=== PATIENT | female | born 1950 | race Caucasian/White ===

== ENCOUNTER 2016-09-18 14:08 | Inpatient (IN) | payer OTHER ==
[2016-09-18] MEDS ORDERED: ONDANSETRON 4 MG/2 ML VIAL IVPUSH ONE (18:13)
[2016-09-18] MEDS ORDERED: SODIUM CHLORIDE 0.9% 1000 ML INFUS.BAG IV ONE (18:17)
--- NOTE | 2016-09-18 18:17 | PDOC ---
History of Present Illness - History of Present Illness Initial Comments: 09/18/16 18:14 65 yo F with h/o HTN, here wtih c/o sob, nausea, . nausea started 4 days ago, sob since yesterday cough dry nonproductive. pt unable to eat due to nausea and bloating. no weight loss. has had us gb and ct in last six months, normal per pt. no f/c no chest pain. no h/o dvt or pe. no mod factors. takes exforge 340 daily for htn. <Sulma Parkinson - Last Filed: 09/18/16 18:12> <Morelia Borrego - Last Filed: 09/19/16 19:32> - General Chief Complaint: Shortness of Breath Stated Complaint: Shortness of Breath Past History - Past Medical History Anemia: No Cardiac Disorders: Yes (ATRIAL FIBRILLATION) GI Disorders: Yes (ADENOMA SIGMOID COLON) HTN: Yes Hypercholesterolemia: Yes Other medical history: ble edema - Surgical History Orthopedic Surgery: Yes (RIGHT KNEE REPLACEMENT,l;eft kneeT ROTATOR CUFF REPAIR) - Psycho/Social/Smoking Cessation Hx Anxiety: No Suicidal Ideation: No Smoking History: Never smoked Have you smoked in the past 12 months: No Information on smoking cessation initiated: No Hx Alcohol Use: No Drug/Substance Use Hx: No Substance Use Type: None Hx Substance Use Treatment: No <Sulma Parkinson - Last Filed: 09/18/16 18:12> <Morelia Borrego - Last Filed: 09/19/16 19:32> - Past Medical History Allergies/Adverse Reactions: Allergies Allergy/AdvReac Type Severity Reaction Status Date / Time pregabalin [From Lyrica] Allergy Verified 09/18/16 14:10 Home Medications: Ambulatory Orders Cyclobenzaprine HCl [Flexeril -] 10 mg PO HS PRN 12/04/15 Duloxetine HCl [Cymbalta -] 60 mg PO DAILY 12/04/15 Gabapentin 600 mg PO DAILY 12/04/15 Meclizine HCl 25 mg PO DAILY 01/22/16 Potassium Chloride 20 meq PO DAILY 01/22/16 Valsartan [Diovan] 320 mg PO DAILY 01/22/16 Amlodipine Besylate [Norvasc -] 10 mg PO DAILY #30 tablet 04/10/16 Calcium 500Mg/Vit-D 200 Units [Os-Antonio 500+D -] 1 tab PO BID #60 tab 04/10/16 Docusate Sodium [Colace -] 300 mg PO HS capsule 04/10/16 Metoprolol Tartrate [Lopressor -] 50 mg PO BID #60 tablet 04/10/16 Oxycodone HCl [Roxicodone -] 10 mg PO Q4H PRN #20 tablet MDD 60mg 04/10/16 *Physical Exam - Vital Signs Last Vital Signs Temp Pulse Resp BP Pulse Ox 97.7 F 65 18 153/88 96 09/18/16 14:10 09/18/16 14:10 09/18/16 14:10 09/18/16 14:10 09/18/16 14:10 <Sulma Parkinson - Last Filed: 09/18/16 18:12> - Vital Signs Last Vital Signs Temp Pulse Resp BP Pulse Ox 97.7 F 65 18 153/88 96 09/18/16 14:10 09/18/16 14:10 09/18/16 14:10 09/18/16 14:10 09/18/16 14:10 <Morelia Borrego - Last Filed: 09/19/16 19:32> ED Treatment Course - LABORATORY CBC & Chemistry Diagram: 09/18/16 19:05 09/19/16 16:40 - ADDITIONAL ORDERS Additional order review: 09/18/16 19:05 RBC 4.12 MCV 103.8 H MCHC 33.0 RDW 16.1 H MPV 8.4 Neutrophils % 74.3 D Lymphocytes % 16.3 D Monocytes % 8.4 Eosinophils % 0.1 D Basophils % 0.9 - Medications Given in the ED: ED Medications Discontinued Medications Generic Name Dose Route Start Last Admin Trade Name Freq PRN Reason Stop Dose Admin Ondansetron HCl 4 mg 09/18/16 18:13 09/18/16 19:17 Zofran Injection IVPUSH 09/18/16 18:14 4 mg ONCE ONE Administration Sodium Chloride 1,000 ml 09/18/16 18:17 09/18/16 19:17 Normal Saline - IV 09/18/16 18:18 1,000 ml ONCE ONE Administration <Morelia Borrego - Last Filed: 09/19/16 19:32> Medical Decision Making - Medical Decision Making 09/18/16 21:28 I received signout on a patient with SOB and multiple complaints. Imaging studies are still pending. Pt has rapid afib on EKG. 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 US not read officially, but reveals no gallstones. Pt has one positive troponin, but no CK or CKMB. I will send a second cardiac enzyme profile. Pt's CXR was not done. I will send her for that now. <Morelia Borrego - Last Filed: 09/19/16 19:32> *DC/Admit/Observation/Transfer <Sulma Parkinson - Last Filed: 09/18/16 18:12> - Discharge Dispostion Admit: Yes <Morelia Borrego - Last Filed: 09/19/16 19:32> Diagnosis at time of Disposition: Atrial fibrillation, Rapid atrial fibrillation, Dyspnea, HTN (hypertension) - Referrals
[2016-09-18] MEDS ORDERED: ONDANSETRON 4 MG/2 ML VIAL ONE (18:51)
[2016-09-18 19:16] LABS: BASOPHIL 0.9 % (0-2.0); EOSINOPHIL 0.1 % (0-4.5); MCH 34.3 pg (25.7-33.7); MEAN CELL VOLUME 103.8 fl (80-96); MEAN PLT VOLUME 8.4 fl (7.5-11.1); NEUTROPHILS 74.3 % (42.8-82.8); PLATELET COUNT 378 K/MM3 (134-434); RDW 16.1 % (11.6-15.6); WHITE BLOOD COUNT 10.9 K/mm3 (4.0-10.0)
[2016-09-18 19:53] LABS: ALBUMIN 4.1 g/dl (3.4-5.0); CALCIUM 9.5 mg/dL (8.5-10.1)
[2016-09-18] MEDS ORDERED: dilTIAZem HCL 50 MG/10 ML - 10 ML VIAL IVPUSH ONE ×2 (19:53→22:44)
[2016-09-18 19:57] LABS: BILIRUBIN,TOTAL 0.9 mg/dL (0.2-1.0); COCKROFT - GAULT 83.9715; CREATININE 1.1 mg/dL (0.55-1.02); TOT PROT 7.2 g/dl (6.4-8.2)
[2016-09-18] MEDS ORDERED: dilTIAZem HCL 125 MG/25 ML - 25 ML VIAL ONE ×5 (20:03)
[2016-09-18] MEDS ORDERED: dilTIAZem HCL 60 MG TABLET (FP) PO ONE (21:31)
[2016-09-18 22:33] LABS: TROPONIN I 0.09 ng/ml (0.00-0.05)
[2016-09-18] MEDS ORDERED: dilTIAZem HCL 50 MG/10 ML - 10 ML VIAL ONE (22:54)
[2016-09-18] MEDS ORDERED: dilTIAZem HCL 30 MG TABLET (FP) ONE (23:01)
[2016-09-19] MEDS ORDERED: DILTIAZEM INJECTION 125 MG in DEXTROSE 5%-WATER - 100 ML IVPB SCH (01:30)
[2016-09-19] MEDS ORDERED: dilTIAZem HCL 50 MG/10 ML - 10 ML VIAL ONE (01:54)
[2016-09-19] MEDS ORDERED: ONDANSETRON 4 MG/2 ML VIAL ONE (02:14)
[2016-09-19] MEDS ORDERED: ONDANSETRON 4 MG/2 ML VIAL IVPB ONE (02:15)
[2016-09-19 03:15] LABS: URINE APPEARANCE CLEAR; URINE BILIRUBIN NEGATIVE (NEGATIVE); URINE BLOOD NEGATIVE (NEGATIVE); URINE COLOR DKYELLOW; URINE GLUCOSE (UA) NEGATIVE (NEGATIVE); URINE KETONE TRACE (NEGATIVE); URINE LEUK ESTERASE NEGATIVE (NEGATIVE); URINE NITRITE NEGATIVE (NEGATIVE); URINE UROBILINOGEN NEGATIVE E.U./dl (0.2-1.0)
[2016-09-19 03:18] LABS: URINE PROTEIN 2+ (NEGATIVE)
[2016-09-19 03:19] LABS: URINE HYALINE CAST 10 /lpf; URINE MUCUS RARE; URINE RBC 1 /hpf (0-3); URINE WBC 2 /hpf (3-5)
[2016-09-19] MEDS ORDERED: APIXABAN 5 MG TABLET PO SCH (04:00)
--- NOTE | 2016-09-19 05:26 | CONSULT ---
Consult Consult Specialty:: PULM/CCM - History of Present Illness Chief Complaint: SOB History of Present Illness: 65yow with PMHx of HTN, chronic low back pain with acute onset A-fib that was reportedly corrected 01/09 by cardioversion. 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 She presented to the ED with c/o SOB. In the ED HD stable, found to be in A-fib with RVR to 130's refractory to Cardizem IV 30mg and PO 90mg. CXR clear. Abd US showed no gallbladder disease. 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 She was started on a cardiazem drip and Eliquis and transferred to ICU for management. - Past Medical History Cardio/Vascular: Yes: HTN - Past Surgical History Past Surgical History: Yes: Joint Replacement - Alcohol/Substance Use Hx Alcohol Use: No History of Substance Use: reports: None - Smoking History Smoking history: Never smoked Have you smoked in the past 12 months: No - Social History ADL: Independent History of Recent Travel: No Home Medications - Allergies Allergies/Adverse Reactions: Allergies Allergy/AdvReac Type Severity Reaction Status Date / Time pregabalin [From Lyrica] Allergy Verified 09/18/16 14:10 - Home Medications Home Medications: Ambulatory Orders Cyclobenzaprine HCl [Flexeril -] 10 mg PO HS PRN 12/04/15 Duloxetine HCl [Cymbalta -] 60 mg PO DAILY 12/04/15 Gabapentin 600 mg PO DAILY 12/04/15 Meclizine HCl 25 mg PO DAILY 01/22/16 Potassium Chloride 20 meq PO DAILY 01/22/16 Valsartan [Diovan] 320 mg PO DAILY 01/22/16 Amlodipine Besylate [Norvasc -] 10 mg PO DAILY #30 tablet 04/10/16 Calcium 500Mg/Vit-D 200 Units [Os-Antonio 500+D -] 1 tab PO BID #60 tab 04/10/16 Docusate Sodium [Colace -] 300 mg PO HS capsule 04/10/16 Metoprolol Tartrate [Lopressor -] 50 mg PO BID #60 tablet 04/10/16 Oxycodone HCl [Roxicodone -] 10 mg PO Q4H PRN #20 tablet MDD 60mg 04/10/16 Family Disease History - Family Disease History Family History: Unremarkable Review of Systems - Review of Systems Constitutional: reports: Loss of Appetite, Weakness Eyes: reports: No Symptoms HENT: reports: No Symptoms Neck: reports: No Symptoms Cardiovascular: reports: Shortness of Breath Respiratory: reports: SOB Gastrointestinal: reports: Nausea, Vomiting Neurological: reports: No Symptoms Endocrine: reports: No Symptoms Psychiatric: reports: No Symptoms Physical Exam Vital Signs: Vital Signs Temperature 97.7 F 09/18/16 14:10 Pulse Rate 134 H 09/19/16 02:00 Respiratory Rate 21 09/19/16 01:39 Blood Pressure 143/96 09/19/16 02:00 O2 Sat by Pulse Oximetry (%) 95 09/19/16 01:39 Eyes: Yes: WNL, Conjunctiva Clear HENT: Yes: WNL, Normocephalic Neck: Yes: Trachea Midline Cardiovascular: Yes: Pulse Irregular, S1, S2 Respiratory: Yes: Regular, Diminished, On Nasal O2 Gastrointestinal: Yes: Soft, Abdomen, Obese, Other (Non-tender) Edema: Yes Edema: LUE: Trace, RUE: Trace, LLE: Trace, RLE: Trace Peripheral Pulses WNL: Yes Neurological: Yes: Alert, Oriented (oriented x3) ...Motor Strength: WNL Psychiatric: Yes: Alert, Oriented Imaging - Results Chest X-ray: Report Reviewed Ultrasound: Report Reviewed (Abd US unremarkable) Problem List - Problems (1) Atrial fibrillation Code(s): I48.91 - UNSPECIFIED ATRIAL FIBRILLATION (2) HTN (hypertension) Code(s): I10 - ESSENTIAL (PRIMARY) HYPERTENSION (3) Rapid atrial fibrillation Code(s): I48.91 - UNSPECIFIED ATRIAL FIBRILLATION (4) Dehydration Code(s): E86.0 - DEHYDRATION Assessment/Plan 65yow with PMHx of HTN, chronic low back pain with acute onset A-fib that was reportedly corrected 01/09 by cardioversion now with recurrence of paroxysmal A- fib with RVR to 130's c/b pulmonary edema Pulm: Respiratory deficiency in setting of A-fib; -NCO2 for O2 sat>95% -Diuresis wiht Lasix -Aspiration precautions CV-A-fib with RVR; Hx cardioversion in 2016; currently more hypertensive -Cards consult -Tele monitoring -Cont cardizem drip -Cont Eliquis -Hold home antihypertensives for now GI: Previous N/V -Zofran prn Neuro-Chronic back pain -Cont home pain regimen
[2016-09-19] MEDS ORDERED: FUROSEMIDE 40 MG/4 ML INJECTABLE VIAL IVPB ONE (05:30)
[2016-09-19 05:43] VITALS: BMI 38.7
[2016-09-19] MEDS ORDERED: FUROSEMIDE 40 MG/4 ML INJECTABLE VIAL ONE (06:01)
[2016-09-19] MEDS ORDERED: ONDANSETRON 4 MG/2 ML VIAL IVPUSH PRN (09:40)
[2016-09-19] MEDS ORDERED: METOPROLOL SUCCINATE 50 MG TAB.SR.24H (FP) PO SCH (10:00)
[2016-09-19] MEDS: POTASSIUM CHLORIDE TABS 20 MEQ TABLET.ER (FP) PO SCH (11:20)
[2016-09-19] MEDS: APIXABAN 5 MG TABLET PO SCH ×2 (11:22→21:18)
[2016-09-19] MEDS ORDERED: FUROSEMIDE 40 MG/4 ML INJECTABLE VIAL IVPUSH ONE (11:30)
--- NOTE | 2016-09-19 11:50 | HP ---
DATE OF ADMISSION: DATE OF DICTATION: 09/19/2016 HISTORY OF PRESENT ILLNESS: She is a 65-year-old female who presented to the emergency room with atrial fibrillation. She was in her usual state of health up until a year and a half ago when patient had 1 episode of atrial fibrillation. At that time, she was admitted and started on Eliquis. Subsequently developed a lower GI bleed that required no transfusion. Patient had 2 colonoscopies and endoscopies to evaluate this GI bleed and no obvious source was found except a polyp that was removed. Patient subsequently had a cardioversion and the Eliquis was discontinued and since then she had been asymptomatic up until 3 days ago when patient started feeling weak for the last 2 days and yesterday she started experiencing shortness of breath. With these symptoms, she brought herself to the emergency room where atrial fibrillation at a rate of 140 was diagnosed and patient had been admitted to the intensive care unit. PAST MEDICAL HISTORY: Significant for hypertension, a history of 1 episode of atrial fibrillation, low back pain with spinal fracture from trauma for which she had surgery done and chronic low back pain. PRESENT MEDICATIONS: Include Dilantin 20 mg p.o. daily, potassium 20 mEq p.o. daily, Roxicodone 10 mg q.4 hours p.r.n., metoprolol 50 mg twice a day, meclizine 25 mg daily, Neurontin 600 mg daily, Cymbalta 60 mg daily, Colace 300 mg daily, Flexeril 10 mg on a p.r.n. basis twice a day, calcium with vitamin D, and Norvasc 10 mg p.o. daily. ALLERGIES: LYRICA. SOCIAL HISTORY: She is . She has 3 children. 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 She is a nonsmoker. She drinks occasionally. FAMILY HISTORY: Significant for a brother, a son had of a brain tumor. There is no family history of diabetes. Her father had coronary artery disease at the age of 52. REVIEW OF SYSTEMS: Unremarkable. Patient had generally been in good health. She denies any chronic headache, dizziness, chest pain, palpitations, abdominal pain, loss of weight, loss of appetite. PHYSICAL EXAMINATION:Vital Signs: She has a blood pressure of 150/108, pulse rate of 128, respiratory rate of 22, and temperature 98.2. General: She is not pale, not icteric. Neck: JVD is absent. Thyroid and carotids appear normal. Heart: Regular rhythm. No murmurs. Lungs: Vesicular breathing. There are a few lower lobe rales present. Abdomen: Benign. Extremities: Have bilateral trace edema. LABORATORY DATA: She has a white count of 10,900 with MCV of normal distribution of cells. The MCV is elevated at 103. Basic metabolic profile is normal. Urinalysis is normal. A chest x-ray has cardiomegaly and mild congestion. ASSESSMENT AND PLAN: 1. Atrial fibrillation. Would resume Eliquis. Discontinue her and put her on Cardizem 120 mg 3 times a day, metoprolol 50 mg twice a day. 2. Mild congestive heart failure, most likely rate associated from atrial fibrillation, intravenous Lasix, and potassium. Would continue present medications and fine tune blood pressure later. 3. Obesity. 4. Chronic lower back pain. Continue present medications. Felicitas [id number]
--- NOTE | 2016-09-19 12:11 | CON.CARD ---
Cardiology Consult (text) - Consultation Consultation Note: CC: sob 65 yo with h/o afib, HTN, HLD, venous insufficiency, obesity, chronic nausea, gastritis with gastric erosions/prior bloody stool followed by Dr. Keller, fibromyalgia, h/o vertebroplasty and epidural injections who presents with acute onset sob. acute onset of sob this morning, as well as palps and diaphoresis. No recent f/ c/s, cough, congestion. states she was changed from diltiazem to metoprolol in March. Only takes it intermittently, but this month has had more frequent sensation of rapid heart rate and has been taking metoprolol more frequently. Has been off eliquis since back injury in March. States it was because she was told to hold it after back surgery and subsequently felt she shouldn't resume it b/c of her monthly epidural injections. chronic back pain. recent increase in pain, but states well controlled. chronic nausea. Recently has had poor po intake. Minimal intake over the past 2 weeks due to abdominal bloating and poor appetite. Last week took prn lasix 40 mg for LE edema, now improved. In ER received 30 mg IV dilt, started on IVF. 90 mg PO dilt. This morning received 100 mg IV lasix total. this morning transitioned to PO meds. Received toprol xl 50 mg and diltiazem 120 mg thus far. pmhx/pshx: per hpi social hx: fam hx: father fatal [place] 52; mother AAA repair 72; ros: per hpi, no h/a, rashes, visual disturbances, bleeding or transient neurologic symptoms. Ambulatory Orders Cyclobenzaprine HCl [Flexeril -] 10 mg PO HS PRN 12/04/15 Duloxetine HCl [Cymbalta -] 60 mg PO DAILY 12/04/15 Gabapentin 600 mg PO DAILY 12/04/15 Meclizine HCl 25 mg PO DAILY 01/22/16 Potassium Chloride 20 meq PO DAILY 01/22/16 Valsartan [Diovan] 320 mg PO DAILY 01/22/16 Amlodipine Besylate [Norvasc -] 10 mg PO DAILY #30 tablet 04/10/16 Calcium 500Mg/Vit-D 200 Units [Os-Antonio 500+D -] 1 tab PO BID #60 tab 04/10/16 Docusate Sodium [Colace -] 300 mg PO HS capsule 04/10/16 Metoprolol Tartrate [Lopressor -] 50 mg PO BID #60 tablet 04/10/16 Oxycodone HCl [Roxicodone -] 10 mg PO Q4H PRN #20 tablet MDD 60mg 04/10/16 Current Medications Apixaban (Eliquis -) 5 mg PO BID [facility] Last Admin: 09/19/16 11:22 Dose: Not Given Chlorhexidine Gluconate (Hibiclens For Decolonization -) 1 applic TP HS [facility] Diltiazem HCl (Cardizem -) 120 mg PO TID [facility] Metoprolol Succinate (Toprol Xl -) 50 mg PO BID [facility] Last Admin: 09/19/16 11:20 Dose: 50 mg Mupirocin (Bactroban Ointment (For Decolonization) -) 1 applic NS BID [facility] Stop: 09/24/16 21:59 Ondansetron HCl (Zofran Injection) 4 mg IVPUSH Q4H PRN PRN Reason: NAUSEA AND/OR VOMITING Stop: 09/19/16 21:41 Last Admin: 09/19/16 11:21 Dose: 4 mg Potassium Chloride (K-Dur -) 20 meq PO DAILY [facility] Last Admin: 09/19/16 11:20 Dose: 20 meq Vital Signs - 24 hr 09/18/16 09/18/16 09/18/16 14:10 20:00 20:15 Temperature 97.7 F Pulse Rate 65 Pulse Rate [ 170 H 133 H Left Radial] Respiratory 18 Rate Blood Pressure 153/88 Blood Pressure 144/112 [Right Arm] O2 Sat by Pulse 96 100 Oximetry (%) 09/19/16 09/19/16 09/19/16 01:39 02:00 04:45 Temperature Pulse Rate 134 H 128 H Pulse Rate [ 130 H Left Radial] Respiratory 21 Rate Blood Pressure 143/96 156/102 Blood Pressure 143/96 [Right Arm] O2 Sat by Pulse 95 Oximetry (%) 09/19/16 05:18 Temperature 98.2 F Pulse Rate 128 H Pulse Rate [ Left Radial] Respiratory 22 Rate Blood Pressure 152/108 Blood Pressure [Right Arm] O2 Sat by Pulse 97 Oximetry (%) Intake & Output 09/17/16 09/18/16 09/19/16 09/20/16 07:59 07:59 07:59 07:59 Intake Total 320 Balance 320 Weight 247 lb 3.2 oz NAD, calm JVD mild elevation, neck supple bibasilar rales, exp wheeze irregular rate and rhythm nl s1, s 2 no mrg + bs soft nt nd obese ext without e/c/c + dp/pt aaox3 no jaundice, + diaphoresis CBC, BMP 09/18/16 19:05 09/18/16 19:05 Laboratory Tests 09/18/16 09/18/16 09/18/16 19:05 19:05 21:40 Magnesium Total Bilirubin 0.9 D AST 54 H D ALT 35 Alkaline Phosphatase 80 Creatine Kinase 59 Troponin I 0.09 H 0.09 H TSH 09/19/16 13:45 Magnesium 1.6 L Total Bilirubin AST ALT Alkaline Phosphatase Creatine Kinase Troponin I TSH 4.17 H D EKG: poor baseline. afib with RVR, 173 bpm. non-specific t wave ab/poor baseline. tele: rate controlled afib 100's. + pvc's, nsvt. episode of slow VT vs. aberrant conduction. CXR 09/18: left retrocardiac opacity (atelectasis vs. pna) JUST[facility] 2015: nl lv/rv no intracardiac thrombus. + PFO with L--> R shunt on bubble study. mod TR. Echo 01/08: nl LV/EF; dd1; mild JOSIE of unclear significance; nl RV; mild LAE; valves WNL; IASA (no PFO) MIBI 12/08: 4:00min; no STs; ? small anteroapical isch vs large breast shadows; nl EF; no TID 65 yo with h/o afib, HTN, HLD, venous insufficiency, obesity, chronic nausea, gastritis with gastric erosions/prior bloody stool followed by Dr. Keller, fibromyalgia, h/o vertebroplasty and epidural injections who presents with acute onset sob. sob - no clinical signs of infection other than mild elevation in WBC, cxr with possible retrocardiac infiltrate. - No obvious pulmonary edema on cxr, still with abnormal pulmonary exam after lasix x 2. - patient with h/o renal failure on just hctz as diuretic. reevaluate creatinine and volume status in am before further diuresis. - Will repeat CXR. Echo ordered. - repeat cardiac enzymes, no ischemic changes on ekg, but poor baseline. atrial fibrillation - deferred CV in past b/c of episode of GIB --> eliquis resumed, but held again in march after back surgery and subsequent frequent epidural injections. Resumed eliquis here. - s/p initial rate control with IV dilt and drip no transitioned to po - was only taking metoprolol prn at home. Resumed here. Would hold po diltiazem in case she has superimposed tachymyopathy and uptitrate metoprolol dose. - patient with ectopy and ?slow VT vs. aberrancy on tele. Repeat echo to look for underlying structural disease. abd sx's from right sided congestion?. - mg, k repletion. - pain control, mgm't of thyroid abnormalities per pmd. HTN - resume prior valsartan and amlodipine. per patient on 5 mg/ 160 mg. Con't metoprolol. - pain control. venous insufficiency - currently stable.
[2016-09-19] MEDS ORDERED: CYCLOBENZAPRINE HCL 10 MG TABLET (FP) PO PRN (13:15)
[2016-09-19] MEDS ORDERED: oxyCODONE HCL 5 MG TABLET PO PRN (13:15)
[2016-09-19] MEDS: GABAPENTIN 300 MG CAPSULE (FP) PO SCH (13:56)
[2016-09-19] MEDS: DULoxetine HCL 30 MG CAPSULE.DR (FP) PO SCH (13:58)
[2016-09-19] MEDS ORDERED: dilTIAZem HCL 60 MG TABLET (FP) PO SCH (14:00)
[2016-09-19 14:13] LABS: CALCIUM 9.2 mg/dL (8.5-10.1); MAGNESIUM 1.6 mg/dL (1.8-2.4)
[2016-09-19 14:20] LABS: THYROID STIMULATING HORMONE 4.17 uIU/ml (0.358-3.74)
--- NOTE | 2016-09-19 15:42 | EKG ---
Test Reason : Blood Pressure : / mmHG Vent. Rate : 173 BPM Atrial Rate : 197 BPM P-R Int : 000 ms QRS Dur : 074 ms QT Int : 256 ms P-R-T Axes : 000 013 146 degrees QTc Int : 434 ms POOR DATA QUALITY, INTERPRETATION MAY BE ADVERSELY AFFECTED ATRIAL FIBRILLATION WITH RAPID VENTRICULAR RESPONSE NONSPECIFIC ST AND T WAVE ABNORMALITY ABNORMAL ECG WHEN COMPARED WITH ECG OF 24-JAN-2016 12:49, ATRIAL FIBRILLATION HAS REPLACED SINUS RHYTHM VENT. RATE HAS INCREASED BY 78 BPM Confirmed by RAY ROMERO MD ([id number]) on 09/19/2016 3:41:47 PM Referred By: Confirmed By:RAY ROMERO MD
[2016-09-19] MEDS ORDERED: MAGNESIUM SULF 50% (8.12 MEQ/2 ML-1 GM VIAL) IVPB ONE (15:51)
[2016-09-19 17:29] LABS: CALCIUM 9.5 mg/dL (8.5-10.1); COCKROFT - GAULT 76.364; CREATININE 1.3 mg/dL (0.55-1.02)
[2016-09-19 17:31] LABS: TROPONIN I 0.08 ng/ml (0.00-0.05)
[2016-09-19] MEDS: CALCIUM 500MG/VIT-D 200 UNITS COMBO TABLET (FP) PO SCH (21:17)
[2016-09-19] MEDS: MUPIROCIN 2% TOPICAL OINTMENT FOR DECOLONIZATION NS SCH (21:17)
[2016-09-19] MEDS: METOPROLOL SUCCINATE 100 MG TAB.SR.24H (FP) PO SCH (21:17)
[2016-09-19] MEDS ORDERED: DOCUSATE SODIUM 100 MG CAPSULE (FP) PO SCH (22:00)
[2016-09-19] MEDS ORDERED: CHLORHEXIDINE GLUCONATE 4% CLEANSER FOR DECOLONIZATION TP SCH (22:00)
[2016-09-20 06:43] LABS: ALBUMIN 3.5 g/dl (3.4-5.0); CALCIUM 9.4 mg/dL (8.5-10.1); COCKROFT - GAULT 62.05; CREATININE 1.6 mg/dL (0.55-1.02); MAGNESIUM 2.2 mg/dL (1.8-2.4)
[2016-09-20 06:59] LABS: BILIRUBIN,TOTAL 1.1 mg/dL (0.2-1.0); TOT PROT 6.3 g/dl (6.4-8.2)
[2016-09-20] MEDS: MUPIROCIN 2% TOPICAL OINTMENT FOR DECOLONIZATION NS SCH (09:27)
[2016-09-20] MEDS: POTASSIUM CHLORIDE TABS 20 MEQ TABLET.ER (FP) PO SCH (09:28)
[2016-09-20] MEDS: DULoxetine HCL 30 MG CAPSULE.DR (FP) PO SCH (09:28)
[2016-09-20] MEDS: APIXABAN 5 MG TABLET PO SCH ×2 (09:28→21:54)
[2016-09-20] MEDS: CALCIUM 500MG/VIT-D 200 UNITS COMBO TABLET (FP) PO SCH ×2 (09:29→21:54)
[2016-09-20] MEDS: GABAPENTIN 300 MG CAPSULE (FP) PO SCH (09:29)
[2016-09-20] MEDS: METOPROLOL SUCCINATE 100 MG TAB.SR.24H (FP) PO SCH ×2 (09:29→21:54)
--- NOTE | 2016-09-20 09:42 | PN ---
Progress Note (short form) - Note Progress Note: Patient seen and examined in the ICU. Awake and alert. Currently off IV cardizem. Some dry cough. Remains afebrile. Cough is dry. CXR: Left effusion and slight fluid in the fissure on the right. Intake & Output 09/17/16 09/18/16 09/19/16 09/20/16 23:59 23:59 23:59 23:59 Intake Total 2080 300 Output Total 1000 500 Balance 1080 -200 Weight 230 lb 247 lb 3.2 oz Last Vital Signs Temp Pulse Resp BP Pulse Ox 97.9 F 87 20 155/100 93 L 09/20/16 01:00 09/20/16 05:00 09/20/16 05:00 09/20/16 05:00 09/20/16 04:00 Active Medications Amlodipine Besylate (Norvasc -) 5 mg PO DAILY [facility] Last Admin: 09/20/16 09:34 Dose: 5 mg Apixaban (Eliquis -) 5 mg PO BID [facility] Last Admin: 09/20/16 09:28 Dose: 5 mg Calcium Carbonate/Cholecalciferol (Os-Antonio 500+D -) 1 tab PO BID [facility] Last Admin: 09/20/16 09:29 Dose: 1 tab Chlorhexidine Gluconate (Hibiclens For Decolonization -) 1 applic TP HS [facility] Last Admin: 09/19/16 21:18 Dose: 1 applic Cyclobenzaprine HCl (Flexeril -) 10 mg PO HS PRN PRN Reason: MUSCLE SPASMS Docusate Sodium (Colace -) 300 mg PO HS [facility] Last Admin: 09/19/16 21:17 Dose: 300 mg Duloxetine HCl (Cymbalta -) 60 mg PO DAILY [facility] Last Admin: 09/20/16 09:28 Dose: 60 mg Gabapentin (Neurontin -) 600 mg PO DAILY [facility] Last Admin: 09/20/16 09:29 Dose: 600 mg Metoprolol Succinate (Toprol Xl -) 100 mg PO BID [facility] Last Admin: 09/20/16 09:29 Dose: 100 mg Mupirocin (Bactroban Ointment (For Decolonization) -) 1 applic NS BID [facility] Stop: 09/24/16 21:59 Last Admin: 09/20/16 09:27 Dose: 1 applic Oxycodone HCl (Roxicodone -) 10 mg PO Q4H PRN PRN Reason: PAIN Potassium Chloride (K-Dur -) 20 meq PO DAILY [facility] Last Admin: 09/20/16 09:28 Dose: 20 meq Valsartan (Diovan -) 160 mg PO DAILY [facility] Last Admin: 09/20/16 09:34 Dose: 160 mg Eyes: Yes: WNL, Conjunctiva Clear HENT: Yes: WNL, Normocephalic Neck: Yes: Trachea Midline Cardiovascular: Yes: Pulse Irregular, S1, S2 Respiratory: Yes: basilar rhonchi Left > right, Nasal O2 Gastrointestinal: Yes: Soft, Abdomen, Obese, Other (Non-tender) Edema: Yes Edema: LUE: Trace, RUE: Trace, LLE: Trace, RLE: Trace Peripheral Pulses WNL: Yes Neurological: Yes: Alert, Oriented (oriented x3) ...Motor Strength: WNL Psychiatric: Yes: Alert, Oriented Laboratory Results - last 24 hr 09/19/16 09/19/16 09/20/16 13:45 16:40 05:20 Sodium 138 140 Potassium 3.9 3.9 Chloride 96 L 95 L Carbon Dioxide 30 D 32 Anion Gap 12 13 BUN 21 H 20 H Creatinine 1.3 H 1.6 H D Creat Clearance w eGFR 32.35 Random Glucose 120 H D 92 D Calcium 9.2 9.5 9.4 Magnesium 1.6 L 2.2 D Total Bilirubin 1.1 H D AST 58 H ALT 43 D Alkaline Phosphatase 69 Creatine Kinase 69 Troponin I 0.08 H Total Protein 6.3 L Albumin 3.5 TSH 4.17 H D Problem List - Problems (1) Atrial fibrillation Code(s): I48.91 - UNSPECIFIED ATRIAL FIBRILLATION (2) HTN (hypertension) Code(s): I10 - ESSENTIAL (PRIMARY) HYPERTENSION (3) Rapid atrial fibrillation Code(s): I48.91 - UNSPECIFIED ATRIAL FIBRILLATION Assessment/Plan Left pleural effusion Chronic low back pain Possible Sleep Apnea Do not suspect PNA -> patient with likely resolving viral illness O2 as needed Lasix PO Will need formal sleep workup after discharge Rate control per Cardiology Would continue to monitor off ABX for now Eliquis Titrate BP meds Telemetry monitoring Dr Sahu critical care time spent in reviewing chart, evaluating patient and formulating plan 40 min
[2016-09-20] MEDS ORDERED: VALSARTAN 160 MG TABLET (UD) PO SCH (10:00)
[2016-09-20] MEDS ORDERED: amLODIPine BESYLATE 5 MG TABLET (FP) PO SCH (10:00)
--- NOTE | 2016-09-20 12:29 | PN ---
Progress Note (short form) - Note Progress Note: Feels a lot better No dizziness or SOB O/E Vital Signs Period Temp Pulse Resp BP Sys/Pierce Pulse Ox Last 24 Hr 97.9 F-98.4 F 85-115 20-23 124-160/85-104 93-97 Heart irregular Lungs clear Abd soft Ext no edema Current Medications Amlodipine Besylate (Norvasc -) 5 mg PO DAILY [facility] Last Admin: 09/20/16 09:34 Dose: 5 mg Apixaban (Eliquis -) 5 mg PO BID [facility] Last Admin: 09/20/16 09:28 Dose: 5 mg Calcium Carbonate/Cholecalciferol (Os-Antonio 500+D -) 1 tab PO BID [facility] Last Admin: 09/20/16 09:29 Dose: 1 tab Chlorhexidine Gluconate (Hibiclens For Decolonization -) 1 applic TP HS [facility] Last Admin: 09/19/16 21:18 Dose: 1 applic Cyclobenzaprine HCl (Flexeril -) 10 mg PO HS PRN PRN Reason: MUSCLE SPASMS Docusate Sodium (Colace -) 300 mg PO HS [facility] Last Admin: 09/19/16 21:17 Dose: 300 mg Duloxetine HCl (Cymbalta -) 60 mg PO DAILY [facility] Last Admin: 09/20/16 09:28 Dose: 60 mg Gabapentin (Neurontin -) 600 mg PO DAILY [facility] Last Admin: 09/20/16 09:29 Dose: 600 mg Metoprolol Succinate (Toprol Xl -) 100 mg PO BID [facility] Last Admin: 09/20/16 09:29 Dose: 100 mg Mupirocin (Bactroban Ointment (For Decolonization) -) 1 applic NS BID [facility] Stop: 09/24/16 21:59 Last Admin: 09/20/16 09:27 Dose: 1 applic Oxycodone HCl (Roxicodone -) 10 mg PO Q4H PRN PRN Reason: PAIN Potassium Chloride (K-Dur -) 20 meq PO DAILY [facility] Last Admin: 09/20/16 09:28 Dose: 20 meq Valsartan (Diovan -) 160 mg PO DAILY [facility] Last Admin: 09/20/16 09:34 Dose: 160 mg Laboratory Results - last 24 hr 09/19/16 09/19/16 09/20/16 13:45 16:40 05:20 Sodium 138 140 Potassium 3.9 3.9 Chloride 96 L 95 L Carbon Dioxide 30 D 32 Anion Gap 12 13 BUN 21 H 20 H Creatinine 1.3 H 1.6 H D Creat Clearance w eGFR 32.35 Random Glucose 120 H D 92 D Calcium 9.2 9.5 9.4 Magnesium 1.6 L 2.2 D Total Bilirubin 1.1 H D AST 58 H ALT 43 D Alkaline Phosphatase 69 Creatine Kinase 69 Troponin I 0.08 H Total Protein 6.3 L Albumin 3.5 TSH 4.17 H D Problems (1) Atrial fibrillation Code(s): I48.91 - UNSPECIFIED ATRIAL FIBRILLATION The rate is controlled and stable, Possible discharge tomorrow (2) HTN (hypertension) Code(s): I10 - ESSENTIAL (PRIMARY) HYPERTENSION Improved. 3.Hypomagnesemia Replace 4.Renal insuffiency f/u labs and adjut meds as needed
[2016-09-20] MEDS ORDERED: FUROSEMIDE 40 MG/4 ML INJECTABLE VIAL IVPUSH ONE (12:47)
--- NOTE | 2016-09-20 12:59 | PN ---
Progress Note (short form) - Note Progress Note: CC: sob S: sob slightly improved. no cp, palps, dizziness. Current Medications Amlodipine Besylate (Norvasc -) 5 mg PO DAILY [facility] Last Admin: 09/20/16 09:34 Dose: 5 mg Apixaban (Eliquis -) 5 mg PO BID [facility] Last Admin: 09/20/16 09:28 Dose: 5 mg Calcium Carbonate/Cholecalciferol (Os-Antonio 500+D -) 1 tab PO BID [facility] Last Admin: 09/20/16 09:29 Dose: 1 tab Chlorhexidine Gluconate (Hibiclens For Decolonization -) 1 applic TP HS [facility] Last Admin: 09/19/16 21:18 Dose: 1 applic Cyclobenzaprine HCl (Flexeril -) 10 mg PO HS PRN PRN Reason: MUSCLE SPASMS Docusate Sodium (Colace -) 300 mg PO HS [facility] Last Admin: 09/19/16 21:17 Dose: 300 mg Duloxetine HCl (Cymbalta -) 60 mg PO DAILY [facility] Last Admin: 09/20/16 09:28 Dose: 60 mg Furosemide (Lasix Injection -) 60 mg IVPUSH ONCE ONE Stop: 09/20/16 12:48 Gabapentin (Neurontin -) 600 mg PO DAILY [facility] Last Admin: 09/20/16 09:29 Dose: 600 mg Metoprolol Succinate (Toprol Xl -) 100 mg PO BID [facility] Last Admin: 09/20/16 09:29 Dose: 100 mg Mupirocin (Bactroban Ointment (For Decolonization) -) 1 applic NS BID [facility] Stop: 09/24/16 21:59 Last Admin: 09/20/16 09:27 Dose: 1 applic Oxycodone HCl (Roxicodone -) 10 mg PO Q4H PRN PRN Reason: PAIN Potassium Chloride (K-Dur -) 20 meq PO DAILY [facility] Last Admin: 09/20/16 09:28 Dose: 20 meq Valsartan (Diovan -) 160 mg PO DAILY [facility] Last Admin: 09/20/16 09:34 Dose: 160 mg Vital Signs - 24 hr 09/19/16 09/19/16 09/19/16 12:54 16:11 17:30 Temperature Pulse Rate 107 H 90 Respiratory 22 22 Rate Blood Pressure 158/95 160/97 O2 Sat by Pulse 97 Oximetry (%) 09/19/16 09/19/16 09/19/16 18:00 19:00 20:11 Temperature 98.4 F 98.4 F Pulse Rate 100 H 98 H Respiratory 22 22 Rate Blood Pressure 135/104 138/100 O2 Sat by Pulse 97 Oximetry (%) 09/19/16 09/19/16 09/19/16 20:53 21:00 23:00 Temperature Pulse Rate 115 H 95 H Respiratory 22 22 22 Rate Blood Pressure 135/96 124/93 O2 Sat by Pulse 97 Oximetry (%) 09/20/16 09/20/16 09/20/16 00:00 01:00 03:00 Temperature 97.9 F Pulse Rate 85 87 Respiratory 20 22 Rate Blood Pressure 130/90 134/94 O2 Sat by Pulse 95 Oximetry (%) 09/20/16 09/20/16 09/20/16 04:00 05:00 07:00 Temperature Pulse Rate 87 91 H Respiratory 20 21 Rate Blood Pressure 155/100 140/102 O2 Sat by Pulse 93 L Oximetry (%) 09/20/16 09:00 Temperature Pulse Rate 99 H Respiratory 23 Rate Blood Pressure 145/85 O2 Sat by Pulse 97 Oximetry (%) Intake & Output 09/18/16 09/19/16 09/20/16 09/21/16 07:59 07:59 07:59 07:59 Intake Total 320 2060 Output Total 1500 Balance 320 560 Weight 247 lb 3.2 oz NAD, calm JVD mild elevation ?improved, neck supple trace rales, exp wheeze irregular rate and rhythm nl s1, s 2 no mrg + bs soft nt nd obese ext without e/c/c + dp/pt aaox3 no jaundice, + diaphoresis CBC, BMP 09/18/16 19:05 09/20/16 05:20 Laboratory Tests 09/20/16 05:20 Magnesium 2.2 D Total Bilirubin 1.1 H D AST 58 H ALT 43 D Alkaline Phosphatase 69 Albumin 3.5 EKG: poor baseline. afib with RVR, 173 bpm. non-specific t wave ab/poor baseline. tele: rate controlled afib 90's-100's. CXR 09/18: left retrocardiac opacity (atelectasis vs. pna) CXR 09/19: progressive fluid with atelectaasis or infiltrate at left base. JUSTYN 2015: nl lv/rv no intracardiac thrombus. + PFO with L--> R shunt on bubble study. mod TR. Echo 01/08: nl LV/EF; dd1; mild JOSIE of unclear significance; nl RV; mild LAE; valves WNL; IASA (no PFO) MIBI 12/08: 4:00min; no STs; ? small anteroapical isch vs large breast shadows; nl EF; no TID 65 yo with h/o afib, HTN, HLD, venous insufficiency, obesity, chronic nausea, gastritis with gastric erosions/prior bloody stool followed by Dr. Keller, fibromyalgia, h/o vertebroplasty and epidural injections who presents with acute onset sob. sob/acute diastolic heart failure exacerbation - no clinical signs of infection other than mild elevation in WBC, cxr with possible retrocardiac infiltrate. - No obvious pulmonary edema on cxr 09/18 --> subsequently received 1L IVF, lasix 40m IV x 1 and Lasix 60 IV x 1, --> abnormal pulmonary exam 09/19, repeat cxr with congestive changes - 09/20: worsened pulmonary edema. + creatinine bump after lasix, but not clear that she was net negative. Repeat trial of lasix 60 mg IV x 1 today and reassess bmp in pm. - Echo ordered. - cardiac enzymes neg. no ischemic changes on ekg atrial fibrillation - deferred CV in past b/c of episode of GIB --> eliquis resumed, but held again in march after back surgery and subsequent frequent epidural injections. Resumed eliquis here. - s/p initial rate control with IV dilt and drip no transitioned to po - was only taking metoprolol prn at home. Resumed here. Holding po diltiazem in case she has superimposed tachymyopathy and uptitrated metoprolol dose. - patient with ectopy and episode of ?slow VT vs. aberrancy on tele early in admission. Repeat echo to look for underlying structural disease. abd sx's/ LFT elevation from right sided congestion?. - mg, k repletion. - pain control, mgm't of thyroid abnormalities per pmd. HTN - resume prior valsartan and amlodipine. per patient on 5 mg/ 160 mg. Con't metoprolol. - If creatinine continues to worsen, will hold valsartan and uptitrate norvasc. - pain control. venous insufficiency - currently stable.
[2016-09-20] MEDS ORDERED: oxyCODONE HCL 5 MG TABLET PO PRN (13:39)
[2016-09-20] MEDS ORDERED: CYCLOBENZAPRINE HCL 10 MG TABLET (FP) PO PRN (13:39)
[2016-09-20 16:17] LABS: CALCIUM 9.2 mg/dL (8.5-10.1); COCKROFT - GAULT 58.395; CREATININE 1.7 mg/dL (0.55-1.02)
[2016-09-20] MEDS: DOCUSATE SODIUM 100 MG CAPSULE (FP) PO SCH (21:54)
[2016-09-20] MEDS: CHLORHEXIDINE GLUCONATE 4% CLEANSER FOR DECOLONIZATION TP SCH (22:01)
[2016-09-21 08:42] LABS: ALBUMIN 3.7 g/dl (3.4-5.0); BILIRUBIN,TOTAL 0.9 mg/dL (0.2-1.0); CALCIUM 9.7 mg/dL (8.5-10.1); COCKROFT - GAULT 54.6125; CREATININE 1.8 mg/dL (0.55-1.02); MAGNESIUM 2.1 mg/dL (1.8-2.4)
[2016-09-21] MEDS: APIXABAN 5 MG TABLET PO SCH ×2 (09:22→22:48)
[2016-09-21] MEDS: CALCIUM 500MG/VIT-D 200 UNITS COMBO TABLET (FP) PO SCH ×2 (09:22→22:48)
[2016-09-21] MEDS: METOPROLOL SUCCINATE 100 MG TAB.SR.24H (FP) PO SCH ×2 (09:22→22:48)
[2016-09-21] MEDS: DULoxetine HCL 30 MG CAPSULE.DR (FP) PO SCH (09:23)
[2016-09-21] MEDS: GABAPENTIN 300 MG CAPSULE (FP) PO SCH (09:23)
--- NOTE | 2016-09-21 09:48 | PN ---
Progress Note, Physician History of Present Illness: pulmonary alert,oob-chair,+cough,less dyspneic - Current Medication List Current Medications: Active Medications Amlodipine Besylate (Norvasc -) 5 mg PO DAILY [facility] Last Admin: 09/21/16 09:22 Dose: 5 mg Apixaban (Eliquis -) 5 mg PO BID [facility] Last Admin: 09/21/16 09:22 Dose: 5 mg Calcium Carbonate/Cholecalciferol (Os-Antonio 500+D -) 1 tab PO BID [facility] Last Admin: 09/21/16 09:22 Dose: 1 tab Chlorhexidine Gluconate (Hibiclens For Decolonization -) 1 applic TP HS [facility] Last Admin: 09/20/16 22:01 Dose: Not Given Cyclobenzaprine HCl (Flexeril -) 10 mg PO HS PRN PRN Reason: MUSCLE SPASMS Docusate Sodium (Colace -) 300 mg PO HS [facility] Last Admin: 09/20/16 21:54 Dose: Not Given Duloxetine HCl (Cymbalta -) 60 mg PO DAILY [facility] Last Admin: 09/21/16 09:23 Dose: 60 mg Gabapentin (Neurontin -) 600 mg PO DAILY [facility] Last Admin: 09/21/16 09:23 Dose: 600 mg Metoprolol Succinate (Toprol Xl -) 100 mg PO BID [facility] Last Admin: 09/21/16 09:22 Dose: 100 mg Oxycodone HCl (Roxicodone -) 10 mg PO Q4H PRN PRN Reason: PAIN Last Admin: 09/20/16 21:58 Dose: 10 mg Potassium Chloride (K-Dur -) 20 meq PO DAILY [facility] Last Admin: 09/21/16 09:22 Dose: 20 meq Valsartan (Diovan -) 160 mg PO DAILY [facility] Last Admin: 09/21/16 09:22 Dose: 160 mg - Objective Vital Signs: Vital Signs Temperature 97.7 F 09/21/16 06:00 Pulse Rate 83 09/21/16 06:00 Respiratory Rate 20 09/21/16 06:00 Blood Pressure 126/80 09/21/16 06:00 O2 Sat by Pulse Oximetry (%) 95 09/20/16 21:00 Constitutional: Yes: Well Nourished, Calm Eyes: Yes: WNL HENT: Yes: WNL Neck: Yes: WNL Cardiovascular: Yes: Pulse Irregular, S1, S2 Respiratory: Yes: Rales (bibasilar rales) Gastrointestinal: Yes: Normal Bowel Sounds, Soft Extremities: Yes: WNL Edema: Yes Labs: CBC, BMP 09/21/16 06:55 Problem List - Problems (1) Dyspnea Code(s): R06.00 - DYSPNEA, UNSPECIFIED (2) HTN (hypertension) Code(s): I10 - ESSENTIAL (PRIMARY) HYPERTENSION (3) Pleural effusion Code(s): J90 - PLEURAL EFFUSION, NOT ELSEWHERE CLASSIFIED Assessment/Plan Problem List - Problems (1) Atrial fibrillation Code(s): I48.91 - UNSPECIFIED ATRIAL FIBRILLATION (2) HTN (hypertension) Code(s): I10 - ESSENTIAL (PRIMARY) HYPERTENSION (3) Rapid atrial fibrillation Code(s): I48.91 - UNSPECIFIED ATRIAL FIBRILLATION Assessment/Plan Left pleural effusion Chronic low back pain Possible Sleep Apnea Afib O2 as needed formal sleep workup after discharge Rate control per Cardiology Odalys f/u chest x-ray pa and lateral DR CASTAÑEDA
[2016-09-21] MEDS ORDERED: amLODIPine BESYLATE 5 MG TABLET (FP) PO SCH (10:00)
[2016-09-21] MEDS ORDERED: POTASSIUM CHLORIDE TABS 20 MEQ TABLET.ER (FP) PO SCH (10:00)
[2016-09-21] MEDS ORDERED: VALSARTAN 160 MG TABLET (UD) PO SCH (10:00)
--- NOTE | 2016-09-21 15:02 | PN ---
Progress Note (short form) - Note Progress Note: No chest pain, palpitations or SOB Feels bloated O/E Vital Signs Period Temp Pulse Resp BP Sys/Pierce Pulse Ox Last 24 Hr 97.3 F-98.2 F 82-90 20-20 111-151/70-81 95 Current Medications Amlodipine Besylate (Norvasc -) 5 mg PO DAILY [facility] Last Admin: 09/21/16 09:22 Dose: 5 mg Apixaban (Eliquis -) 5 mg PO BID [facility] Last Admin: 09/21/16 09:22 Dose: 5 mg Calcium Carbonate/Cholecalciferol (Os-Antonio 500+D -) 1 tab PO BID [facility] Last Admin: 09/21/16 09:22 Dose: 1 tab Chlorhexidine Gluconate (Hibiclens For Decolonization -) 1 applic TP HS [facility] Last Admin: 09/20/16 22:01 Dose: Not Given Cyclobenzaprine HCl (Flexeril -) 10 mg PO HS PRN PRN Reason: MUSCLE SPASMS Docusate Sodium (Colace -) 300 mg PO HS [facility] Last Admin: 09/20/16 21:54 Dose: Not Given Duloxetine HCl (Cymbalta -) 60 mg PO DAILY [facility] Last Admin: 09/21/16 09:23 Dose: 60 mg Gabapentin (Neurontin -) 600 mg PO DAILY [facility] Last Admin: 09/21/16 09:23 Dose: 600 mg Metoprolol Succinate (Toprol Xl -) 100 mg PO BID [facility] Last Admin: 09/21/16 09:22 Dose: 100 mg Oxycodone HCl (Roxicodone -) 10 mg PO Q4H PRN PRN Reason: PAIN Last Admin: 09/20/16 21:58 Dose: 10 mg Potassium Chloride (K-Dur -) 20 meq PO DAILY [facility] Last Admin: 09/21/16 09:22 Dose: 20 meq Valsartan (Diovan -) 160 mg PO DAILY [facility] Last Admin: 09/21/16 09:22 Dose: 160 mg Vital Signs Temp 97.9 F 09/21/16 14:00 Pulse 90 09/21/16 14:00 Resp 20 09/21/16 14:00 BP 151/81 09/21/16 14:00 Pulse Ox 95 09/20/16 21:00 Intake & Output 09/20/16 09/21/1609/21/17 23:59 11:59 23:59 Intake Total 460 210 Output Total 500 700 Balance -40 -490 Weight 244 lb 12.8 oz Intake: IV 10 10 RT HAND 24G 09/16/2016 10 10 Oral 450 200 Output: Urine 500 700 Void 500 700 Other: Voiding Method Toilet Toilet # Unmeasured Voids Void 1 Bowel Movement No No Weight Measurement Method Standing Scale Laboratory Last Values WBC 10.9 K/mm3 (4.0-10.0) H D 09/18/16 19:05 RBC 4.12 M/mm3 (3.60-5.2) 09/18/16 19:05 Hgb 14.1 GM/dL (10.7-15.3) 09/18/16 19:05 Hct 42.8 % (32.4-45.2) 09/18/16 19:05 MCV 103.8 fl (80-96) H 09/18/16 19:05 MCHC 33.0 g/dl (32.0-36.0) 09/18/16 19:05 RDW 16.1 % (11.6-15.6) H 09/18/16 19:05 Plt Count 378 K/MM3 (134-434) D 09/18/16 19:05 MPV 8.4 fl (7.5-11.1) 09/18/16 19:05 Neutrophils % 74.3 % (42.8-82.8) D 09/18/16 19:05 Lymphocytes % 16.3 % (8-40) D 09/18/16 19:05 Monocytes % 8.4 % (3.8-10.2) 09/18/16 19:05 Eosinophils % 0.1 % (0-4.5) D 09/18/16 19:05 Basophils % 0.9 % (0-2.0) 09/18/16 19:05 Sodium 138 mmol/L (136-145) 09/21/16 06:55 Potassium 4.9 mmol/L (3.5-5.1) D 09/21/16 06:55 Chloride 93 mmol/L (98-107) L 09/21/16 06:55 Carbon Dioxide 32 mmol/L (21-32) 09/21/16 06:55 Anion Gap 13 (8-16) 09/21/16 06:55 BUN 28 mg/dL (7-18) H 09/21/16 06:55 Creatinine 1.8 mg/dL (0.55-1.02) H 09/21/16 06:55 Creat Clearance w eGFR 28.24 (>60) 09/21/16 06:55 Random Glucose 95 mg/dL (74-106) 09/21/16 06:55 Calcium 9.7 mg/dL (8.5-10.1) 09/21/16 06:55 Magnesium 2.1 mg/dL (1.8-2.4) 09/21/16 06:55 Total Bilirubin 0.9 mg/dL (0.2-1.0) 09/21/16 06:55 AST 75 U/L (15-37) H D 09/21/16 06:55 ALT 60 U/L (12-78) D 09/21/16 06:55 Alkaline Phosphatase 78 U/L (45-117) 09/21/16 06:55 Creatine Kinase 69 IU/L (26-192) 09/19/16 16:40 Troponin I 0.08 ng/ml (0.00-0.05) H 09/19/16 16:40 Total Protein 7.0 g/dl (6.4-8.2) 09/21/16 06:55 Albumin 3.7 g/dl (3.4-5.0) 09/21/16 06:55 Lipase 133 U/L (73-393) 09/18/16 19:05 TSH 4.17 uIU/ml (0.358-3.74) H D 09/19/16 13:45 Urine Color Dkyellow 09/19/16 03:00 Urine Appearance Clear 09/19/16 03:00 Urine pH 5.0 (5.0-8.0) 09/19/16 03:00 Urine Protein 2+ (NEGATIVE) H 09/19/16 03:00 Urine Glucose (UA) Negative (NEGATIVE) 09/19/16 03:00 Urine Ketones Trace (NEGATIVE) H 09/19/16 03:00 Urine Blood Negative (NEGATIVE) 09/19/16 03:00 Urine Nitrite Negative (NEGATIVE) 09/19/16 03:00 Urine Bilirubin Negative (NEGATIVE) 09/19/16 03:00 Urine Urobilinogen Negative E.U./dl (0.2-1.0) 09/19/16 03:00 Ur Leukocyte Esterase Negative (NEGATIVE) 09/19/16 03:00 Urine RBC 1 /hpf (0-3) 09/19/16 03:00 Urine WBC 2 /hpf (3-5) 09/19/16 03:00 Ur Epithelial Cells Few /hpf (FEW) 09/19/16 03:00 Hyaline Casts 10 /lpf 09/19/16 03:00 Urine Mucus Rare 09/19/16 03:00 Problems (1) Atrial fibrillation Code(s): I48.91 - UNSPECIFIED ATRIAL FIBRILLATION The rate is controlled and stable, Possible discharge tomorrow (2) HTN (hypertension) Code(s): I10 - ESSENTIAL (PRIMARY) HYPERTENSION Improved. 3.Hypomagnesemia Replaced 4.Renal insuffiency f/u labs and adjut meds as needed 5.Abd fullness Sono normal, no ascites.
--- NOTE | 2016-09-21 15:43 | PN ---
Progress Note (short form) - Note Progress Note: CC: sob S: s/p lasix 60 mg IV x 1 yesterday. no cp, palps, dizziness. Current Medications Amlodipine Besylate (Norvasc -) 5 mg PO DAILY [facility] Last Admin: 09/21/16 09:22 Dose: 5 mg Apixaban (Eliquis -) 5 mg PO BID [facility] Last Admin: 09/21/16 09:22 Dose: 5 mg Calcium Carbonate/Cholecalciferol (Os-Antonio 500+D -) 1 tab PO BID [facility] Last Admin: 09/21/16 09:22 Dose: 1 tab Chlorhexidine Gluconate (Hibiclens For Decolonization -) 1 applic TP HS [facility] Last Admin: 09/20/16 22:01 Dose: Not Given Cyclobenzaprine HCl (Flexeril -) 10 mg PO HS PRN PRN Reason: MUSCLE SPASMS Docusate Sodium (Colace -) 300 mg PO HS [facility] Last Admin: 09/20/16 21:54 Dose: Not Given Duloxetine HCl (Cymbalta -) 60 mg PO DAILY [facility] Last Admin: 09/21/16 09:23 Dose: 60 mg Gabapentin (Neurontin -) 600 mg PO DAILY [facility] Last Admin: 09/21/16 09:23 Dose: 600 mg Metoprolol Succinate (Toprol Xl -) 100 mg PO BID [facility] Last Admin: 09/21/16 09:22 Dose: 100 mg Oxycodone HCl (Roxicodone -) 10 mg PO Q4H PRN PRN Reason: PAIN Last Admin: 09/20/16 21:58 Dose: 10 mg Potassium Chloride (K-Dur -) 20 meq PO DAILY [facility] Last Admin: 09/21/16 09:22 Dose: 20 meq Valsartan (Diovan -) 160 mg PO DAILY [facility] Last Admin: 09/21/16 09:22 Dose: 160 mg Vital Signs - 24 hr 09/20/16 09/20/16 09/20/16 17:00 21:00 22:00 Temperature 97.3 F L 97.9 F 97.9 F Pulse Rate 88 86 86 Respiratory 20 20 20 Rate Blood Pressure 114/76 125/74 125/74 O2 Sat by Pulse 95 Oximetry (%) 09/21/16 09/21/16 09/21/16 02:00 06:00 14:00 Temperature 98.2 F 97.7 F 97.9 F Pulse Rate 82 83 90 Respiratory 20 20 20 Rate Blood Pressure 111/70 126/80 151/81 O2 Sat by Pulse Oximetry (%) Intake & Output 09/19/16 09/20/16 09/21/16 09/22/16 07:59 07:59 07:59 07:59 Intake Total 320 2060 670 Output Total 1500 1200 Balance 320 560 -530 Weight 247 lb 3.2 oz 244 lb 12.8 oz NAD, calm JVD flat, improved, neck supple ctab, diminshed bs. nl effort irregular rate and rhythm nl s1, s 2 no mrg + bs soft nt nd obese ext without e/c/c + dp/pt aaox3 no jaundice, + diaphoresis CBC, BMP 09/18/16 19:05 09/21/16 06:55 EKG: poor baseline. afib with RVR, 173 bpm. non-specific t wave ab/poor baseline. tele: rate controlled afib 70's-90's CXR 09/18: left retrocardiac opacity (atelectasis vs. pna) CXR 09/19: progressive fluid with atelectaasis or infiltrate at left base. JUSTYN 2015: nl lv/rv no intracardiac thrombus. + PFO with L--> R shunt on bubble study. mod TR. Echo 01/08: nl LV/EF; dd1; mild JOSIE of unclear significance; nl RV; mild LAE; valves WNL; IASA (no PFO) MIBI 12/08: 4:00min; no STs; ? small anteroapical isch vs large breast shadows; nl EF; no TID 65 yo with h/o afib, HTN, HLD, venous insufficiency, obesity, chronic nausea, gastritis with gastric erosions/prior bloody stool followed by Dr. Keller, fibromyalgia, h/o vertebroplasty and epidural injections who presents with acute onset sob. sob/acute diastolic heart failure exacerbation - no clinical signs of infection other than mild elevation in WBC, cxr with possible retrocardiac infiltrate. - No obvious pulmonary edema on cxr 09/18 --> subsequently received 1L IVF, lasix 40m IV x 1 and Lasix 60 IV x 1, --> abnormal pulmonary exam 09/19, repeat cxr with congestive changes - 09/20: worsened pulmonary edema. + creatinine bump after lasix, but not clear that she was net negative. Repeat trial of lasix 60 mg IV x 1 today and reassess bmp in pm. - 09/21: Cr worsened, but lft's improved after lasix. exam appears improved, will hold further diuresis. Stop valsartan and kcl as mentioned below. - Echo ordered. - cardiac enzymes neg. no ischemic changes on ekg - work up for other possible etiologies of sob per pmd. atrial fibrillation - deferred CV in past b/c of episode of GIB --> eliquis resumed, but held again in march after back surgery and subsequent frequent epidural injections. Resumed eliquis here. - s/p initial rate control with IV dilt and drip no transitioned to po - was only taking metoprolol prn at home. Resumed here. Holding po diltiazem in case she has superimposed tachymyopathy and uptitrated metoprolol dose. - patient with ectopy and episode of ?slow VT vs. aberrancy on tele early in admission. Repeat echo to look for underlying structural disease. abd sx's/ LFT elevation from right sided congestion?. . - pain control, mgm't of thyroid abnormalities per pmd. HTN - resumed home valsartan and amlodipine. per patient on 5 mg/ 160 mg. Con't home metoprolol (uptitrated dose here). - Creatinine continues to worsen, will hold valsartan and uptitrate norvasc. - pain control. venous insufficiency - currently stable.
[2016-09-21] MEDS: DOCUSATE SODIUM 100 MG CAPSULE (FP) PO SCH (22:48)
[2016-09-21] MEDS: CHLORHEXIDINE GLUCONATE 4% CLEANSER FOR DECOLONIZATION TP SCH (22:52)
[2016-09-22 08:07] LABS: ALBUMIN 3.4 g/dl (3.4-5.0); BILIRUBIN,TOTAL 0.6 mg/dL (0.2-1.0); CALCIUM 9.4 mg/dL (8.5-10.1); COCKROFT - GAULT 61.4465; CREATININE 1.6 mg/dL (0.55-1.02); MAGNESIUM 2.1 mg/dL (1.8-2.4)
--- NOTE | 2016-09-22 10:26 | PN ---
Progress Note, Physician History of Present Illness: PULMONARY comfortable at rest,+ sob with exertion,_+ dry cough,-cp - Current Medication List Current Medications: Active Medications Amlodipine Besylate (Norvasc -) 10 mg PO DAILY [facility] Apixaban (Eliquis -) 5 mg PO BID [facility] Last Admin: 09/21/16 22:48 Dose: 5 mg Calcium Carbonate/Cholecalciferol (Os-Antonio 500+D -) 1 tab PO BID [facility] Last Admin: 09/21/16 22:48 Dose: 1 tab Chlorhexidine Gluconate (Hibiclens For Decolonization -) [address] applic [address] [facility] Last Admin: 09/21/16 22:52 Dose: Not Given Cyclobenzaprine HCl (Flexeril -) 10 mg PO HS PRN PRN Reason: MUSCLE SPASMS Docusate Sodium (Colace -) 300 mg PO HS [facility] Last Admin: 09/21/16 22:48 Dose: Not Given Duloxetine HCl (Cymbalta -) 60 mg PO DAILY [facility] Last Admin: 09/21/16 09:23 Dose: 60 mg Gabapentin (Neurontin -) 600 mg PO DAILY [facility] Last Admin: 09/21/16 09:23 Dose: 600 mg Metoprolol Succinate (Toprol Xl -) 100 mg PO BID [facility] Last Admin: 09/21/16 22:48 Dose: 100 mg Oxycodone HCl (Roxicodone -) 10 mg PO Q4H PRN PRN Reason: PAIN Last Admin: 09/20/16 21:58 Dose: 10 mg - Objective Vital Signs: Vital Signs Temperature 97.7 F 09/22/16 06:00 Pulse Rate 87 09/22/16 06:00 Respiratory Rate 20 09/22/16 06:00 Blood Pressure 117/70 09/22/16 06:00 O2 Sat by Pulse Oximetry (%) 96 09/21/16 21:00 Constitutional: Yes: Well Nourished, Calm Eyes: Yes: WNL HENT: Yes: WNL, Tonsillar Exudate Cardiovascular: Yes: WNL, Pulse Irregular, S1, S2 Respiratory: Yes: CTA Bilaterally Gastrointestinal: Yes: Normal Bowel Sounds, Soft Extremities: Yes: WNL Edema: No Labs: CBC, BMP 09/22/16 05:35 - ....Imaging Chest X-ray: Report Reviewed, Image Reviewed Problem List - Problems (1) Dyspnea Code(s): R06.00 - DYSPNEA, UNSPECIFIED (2) HTN (hypertension) Code(s): I10 - ESSENTIAL (PRIMARY) HYPERTENSION (3) Pleural effusion Code(s): J90 - PLEURAL EFFUSION, NOT ELSEWHERE CLASSIFIED Assessment/Plan Problem List - Problems (1) Atrial fibrillation Code(s): I48.91 - UNSPECIFIED ATRIAL FIBRILLATION (2) HTN (hypertension) Code(s): I10 - ESSENTIAL (PRIMARY) HYPERTENSION (3) Rapid atrial fibrillation Code(s): I48.91 - UNSPECIFIED ATRIAL FIBRILLATION Assessment/Plan Left pleural effusion Chronic low back pain Possible Sleep Apnea Afib O2 as needed formal sleep workup after discharge Rate control per Cardiology Eliquis chest ct no contrast to evaluate LLL process DR CASTAÑEDA
--- NOTE | 2016-09-22 10:47 | PN ---
Progress Note (short form) - Note Progress Note: CC: sob S: + sob persists. new vaginal bleeding . no cp, palps, dizziness, Current Medications Amlodipine Besylate (Norvasc -) 10 mg PO DAILY [facility] Apixaban (Eliquis -) 5 mg PO BID [facility] Last Admin: 09/21/16 22:48 Dose: 5 mg Calcium Carbonate/Cholecalciferol (Os-Antonio 500+D -) 1 tab PO BID [facility] Last Admin: 09/21/16 22:48 Dose: 1 tab Chlorhexidine Gluconate (Hibiclens For Decolonization -) 1 applic TP HS [facility] Last Admin: 09/21/16 22:52 Dose: Not Given Cyclobenzaprine HCl (Flexeril -) 10 mg PO HS PRN PRN Reason: MUSCLE SPASMS Docusate Sodium (Colace -) 300 mg PO HS [facility] Last Admin: 09/21/16 22:48 Dose: Not Given Duloxetine HCl (Cymbalta -) 60 mg PO DAILY [facility] Last Admin: 09/21/16 09:23 Dose: 60 mg Gabapentin (Neurontin -) 600 mg PO DAILY [facility] Last Admin: 09/21/16 09:23 Dose: 600 mg Metoprolol Succinate (Toprol Xl -) 100 mg PO BID [facility] Last Admin: 09/21/16 22:48 Dose: 100 mg Oxycodone HCl (Roxicodone -) 10 mg PO Q4H PRN PRN Reason: PAIN Last Admin: 09/20/16 21:58 Dose: 10 mg Vital Signs - 24 hr 09/21/16 09/21/16 09/21/16 14:00 15:57 18:00 Temperature 97.9 F 98.5 F 98.6 F Pulse Rate 90 63 88 Respiratory 20 18 19 Rate Blood Pressure 151/81 132/63 128/79 O2 Sat by Pulse 96 Oximetry (%) 09/21/16 09/21/16 09/22/16 21:00 22:00 02:00 Temperature 97.4 F L Pulse Rate 92 H 92 H Respiratory 18 20 Rate Blood Pressure 120/78 118/73 O2 Sat by Pulse 96 Oximetry (%) 09/22/16 06:00 Temperature 97.7 F Pulse Rate 87 Respiratory 20 Rate Blood Pressure 117/70 O2 Sat by Pulse Oximetry (%) Intake & Output 09/20/16 09/21/16 09/22/16 05/31/17 07:59 07:59 07:59 07:59 Intake Total 2060 670 610 Output Total 1500 1200 Balance 560 -530 610 Weight 244 lb 12.8 oz 246 lb 6.4 oz NAD, calm JVD flat, improved, neck supple ctab, diminshed bs. nl effort irregular rate and rhythm nl s1, s 2 no mrg + bs soft nt nd obese ext without e/c/c + dp/pt aaox3 no jaundice, + diaphoresis CBC, BMP 09/22/16 05:35 EKG: poor baseline. afib with RVR, 173 bpm. non-specific t wave ab/poor baseline. tele: rate controlled afib 70's-90's CXR 09/18: left retrocardiac opacity (atelectasis vs. pna) CXR 09/19: progressive fluid with atelectaasis or infiltrate at left base. JUSTYN 2015: nl lv/rv no intracardiac thrombus. + PFO with L--> R shunt on bubble study. mod TR. Echo 01/08: nl LV/EF; dd1; mild JOSIE of unclear significance; nl RV; mild LAE; valves WNL; IASA (no PFO) MIBI 12/08: 4:00min; no STs; ? small anteroapical isch vs large breast shadows; nl EF; no TID 65 yo with h/o afib, HTN, HLD, venous insufficiency, obesity, chronic nausea, gastritis with gastric erosions/prior bloody stool followed by Dr. Keller, fibromyalgia, h/o vertebroplasty and epidural injections who presents with acute onset sob. sob/acute diastolic heart failure exacerbation - no clinical signs of infection other than mild elevation in WBC, cxr with possible retrocardiac infiltrate. - No obvious pulmonary edema on cxr 09/18 --> subsequently received 1L IVF, lasix 40m IV x 1 and Lasix 60 IV x 1, --> abnormal pulmonary exam 09/19, repeat cxr with congestive changes - 09/20: worsened pulmonary edema. + creatinine bump after lasix, but not clear that she was net negative. Repeat trial of lasix 60 mg IV x 1 today and reassess bmp in pm. - 09/21: Cr worsened, but lft's improved after lasix. exam appears improved, will hold further diuresis. Stop valsartan and kcl as mentioned below. - 09/22: cr improving off lasix, but weight trending up. chest ct pending. renal u/s with dopplers to further evaluate kidneys. known history of worsening renal function with minimal diuretics. - Echo ordered. - cardiac enzymes neg. no ischemic changes on ekg - work up for other possible etiologies of sob per pmd. atrial fibrillation - deferred CV in past b/c of episode of GIB --> eliquis resumed, but held again in march after back surgery and subsequent frequent epidural injections. Resumed eliquis here. - s/p initial rate control with IV dilt and drip no transitioned to po - was only taking metoprolol prn at home. Resumed here. Holding po diltiazem in case she has superimposed tachymyopathy and uptitrated metoprolol dose to 100 bid. - patient with ectopy and episode of ?slow VT vs. aberrancy on tele early in admission. Repeat echo to look for underlying structural disease. abd sx's/ LFT elevation from right sided congestion?. . - pain control, mgm't of thyroid abnormalities per pmd. - 09/22 with vaginal bleeding (pt states has had sx's since may, improved off eliquis). Need to reconsider safety of eliquis in light of this new info. HTN - resumed home valsartan and amlodipine. per patient on 5 mg/ 160 mg. Con't home metoprolol (uptitrated dose here). - Creatinine worsened here with diuresis --> held valsartan and increased norvasc to 10 - pain control. venous insufficiency - currently stable.
[2016-09-22] MEDS: DULoxetine HCL 30 MG CAPSULE.DR (FP) PO SCH (11:45)
[2016-09-22] MEDS: APIXABAN 5 MG TABLET PO SCH ×2 (11:45→21:43)
[2016-09-22] MEDS: amLODIPine BESYLATE 10 MG TABLET (FP) PO SCH (11:46)
[2016-09-22] MEDS: METOPROLOL SUCCINATE 100 MG TAB.SR.24H (FP) PO SCH ×2 (11:46→21:43)
[2016-09-22] MEDS: CALCIUM 500MG/VIT-D 200 UNITS COMBO TABLET (FP) PO SCH ×2 (11:46→21:43)
[2016-09-22] MEDS: GABAPENTIN 300 MG CAPSULE (FP) PO SCH (11:46)
--- NOTE | 2016-09-22 12:22 | PN ---
Progress Note, Physician Chief Complaint: Ms Williamson says she is feeling bad. Having generalized aches and pain, says it does not feel muscular. No cp or sob. No nausea, but has decreased appetite and feeling bloated. - Current Medication List Current Medications: Active Medications Amlodipine Besylate (Norvasc -) 10 mg PO DAILY [facility] Last Admin: 09/22/16 11:46 Dose: 10 mg Apixaban (Eliquis -) 5 mg PO BID [facility] Last Admin: 09/22/16 11:45 Dose: 5 mg Calcium Carbonate/Cholecalciferol (Os-Antonio 500+D -) 1 tab PO BID [facility] Last Admin: 09/22/16 11:46 Dose: 1 tab Chlorhexidine Gluconate (Hibiclens For Decolonization -) 1 applic TP HS [facility] Last Admin: 09/21/16 22:52 Dose: Not Given Cyclobenzaprine HCl (Flexeril -) 10 mg PO HS PRN PRN Reason: MUSCLE SPASMS Docusate Sodium (Colace -) 300 mg PO HS [facility] Last Admin: 09/21/16 22:48 Dose: Not Given Duloxetine HCl (Cymbalta -) 60 mg PO DAILY [facility] Last Admin: 09/22/16 11:45 Dose: 60 mg Gabapentin (Neurontin -) 600 mg PO DAILY [facility] Last Admin: 09/22/16 11:46 Dose: 600 mg Metoprolol Succinate (Toprol Xl -) 100 mg PO BID [facility] Last Admin: 09/22/16 11:46 Dose: 100 mg Oxycodone HCl (Roxicodone -) 10 mg PO Q4H PRN PRN Reason: PAIN Last Admin: 09/20/16 21:58 Dose: 10 mg - Objective Vital Signs: Vital Signs Temperature 98.2 F 09/22/16 10:00 Pulse Rate 86 09/22/16 10:00 Respiratory Rate 16 09/22/16 10:00 Blood Pressure 124/60 09/22/16 10:00 O2 Sat by Pulse Oximetry (%) 96 09/21/16 21:00 Constitutional: Yes: No Distress, Calm, Obese Cardiovascular: Yes: Pulse Irregular. No: Tachycardia, Gallop, Murmur, Rub Respiratory: Yes: Regular, CTA Bilaterally, Other (decreased breath sounds in bilateral bases). No: Rales, Rhonchi, Wheezes Gastrointestinal: Yes: Normal Bowel Sounds, Soft. No: Distention, Tenderness Extremities: Yes: WNL Edema: No Labs: CBC, BMP 09/22/16 05:35 Problem List - Problems (1) CHF (congestive heart failure) Assessment/Plan: -case d/w cardiology -holding diuresis currently -monitor Code(s): I50.9 - HEART FAILURE, UNSPECIFIED Qualifiers: Congestive heart failure type: diastolic Congestive heart failure chronicity: acute on chronic Qualified Code(s): I50.33 - Acute on chronic diastolic (congestive) heart failure (2) Atrial fibrillation Assessment/Plan: -rate controlled -holding anticoagulation secondary to bleeding Code(s): I48.91 - UNSPECIFIED ATRIAL FIBRILLATION Qualifiers: Atrial fibrillation type: chronic Qualified Code(s): I48.2 - Chronic atrial fibrillation (3) HTN (hypertension) Assessment/Plan: -very well controlled -continue current management Code(s): I10 - ESSENTIAL (PRIMARY) HYPERTENSION (4) Pleural effusion Assessment/Plan: -pulmonary following -follow up CT scan Code(s): J90 - PLEURAL EFFUSION, NOT ELSEWHERE CLASSIFIED (5) Vaginal bleeding Assessment/Plan: -consult gynecology Code(s): N93.9 - ABNORMAL UTERINE AND VAGINAL BLEEDING, UNSPECIFIED
[2016-09-22] MEDS: ONDANSETRON *ODT* 4 MG TABLET SL PRN (15:34)
[2016-09-22] MEDS: CHLORHEXIDINE GLUCONATE 4% CLEANSER FOR DECOLONIZATION TP SCH (22:03)
[2016-09-22] MEDS: DOCUSATE SODIUM 100 MG CAPSULE (FP) PO SCH (22:03)
[2016-09-23 07:32] LABS: BASOPHIL 0.5 % (0-2.0); EOSINOPHIL 0.9 % (0-4.5); MCH 35.7 pg (25.7-33.7); MCHC 33.4 g/dl (32.0-36.0); MEAN CELL VOLUME 106.9 fl (80-96); MEAN PLT VOLUME 8.7 fl (7.5-11.1); NEUTROPHILS 74.7 % (42.8-82.8); PLATELET COUNT 265 K/MM3 (134-434); RDW 16.5 % (11.6-15.6); WHITE BLOOD COUNT 7.1 K/mm3 (4.0-10.0)
[2016-09-23 08:00] LABS: ALBUMIN 3.4 g/dl (3.4-5.0); CALCIUM 9.6 mg/dL (8.5-10.1); MAGNESIUM 2.1 mg/dL (1.8-2.4)
[2016-09-23 08:04] LABS: BILIRUBIN,TOTAL 0.7 mg/dL (0.2-1.0); CREATININE 1.3 mg/dL (0.55-1.02); TOT PROT 5.9 g/dl (6.4-8.2)
[2016-09-23 08:23] LABS: COCKROFT - GAULT 76.364
[2016-09-23] MEDS: DULoxetine HCL 30 MG CAPSULE.DR (FP) PO SCH (10:55)
[2016-09-23] MEDS: GABAPENTIN 300 MG CAPSULE (FP) PO SCH (10:56)
[2016-09-23] MEDS: APIXABAN 5 MG TABLET PO SCH ×2 (10:56→22:04)
[2016-09-23] MEDS: METOPROLOL SUCCINATE 100 MG TAB.SR.24H (FP) PO SCH ×2 (10:57→22:04)
[2016-09-23] MEDS: CALCIUM 500MG/VIT-D 200 UNITS COMBO TABLET (FP) PO SCH ×2 (10:57→22:04)
[2016-09-23] MEDS: amLODIPine BESYLATE 10 MG TABLET (FP) PO SCH (10:57)
--- NOTE | 2016-09-23 11:20 | PN ---
Progress Note, Physician History of Present Illness: pulmonary alert,comfortable at rest +pinto,-cp - Current Medication List Current Medications: Active Medications Amlodipine Besylate (Norvasc -) 10 mg PO DAILY [facility] Last Admin: 09/23/16 10:57 Dose: 10 mg Apixaban (Eliquis -) 5 mg PO BID [facility] Last Admin: 09/23/16 10:56 Dose: 5 mg Calcium Carbonate/Cholecalciferol (Os-Antonio 500+D -) 1 tab PO BID [facility] Last Admin: 09/23/16 10:57 Dose: 1 tab Chlorhexidine Gluconate (Hibiclens For Decolonization -) 1 applic TP HS [facility] Last Admin: 09/22/16 22:03 Dose: Not Given Cyclobenzaprine HCl (Flexeril -) 10 mg PO HS PRN PRN Reason: MUSCLE SPASMS Docusate Sodium (Colace -) 300 mg PO HS [facility] Last Admin: 09/22/16 22:03 Dose: Not Given Duloxetine HCl (Cymbalta -) 60 mg PO DAILY [facility] Last Admin: 09/23/16 10:55 Dose: 60 mg Gabapentin (Neurontin -) 600 mg PO DAILY [facility] Last Admin: 09/23/16 10:56 Dose: 600 mg Metoprolol Succinate (Toprol Xl -) 100 mg PO BID [facility] Last Admin: 09/23/16 10:57 Dose: 100 mg Ondansetron HCl (Zofran Odt -) 4 mg SL Q6H PRN PRN Reason: NAUSEA AND/OR VOMITING Last Admin: 09/22/16 15:34 Dose: 4 mg Oxycodone HCl (Roxicodone -) 10 mg PO Q4H PRN PRN Reason: PAIN Last Admin: 09/20/16 21:58 Dose: 10 mg - Objective Vital Signs: Vital Signs Temperature 97.9 F 09/23/16 08:11 Pulse Rate 90 09/23/16 08:11 Respiratory Rate 20 09/23/16 08:11 Blood Pressure 138/84 09/23/16 08:11 O2 Sat by Pulse Oximetry (%) 97 09/23/16 08:59 Constitutional: Yes: Well Nourished, Calm Eyes: Yes: WNL HENT: Yes: WNL Neck: Yes: WNL Cardiovascular: Yes: Pulse Irregular, S1, S2 Respiratory: Yes: Diminished Gastrointestinal: Yes: Normal Bowel Sounds, Soft Extremities: Yes: WNL Edema: Yes Labs: CBC, BMP 09/23/16 05:35 09/23/16 05:35 Problem List - Problems (1) Dyspnea Code(s): R06.00 - DYSPNEA, UNSPECIFIED (2) HTN (hypertension) Code(s): I10 - ESSENTIAL (PRIMARY) HYPERTENSION (3) Pleural effusion Code(s): J90 - PLEURAL EFFUSION, NOT ELSEWHERE CLASSIFIED Assessment/Plan Problem List - Problems (1) Atrial fibrillation Code(s): I48.91 - UNSPECIFIED ATRIAL FIBRILLATION (2) HTN (hypertension) Code(s): I10 - ESSENTIAL (PRIMARY) HYPERTENSION (3) Rapid atrial fibrillation Code(s): I48.91 - UNSPECIFIED ATRIAL FIBRILLATION Assessment/Plan Left pleural effusion Chronic low back pain Possible Sleep Apnea Afib O2 as needed formal sleep workup after discharge Rate control per Cardiology Eliquis consider thoracentesis DR CASTAÑEDA
--- NOTE | 2016-09-23 15:03 | PN ---
Progress Note, Physician Chief Complaint: Ms Williamson says she is short of breath on minimal exertion but not short of breath at rest. Still with general weakness as well. No cp or n/v. - Current Medication List Current Medications: Active Medications Amlodipine Besylate (Norvasc -) 10 mg PO DAILY [facility] Last Admin: 09/23/16 10:57 Dose: 10 mg Apixaban (Eliquis -) 5 mg PO BID [facility] Last Admin: 09/23/16 10:56 Dose: 5 mg Calcium Carbonate/Cholecalciferol (Os-Antonio 500+D -) 1 tab PO BID [facility] Last Admin: 09/23/16 10:57 Dose: 1 tab Chlorhexidine Gluconate (Hibiclens For Decolonization -) 1 applic TP HS [facility] Last Admin: 09/22/16 22:03 Dose: Not Given Cyclobenzaprine HCl (Flexeril -) 10 mg PO HS PRN PRN Reason: MUSCLE SPASMS Docusate Sodium (Colace -) 300 mg PO HS [facility] Last Admin: 09/22/16 22:03 Dose: Not Given Duloxetine HCl (Cymbalta -) 60 mg PO DAILY [facility] Last Admin: 09/23/16 10:55 Dose: 60 mg Gabapentin (Neurontin -) 600 mg PO DAILY [facility] Last Admin: 09/23/16 10:56 Dose: 600 mg Metoprolol Succinate (Toprol Xl -) 100 mg PO BID [facility] Last Admin: 09/23/16 10:57 Dose: 100 mg Ondansetron HCl (Zofran Odt -) 4 mg SL Q6H PRN PRN Reason: NAUSEA AND/OR VOMITING Last Admin: 09/22/16 15:34 Dose: 4 mg - Objective Vital Signs: Vital Signs Temperature 97.9 F 09/23/16 08:11 Pulse Rate 90 09/23/16 08:11 Respiratory Rate 20 09/23/16 08:11 Blood Pressure 138/84 09/23/16 08:11 O2 Sat by Pulse Oximetry (%) 97 09/23/16 08:59 Constitutional: Yes: No Distress, Calm, Obese Cardiovascular: Yes: Pulse Irregular. No: Tachycardia, Gallop, Murmur, Rub Respiratory: Yes: Regular, On Nasal O2, Other (decreased breath sound L base). No: Rales, Rhonchi, Wheezes Gastrointestinal: Yes: Normal Bowel Sounds, Soft. No: Distention, Tenderness Extremities: Yes: WNL Edema: Yes Edema: LLE: 1+, RLE: 1+ Labs: CBC, BMP 09/23/16 05:35 09/23/16 05:35 Problem List - Problems (1) CHF (congestive heart failure) Code(s): I50.9 - HEART FAILURE, UNSPECIFIED Qualifiers: Congestive heart failure type: diastolic Congestive heart failure chronicity: acute on chronic Qualified Code(s): I50.33 - Acute on chronic diastolic (congestive) heart failure (2) Atrial fibrillation Code(s): I48.91 - UNSPECIFIED ATRIAL FIBRILLATION Qualifiers: Atrial fibrillation type: chronic Qualified Code(s): I48.2 - Chronic atrial fibrillation (3) HTN (hypertension) Code(s): I10 - ESSENTIAL (PRIMARY) HYPERTENSION (4) Pleural effusion Code(s): J90 - PLEURAL EFFUSION, NOT ELSEWHERE CLASSIFIED (5) Vaginal bleeding Code(s): N93.9 - ABNORMAL UTERINE AND VAGINAL BLEEDING, UNSPECIFIED Assessment/Plan (1) CHF (congestive heart failure) Assessment/Plan: -ECHO reviewed -showing both systolic and diastolic failure -? if will benefit from further diuresis -cardiology to round and evaluate Code(s): I50.9 - HEART FAILURE, UNSPECIFIED Qualifiers: Congestive heart failure type: diastolic Congestive heart failure chronicity: acute on chronic Qualified Code(s): I50.33 - Acute on chronic diastolic (congestive) heart failure (2) Atrial fibrillation Assessment/Plan: -rate controlled -continue eliquis Code(s): I48.91 - UNSPECIFIED ATRIAL FIBRILLATION Qualifiers: Atrial fibrillation type: chronic Qualified Code(s): I48.2 - Chronic atrial fibrillation (3) HTN (hypertension) Assessment/Plan: -very well controlled -continue current management Code(s): I10 - ESSENTIAL (PRIMARY) HYPERTENSION (4) Pleural effusion Assessment/Plan: -case d/w Dr Henderson -await cardiology recommendations, may benefit from thoracentesis Code(s): J90 - PLEURAL EFFUSION, NOT ELSEWHERE CLASSIFIED (5) Vaginal bleeding Assessment/Plan: -gynecology consulted Code(s): N93.9 - ABNORMAL UTERINE AND VAGINAL BLEEDING, UNSPECIFIED
[2016-09-23] MEDS ORDERED: PT OWN MED DRAWER 7, Y5N ONE (15:13)
[2016-09-23] MEDS: ONDANSETRON *ODT* 4 MG TABLET SL PRN (15:29)
[2016-09-23] MEDS: ACETAMINOPHEN 325 MG TABLET (FP) PO PRN ×2 (15:43→22:05)
--- NOTE | 2016-09-23 18:43 | CON.OBG ---
Consult Consult Specialty:: DIRECTOR OF REHABILITATIVE SERVICES Referred by:: Wayne Cash Reason for Consultation:: Postmenopausal bleeding - History of Present Illness Chief Complaint: 65yo P3 admitted with SOB and found to have atrial fibrillation. Consultation requested due to recurrent episodes of vaginal bleeding. History of Present Illness: Pt describes vaginal bleeding episodes for 3-7 days in May, June, July, and August. She was seen in our office in June due to c/o vaginal bleeding episodes and found to have an endometrial lining 0.4cm. Since the pt was not bleeding at that time the decision was made to proceed with endometrial bx if the bleeding recurs. The patient was admitted to [facility] with afib and restarted on Eliquis. She began daily vaginal bleeding again. The pelvic US yesterday showed endometrial lining 0.6-0.7cm. The pt is now being treated for CHF with pulmonary effusion and afib. - History Source History Provided By: Patient, Medical Record Limitations to Obtaining History: No Limitations - Past Medical History MATERIALS INTERN: No: Alzheimer's, CVA, Dementia, Migraine, Multiple Sclerosis, Peripheral Neuropathy, Parkinson's, Seizure, Syncope, TIA, Vertigo, Other Cardio/Vascular: Yes: AFIB, CHF, HTN, Other Gastrointestinal: Yes: GI Bleed (in the past, polyps found) Hepatobiliary: No: Cirrhosis, Cholelithiasis, Cholecystitis, Choledocholithiasis , Hepatitis A, Hepatitis B, Hepatitis C, Other Renal/: No: Renal Failure, Renal Inusuff, BPH, Cancer, Hematuria, Hemodialysis , Neurogenic Bladder, Renal Calculi, UTI, Other ...LMP Comment: 2002 ...: No ...Para: 3 ( x 3) Heme/Onc: No: Anemia, B12 Deficiency, Bleeding Disorder, Cancer, Current Chemotherapy, Current Radiation Therapy, Hemochromatosis, Hypercoaguable State, Myeloproliferative Synd, Sickle Cell Disease, Sickle Cell Trait, Thrombocytopenia, Other Infectious Disease: No: AIDS, C-Diff, Herpes Zoster, HIV, MRSA, STD's, Tuberculosis, VREF, Other Psych: No: Addictions, Anxiety, Bipolar, Depression, Panic, Psychosis, Schizophrenia, Other Musculoskeletal: No: Bursitis, Chronic low back pain, Hemiparesis, Hemiplegia, Osteoarthritis, Paraplegia, Other Rheumatology: No: Fibromyalgia, Gout, Lupus, Rheumatoid Arthritis, Sarcoidosis, Vasculitis, Other ENT: No: Allergic Rhinitis, Sinusitis, Other Endocrine: No: Spurgeon's Disease, [place]'s Disease, Diabetes Insipidus, Diabetes Mellitus, Hyperparathyroidism, Hyperthyroidism, Hypothyroidism, Osteopenia, SIADH, Other Dermatology: No: Basal Cell, Cellulitis, Eczema, Melanoma, Psoriasis, Squamous Cell, Other - Past Surgical History Past Surgical History: Yes: Joint Replacement (left total knee replacement) Additional Surgical History: Cervical spine fusion. 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 History of Recent Travel: No Home Medications - Allergies Allergies/Adverse Reactions: Allergies Allergy/AdvReac Type Severity Reaction Status Date / Time pregabalin [From Lyrica] Allergy Verified 09/18/16 14:10 - Home Medications Home Medications: Ambulatory Orders Cyclobenzaprine HCl [Flexeril -] 10 mg PO HS PRN 12/04/15 Duloxetine HCl [Cymbalta -] 60 mg PO DAILY 12/04/15 Gabapentin 600 mg PO DAILY 12/04/15 Meclizine HCl 25 mg PO DAILY 01/22/16 Potassium Chloride 20 meq PO DAILY 01/22/16 Valsartan [Diovan] 320 mg PO DAILY 01/22/16 Amlodipine Besylate [Norvasc -] 10 mg PO DAILY #30 tablet 04/10/16 Calcium 500Mg/Vit-D 200 Units [Os-Antonio 500+D -] 1 tab PO BID #60 tab 04/10/16 Docusate Sodium [Colace -] 300 mg PO HS capsule 04/10/16 Metoprolol Tartrate [Lopressor -] 50 mg PO BID #60 tablet 04/10/16 Oxycodone HCl [Roxicodone -] 10 mg PO Q4H PRN #20 tablet MDD 60mg 04/10/16 Family Disease History - Family Disease History Family History: Denies Review of Systems Findings/Remarks: Obese, reports SOB on exertion. Speaks in full sentences. - Review of Systems Constitutional: reports: No Symptoms Eyes: reports: No Symptoms HENT: reports: No Symptoms Neck: reports: No Symptoms Cardiovascular: reports: Shortness of Breath Respiratory: reports: SOB on Exertion Gastrointestinal: reports: No Symptoms Genitourinary: reports: Vaginal Bleeding Breasts: reports: No Symptoms Reported Musculoskeletal: reports: No Symptoms Integumentary: reports: No Symptoms Neurological: reports: No Symptoms Endocrine: reports: No Symptoms Hematology/Lymphatic: reports: No Symptoms Psychiatric: reports: No Symptoms Pain Intensity: 0 Physical Exam-DIRECTOR OF REHABILITATIVE SERVICES Vital Signs: Vital Signs Temperature 98 F 09/23/16 14:20 Pulse Rate 91 H 09/23/16 14:20 Respiratory Rate 20 09/23/16 14:20 Blood Pressure 126/76 09/23/16 14:20 O2 Sat by Pulse Oximetry (%) 97 09/23/16 08:59 Constitutional: Yes: No Distress, Calm, Obese Eyes: Yes: WNL, Conjunctiva Clear HENT: Yes: WNL, Atraumatic, Normocephalic Neck: Yes: WNL, Supple Cardiovascular: Yes: Tachycardia, Pulse Irregular Respiratory: Yes: Regular, Diminished (at bases), SOB on Exertion Gastrointestinal: Yes: Normal Bowel Sounds, Soft, Abdomen, Obese Renal/: Yes: Vaginal Bleeding (trace) Pelvis: Yes: WNL, Bladder Non Palpable External Genitalia: Yes: Normal Internal Exam Deferred: No Vaginal Exam: Yes: Bleeding (scant) Cervix: Yes: Normal Uterus: Yes: Normal, Anteverted Adnexa: Not Palpable: Left, Right Musculoskeletal: Yes: WNL Extremities: Yes: WNL Edema: Yes Edema: LLE: 1+, RLE: 1+ Integumentary: Yes: WNL Neurological: Yes: WNL, Alert, Oriented Psychiatric: Yes: WNL, Alert, Oriented Labs: CBC, BMP 09/23/16 05:35 09/23/16 05:35 Assessment/Plan 65yo P3 admitted with SOB and found to have atrial fibrillation and CHF. Consultation requested due to recurrent episodes of postmenopausal bleeding. Pt is anticoagulated now with Eliquis but she had bleeding episodes prior to taking Eliquis. The vaginal bleeding is scant. She has some risks of uterine cancer that include obesity and thickened endometrial echo. The pt needs to have endometrial sampling that can either be done in the hospital by D&C (under anesthesia) during this admission, or with endometrial bx in-office after her discharge. If the patient is medically cleared for D&C, it can be done as soon as she is stable. If the pt cannot be cleared, the D&C can be delayed until such time that the pt is medically optimized. This was discussed with the pt and Dr. Stein today. Thank you for the consult. Will follow. Pt evaluation, discussions, data review, care coordination x 60min
[2016-09-23] MEDS: CHLORHEXIDINE GLUCONATE 4% CLEANSER FOR DECOLONIZATION TP SCH (22:06)
[2016-09-23] MEDS: DOCUSATE SODIUM 100 MG CAPSULE (FP) PO SCH (22:07)
[2016-09-24 08:13] LABS: BASOPHIL 0.4 % (0-2.0); EOSINOPHIL 1.2 % (0-4.5); MCH 35.4 pg (25.7-33.7); MCHC 33.1 g/dl (32.0-36.0); MEAN CELL VOLUME 106.9 fl (80-96); MEAN PLT VOLUME 8.9 fl (7.5-11.1); NEUTROPHILS 63.8 % (42.8-82.8); PLATELET COUNT 277 K/MM3 (134-434); RDW 16.1 % (11.6-15.6); WHITE BLOOD COUNT 6.3 K/mm3 (4.0-10.0)
[2016-09-24 08:52] LABS: COCKROFT - GAULT 83.334; CREATININE 1.2 mg/dL (0.55-1.02); MAGNESIUM 2.2 mg/dL (1.8-2.4); PHOSPHOROUS 4.7 mg/dL (2.5-4.9)
[2016-09-24] MEDS: CALCIUM 500MG/VIT-D 200 UNITS COMBO TABLET (FP) PO SCH ×2 (09:35→22:58)
[2016-09-24] MEDS: METOPROLOL SUCCINATE 100 MG TAB.SR.24H (FP) PO SCH ×2 (09:35→22:58)
[2016-09-24] MEDS: amLODIPine BESYLATE 10 MG TABLET (FP) PO SCH (09:35)
[2016-09-24] MEDS: APIXABAN 5 MG TABLET PO SCH ×2 (09:35→22:58)
[2016-09-24] MEDS: DULoxetine HCL 30 MG CAPSULE.DR (FP) PO SCH (09:36)
[2016-09-24] MEDS: GABAPENTIN 300 MG CAPSULE (FP) PO SCH (09:36)
[2016-09-24] MEDS: FUROSEMIDE 40 MG/4 ML INJECTABLE VIAL IVPUSH SCH (11:49)
--- NOTE | 2016-09-24 12:10 | PN ---
Progress Note (short form) - Note Progress Note: CC: sob S: + sob persists. no cp, palps, dizziness, Current Medications Generic Name Dose Route Start Last Admin Trade Name Freq PRN Reason Stop Dose Admin Acetaminophen 650 mg 09/23/16 15:36 09/23/16 22:05 Tylenol - PO 650 mg Q4H PRN Administration FEVER OR PAIN Amlodipine Besylate 10 mg 09/22/16 10:00 09/24/16 09:35 Norvasc - PO 10 mg DAILY CHUN Administration Apixaban 5 mg 09/20/16 22:00 09/24/16 09:35 Eliquis - PO 5 mg BID CHUN Administration Calcium Carbonate/Cholecalciferol 1 tab 09/20/16 22:00 09/24/16 09:35 Os-[place]io 500+D - PO 1 tab BID CHUN Administration Chlorhexidine Gluconate 1 applic 09/20/16 22:00 09/23/16 22:06 Hibiclens For Decolonization - TP Not Given HS CHUN Cyclobenzaprine HCl 10 mg 09/20/16 13:39 Flexeril - PO HS PRN MUSCLE SPASMS Docusate Sodium 300 mg 09/20/16 22:00 09/23/16 22:07 Colace - PO Not Given HS CHUN Duloxetine HCl 60 mg 09/21/16 10:00 09/24/16 09:36 Cymbalta - PO 60 mg DAILY CHUN Administration Furosemide 40 mg 09/24/16 11:45 09/24/16 11:49 Lasix Injection - IVPUSH 40 mg DAILY CHUN Administration Gabapentin 600 mg 09/21/16 10:00 09/24/16 09:36 Neurontin - PO 600 mg DAILY CHUN Administration Metoprolol Succinate 100 mg 09/20/16 22:00 09/24/16 09:35 Toprol Xl - PO 100 mg BID CHUN Administration Ondansetron HCl 4 mg 09/22/16 14:47 09/23/16 15:29 Zofran Odt - SL 4 mg Q6H PRN Administration NAUSEA AND/OR VOMITING Vital Signs Period Temp Pulse Resp BP Sys/Pierce Pulse Ox Last 24 Hr 96.4 F-98.8 F 87-97 18-20 112-126/62-76 100 NAD, calm JVD flat, improved, neck supple ctab, diminshed bs. nl effort irregular rate and rhythm nl s1, s 2 no mrg + bs soft nt nd obese trace le edema bl aaox3 no jaundice, diaphoresis CBC, BMP 09/24/16 06:00 09/24/16 06:00 EKG: poor baseline. afib with RVR, 173 bpm. non-specific t wave ab/poor baseline. tele: rate controlled afib CXR 09/18: left retrocardiac opacity (atelectasis vs. pna) CXR 09/19: progressive fluid with atelectaasis or infiltrate at left base. echo 08/2016: sev dec lvef, global hk, mild rv dil and mild dec rv fcn, sev constantin , sev tr, mod mr, mild pr, nl rvsp JUSTYN 2015: nl lv/rv no intracardiac thrombus. + PFO with L--> R shunt on bubble study. mod TR. Echo 01/08: nl LV/EF; dd1; mild JOSIE of unclear significance; nl RV; mild LAE; valves WNL; IASA (no PFO) MIBI 12/08: 4:00min; no STs; ? small anteroapical isch vs large breast shadows; nl EF; no TID a/p: 65 yo with h/o afib, HTN, HLD, venous insufficiency, obesity, chronic nausea, gastritis with gastric erosions/prior bloody stool followed by Dr. Keller, fibromyalgia, h/o vertebroplasty and epidural injections who presents with acute onset sob. sob/acute systolic heart failure exacerbation - no clinical signs of infection other than mild elevation in WBC, cxr with possible retrocardiac infiltrate. - 09/20: worsened pulmonary edema. + creatinine bump after lasix, but not clear that she was net negative. Repeat trial of lasix 60 mg IV x 1 today and reassess bmp in pm. - 09/21: Cr worsened, but lft's improved after lasix. exam appears improved, will hold further diuresis. Stop valsartan and kcl as mentioned below. - 09/22: cr improving off lasix, but weight trending up. - 09/24: echo here with newly reduced lvef, likely tachycardia induced cardiomyopathy. Will cont with rate control with toprol. Has some vol overload with le edema and bl effs on cxr/ct scan so will resume iv lasix 40 qd to start. Monitor daily wt, chemistry - cardiac enzymes neg. no ischemic changes on ekg atrial fibrillation - deferred CV in past b/c of episode of GIB --> eliquis resumed, but held again in march after back surgery and subsequent frequent epidural injections. Resumed eliquis here. - was only taking metoprolol prn at home. Resumed here as standing med and now rate controlled - echo suggestive of TIC so rate control is important here HTN - resumed home valsartan and amlodipine. per patient on 5 mg/ 160 mg. Con't home metoprolol (uptitrated dose here). - Creatinine worsened here with diuresis --> held valsartan and increased norvasc to 10 - pain control.
--- NOTE | 2016-09-24 15:06 | PN ---
Progress Note, Physician Chief Complaint: Ms Williamson still have dyspnea on exertion. Also feels bloated with significant amount of belching. No cp or n/v. - Current Medication List Current Medications: Active Medications Acetaminophen (Tylenol -) 650 mg PO Q4H PRN PRN Reason: FEVER OR PAIN Last Admin: 09/23/16 22:05 Dose: 650 mg Amlodipine Besylate (Norvasc -) 10 mg PO DAILY [facility] Last Admin: 09/24/16 09:35 Dose: 10 mg Apixaban (Eliquis -) 5 mg PO BID [facility] Last Admin: 09/24/16 09:35 Dose: 5 mg Calcium Carbonate/Cholecalciferol (Os-Antonio 500+D -) 1 tab PO BID [facility] Last Admin: 09/24/16 09:35 Dose: 1 tab Chlorhexidine Gluconate (Hibiclens For Decolonization -) 1 applic TP HS [facility] Last Admin: 09/23/16 22:06 Dose: Not Given Cyclobenzaprine HCl (Flexeril -) 10 mg PO HS PRN PRN Reason: MUSCLE SPASMS Docusate Sodium (Colace -) 300 mg PO HS [facility] Last Admin: 09/23/16 22:07 Dose: Not Given Duloxetine HCl (Cymbalta -) 60 mg PO DAILY [facility] Last Admin: 09/24/16 09:36 Dose: 60 mg Furosemide (Lasix Injection -) 40 mg IVPUSH DAILY [facility] Last Admin: 09/24/16 11:49 Dose: 40 mg Gabapentin (Neurontin -) 600 mg PO DAILY [facility] Last Admin: 09/24/16 09:36 Dose: 600 mg Metoprolol Succinate (Toprol Xl -) 100 mg PO BID [facility] Last Admin: 09/24/16 09:35 Dose: 100 mg Ondansetron HCl (Zofran Odt -) 4 mg SL Q6H PRN PRN Reason: NAUSEA AND/OR VOMITING Last Admin: 09/23/16 15:29 Dose: 4 mg Simethicone (Mylicon -) 80 mg PO Q4H PRN PRN Reason: GAS - Objective Vital Signs: Vital Signs Temperature 97.2 F L 09/24/16 09:00 Pulse Rate 87 09/24/16 09:00 Respiratory Rate 20 09/24/16 09:00 Blood Pressure 112/69 09/24/16 09:00 O2 Sat by Pulse Oximetry (%) 100 09/24/16 09:00 Constitutional: Yes: No Distress, Calm, Obese Cardiovascular: Yes: Regular Rate and Rhythm. No: Gallop, Murmur, Rub Respiratory: Yes: Regular, On Nasal O2, Rhonchi. No: Rales, Wheezes Gastrointestinal: Yes: Normal Bowel Sounds, Soft. No: Distention, Tenderness Extremities: Yes: WNL Edema: No Labs: CBC, BMP 09/24/16 06:00 09/24/16 06:00 Problem List - Problems (1) CHF (congestive heart failure) Code(s): I50.9 - HEART FAILURE, UNSPECIFIED Qualifiers: Congestive heart failure type: diastolic Congestive heart failure chronicity: acute on chronic Qualified Code(s): I50.33 - Acute on chronic diastolic (congestive) heart failure (2) Atrial fibrillation Code(s): I48.91 - UNSPECIFIED ATRIAL FIBRILLATION Qualifiers: Atrial fibrillation type: chronic Qualified Code(s): I48.2 - Chronic atrial fibrillation (3) HTN (hypertension) Code(s): I10 - ESSENTIAL (PRIMARY) HYPERTENSION (4) Pleural effusion Code(s): J90 - PLEURAL EFFUSION, NOT ELSEWHERE CLASSIFIED (5) Vaginal bleeding Code(s): N93.9 - ABNORMAL UTERINE AND VAGINAL BLEEDING, UNSPECIFIED Assessment/Plan (1) CHF (congestive heart failure) Assessment/Plan: -ECHO reviewed -cardiology says patient with tachycardic cardiomyopathy -diuresis with IV lasix -may need thoracentesis Code(s): I50.9 - HEART FAILURE, UNSPECIFIED Qualifiers: Congestive heart failure type: diastolic Congestive heart failure chronicity: acute on chronic Qualified Code(s): I50.33 - Acute on chronic diastolic (congestive) heart failure (2) Atrial fibrillation Assessment/Plan: -rate controlled -continue eliquis Code(s): I48.91 - UNSPECIFIED ATRIAL FIBRILLATION Qualifiers: Atrial fibrillation type: chronic Qualified Code(s): I48.2 - Chronic atrial fibrillation (3) HTN (hypertension) Assessment/Plan: -very well controlled -continue current management Code(s): I10 - ESSENTIAL (PRIMARY) HYPERTENSION (4) Pleural effusion Assessment/Plan: -case d/w Dr Hednerson -await cardiology recommendations, may benefit from thoracentesis Code(s): J90 - PLEURAL EFFUSION, NOT ELSEWHERE CLASSIFIED (5) Vaginal bleeding Assessment/Plan: -gynecology consulted and appreciate assistance -not medically stable for biopsy -outpatient follow up Code(s): N93.9 - ABNORMAL UTERINE AND VAGINAL BLEEDING, UNSPECIFIED (6) Dyspepsia -prn simethicone
[2016-09-24] MEDS: SIMETHICONE 80 MG TAB.CHEW (FP) PO PRN (17:19)
--- NOTE | 2016-09-24 17:31 | PN ---
Progress Note (short form) - Note Progress Note: PULMONARY LESS SOB/NO CP AFEB/AFIB 88 ANICTERIC DIMINISHED BREATH SOUNDS LEFT BASE S1S2 IRREG OBESE 2+ EDEMA ANKLES LABS/MEDS/NOTES/IMAGING REVIEWED Left pleural effusion Chronic low back pain Possible Sleep Apnea Afib O2 as needed Diuretics/rate control formal sleep workup after discharge Eliquis consider thoracentesis if no improvement with medical management Margarita LUIS MD
[2016-09-24] MEDS: ACETAMINOPHEN 325 MG TABLET (FP) PO PRN (20:14)
[2016-09-24] MEDS: CHLORHEXIDINE GLUCONATE 4% CLEANSER FOR DECOLONIZATION TP SCH (22:58)
[2016-09-24] MEDS: DOCUSATE SODIUM 100 MG CAPSULE (FP) PO SCH (22:59)
[2016-09-25 07:26] LABS: BASOPHIL 0.7 % (0-2.0); EOSINOPHIL 1.3 % (0-4.5); MCH 35.9 pg (25.7-33.7); MEAN CELL VOLUME 105.6 fl (80-96); MEAN PLT VOLUME 8.7 fl (7.5-11.1); NEUTROPHILS 60.4 % (42.8-82.8); PLATELET COUNT 272 K/MM3 (134-434); RDW 16.3 % (11.6-15.6); WHITE BLOOD COUNT 5.8 K/mm3 (4.0-10.0)
[2016-09-25 07:48] LABS: CALCIUM 9.4 mg/dL (8.5-10.1); COCKROFT - GAULT 82.5945; CREATININE 1.2 mg/dL (0.55-1.02); MAGNESIUM 1.9 mg/dL (1.8-2.4)
[2016-09-25 09:03] LABS: ANISOCYTOSIS 2+; HYPOCHROMIA 1+
[2016-09-25] MEDS: FUROSEMIDE 40 MG/4 ML INJECTABLE VIAL IVPUSH SCH (10:20)
[2016-09-25] MEDS: GABAPENTIN 300 MG CAPSULE (FP) PO SCH (10:20)
[2016-09-25] MEDS: SIMETHICONE 80 MG TAB.CHEW (FP) PO PRN (10:21)
[2016-09-25] MEDS: CALCIUM 500MG/VIT-D 200 UNITS COMBO TABLET (FP) PO SCH ×2 (10:21→22:29)
[2016-09-25] MEDS: METOPROLOL SUCCINATE 100 MG TAB.SR.24H (FP) PO SCH ×2 (10:21→22:30)
[2016-09-25] MEDS: DULoxetine HCL 30 MG CAPSULE.DR (FP) PO SCH (10:21)
[2016-09-25] MEDS: APIXABAN 5 MG TABLET PO SCH ×2 (10:21→22:29)
[2016-09-25] MEDS: amLODIPine BESYLATE 10 MG TABLET (FP) PO SCH (10:21)
[2016-09-25] MEDS: ACETAMINOPHEN 325 MG TABLET (FP) PO PRN ×2 (10:24→22:51)
[2016-09-25] MEDS ORDERED: PT OWN MED DRAWER 7, Y5N ONE (10:26)
[2016-09-25] MEDS: ONDANSETRON *ODT* 4 MG TABLET SL PRN (10:26)
--- NOTE | 2016-09-25 11:14 | PN ---
Progress Note, Physician History of Present Illness: pulmonary alert,feeling better,less dyspneic - Current Medication List Current Medications: Active Medications Acetaminophen (Tylenol -) 650 mg PO Q4H PRN PRN Reason: FEVER OR PAIN Last Admin: 09/25/16 10:24 Dose: 650 mg Amlodipine Besylate (Norvasc -) 10 mg PO DAILY [facility] Last Admin: 09/25/16 10:21 Dose: 10 mg Apixaban (Eliquis -) 5 mg PO BID [facility] Last Admin: 09/25/16 10:21 Dose: 5 mg Calcium Carbonate/Cholecalciferol (Os-[place]io 500+D -) 1 tab PO BID [facility] Last Admin: 09/25/16 10:21 Dose: 1 tab Chlorhexidine Gluconate (Hibiclens For Decolonization -) 1 applic TP HS [facility] Last Admin: 09/24/16 22:58 Dose: Not Given Cyclobenzaprine HCl (Flexeril -) 10 mg PO HS PRN PRN Reason: MUSCLE SPASMS Docusate Sodium (Colace -) 300 mg PO HS [facility] Last Admin: 09/24/16 22:59 Dose: Not Given Duloxetine HCl (Cymbalta -) 60 mg PO DAILY [facility] Last Admin: 09/25/16 10:21 Dose: 60 mg Furosemide (Lasix Injection -) 40 mg IVPUSH DAILY [facility] Last Admin: 09/25/16 10:20 Dose: 40 mg Gabapentin (Neurontin -) 600 mg PO DAILY [facility] Last Admin: 09/25/16 10:20 Dose: 600 mg Metoprolol Succinate (Toprol Xl -) 100 mg PO BID [facility] Last Admin: 09/25/16 10:21 Dose: 100 mg Ondansetron HCl (Zofran Odt -) 4 mg SL Q6H PRN PRN Reason: NAUSEA AND/OR VOMITING Last Admin: 09/25/16 10:26 Dose: 4 mg Simethicone (Mylicon -) 80 mg PO Q4H PRN PRN Reason: GAS Last Admin: 09/25/16 10:21 Dose: 80 mg - Objective Vital Signs: Vital Signs Temperature 97.6 F 09/25/16 02:00 Pulse Rate 91 H 09/25/16 06:00 Respiratory Rate 20 09/25/16 06:00 Blood Pressure 133/95 09/25/16 06:00 O2 Sat by Pulse Oximetry (%) 98 09/24/16 20:33 Constitutional: Yes: Well Nourished, Calm Eyes: Yes: WNL HENT: Yes: WNL Neck: Yes: WNL Cardiovascular: Yes: Pulse Irregular, S1, S2 Respiratory: Yes: Diminished Gastrointestinal: Yes: Normal Bowel Sounds, Soft Extremities: Yes: WNL Edema: Yes (less edema bilaterally) Labs: CBC, BMP 09/25/16 05:35 09/25/16 05:35 Problem List - Problems (1) Dyspnea Code(s): R06.00 - DYSPNEA, UNSPECIFIED (2) HTN (hypertension) Code(s): I10 - ESSENTIAL (PRIMARY) HYPERTENSION (3) Pleural effusion Code(s): J90 - PLEURAL EFFUSION, NOT ELSEWHERE CLASSIFIED Assessment/Plan Problem List - Problems (1) Atrial fibrillation Code(s): I48.91 - UNSPECIFIED ATRIAL FIBRILLATION (2) HTN (hypertension) Code(s): I10 - ESSENTIAL (PRIMARY) HYPERTENSION (3) Rapid atrial fibrillation Code(s): I48.91 - UNSPECIFIED ATRIAL FIBRILLATION Assessment/Plan Left pleural effusion Chronic low back pain Possible Sleep Apnea Afib O2 as needed formal sleep workup after discharge Rate control per Cardiology Eliquis consider thoracentesis if no improvement with diuretics DR CASTAÑEDA
--- NOTE | 2016-09-25 11:21 | PN ---
Progress Note (short form) - Note Progress Note: CC: sob S: + sob persists. no cp, palps, dizziness Current Medications Generic Name Dose Route Start Last Admin Trade Name Freq PRN Reason Stop Dose Admin Acetaminophen 650 mg 09/23/16 15:36 09/25/16 10:24 Tylenol - PO 650 mg Q4H PRN Administration FEVER OR PAIN Amlodipine Besylate 10 mg 09/22/16 10:00 09/25/16 10:21 Norvasc - PO 10 mg DAILY CHUN Administration Apixaban 5 mg 09/20/16 22:00 09/25/16 10:21 Eliquis - PO 5 mg BID CHUN Administration Calcium Carbonate/Cholecalciferol 1 tab 09/20/16 22:00 09/25/16 10:21 Os-[place] 500+D - PO 1 tab BID CHUN Administration Chlorhexidine Gluconate 1 applic 09/20/16 22:00 09/24/16 22:58 Hibiclens For Decolonization - TP Not Given HS CHUN Cyclobenzaprine HCl 10 mg 09/20/16 13:39 Flexeril - PO HS PRN MUSCLE SPASMS Docusate Sodium 300 mg 09/20/16 22:00 09/24/16 22:59 Colace - PO Not Given HS CHUN Duloxetine HCl 60 mg 09/21/16 10:00 09/25/16 10:21 Cymbalta - PO 60 mg DAILY CHUN Administration Furosemide 40 mg 09/24/16 11:45 09/25/16 10:20 Lasix Injection - IVPUSH 40 mg DAILY CHUN Administration Furosemide 40 mg 09/25/16 16:00 Lasix Injection - IVPUSH 09/25/16 16:01 ONCE ONE Gabapentin 600 mg 09/21/16 10:00 09/25/16 10:20 Neurontin - PO 600 mg DAILY CHUN Administration Metoprolol Succinate 100 mg 09/20/16 22:00 09/25/16 10:21 Toprol Xl - PO 100 mg BID CHUN Administration Ondansetron HCl 4 mg 09/22/16 14:47 09/25/16 10:26 Zofran Odt - SL 4 mg Q6H PRN Administration NAUSEA AND/OR VOMITING Simethicone 80 mg 09/24/16 14:17 09/25/16 10:21 Mylicon - PO 80 mg Q4H PRN Administration GAS Vital Signs Period Temp Pulse Resp BP Sys/Pierce Pulse Ox Last 24 Hr 97 F-97.6 F 84-105 19-20 107-133/65-95 98 NAD, calm ctab, diminshed bs. nl effort irregular rate and rhythm nl s1, s 2 no mrg + bs soft nt nd obese trace le edema bl aaox3 no jaundice, diaphoresis CBC, BMP 09/25/16 05:35 09/25/16 05:35 EKG: poor baseline. afib with RVR, 173 bpm. non-specific t wave ab/poor baseline. tele: rate controlled afib CXR 09/18: left retrocardiac opacity (atelectasis vs. pna) CXR 09/19: progressive fluid with atelectaasis or infiltrate at left base. echo 08/2016: sev dec lvef, global hk, mild rv dil and mild dec rv fcn, sev constantin , sev tr, mod mr, mild pr, nl rvsp JUSTYN 2015: nl lv/rv no intracardiac thrombus. + PFO with L--> R shunt on bubble study. mod TR. Echo 01/08: nl LV/EF; dd1; mild JOSIE of unclear significance; nl RV; mild LAE; valves WNL; IASA (no PFO) MIBI 12/08: 4:00min; no STs; ? small anteroapical isch vs large breast shadows; nl EF; no TID a/p: 65 yo with h/o afib, HTN, HLD, venous insufficiency, obesity, chronic nausea, gastritis with gastric erosions/prior bloody stool followed by Dr. Keller, fibromyalgia, h/o vertebroplasty and epidural injections who presents with acute onset sob. sob/acute systolic heart failure exacerbation - no clinical signs of infection other than mild elevation in WBC, cxr with possible retrocardiac infiltrate. - 09/20: worsened pulmonary edema. + creatinine bump after lasix, but not clear that she was net negative. Repeat trial of lasix 60 mg IV x 1 today and reassess bmp in pm. - 09/21: Cr worsened, but lft's improved after lasix. exam appears improved, will hold further diuresis. Stop valsartan and kcl as mentioned below. - 09/22: cr improving off lasix, but weight trending up. - 09/24: Echo here with newly reduced lvef, likely tachycardia induced cardiomyopathy. Will cont with rate control with toprol. Has some vol overload with le edema and bl effs on cxr/ct scan so will resume iv lasix 40 qd to start. Monitor daily wt, chemistry - 09/25: cr stable, wt down, will cont iv lasix and give extra dose of 40 iv today. Monitor daily wt, chemistry. atrial fibrillation - deferred CV in past b/c of episode of GIB --> eliquis resumed, but held again in march after back surgery and subsequent frequent epidural injections. Resumed eliquis here. - was only taking metoprolol prn at home. Resumed here as standing med and now rate controlled - echo suggestive of TIC so rate control is important. HTN - resumed home valsartan and amlodipine. per patient on 5 mg/ 160 mg. Con't home metoprolol (uptitrated dose here). - Creatinine worsened here with diuresis --> held valsartan and increased norvasc to 10 - pain control.
[2016-09-25] MEDS ORDERED: MAG HYDROX/AL HYDROX/SIMETH 30 ML UNIT-DOSE CUP PO PRN (15:13)
--- NOTE | 2016-09-25 15:15 | PN ---
Progress Note, Physician Chief Complaint: Ms Williamson says her breathing is improved today. Still complaining of gas pain. No cp or n/v. Eating without difficulty and having normal bowel movements. - Current Medication List Current Medications: Active Medications Acetaminophen (Tylenol -) 650 mg PO Q4H PRN PRN Reason: FEVER OR PAIN Last Admin: 09/25/16 10:24 Dose: 650 mg Amlodipine Besylate (Norvasc -) 10 mg PO DAILY [facility] Last Admin: 09/25/16 10:21 Dose: 10 mg Apixaban (Eliquis -) 5 mg PO BID [facility] Last Admin: 09/25/16 10:21 Dose: 5 mg Calcium Carbonate/Cholecalciferol (Os-Antonio 500+D -) 1 tab PO BID [facility] Last Admin: 09/25/16 10:21 Dose: 1 tab Chlorhexidine Gluconate (Hibiclens For Decolonization -) 1 applic TP HS [facility] Last Admin: 09/24/16 22:58 Dose: Not Given Cyclobenzaprine HCl (Flexeril -) 10 mg PO HS PRN PRN Reason: MUSCLE SPASMS Docusate Sodium (Colace -) 300 mg PO HS [facility] Last Admin: 09/24/16 22:59 Dose: Not Given Duloxetine HCl (Cymbalta -) 60 mg PO DAILY [facility] Last Admin: 09/25/16 10:21 Dose: 60 mg Furosemide (Lasix Injection -) 40 mg IVPUSH DAILY [facility] Last Admin: 09/25/16 10:20 Dose: 40 mg Furosemide (Lasix Injection -) 40 mg IVPUSH ONCE ONE Stop: 09/25/16 16:01 Gabapentin (Neurontin -) 600 mg PO DAILY [facility] Last Admin: 09/25/16 10:20 Dose: 600 mg Metoprolol Succinate (Toprol Xl -) 100 mg PO BID [facility] Last Admin: 09/25/16 10:21 Dose: 100 mg Ondansetron HCl (Zofran Odt -) 4 mg SL Q6H PRN PRN Reason: NAUSEA AND/OR VOMITING Last Admin: 09/25/16 10:26 Dose: 4 mg Simethicone (Mylicon -) 80 mg PO Q4H PRN PRN Reason: GAS Last Admin: 09/25/16 10:21 Dose: 80 mg - Objective Vital Signs: Vital Signs Temperature 98 F 09/25/16 15:08 Pulse Rate 74 09/25/16 15:08 Respiratory Rate 20 09/25/16 15:08 Blood Pressure 132/82 09/25/16 15:08 O2 Sat by Pulse Oximetry (%) 99 09/25/16 11:28 Constitutional: Yes: No Distress, Calm, Obese Cardiovascular: Yes: Pulse Irregular. No: Tachycardia, Gallop, Murmur, Rub Respiratory: Yes: Regular, Rhonchi. No: Rales, Wheezes Gastrointestinal: Yes: Soft, Hyperactive Bowel Sounds. No: Distention, Tenderness Extremities: Yes: WNL Edema: No Labs: CBC, BMP 09/25/16 05:35 09/25/16 05:35 Problem List - Problems (1) CHF (congestive heart failure) Code(s): I50.9 - HEART FAILURE, UNSPECIFIED Qualifiers: Congestive heart failure type: diastolic Congestive heart failure chronicity: acute on chronic Qualified Code(s): I50.33 - Acute on chronic diastolic (congestive) heart failure (2) Atrial fibrillation Code(s): I48.91 - UNSPECIFIED ATRIAL FIBRILLATION Qualifiers: Atrial fibrillation type: chronic Qualified Code(s): I48.2 - Chronic atrial fibrillation (3) HTN (hypertension) Code(s): I10 - ESSENTIAL (PRIMARY) HYPERTENSION (4) Pleural effusion Code(s): J90 - PLEURAL EFFUSION, NOT ELSEWHERE CLASSIFIED (5) Vaginal bleeding Code(s): N93.9 - ABNORMAL UTERINE AND VAGINAL BLEEDING, UNSPECIFIED Assessment/Plan (1) CHF (congestive heart failure) Assessment/Plan: -breathing is much improved today -continue IV lasix -cardiology note reviewed -may be able to avoid thoracentesis if improves with lasix Code(s): I50.9 - HEART FAILURE, UNSPECIFIED Qualifiers: Congestive heart failure type: diastolic Congestive heart failure chronicity: acute on chronic Qualified Code(s): I50.33 - Acute on chronic diastolic (congestive) heart failure (2) Atrial fibrillation Assessment/Plan: -rate controlled -continue eliquis Code(s): I48.91 - UNSPECIFIED ATRIAL FIBRILLATION Qualifiers: Atrial fibrillation type: chronic Qualified Code(s): I48.2 - Chronic atrial fibrillation (3) HTN (hypertension) Assessment/Plan: -very well controlled -continue current management Code(s): I10 - ESSENTIAL (PRIMARY) HYPERTENSION (4) Pleural effusion Assessment/Plan: -case d/w Dr Henderson -continue diuresis Code(s): J90 - PLEURAL EFFUSION, NOT ELSEWHERE CLASSIFIED (5) Vaginal bleeding Assessment/Plan: -gynecology consulted and appreciate assistance -not medically stable for biopsy -outpatient follow up Code(s): N93.9 - ABNORMAL UTERINE AND VAGINAL BLEEDING, UNSPECIFIED (6) Dyspepsia -change simethicone to prn maalox -add ranitidine
[2016-09-25] MEDS ORDERED: FUROSEMIDE 40 MG/4 ML INJECTABLE VIAL IVPUSH ONE (16:00)
[2016-09-25] MEDS: DOCUSATE SODIUM 100 MG CAPSULE (FP) PO SCH (22:29)
[2016-09-25] MEDS: RANITIDINE HCL 150 MG TABLET (FP) PO SCH (22:30)
[2016-09-26] MEDS: CHLORHEXIDINE GLUCONATE 4% CLEANSER FOR DECOLONIZATION TP SCH ×2 (05:38→21:11)
[2016-09-26 07:06] LABS: BASOPHIL 0.7 % (0-2.0); EOSINOPHIL 1.3 % (0-4.5); MCH 35.4 pg (25.7-33.7); MCHC 33.8 g/dl (32.0-36.0); MEAN CELL VOLUME 104.8 fl (80-96); MEAN PLT VOLUME 8.6 fl (7.5-11.1); NEUTROPHILS 53.1 % (42.8-82.8); PLATELET COUNT 267 K/MM3 (134-434); RDW 16.1 % (11.6-15.6); WHITE BLOOD COUNT 5.4 K/mm3 (4.0-10.0)
[2016-09-26 07:40] LABS: CALCIUM 9.5 mg/dL (8.5-10.1); COCKROFT - GAULT 69.4875; CREATININE 1.4 mg/dL (0.55-1.02); MAGNESIUM 1.8 mg/dL (1.8-2.4)
[2016-09-26] MEDS ORDERED: PT OWN MED DRAWER 7, Y5N ONE (09:31)
[2016-09-26] MEDS: CALCIUM 500MG/VIT-D 200 UNITS COMBO TABLET (FP) PO SCH ×2 (10:07→21:10)
[2016-09-26] MEDS: DULoxetine HCL 30 MG CAPSULE.DR (FP) PO SCH (10:07)
[2016-09-26] MEDS: RANITIDINE HCL 150 MG TABLET (FP) PO SCH ×2 (10:07→21:11)
[2016-09-26] MEDS: FUROSEMIDE 40 MG/4 ML INJECTABLE VIAL IVPUSH SCH (10:08)
[2016-09-26] MEDS: METOPROLOL SUCCINATE 100 MG TAB.SR.24H (FP) PO SCH ×2 (10:08→21:11)
[2016-09-26] MEDS: APIXABAN 5 MG TABLET PO SCH ×2 (10:08→21:10)
[2016-09-26] MEDS: GABAPENTIN 300 MG CAPSULE (FP) PO SCH (10:08)
[2016-09-26] MEDS: amLODIPine BESYLATE 10 MG TABLET (FP) PO SCH (10:08)
--- NOTE | 2016-09-26 10:57 | PN ---
Progress Note, Physician Chief Complaint: Ms Williamson says she is feeling better today, dyspepsia resolved. Still with dyspnea on exertion but notes she lost significant amount of weight. no chest pain. - Current Medication List Current Medications: Active Medications Acetaminophen (Tylenol -) 650 mg PO Q4H PRN PRN Reason: FEVER OR PAIN Last Admin: 09/25/16 22:51 Dose: 650 mg Al Hydroxide/Mg Hydroxide (Mylanta Oral Suspension -) 30 ml PO Q6H PRN PRN Reason: DYSPEPSIA Amlodipine Besylate (Norvasc -) 10 mg PO DAILY [facility] Last Admin: 09/26/16 10:08 Dose: 10 mg Apixaban (Eliquis -) 5 mg PO BID [facility] Last Admin: 09/26/16 10:08 Dose: 5 mg Calcium Carbonate/Cholecalciferol (Os-Antonio 500+D -) 1 tab PO BID [facility] Last Admin: 09/26/16 10:07 Dose: 1 tab Chlorhexidine Gluconate (Hibiclens For Decolonization -) 1 applic TP HS [facility] Last Admin: 09/26/16 05:38 Dose: Not Given Cyclobenzaprine HCl (Flexeril -) 10 mg PO HS PRN PRN Reason: MUSCLE SPASMS Docusate Sodium (Colace -) 300 mg PO HS [facility] Last Admin: 09/25/16 22:29 Dose: Not Given Duloxetine HCl (Cymbalta -) 60 mg PO DAILY [facility] Last Admin: 09/26/16 10:07 Dose: 60 mg Furosemide (Lasix Injection -) 40 mg IVPUSH DAILY [facility] Last Admin: 09/26/16 10:08 Dose: 40 mg Gabapentin (Neurontin -) 600 mg PO DAILY [facility] Last Admin: 09/26/16 10:08 Dose: 600 mg Metoprolol Succinate (Toprol Xl -) 100 mg PO BID [facility] Last Admin: 09/26/16 10:08 Dose: 100 mg Ondansetron HCl (Zofran Odt -) 4 mg SL Q6H PRN PRN Reason: NAUSEA AND/OR VOMITING Last Admin: 09/25/16 10:26 Dose: 4 mg Ranitidine HCl (Zantac -) 150 mg PO BID [facility] Last Admin: 09/26/16 10:07 Dose: 150 mg - Objective Vital Signs: Vital Signs Temperature 98.2 F 09/26/16 09:00 Pulse Rate 92 H 09/26/16 09:00 Respiratory Rate 16 09/26/16 09:00 Blood Pressure 136/68 09/26/16 09:00 O2 Sat by Pulse Oximetry (%) 99 09/25/16 21:00 Constitutional: Yes: No Distress, Calm, Obese Cardiovascular: Yes: Regular Rate and Rhythm. No: Gallop, Murmur, Rub Respiratory: Yes: Regular, On Nasal O2, Rhonchi. No: Rales, Wheezes Gastrointestinal: Yes: Normal Bowel Sounds, Soft. No: Distention, Tenderness Extremities: Yes: WNL Edema: No Labs: CBC, BMP 09/26/16 05:35 09/26/16 05:35 Problem List - Problems (1) CHF (congestive heart failure) Code(s): I50.9 - HEART FAILURE, UNSPECIFIED Qualifiers: Congestive heart failure type: diastolic Congestive heart failure chronicity: acute on chronic Qualified Code(s): I50.33 - Acute on chronic diastolic (congestive) heart failure (2) Atrial fibrillation Code(s): I48.91 - UNSPECIFIED ATRIAL FIBRILLATION Qualifiers: Atrial fibrillation type: chronic Qualified Code(s): I48.2 - Chronic atrial fibrillation (3) HTN (hypertension) Code(s): I10 - ESSENTIAL (PRIMARY) HYPERTENSION (4) Pleural effusion Code(s): J90 - PLEURAL EFFUSION, NOT ELSEWHERE CLASSIFIED (5) Vaginal bleeding Code(s): N93.9 - ABNORMAL UTERINE AND VAGINAL BLEEDING, UNSPECIFIED Assessment/Plan (1) CHF (congestive heart failure) Assessment/Plan: -breathing is much improved today -continue IV lasix -diuresing well -if still yin significant dyspnea on exertion tomorrow, will obtain chest x- ray Code(s): I50.9 - HEART FAILURE, UNSPECIFIED Qualifiers: Congestive heart failure type: diastolic Congestive heart failure chronicity: acute on chronic Qualified Code(s): I50.33 - Acute on chronic diastolic (congestive) heart failure (2) Atrial fibrillation Assessment/Plan: -rate controlled -continue eliquis Code(s): I48.91 - UNSPECIFIED ATRIAL FIBRILLATION Qualifiers: Atrial fibrillation type: chronic Qualified Code(s): I48.2 - Chronic atrial fibrillation (3) HTN (hypertension) Assessment/Plan: -very well controlled -continue current management Code(s): I10 - ESSENTIAL (PRIMARY) HYPERTENSION (4) Pleural effusion Assessment/Plan: -continue diuresis -as above, may need thoracentesis Code(s): J90 - PLEURAL EFFUSION, NOT ELSEWHERE CLASSIFIED (5) Vaginal bleeding Assessment/Plan: -gynecology consulted and appreciate assistance -not medically stable for biopsy -outpatient follow up Code(s): N93.9 - ABNORMAL UTERINE AND VAGINAL BLEEDING, UNSPECIFIED (6) Dyspepsia -much improved -continue current management
--- NOTE | 2016-09-26 11:23 | PN ---
Progress Note (short form) - Note Progress Note: PULMONARY LESS SOB/NO CP AFEB/AFIB 92 ANICTERIC DIMINISHED BREATH SOUNDS LEFT BASE S1S2 IRREG OBESE 2+ EDEMA ANKLES LABS/MEDS/NOTES/IMAGING REVIEWED Left pleural effusion Chronic low back pain Possible Sleep Apnea Afib O2 as needed Diuretics/rate control formal sleep workup after discharge Eliquis consider thoracentesis if no improvement with medical management Margarita LUIS MD
--- NOTE | 2016-09-26 11:56 | PN ---
Progress Note, Physician History of Present Illness: No CV complaints today Dyspena improving Tele: Afib 100s. Weight down 242 - Current Medication List Current Medications: Active Medications Acetaminophen (Tylenol -) 650 mg PO Q4H PRN PRN Reason: FEVER OR PAIN Last Admin: 09/25/16 22:51 Dose: 650 mg Al Hydroxide/Mg Hydroxide (Mylanta Oral Suspension -) 30 ml PO Q6H PRN PRN Reason: DYSPEPSIA Amlodipine Besylate (Norvasc -) 10 mg PO DAILY [facility] Last Admin: 09/26/16 10:08 Dose: 10 mg Apixaban (Eliquis -) 5 mg PO BID [facility] Last Admin: 09/26/16 10:08 Dose: 5 mg Calcium Carbonate/Cholecalciferol (Os-Antonio 500+D -) 1 tab PO BID [facility] Last Admin: 09/26/16 10:07 Dose: 1 tab Chlorhexidine Gluconate (Hibiclens For Decolonization -) 1 applic TP HS [facility] Last Admin: 09/26/16 05:38 Dose: Not Given Cyclobenzaprine HCl (Flexeril -) 10 mg PO HS PRN PRN Reason: MUSCLE SPASMS Docusate Sodium (Colace -) 300 mg PO HS [facility] Last Admin: 09/25/16 22:29 Dose: Not Given Duloxetine HCl (Cymbalta -) 60 mg PO DAILY [facility] Last Admin: 09/26/16 10:07 Dose: 60 mg Furosemide (Lasix Injection -) 40 mg IVPUSH DAILY [facility] Last Admin: 09/26/16 10:08 Dose: 40 mg Gabapentin (Neurontin -) 600 mg PO DAILY [facility] Last Admin: 09/26/16 10:08 Dose: 600 mg Metoprolol Succinate (Toprol Xl -) 100 mg PO BID [facility] Last Admin: 09/26/16 10:08 Dose: 100 mg Ondansetron HCl (Zofran Odt -) 4 mg SL Q6H PRN PRN Reason: NAUSEA AND/OR VOMITING Last Admin: 09/25/16 10:26 Dose: 4 mg Ranitidine HCl (Zantac -) 150 mg PO BID [facility] Last Admin: 09/26/16 10:07 Dose: 150 mg - Objective Vital Signs: Vital Signs Temperature 98.2 F 09/26/16 09:00 Pulse Rate 92 H 09/26/16 09:00 Respiratory Rate 16 09/26/16 09:00 Blood Pressure 136/68 09/26/16 09:00 O2 Sat by Pulse Oximetry (%) 99 09/25/16 21:00 Constitutional: Yes: No Distress Eyes: Yes: WNL HENT: Yes: WNL Neck: Yes: WNL Cardiovascular: Yes: Pulse Irregular Respiratory: Yes: Regular Gastrointestinal: Yes: WNL Extremities: Yes: WNL Edema: No Labs: CBC, BMP 09/26/16 05:35 09/26/16 05:35 Assessment/Plan a/p: 65 yo with h/o afib, HTN, HLD, venous insufficiency, obesity, chronic nausea, gastritis with gastric erosions/prior bloody stool followed by Dr. Keller, fibromyalgia, h/o vertebroplasty and epidural injections who presents with acute onset sob. sob/acute systolic heart failure exacerbation - no clinical signs of infection other than mild elevation in WBC, cxr with possible retrocardiac infiltrate. - 09/20: worsened pulmonary edema. + creatinine bump after lasix, but not clear that she was net negative. Repeat trial of lasix 60 mg IV x 1 today and reassess bmp in pm. - 09/21: Cr worsened, but lft's improved after lasix. exam appears improved, will hold further diuresis. Stop valsartan and kcl as mentioned below. - 09/22: cr improving off lasix, but weight trending up. - 09/24: Echo here with newly reduced lvef, likely tachycardia induced cardiomyopathy. Will cont with rate control with toprol. Has some vol overload with le edema and bl effs on cxr/ct scan so will resume iv lasix 40 qd to start. Monitor daily wt, chemistry - 09/26: cr stable, wt down 242 today, will cont iv lasix. -Monitor daily wt, chemistry. atrial fibrillation - deferred CV in past b/c of episode of GIB --> eliquis resumed, but held again in march after back surgery and subsequent frequent epidural injections. Resumed eliquis here. - was only taking metoprolol prn at home. Resumed here as standing med and now rate controlled - echo suggestive of TIC so rate control is important. HTN - resumed home valsartan and amlodipine. per patient on 5 mg/ 160 mg. Con't home metoprolol (uptitrated dose here). - Creatinine worsened here with diuresis --> held valsartan and increased norvasc to 10 - pain control.
[2016-09-26] MEDS: ACETAMINOPHEN 325 MG TABLET (FP) PO PRN (18:11)
[2016-09-26] MEDS: DOCUSATE SODIUM 100 MG CAPSULE (FP) PO SCH (21:11)
[2016-09-27 07:18] LABS: CALCIUM 9.4 mg/dL (8.5-10.1); MAGNESIUM 1.8 mg/dL (1.8-2.4)
[2016-09-27 07:21] LABS: COCKROFT - GAULT 74.698; CREATININE 1.3 mg/dL (0.55-1.02)
[2016-09-27 08:31] LABS: EOSINOPHIL 1.4 % (0-4.5); MCH 35.6 pg (25.7-33.7); MCHC 33.9 g/dl (32.0-36.0); MEAN PLT VOLUME 8.6 fl (7.5-11.1); NEUTROPHILS 50.3 % (42.8-82.8); PLATELET COUNT 256 K/MM3 (134-434)
--- NOTE | 2016-09-27 09:27 | PN ---
Progress Note, Physician History of Present Illness: No CV complaints today Breathing subjectively improving Tele AFib 80s - Current Medication List Current Medications: Active Medications Acetaminophen (Tylenol -) 650 mg PO Q4H PRN PRN Reason: FEVER OR PAIN Last Admin: 09/26/16 18:11 Dose: 650 mg Al Hydroxide/Mg Hydroxide (Mylanta Oral Suspension -) 30 ml PO Q6H PRN PRN Reason: DYSPEPSIA Amlodipine Besylate (Norvasc -) 10 mg PO DAILY [facility] Last Admin: 09/26/16 10:08 Dose: 10 mg Apixaban (Eliquis -) 5 mg PO BID [facility] Last Admin: 09/26/16 21:10 Dose: 5 mg Calcium Carbonate/Cholecalciferol (Os-Antonio 500+D -) 1 tab PO BID [facility] Last Admin: 09/26/16 21:10 Dose: 1 tab Chlorhexidine Gluconate (Hibiclens For Decolonization -) 1 applic TP HS [facility] Last Admin: 09/26/16 21:11 Dose: Not Given Cyclobenzaprine HCl (Flexeril -) 10 mg PO HS PRN PRN Reason: MUSCLE SPASMS Docusate Sodium (Colace -) 300 mg PO HS [facility] Last Admin: 09/26/16 21:11 Dose: Not Given Duloxetine HCl (Cymbalta -) 60 mg PO DAILY [facility] Last Admin: 09/26/16 10:07 Dose: 60 mg Furosemide (Lasix Injection -) 40 mg IVPUSH DAILY [facility] Last Admin: 09/26/16 10:08 Dose: 40 mg Gabapentin (Neurontin -) 600 mg PO DAILY [facility] Last Admin: 09/26/16 10:08 Dose: 600 mg Metoprolol Succinate (Toprol Xl -) 100 mg PO BID [facility] Last Admin: 09/26/16 21:11 Dose: 100 mg Ondansetron HCl (Zofran Odt -) 4 mg SL Q6H PRN PRN Reason: NAUSEA AND/OR VOMITING Last Admin: 09/25/16 10:26 Dose: 4 mg Ranitidine HCl (Zantac -) 150 mg PO BID [facility] Last Admin: 09/26/16 21:11 Dose: 150 mg - Objective Vital Signs: Vital Signs Temperature 98 F 09/27/16 05:28 Pulse Rate 90 09/27/16 05:28 Respiratory Rate 20 09/27/16 05:28 Blood Pressure 140/93 09/27/16 05:28 O2 Sat by Pulse Oximetry (%) 96 09/26/16 21:00 Constitutional: Yes: No Distress Eyes: Yes: WNL HENT: Yes: WNL Neck: Yes: WNL Cardiovascular: Yes: Pulse Irregular, Murmur Respiratory: Yes: WNL, CTA Bilaterally Extremities: Yes: WNL Edema: Yes Edema: LLE: Trace, RLE: Trace Labs: CBC, BMP 09/27/16 05:35 09/27/16 05:35 Assessment/Plan a/p: 65 yo with h/o afib, HTN, HLD, venous insufficiency, obesity, chronic nausea, gastritis with gastric erosions/prior bloody stool followed by Dr. Keller, fibromyalgia, h/o vertebroplasty and epidural injections who presents with acute onset sob. sob/acute systolic heart failure exacerbation - no clinical signs of infection other than mild elevation in WBC, cxr with possible retrocardiac infiltrate. - 09/20: worsened pulmonary edema. + creatinine bump after lasix, but not clear that she was net negative. Repeat trial of lasix 60 mg IV x 1 today and reassess bmp in pm. - 09/21: Cr worsened, but lft's improved after lasix. exam appears improved, will hold further diuresis. Stop valsartan and kcl as mentioned below. - 09/22: cr improving off lasix, but weight trending up. - 09/24: Echo here with newly reduced lvef, likely tachycardia induced cardiomyopathy. Will cont with rate control with toprol. Has some vol overload with le edema and bl effs on cxr/ct scan so will resume iv lasix 40 qd to start. Monitor daily wt, chemistry - 09/26: cr stable, wt down 242 today, will cont iv lasix. 09/27 Weight today down to 241 (242), renal function stable. Will increase Lasix to 40mg IV BID -Monitor daily wt, chemistry. atrial fibrillation - deferred CV in past b/c of episode of GIB --> eliquis resumed, but held again in march after back surgery and subsequent frequent epidural injections. Resumed eliquis here. - was only taking metoprolol prn at home. Resumed here as standing med and now rate controlled - echo suggestive of TIC so rate control is important. HTN - resumed home valsartan and amlodipine. per patient on 5 mg/ 160 mg. Con't home metoprolol (uptitrated dose here). - Creatinine worsened here with diuresis --> held valsartan and increased norvasc to 10 - pain control.
[2016-09-27] MEDS: CALCIUM 500MG/VIT-D 200 UNITS COMBO TABLET (FP) PO SCH ×2 (09:59→21:26)
[2016-09-27] MEDS: APIXABAN 5 MG TABLET PO SCH ×2 (09:59→21:26)
[2016-09-27] MEDS: GABAPENTIN 300 MG CAPSULE (FP) PO SCH (09:59)
[2016-09-27] MEDS: DULoxetine HCL 30 MG CAPSULE.DR (FP) PO SCH (09:59)
[2016-09-27] MEDS: RANITIDINE HCL 150 MG TABLET (FP) PO SCH ×2 (09:59→21:27)
[2016-09-27] MEDS: amLODIPine BESYLATE 10 MG TABLET (FP) PO SCH (10:00)
[2016-09-27] MEDS: METOPROLOL SUCCINATE 100 MG TAB.SR.24H (FP) PO SCH ×2 (10:00→21:27)
--- NOTE | 2016-09-27 12:51 | PN ---
Progress Note (short form) - Note Progress Note: PULMONARY EVERTIONAL SOB/NO CP AFEB/AFIB 92 ANICTERIC DIMINISHED BREATH SOUNDS LEFT BASE S1S2 IRREG OBESE 2+ EDEMA ANKLES LABS/MEDS/NOTES/IMAGING REVIEWED Left pleural effusion Chronic low back pain Possible Sleep Apnea Afib O2 as needed Diuretics/rate control formal sleep workup after discharge Eliquis consider thoracentesis if no improvement with medical management repeat cxr spo2 pre/post gina LUIS MD
--- NOTE | 2016-09-27 12:52 | PN ---
Progress Note, Physician Chief Complaint: Ms Williamson says she is still very short of breath on exertion. No cp or n/v. - Current Medication List Current Medications: Active Medications Acetaminophen (Tylenol -) 650 mg PO Q4H PRN PRN Reason: FEVER OR PAIN Last Admin: 09/26/16 18:11 Dose: 650 mg Al Hydroxide/Mg Hydroxide (Mylanta Oral Suspension -) 30 ml PO Q6H PRN PRN Reason: DYSPEPSIA Amlodipine Besylate (Norvasc -) 10 mg PO DAILY [facility] Last Admin: 09/27/16 10:00 Dose: Not Given Apixaban (Eliquis -) 5 mg PO BID [facility] Last Admin: 09/27/16 09:59 Dose: 5 mg Calcium Carbonate/Cholecalciferol (Os-Antonio 500+D -) 1 tab PO BID [facility] Last Admin: 09/27/16 09:59 Dose: 1 tab Chlorhexidine Gluconate (Hibiclens For Decolonization -) 1 applic TP HS [facility] Last Admin: 09/26/16 21:11 Dose: Not Given Cyclobenzaprine HCl (Flexeril -) 10 mg PO HS PRN PRN Reason: MUSCLE SPASMS Docusate Sodium (Colace -) 300 mg PO HS [facility] Last Admin: 09/26/16 21:11 Dose: Not Given Duloxetine HCl (Cymbalta -) 60 mg PO DAILY [facility] Last Admin: 09/27/16 09:59 Dose: 60 mg Furosemide (Lasix Injection -) 40 mg IVPUSH BID@0600,1400 [facility] Gabapentin (Neurontin -) 600 mg PO DAILY [facility] Last Admin: 09/27/16 09:59 Dose: 600 mg Metoprolol Succinate (Toprol Xl -) 100 mg PO BID [facility] Last Admin: 09/27/16 10:00 Dose: 100 mg Ondansetron HCl (Zofran Odt -) 4 mg SL Q6H PRN PRN Reason: NAUSEA AND/OR VOMITING Last Admin: 09/25/16 10:26 Dose: 4 mg Ranitidine HCl (Zantac -) 150 mg PO BID [facility] Last Admin: 09/27/16 09:59 Dose: 150 mg - Objective Vital Signs: Vital Signs Temperature 98 F 09/27/16 10:00 Pulse Rate 78 09/27/16 10:00 Respiratory Rate 22 09/27/16 10:00 Blood Pressure 104/70 09/27/16 10:00 O2 Sat by Pulse Oximetry (%) 96 09/26/16 21:00 Constitutional: Yes: No Distress, Calm, Obese Cardiovascular: Yes: Pulse Irregular. No: Tachycardia, Gallop, Murmur, Rub Respiratory: Yes: Regular, CTA Bilaterally. No: Rales, Rhonchi, Wheezes Gastrointestinal: Yes: Normal Bowel Sounds, Soft. No: Distention, Tenderness Extremities: Yes: WNL Edema: No Labs: CBC, BMP 09/27/16 05:35 09/27/16 05:35 Problem List - Problems (1) CHF (congestive heart failure) Code(s): I50.9 - HEART FAILURE, UNSPECIFIED Qualifiers: Qualified Code(s): I50.33 - Acute on chronic diastolic (congestive) heart failure (2) Atrial fibrillation Code(s): I48.91 - UNSPECIFIED ATRIAL FIBRILLATION Qualifiers: Qualified Code(s): I48.2 - Chronic atrial fibrillation (3) HTN (hypertension) Code(s): I10 - ESSENTIAL (PRIMARY) HYPERTENSION (4) Pleural effusion Code(s): J90 - PLEURAL EFFUSION, NOT ELSEWHERE CLASSIFIED (5) Vaginal bleeding Code(s): N93.9 - ABNORMAL UTERINE AND VAGINAL BLEEDING, UNSPECIFIED Assessment/Plan (1) CHF (congestive heart failure) Assessment/Plan: -cardiology note reviewed -lasix increased -still with [place], chest x-ray and post ambulation oxygen saturations Code(s): I50.9 - HEART FAILURE, UNSPECIFIED Qualifiers: Congestive heart failure type: diastolic Congestive heart failure chronicity: acute on chronic Qualified Code(s): I50.33 - Acute on chronic diastolic (congestive) heart failure (2) Atrial fibrillation Assessment/Plan: -rate controlled -continue eliquis Code(s): I48.91 - UNSPECIFIED ATRIAL FIBRILLATION Qualifiers: Atrial fibrillation type: chronic Qualified Code(s): I48.2 - Chronic atrial fibrillation (3) HTN (hypertension) Assessment/Plan: -very well controlled -continue current management Code(s): I10 - ESSENTIAL (PRIMARY) HYPERTENSION (4) Pleural effusion Assessment/Plan: -continue diuresis -as above, may need thoracentesis Code(s): J90 - PLEURAL EFFUSION, NOT ELSEWHERE CLASSIFIED (5) Vaginal bleeding Assessment/Plan: -gynecology consulted and appreciate assistance -not medically stable for biopsy -outpatient follow up Code(s): N93.9 - ABNORMAL UTERINE AND VAGINAL BLEEDING, UNSPECIFIED (6) Dyspepsia -much improved -continue current management
[2016-09-27] MEDS: FUROSEMIDE 40 MG/4 ML INJECTABLE VIAL IVPUSH SCH (13:12)
[2016-09-27] MEDS: CHLORHEXIDINE GLUCONATE 4% CLEANSER FOR DECOLONIZATION TP SCH (21:25)
[2016-09-27] MEDS: DOCUSATE SODIUM 100 MG CAPSULE (FP) PO SCH (21:26)
[2016-09-27] MEDS: ACETAMINOPHEN 325 MG TABLET (FP) PO PRN (21:30)
[2016-09-28] MEDS: FUROSEMIDE 40 MG/4 ML INJECTABLE VIAL IVPUSH SCH ×2 (06:45→13:37)
[2016-09-28 07:40] LABS: EOSINOPHIL 1.2 % (0-4.5); MCH 35.3 pg (25.7-33.7); MCHC 33.6 g/dl (32.0-36.0); MEAN CELL VOLUME 105.1 fl (80-96); MEAN PLT VOLUME 8.5 fl (7.5-11.1); NEUTROPHILS 51.4 % (42.8-82.8); PLATELET COUNT 242 K/MM3 (134-434); WHITE BLOOD COUNT 4.9 K/mm3 (4.0-10.0)
[2016-09-28 07:58] LABS: CALCIUM 9.2 mg/dL (8.5-10.1); COCKROFT - GAULT 79.509; CREATININE 1.2 mg/dL (0.55-1.02); MAGNESIUM 1.8 mg/dL (1.8-2.4); PHOSPHOROUS 3.6 mg/dL (2.5-4.9)
--- NOTE | 2016-09-28 08:48 | PN ---
Progress Note, Physician Chief Complaint: chf History of Present Illness: remains quite sob after returns to bed from bathroom; improved vs prior to admit but not at baseline; no cp rare palpitations no syncope no cigs - Current Medication List Current Medications: Active Medications Acetaminophen (Tylenol -) 650 mg PO Q4H PRN PRN Reason: FEVER OR PAIN Last Admin: 09/27/16 21:30 Dose: 650 mg Al Hydroxide/Mg Hydroxide (Mylanta Oral Suspension -) 30 ml PO Q6H PRN PRN Reason: DYSPEPSIA Amlodipine Besylate (Norvasc -) 10 mg PO DAILY [facility] Last Admin: 09/27/16 10:00 Dose: Not Given Apixaban (Eliquis -) 5 mg PO BID [facility] Last Admin: 09/27/16 21:26 Dose: Not Given Calcium Carbonate/Cholecalciferol (Os-Antonio 500+D -) 1 tab PO BID [facility] Last Admin: 09/27/16 21:26 Dose: 1 tab Chlorhexidine Gluconate (Hibiclens For Decolonization -) 1 applic TP HS [facility] Last Admin: 09/27/16 21:25 Dose: Not Given Cyclobenzaprine HCl (Flexeril -) 10 mg PO HS PRN PRN Reason: MUSCLE SPASMS Docusate Sodium (Colace -) 300 mg PO HS [facility] Last Admin: 09/27/16 21:26 Dose: Not Given Duloxetine HCl (Cymbalta -) 60 mg PO DAILY [facility] Last Admin: 09/27/16 09:59 Dose: 60 mg Furosemide (Lasix Injection -) 40 mg IVPUSH BID@0600,1400 [facility] Last Admin: 09/28/16 06:45 Dose: 40 mg Gabapentin (Neurontin -) 600 mg PO DAILY [facility] Last Admin: 09/27/16 09:59 Dose: 600 mg Metoprolol Succinate (Toprol Xl -) 100 mg PO BID [facility] Last Admin: 09/27/16 21:27 Dose: 100 mg Ondansetron HCl (Zofran Odt -) 4 mg SL Q6H PRN PRN Reason: NAUSEA AND/OR VOMITING Last Admin: 09/25/16 10:26 Dose: 4 mg Ranitidine HCl (Zantac -) 150 mg PO BID [facility] Last Admin: 09/27/16 21:27 Dose: 150 mg - Objective Vital Signs: Vital Signs Temperature 98.6 F 09/28/16 06:00 Pulse Rate 71 09/28/16 06:00 Respiratory Rate 20 09/28/16 06:00 Blood Pressure 139/59 09/28/16 06:00 O2 Sat by Pulse Oximetry (%) 96 09/27/16 21:00 Constitutional: Yes: No Distress, Calm, Obese Eyes: No: Sclera Icterus HENT: No: Nasal Congestion Cardiovascular: Yes: Pulse Irregular, S1, S2, Other (PMI non diplaced). No: JVD , Gallop, Murmur Respiratory: Yes: CTA Bilaterally, Diminished (bases). No: Accessory Muscle Use , Rales, Wheezes Gastrointestinal: Yes: Normal Bowel Sounds, Soft. No: Tenderness Musculoskeletal: Yes: Other (No kyphosis) Extremities: No: Cold Edema: No Integumentary: No: Jaundice Neurological: Yes: Alert, Oriented (x3) Psychiatric: No: Agitated Labs: CBC, BMP 09/28/16 05:35 09/28/16 05:35 - ....Imaging EKG: Other (tele: afib 80s-90s) Assessment/Plan CXR 09/18: left retrocardiac opacity (atelectasis vs. pna) CXR 09/19: progressive fluid with atelectaasis or infiltrate at left base. Echo 08/2016: sev dec lvef, global hk, mild rv dil and mild dec rv fcn, sev constantin , sev tr, mod mr, mild pr, nl rvsp Echo 01/08: nl LV/EF; dd1; mild JOSIE of unclear significance; nl RV; mild LAE; valves WNL; IASA (no PFO) MIBI 12/08: 4:00min; no STs; ? small anteroapical isch vs large breast shadows; nl EF; no TID a/p: 65 yo with h/o afib, HTN, HLD, venous insufficiency, obesity, chronic nausea, gastritis with gastric erosions/prior bloody stool followed by Dr. Keller, fibromyalgia, h/o vertebroplasty and epidural injections who presents with acute onset sob. acute systolic chf - cxr with possible retrocardiac infiltrate, PNA not suspected clinically here. - pt with chronic h/o labile creatinine in response to vol depletion and thiazide diuretic for HTN - 09/20: worsened pulmonary edema. + creatinine bump after lasix, but not clear that she was net negative. Repeat trial of lasix 60 mg IV x 1 today and reassess bmp in pm. - 09/21: Cr worsened, but lft's improved after lasix. exam appears improved, will hold further diuresis. Stop valsartan and kcl as mentioned below. - 09/22: cr improving off lasix, but weight trending up. - 09/24: Echo here with newly reduced lvef, likely tachycardia induced cardiomyopathy. Will cont with rate control with toprol. Has some vol overload with le edema and b/l effs on cxr/ct scan so will resume iv lasix 40 qd to start. - 09/25: cr stable, wt down, will cont iv lasix and give extra dose of 40 iv today. atrial fibrillation - 09/28: wt trended down over weekend with stable renal fxn, lasix incr'd to 40 iv bid on 09/27; down further today (240), from 249 peak; bilat eff (L > R) persist on CXR--cont same lasix -was 239 lbs in office 01/09 - remains symptomatic (sob)--incr lasix to 80 iv bid - creat improved promptly after valsartan held (last dose 09/21)--i believe she may have had similar pattern in the past as outpatient; will try lower dose ARB (valsartan 40 qd-bid) for bp and chf purposes once she is euvolemic, if renal fxn is stable Afib: - s/p successful DCCV 02/08, has not followed up with me as scheduled since that time - HRs were normal here in 04/10 and only began noticing palpitations again 08/10- -likely back in AF approx 6-8 wks now - in AF here with rapid HR on admit, and new LV systolic dysfunction (global) suggestive of tachy-CMP--in setting of non-compliance with metoprolol (taking prn) - HR not controlled with metopr 50qd in past and pt c/o'd intolerable fatigue/ exhaustion - painful pretib edema on diltiazem 180 (and ? 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 home compliance with correct med regimen - will clarify records - repeated severe MARGOT (creat bumped to 3) in past due to vol depletion in setting of thiazide use, ? also if creat was previously sensitive to GREGG/ARB - valsartan held here when creat worsened after iv lasix initially, norvasc incr 'd - will not tolerate incr norvasc due to h/o peripheral edema and self-tx with diuretics with resultant severe MARGOT on mult occasions - 09/28: decr amlodipine back to 5mg, add hydralazine - hope bp will improve once vol overload is corrected
[2016-09-28] MEDS ORDERED: amLODIPine BESYLATE 10 MG TABLET (FP) PO SCH (09:04)
[2016-09-28] MEDS: GABAPENTIN 300 MG CAPSULE (FP) PO SCH (09:32)
[2016-09-28] MEDS: hydrALAZINE HCL 25 MG TABLET (FP) PO SCH ×2 (09:32→22:06)
[2016-09-28] MEDS: CALCIUM 500MG/VIT-D 200 UNITS COMBO TABLET (FP) PO SCH ×2 (09:32→22:06)
[2016-09-28] MEDS: METOPROLOL SUCCINATE 100 MG TAB.SR.24H (FP) PO SCH (09:32)
[2016-09-28] MEDS: DULoxetine HCL 30 MG CAPSULE.DR (FP) PO SCH (09:32)
[2016-09-28] MEDS: amLODIPine BESYLATE 5 MG TABLET (FP) PO SCH (09:32)
[2016-09-28] MEDS: RANITIDINE HCL 150 MG TABLET (FP) PO SCH ×2 (09:33→22:07)
--- NOTE | 2016-09-28 11:15 | PN ---
Progress Note, Physician History of Present Illness: PULMONARY ALERT,+[place],-CP - Current Medication List Current Medications: Active Medications Acetaminophen (Tylenol -) 650 mg PO Q4H PRN PRN Reason: FEVER OR PAIN Last Admin: 09/27/16 21:30 Dose: 650 mg Al Hydroxide/Mg Hydroxide (Mylanta Oral Suspension -) 30 ml PO Q6H PRN PRN Reason: DYSPEPSIA Amlodipine Besylate (Norvasc -) 5 mg PO DAILY [facility] Last Admin: 09/28/16 09:32 Dose: 5 mg Apixaban (Eliquis -) 5 mg PO BID [facility] Last Admin: 09/27/16 21:26 Dose: Not Given Calcium Carbonate/Cholecalciferol (Os-Antonio 500+D -) 1 tab PO BID [facility] Last Admin: 09/28/16 09:32 Dose: 1 tab Chlorhexidine Gluconate (Hibiclens For Decolonization -) 1 applic TP HS [facility] Last Admin: 09/27/16 21:25 Dose: Not Given Cyclobenzaprine HCl (Flexeril -) 10 mg PO HS PRN PRN Reason: MUSCLE SPASMS Docusate Sodium (Colace -) 300 mg PO HS [facility] Last Admin: 09/27/16 21:26 Dose: Not Given Duloxetine HCl (Cymbalta -) 60 mg PO DAILY [facility] Last Admin: 09/28/16 09:32 Dose: 60 mg Furosemide (Lasix Injection -) 40 mg IVPUSH BID@0600,1400 [facility] Last Admin: 09/28/16 06:45 Dose: 40 mg Gabapentin (Neurontin -) 600 mg PO DAILY [facility] Last Admin: 09/28/16 09:32 Dose: 600 mg Hydralazine HCl (Apresoline -) 25 mg PO BID [facility] Last Admin: 09/28/16 09:32 Dose: 25 mg Metoprolol Succinate (Toprol Xl -) 100 mg PO BID [facility] Last Admin: 09/28/16 09:32 Dose: 100 mg Ondansetron HCl (Zofran Odt -) 4 mg SL Q6H PRN PRN Reason: NAUSEA AND/OR VOMITING Last Admin: 09/25/16 10:26 Dose: 4 mg Ranitidine HCl (Zantac -) 150 mg PO BID [facility] Last Admin: 09/28/16 09:33 Dose: 150 mg - Objective Vital Signs: Vital Signs Temperature 98.2 F 09/28/16 08:00 Pulse Rate 88 09/28/16 08:00 Respiratory Rate 20 09/28/16 08:00 Blood Pressure 150/74 09/28/16 08:00 O2 Sat by Pulse Oximetry (%) 96 09/27/16 21:00 Constitutional: Yes: Well Nourished, Calm Eyes: Yes: WNL HENT: Yes: WNL Neck: Yes: WNL Cardiovascular: Yes: Pulse Irregular, S1, S2 Respiratory: Yes: Diminished Gastrointestinal: Yes: Normal Bowel Sounds, Soft Extremities: Yes: WNL Edema: Yes Labs: CBC, BMP 09/28/16 05:35 09/28/16 05:35 Problem List - Problems (1) Dyspnea Code(s): R06.00 - DYSPNEA, UNSPECIFIED (2) HTN (hypertension) Code(s): I10 - ESSENTIAL (PRIMARY) HYPERTENSION (3) Pleural effusion Code(s): J90 - PLEURAL EFFUSION, NOT ELSEWHERE CLASSIFIED Assessment/Plan Problem List - Problems (1) Atrial fibrillation Code(s): I48.91 - UNSPECIFIED ATRIAL FIBRILLATION (2) HTN (hypertension) Code(s): I10 - ESSENTIAL (PRIMARY) HYPERTENSION (3) Rapid atrial fibrillation Code(s): I48.91 - UNSPECIFIED ATRIAL FIBRILLATION Assessment/Plan Left pleural effusion Chronic low back pain Possible Sleep Apnea Afib O2 as needed formal sleep workup after discharge Rate control per Cardiology Eliquis thoracentesis with ultrasound guidance DR CASTAÑEDA
[2016-09-28] MEDS: APIXABAN 5 MG TABLET PO SCH ×2 (11:22→21:59)
[2016-09-28 14:19] LABS: INR 1.25 (0.82-1.09); PROTHROMBIN TIME (PATIENT) 13.8 SEC (9.98-11.88)
--- NOTE | 2016-09-28 15:17 | PN ---
Progress Note, Physician Chief Complaint: Ms Williamson says she is still very short of breath on exertion and it is unchanged. No cp or n/v. - Current Medication List Current Medications: Active Medications Acetaminophen (Tylenol -) 650 mg PO Q4H PRN PRN Reason: FEVER OR PAIN Last Admin: 09/27/16 21:30 Dose: 650 mg Al Hydroxide/Mg Hydroxide (Mylanta Oral Suspension -) 30 ml PO Q6H PRN PRN Reason: DYSPEPSIA Amiodarone HCl (Cordarone -) 200 mg PO BID@0600,1800 [facility] Stop: 10/12/16 05:59 Amiodarone HCl (Cordarone -) [address] [facility] Stop: 10/05/16 06:00 Amiodarone HCl (Cordarone -) 200 mg PO DAILY@0600 [facility] Amlodipine Besylate (Norvasc -) [address] [facility] Last Admin: 09/28/16 09:32 Dose: 5 mg Apixaban (Eliquis -) [address] [facility] Last Admin: 09/28/16 11:22 Dose: Not Given Calcium Carbonate/Cholecalciferol (Os-Antonio 500+D -) [address] [facility] Last Admin: 09/28/16 09:32 Dose: 1 tab Chlorhexidine Gluconate (Hibiclens For Decolonization -) [address] [facility] Last Admin: 09/27/16 21:25 Dose: Not Given Cyclobenzaprine HCl (Flexeril -) 10 mg PO HS PRN PRN Reason: MUSCLE SPASMS Docusate Sodium (Colace -) [address] [facility] Last Admin: 09/27/16 21:26 Dose: Not Given Duloxetine HCl (Cymbalta -) [address] [facility] Last Admin: 09/28/16 09:32 Dose: 60 mg Furosemide (Lasix Injection -) 80 mg IVPUSH BID@0600,1400 [facility] Last Admin: 09/28/16 13:37 Dose: 80 mg Gabapentin (Neurontin -) [address] [facility] Last Admin: 09/28/16 09:32 Dose: 600 mg Hydralazine HCl (Apresoline -) [address] [facility] Last Admin: 09/28/16 09:32 Dose: 25 mg Metoprolol Succinate (Toprol Xl -) [address] [facility] Ondansetron HCl (Zofran Odt -) 4 mg SL Q6H PRN PRN Reason: NAUSEA AND/OR VOMITING Last Admin: 09/25/16 10:26 Dose: 4 mg Ranitidine HCl (Zantac -) 150 mg PO BID [facility] Last Admin: 09/28/16 09:33 Dose: 150 mg - Objective Vital Signs: Vital Signs Temperature 98.2 F 09/28/16 08:00 Pulse Rate 88 09/28/16 08:00 Respiratory Rate 20 09/28/16 08:00 Blood Pressure 150/74 09/28/16 08:00 O2 Sat by Pulse Oximetry (%) 96 09/28/16 09:00 Constitutional: Yes: No Distress, Calm, Obese Cardiovascular: Yes: Pulse Irregular. No: Tachycardia, Gallop, Murmur, Rub Respiratory: Yes: Regular, On Nasal O2, Rhonchi, Wheezes. No: CTA Bilaterally, Rales Gastrointestinal: Yes: Normal Bowel Sounds, Soft. No: Distention, Tenderness Extremities: Yes: WNL Edema: No Labs: CBC, BMP 09/28/16 05:35 09/28/16 05:35 Problem List - Problems (1) CHF (congestive heart failure) Code(s): I50.9 - HEART FAILURE, UNSPECIFIED Qualifiers: Congestive heart failure type: diastolic Congestive heart failure chronicity: acute on chronic Qualified Code(s): I50.33 - Acute on chronic diastolic (congestive) heart failure (2) Atrial fibrillation Code(s): I48.91 - UNSPECIFIED ATRIAL FIBRILLATION Qualifiers: Atrial fibrillation type: chronic Qualified Code(s): I48.2 - Chronic atrial fibrillation (3) HTN (hypertension) Code(s): I10 - ESSENTIAL (PRIMARY) HYPERTENSION (4) Pleural effusion Code(s): J90 - PLEURAL EFFUSION, NOT ELSEWHERE CLASSIFIED (5) Vaginal bleeding Code(s): N93.9 - ABNORMAL UTERINE AND VAGINAL BLEEDING, UNSPECIFIED Assessment/Plan (1) CHF (congestive heart failure) Assessment/Plan: -cardiology note reviewed -continue IV lasix Code(s): I50.9 - HEART FAILURE, UNSPECIFIED Qualifiers: Congestive heart failure type: diastolic Congestive heart failure chronicity: acute on chronic Qualified Code(s): I50.33 - Acute on chronic diastolic (congestive) heart failure (2) Atrial fibrillation Assessment/Plan: -started on amiodarone per cardiology -holding eliquis Code(s): I48.91 - UNSPECIFIED ATRIAL FIBRILLATION Qualifiers: Atrial fibrillation type: chronic Qualified Code(s): I48.2 - Chronic atrial fibrillation (3) HTN (hypertension) Assessment/Plan: -controlled -continue current management Code(s): I10 - ESSENTIAL (PRIMARY) HYPERTENSION (4) Pleural effusion Assessment/Plan: -continue diuresis -planning for thoracentesis tomorrow Code(s): J90 - PLEURAL EFFUSION, NOT ELSEWHERE CLASSIFIED (5) Vaginal bleeding Assessment/Plan: -gynecology consulted and appreciate assistance -not medically stable for biopsy -outpatient follow up Code(s): N93.9 - ABNORMAL UTERINE AND VAGINAL BLEEDING, UNSPECIFIED (6) Dyspepsia -much improved -continue current management
[2016-09-28] MEDS: traMADol HCL 50 MG TABLET PO PRN ×2 (16:31→22:10)
[2016-09-28] MEDS: CHLORHEXIDINE GLUCONATE 4% CLEANSER FOR DECOLONIZATION TP SCH (21:59)
[2016-09-28] MEDS: DOCUSATE SODIUM 100 MG CAPSULE (FP) PO SCH (22:00)
[2016-09-28] MEDS ORDERED: AMIODARONE HCL 200 MG TABLET (FP) PO SCH (22:00)
[2016-09-28] MEDS: AMIODARONE HCL 200 MG TABLET (FP) PO SCH (22:06)
[2016-09-28] MEDS: METOPROLOL SUCCINATE 50 MG TAB.SR.24H (FP) PO SCH (22:07)
[2016-09-29] MEDS: FUROSEMIDE 40 MG/4 ML INJECTABLE VIAL IVPUSH SCH ×2 (06:28→15:07)
[2016-09-29 07:52] LABS: BASOPHIL 0.9 % (0-2.0); MCHC 33.8 g/dl (32.0-36.0); MEAN CELL VOLUME 103.4 fl (80-96); MEAN PLT VOLUME 8.6 fl (7.5-11.1); NEUTROPHILS 56.6 % (42.8-82.8); PLATELET COUNT 266 K/MM3 (134-434); RDW 16.5 % (11.6-15.6)
[2016-09-29 08:00] LABS: CALCIUM 9.1 mg/dL (8.5-10.1); COCKROFT - GAULT 78.3785; CREATININE 1.2 mg/dL (0.55-1.02); MAGNESIUM 1.8 mg/dL (1.8-2.4); PHOSPHOROUS 4.1 mg/dL (2.5-4.9)
[2016-09-29] MEDS: DULoxetine HCL 30 MG CAPSULE.DR (FP) PO SCH (09:19)
[2016-09-29] MEDS: hydrALAZINE HCL 25 MG TABLET (FP) PO SCH ×2 (09:20→21:34)
[2016-09-29] MEDS: CALCIUM 500MG/VIT-D 200 UNITS COMBO TABLET (FP) PO SCH ×2 (09:20→21:36)
[2016-09-29] MEDS: GABAPENTIN 300 MG CAPSULE (FP) PO SCH (09:20)
[2016-09-29] MEDS: RANITIDINE HCL 150 MG TABLET (FP) PO SCH ×2 (09:20→21:36)
[2016-09-29] MEDS: amLODIPine BESYLATE 5 MG TABLET (FP) PO SCH (09:20)
[2016-09-29] MEDS: METOPROLOL SUCCINATE 50 MG TAB.SR.24H (FP) PO SCH ×2 (09:20→21:36)
[2016-09-29] MEDS: AMIODARONE HCL 200 MG TABLET (FP) PO SCH ×2 (09:22→21:35)
[2016-09-29] MEDS: APIXABAN 5 MG TABLET PO SCH ×2 (09:22→21:36)
[2016-09-29] MEDS: traMADol HCL 50 MG TABLET PO PRN ×2 (09:45→17:06)
--- NOTE | 2016-09-29 10:22 | PN ---
Progress Note, Physician History of Present Illness: pulmonary alert,feeling better,less dyspneic - Current Medication List Current Medications: Active Medications Acetaminophen (Tylenol -) 650 mg PO Q4H PRN PRN Reason: FEVER OR PAIN Last Admin: 09/27/16 21:30 Dose: 650 mg Al Hydroxide/Mg Hydroxide (Mylanta Oral Suspension -) 30 ml PO Q6H PRN PRN Reason: DYSPEPSIA Amiodarone HCl (Cordarone -) 200 mg PO BID@0600,1800 [facility] Stop: 10/12/16 05:59 Amiodarone HCl (Cordarone -) 400 mg PO BID [facility] Stop: 10/05/16 06:00 Last Admin: 09/29/16 09:22 Dose: 400 mg Amiodarone HCl (Cordarone -) 200 mg PO DAILY@0600 [facility] Amlodipine Besylate (Norvasc -) 5 mg PO DAILY [facility] Last Admin: 09/29/16 09:20 Dose: 5 mg Apixaban (Eliquis -) 5 mg PO BID [facility] Last Admin: 09/29/16 09:22 Dose: Not Given Calcium Carbonate/Cholecalciferol (Os-Antonio 500+D -) 1 tab PO BID [facility] Last Admin: 09/29/16 09:20 Dose: 1 tab Chlorhexidine Gluconate (Hibiclens For Decolonization -) 1 applic TP HS [facility] Last Admin: 09/28/16 21:59 Dose: Not Given Cyclobenzaprine HCl (Flexeril -) 10 mg PO HS PRN PRN Reason: MUSCLE SPASMS Docusate Sodium (Colace -) 300 mg PO HS [facility] Last Admin: 09/28/16 22:00 Dose: Not Given Duloxetine HCl (Cymbalta -) 60 mg PO DAILY [facility] Last Admin: 09/29/16 09:19 Dose: 60 mg Furosemide (Lasix Injection -) 80 mg IVPUSH BID@0600,1400 [facility] Last Admin: 09/29/16 06:28 Dose: 80 mg Gabapentin (Neurontin -) 600 mg PO DAILY [facility] Last Admin: 09/29/16 09:20 Dose: 600 mg Hydralazine HCl (Apresoline -) 25 mg PO BID [facility] Last Admin: 09/29/16 09:20 Dose: 25 mg Metoprolol Succinate (Toprol Xl -) 50 mg PO BID [facility] Last Admin: 09/29/16 09:20 Dose: 50 mg Ondansetron HCl (Zofran Odt -) 4 mg SL Q6H PRN PRN Reason: NAUSEA AND/OR VOMITING Last Admin: 09/25/16 10:26 Dose: 4 mg Ranitidine HCl (Zantac -) 150 mg PO BID [facility] Last Admin: 09/29/16 09:20 Dose: 150 mg Tramadol HCl (Ultram -) 50 mg PO Q6H PRN PRN Reason: PAIN Last Admin: 09/29/16 09:45 Dose: 50 mg - Objective Vital Signs: Vital Signs Temperature 98.0 F 09/29/16 05:54 Pulse Rate 84 09/29/16 05:54 Respiratory Rate 20 09/29/16 05:54 Blood Pressure 122/75 09/29/16 05:54 O2 Sat by Pulse Oximetry (%) 99 09/28/16 21:00 Constitutional: Yes: Well Nourished, Calm Eyes: Yes: WNL HENT: Yes: WNL Cardiovascular: Yes: Pulse Irregular, S1, S2 Respiratory: Yes: Diminished Gastrointestinal: Yes: Normal Bowel Sounds, Soft Extremities: Yes: WNL Edema: Yes Labs: CBC, BMP 09/29/16 05:38 09/29/16 05:38 INR, PTT INR 1.25 (0.82-1.09) H 09/28/16 13:10 Problem List - Problems (1) Dyspnea Code(s): R06.00 - DYSPNEA, UNSPECIFIED (2) HTN (hypertension) Code(s): I10 - ESSENTIAL (PRIMARY) HYPERTENSION (3) Pleural effusion Code(s): J90 - PLEURAL EFFUSION, NOT ELSEWHERE CLASSIFIED Assessment/Plan Problem List - Problems (1) Atrial fibrillation Code(s): I48.91 - UNSPECIFIED ATRIAL FIBRILLATION (2) HTN (hypertension) Code(s): I10 - ESSENTIAL (PRIMARY) HYPERTENSION (3) Rapid atrial fibrillation Code(s): I48.91 - UNSPECIFIED ATRIAL FIBRILLATION Assessment/Plan Left pleural effusion Chronic low back pain Possible Sleep Apnea A-fib O2 as needed formal sleep workup after discharge Rate control per Cardiology Eliquis thoracentesis with ultrasound guidance today daily wts DR CASTAÑEDA
--- NOTE | 2016-09-29 11:45 | PN ---
Progress Note, Physician Chief Complaint: Ms Williamson says she feels better today but still with weakness and shortness of breath on exertion. No cp or n/v. - Current Medication List Current Medications: Active Medications Acetaminophen (Tylenol -) 650 mg PO Q4H PRN PRN Reason: FEVER OR PAIN Last Admin: 09/27/16 21:30 Dose: 650 mg Al Hydroxide/Mg Hydroxide (Mylanta Oral Suspension -) 30 ml PO Q6H PRN PRN Reason: DYSPEPSIA Amiodarone HCl (Cordarone -) 200 mg PO BID@0600,1800 [facility] Stop: 10/12/16 05:59 Amiodarone HCl (Cordarone -) 400 mg PO BID [facility] Stop: 10/05/16 06:00 Last Admin: 09/29/16 09:22 Dose: 400 mg Amiodarone HCl (Cordarone -) 200 mg PO DAILY@0600 [facility] Amlodipine Besylate (Norvasc -) 5 mg PO DAILY [facility] Last Admin: 09/29/16 09:20 Dose: 5 mg Apixaban (Eliquis -) 5 mg PO BID [facility] Last Admin: 09/29/16 09:22 Dose: Not Given Calcium Carbonate/Cholecalciferol (Os-Antonio 500+D -) 1 tab PO BID [facility] Last Admin: 09/29/16 09:20 Dose: 1 tab Chlorhexidine Gluconate (Hibiclens For Decolonization -) 1 applic TP HS [facility] Last Admin: 09/28/16 21:59 Dose: Not Given Cyclobenzaprine HCl (Flexeril -) 10 mg PO HS PRN PRN Reason: MUSCLE SPASMS Docusate Sodium (Colace -) 300 mg PO HS [facility] Last Admin: 09/28/16 22:00 Dose: Not Given Duloxetine HCl (Cymbalta -) 60 mg PO DAILY [facility] Last Admin: 09/29/16 09:19 Dose: 60 mg Furosemide (Lasix Injection -) 80 mg IVPUSH BID@0600,1400 [facility] Last Admin: 09/29/16 06:28 Dose: 80 mg Gabapentin (Neurontin -) 600 mg PO DAILY [facility] Last Admin: 09/29/16 09:20 Dose: 600 mg Hydralazine HCl (Apresoline -) 25 mg PO BID [facility] Last Admin: 09/29/16 09:20 Dose: 25 mg Metoprolol Succinate (Toprol Xl -) 50 mg PO BID [facility] Last Admin: 09/29/16 09:20 Dose: 50 mg Ondansetron HCl (Zofran Odt -) 4 mg SL Q6H PRN PRN Reason: NAUSEA AND/OR VOMITING Last Admin: 09/25/16 10:26 Dose: 4 mg Ranitidine HCl (Zantac -) 150 mg PO BID [facility] Last Admin: 09/29/16 09:20 Dose: 150 mg Tramadol HCl (Ultram -) 50 mg PO Q6H PRN PRN Reason: PAIN Last Admin: 09/29/16 09:45 Dose: 50 mg - Objective Vital Signs: Vital Signs Temperature 98.6 F 09/29/16 10:00 Pulse Rate 80 09/29/16 10:00 Respiratory Rate 20 09/29/16 10:00 Blood Pressure 145/97 09/29/16 10:00 O2 Sat by Pulse Oximetry (%) 95 09/29/16 10:00 Constitutional: Yes: No Distress, Calm, Obese Cardiovascular: Yes: Pulse Irregular. No: Tachycardia, Gallop, Murmur, Rub Respiratory: Yes: Regular, On Nasal O2, Rhonchi. No: Rales, Wheezes Gastrointestinal: Yes: Normal Bowel Sounds, Soft. No: Distention, Tenderness Extremities: Yes: WNL Edema: No Labs: CBC, BMP 09/29/16 05:38 09/29/16 05:38 INR, PTT INR 1.25 (0.82-1.09) H 09/28/16 13:10 Problem List - Problems (1) CHF (congestive heart failure) Code(s): I50.9 - HEART FAILURE, UNSPECIFIED Qualifiers: Congestive heart failure type: diastolic Congestive heart failure chronicity: acute on chronic Qualified Code(s): I50.33 - Acute on chronic diastolic (congestive) heart failure (2) Atrial fibrillation Code(s): I48.91 - UNSPECIFIED ATRIAL FIBRILLATION Qualifiers: Atrial fibrillation type: chronic Qualified Code(s): I48.2 - Chronic atrial fibrillation (3) HTN (hypertension) Code(s): I10 - ESSENTIAL (PRIMARY) HYPERTENSION (4) Pleural effusion Code(s): J90 - PLEURAL EFFUSION, NOT ELSEWHERE CLASSIFIED (5) Vaginal bleeding Code(s): N93.9 - ABNORMAL UTERINE AND VAGINAL BLEEDING, UNSPECIFIED Assessment/Plan (1) CHF (congestive heart failure) Assessment/Plan: -continue IV lasix per cardiology recommendations -continues to lose weight Code(s): I50.9 - HEART FAILURE, UNSPECIFIED Qualifiers: Congestive heart failure type: diastolic Congestive heart failure chronicity: acute on chronic Qualified Code(s): I50.33 - Acute on chronic diastolic (congestive) heart failure (2) Atrial fibrillation Assessment/Plan: -started on amiodarone per cardiology -holding eliquis Code(s): I48.91 - UNSPECIFIED ATRIAL FIBRILLATION Qualifiers: Atrial fibrillation type: chronic Qualified Code(s): I48.2 - Chronic atrial fibrillation (3) HTN (hypertension) Assessment/Plan: -controlled -continue current management Code(s): I10 - ESSENTIAL (PRIMARY) HYPERTENSION (4) Pleural effusion Assessment/Plan: -continue diuresis -planning for thoracentesis today Code(s): J90 - PLEURAL EFFUSION, NOT ELSEWHERE CLASSIFIED (5) Vaginal bleeding Assessment/Plan: -gynecology consulted and appreciate assistance -not medically stable for biopsy -outpatient follow up Code(s): N93.9 - ABNORMAL UTERINE AND VAGINAL BLEEDING, UNSPECIFIED (6) Dyspepsia -much improved -continue current management
[2016-09-29 14:14] LABS: PLEURAL FLUID APPEARANCE HAZY; PLEURAL FLUID COLOR YELLOW; PLEURAL FLUID SOURCE LEFT.PLEURAL
[2016-09-29 14:50] LABS: GLUCOSE,PLEURAL FLUID 95.481; TOTAL PROTEIN,PLEURAL FLUID 2.947
[2016-09-29 15:31] LABS: CHLORIDE PLEURAL FLUID 100
--- NOTE | 2016-09-29 15:56 | PN ---
Progress Note, Physician Chief Complaint: chf History of Present Illness: sob better but still notes orthopnea. not at her baseline. no cp, palpitations, presyncope - Current Medication List Current Medications: Active Medications Acetaminophen (Tylenol -) 650 mg PO Q4H PRN PRN Reason: FEVER OR PAIN Last Admin: 09/27/16 21:30 Dose: 650 mg Al Hydroxide/Mg Hydroxide (Mylanta Oral Suspension -) 30 ml PO Q6H PRN PRN Reason: DYSPEPSIA Amiodarone HCl (Cordarone -) 200 mg PO BID@0600,1800 [facility] Stop: 10/12/16 05:59 Amiodarone HCl (Cordarone -) 400 mg PO BID [facility] Stop: 10/05/16 06:00 Last Admin: 09/29/16 09:22 Dose: 400 mg Amiodarone HCl (Cordarone -) 200 mg PO DAILY@0600 [facility] Amlodipine Besylate (Norvasc -) 5 mg PO DAILY [facility] Last Admin: 09/29/16 09:20 Dose: 5 mg Apixaban (Eliquis -) 5 mg PO BID [facility] Last Admin: 09/29/16 09:22 Dose: Not Given Calcium Carbonate/Cholecalciferol (Os-Antonio 500+D -) 1 tab PO BID [facility] Last Admin: 09/29/16 09:20 Dose: 1 tab Chlorhexidine Gluconate (Hibiclens For Decolonization -) 1 applic TP HS [facility] Last Admin: 09/28/16 21:59 Dose: Not Given Cyclobenzaprine HCl (Flexeril -) 10 mg PO HS PRN PRN Reason: MUSCLE SPASMS Docusate Sodium (Colace -) 300 mg PO HS [facility] Last Admin: 09/28/16 22:00 Dose: Not Given Duloxetine HCl (Cymbalta -) 60 mg PO DAILY [facility] Last Admin: 09/29/16 09:19 Dose: 60 mg Furosemide (Lasix Injection -) 80 mg IVPUSH BID@0600,1400 [facility] Last Admin: 09/29/16 06:28 Dose: 80 mg Gabapentin (Neurontin -) 600 mg PO DAILY [facility] Last Admin: 09/29/16 09:20 Dose: 600 mg Hydralazine HCl (Apresoline -) 25 mg PO BID [facility] Last Admin: 09/29/16 09:20 Dose: 25 mg Metoprolol Succinate (Toprol Xl -) 50 mg PO BID [facility] Last Admin: 09/29/16 09:20 Dose: 50 mg Ondansetron HCl (Zofran Odt -) 4 mg SL Q6H PRN PRN Reason: NAUSEA AND/OR VOMITING Last Admin: 09/25/16 10:26 Dose: 4 mg Ranitidine HCl (Zantac -) 150 mg PO BID [facility] Last Admin: 09/29/16 09:20 Dose: 150 mg Tramadol HCl (Ultram -) 50 mg PO Q6H PRN PRN Reason: PAIN Last Admin: 09/29/16 09:45 Dose: 50 mg - Objective Vital Signs: Vital Signs Temperature 98.1 F 09/29/16 14:00 Pulse Rate 101 H 09/29/16 14:00 Respiratory Rate 20 09/29/16 14:00 Blood Pressure 129/73 09/29/16 14:00 O2 Sat by Pulse Oximetry (%) 95 09/29/16 10:00 Constitutional: Yes: Well Nourished, No Distress, Calm Cardiovascular: Yes: Pulse Irregular, S1, S2. No: Gallop, Murmur Respiratory: Yes: Regular, CTA Bilaterally. No: Accessory Muscle Use, Rales, Wheezes Extremities: No: Cold Edema: No Neurological: Yes: Alert, Oriented Psychiatric: No: Agitated Labs: CBC, BMP 09/29/16 05:38 09/29/16 05:38 INR, PTT INR 1.25 (0.82-1.09) H 09/28/16 13:10 - ....Imaging EKG: Other (tele: afib, HRs controlled) Assessment/Plan CXR 09/18: left retrocardiac opacity (atelectasis vs. pna) CXR 09/19: progressive fluid with atelectaasis or infiltrate at left base. Echo 08/2016: sev dec lvef, global hk, mild rv dil and mild dec rv fcn, sev constantin , sev tr, mod mr, mild pr, nl rvsp Echo 01/08: nl LV/EF; dd1; mild JOSIE of unclear significance; nl RV; mild LAE; valves WNL; IASA (no PFO) MIBI 12/08: 4:00min; no STs; ? small anteroapical isch vs large breast shadows; nl EF; no TID a/p: 65 yo with h/o afib, HTN, HLD, venous insufficiency, obesity, chronic nausea, gastritis with gastric erosions/prior bloody stool followed by Dr. Keller, fibromyalgia, h/o vertebroplasty and epidural injections who presents with acute onset sob. acute systolic chf - cxr with possible retrocardiac infiltrate, PNA not suspected clinically here. - pt with chronic h/o labile creatinine in response to vol depletion and thiazide diuretic for HTN - 09/20: worsened pulmonary edema. + creatinine bump after lasix, but not clear that she was net negative. Repeat trial of lasix 60 mg IV x 1 today and reassess bmp in pm. - 09/21: Cr worsened, but lft's improved after lasix. exam appears improved, will hold further diuresis. Stop valsartan and kcl as mentioned below. - 09/22: cr improving off lasix, but weight trending up. - 09/24: Echo here with newly reduced lvef, likely tachycardia induced cardiomyopathy. Will cont with rate control with toprol. Has some vol overload with le edema and b/l effs on cxr/ct scan so will resume iv lasix 40 qd to start. - 09/25: cr stable, wt down, will cont iv lasix and give extra dose of 40 iv today. atrial fibrillation - 09/28: wt trended down over weekend with stable renal fxn, lasix incr'd to 40 iv bid on 09/27; down further today (240), from 249 peak; bilat eff (L > R) persist on CXR--cont same lasix -was 239 lbs in office 01/09 - remains symptomatic (sob)--incr lasix to 80 iv bid - 09/29: wt down further today (237), renal fxn stable. BNP 3100. only small residual L effusion this am at time of US guidance for thoracentesis--only 120cc removed. - remains with orthopnea, though improving--suspect she remains at least few lb volume-up. cont lasix 80 iv bid today--reassess in am - creat improved promptly after valsartan held (last dose 09/21)--i believe she may have had similar pattern in the past as outpatient; will try lower dose ARB (valsartan 40 qd-bid) for bp and chf purposes once she is euvolemic, if renal fxn is stable Afib: - s/p successful DCCV 02/08, has not followed up with me as scheduled since that time - HRs were normal here in 04/10 and only began noticing palpitations again 08/10- -likely back in AF approx 6-8 wks now - in AF here with rapid HR on admit, and new LV systolic dysfunction (global) suggestive of tachy-CMP--in setting of non-compliance with metoprolol (taking prn) - HR not controlled with metopr 50qd in past and pt c/o'd intolerable fatigue/ exhaustion - painful pretib edema on diltiazem 180 (and ? 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 - plan outpt JUSTYN/DCCV after 1-2 wks of amio load - cont eliquis (ok to hold 48 hrs prior to pain injection/other procedures) h/o colonic polyps with prior occult GIB: - s/p polypectomies 12/[address] keller (non-bleeding diverticulosis and internal hemmorhoids as well), cleared to resume eliquis by GI after that procedure - H/H stable here HTN - ? home compliance with correct med regimen - will clarify records - repeated severe MARGOT (creat bumped to 3) in past due to vol depletion in setting of thiazide use - valsartan held here when creat worsened after iv lasix initially - will not tolerate incr norvasc due to h/o peripheral edema and self-tx with diuretics with resultant severe MARGOT on mult occasions - added hydralazine 25 bid - ? component of bp elevation was volume as well - currently bp well controlled
[2016-09-29 15:57] LABS: PLEURAL FLUID LYMPHOCYTES 15 %; PLEURAL FLUID MACROPHAGES 82 %; PLEURAL FLUID NEUTROPHIL 3 %
[2016-09-29] MEDS: DOCUSATE SODIUM 100 MG CAPSULE (FP) PO SCH (21:35)
[2016-09-29] MEDS: CHLORHEXIDINE GLUCONATE 4% CLEANSER FOR DECOLONIZATION TP SCH (22:00)
[2016-09-30] MEDS: traMADol HCL 50 MG TABLET PO PRN ×3 (00:04→21:28)
[2016-09-30] MEDS: FUROSEMIDE 40 MG/4 ML INJECTABLE VIAL IVPUSH SCH ×2 (05:33→15:51)
[2016-09-30 07:32] LABS: CALCIUM 9.4 mg/dL (8.5-10.1); COCKROFT - GAULT 78.013; CREATININE 1.2 mg/dL (0.55-1.02)
[2016-09-30] MEDS: RANITIDINE HCL 150 MG TABLET (FP) PO SCH ×2 (10:03→21:28)
[2016-09-30] MEDS: amLODIPine BESYLATE 5 MG TABLET (FP) PO SCH (10:03)
[2016-09-30] MEDS: APIXABAN 5 MG TABLET PO SCH ×2 (10:03→21:28)
[2016-09-30] MEDS: GABAPENTIN 300 MG CAPSULE (FP) PO SCH (10:03)
[2016-09-30] MEDS: DULoxetine HCL 30 MG CAPSULE.DR (FP) PO SCH (10:04)
[2016-09-30] MEDS: CALCIUM 500MG/VIT-D 200 UNITS COMBO TABLET (FP) PO SCH ×2 (10:04→21:26)
[2016-09-30] MEDS: METOPROLOL SUCCINATE 50 MG TAB.SR.24H (FP) PO SCH ×2 (10:04→21:27)
[2016-09-30] MEDS: hydrALAZINE HCL 25 MG TABLET (FP) PO SCH ×2 (10:04→21:28)
[2016-09-30] MEDS: AMIODARONE HCL 200 MG TABLET (FP) PO SCH ×2 (10:05→21:28)
--- NOTE | 2016-09-30 10:07 | PN ---
Progress Note (short form) - Note Progress Note: CC: sob S: + sob persists but improved, much less now. no cp, palps, dizziness Current Medications Generic Name Dose Route Start Last Admin Trade Name Malaika PRN Reason Stop Dose Admin Acetaminophen 650 mg 09/23/16 15:36 09/27/16 21:30 Tylenol - PO 650 mg Q4H PRN Administration FEVER OR PAIN Al Hydroxide/Mg Hydroxide 30 ml 09/25/16 15:13 Mylanta Oral Suspension - PO Q6H PRN DYSPEPSIA Amiodarone HCl 200 mg 10/05/16 06:00 Cordarone - PO 10/12/16 05:59 BID@0600,1800 CHUN Amiodarone HCl 400 mg 09/28/16 22:00 09/29/16 21:35 Cordarone - PO 10/05/16 06:00 400 mg BID CHUN Administration Amiodarone HCl 200 mg 10/12/16 06:00 Cordarone - PO DAILY@0600 CHUN Amlodipine Besylate 5 mg 09/28/16 09:09 09/29/16 09:20 Norvasc - PO 5 mg DAILY CHUN Administration Apixaban 5 mg 09/20/16 22:00 09/29/16 21:36 Eliquis - PO 5 mg BID CHUN Administration Calcium Carbonate/Cholecalciferol 1 tab 09/20/16 22:00 09/29/16 21:36 Os-Antonio 500+D - PO 1 tab BID CHUN Administration Cyclobenzaprine HCl 10 mg 09/20/16 13:39 Flexeril - PO HS PRN MUSCLE SPASMS Docusate Sodium 300 mg 09/20/16 22:00 09/29/16 21:35 Colace - PO Not Given HS CHUN Duloxetine HCl 60 mg 09/21/16 10:00 09/29/16 09:19 Cymbalta - PO 60 mg DAILY CHUN Administration Furosemide 80 mg 09/28/16 11:26 09/30/16 05:33 Lasix Injection - IVPUSH 80 mg BID@0600,1400 CHUN Administration Gabapentin 600 mg 09/21/16 10:00 09/29/16 09:20 Neurontin - PO 600 mg DAILY CHUN Administration Hydralazine HCl 25 mg 09/28/16 10:00 09/29/16 21:34 Apresoline - PO 25 mg BID CHUN Administration Metoprolol Succinate 50 mg 09/28/16 12:36 09/29/16 21:36 Toprol Xl - PO 50 mg BID CHUN Administration Ondansetron HCl 4 mg 09/22/16 14:47 09/25/16 10:26 Zofran Odt - SL 4 mg Q6H PRN Administration NAUSEA AND/OR VOMITING Ranitidine HCl 150 mg 09/25/16 22:00 09/29/16 21:36 Zantac - PO 150 mg BID CHUN Administration Tramadol HCl 50 mg 09/28/16 15:59 09/30/16 00:04 Ultram - PO 50 mg Q6H PRN Administration PAIN Vital Signs Temp 98.3 F 09/30/16 08:08 Pulse 80 09/30/16 08:08 Resp 20 09/30/16 08:08 BP 121/74 09/30/16 08:08 Pulse Ox 98 09/29/16 21:00 Intake & Output 09/29/16 09/29/16 09/30/16 11:59 23:59 11:59 Intake Total 1210 270 Output Total 800 Balance -800 1210 270 Weight 237 lb 6 oz 236 lb 4 oz Intake: IV 10 20 RT HAND 24G 09/16/2016 10 (R)WRIST 22G 09/30 20 Oral 1200 250 Output: Urine 800 Void 800 Other: Voiding Method Toilet Toilet Toilet # Unmeasured Voids Void 2 2 2 Bowel Movement No No Weight Measurement Method Standing Scale Standing Scale NAD, calm ctab, nl effort irregular rate and rhythm nl s1, s 2 no mrg + bs soft nt nd obese trace le edema bl aaox3 no jaundice, diaphoresis CBC, BMP 09/29/16 05:38 09/30/16 05:35 EKG: poor baseline. afib with RVR, 173 bpm. non-specific t wave ab/poor baseline. tele: rate controlled afib echo 08/2016: sev dec lvef, global hk, mild rv dil and mild dec rv fcn, sev constantin , sev tr, mod mr, mild pr, nl rvsp JUSTYN 2016: nl lv/rv no intracardiac thrombus. + PFO with L--> R shunt on bubble study. mod TR. Echo 01/08: nl LV/EF; dd1; mild JOSIE of unclear significance; nl RV; mild LAE; valves WNL; IASA (no PFO) MIBI 8/15: 4:00min; no STs; ? small anteroapical isch vs large breast shadows; nl EF; no TID a/p: 65 yo with h/o afib, HTN, HLD, venous insufficiency, obesity, chronic nausea, gastritis with gastric erosions/prior bloody stool followed by Dr. Keller, fibromyalgia, h/o vertebroplasty and epidural injections who presents with acute onset sob. acute systolic chf - cxr with possible retrocardiac infiltrate, PNA not suspected clinically here. - pt with chronic h/o labile creatinine in response to vol depletion and thiazide diuretic for HTN - 09/20: worsened pulmonary edema. + creatinine bump after lasix, but not clear that she was net negative. Repeat trial of lasix 60 mg IV x 1 today and reassess bmp in pm. - 09/21: Cr worsened, but lft's improved after lasix. exam appears improved, will hold further diuresis. Stop valsartan and kcl as mentioned below. - 09/22: cr improving off lasix, but weight trending up. - 09/24: Echo here with newly reduced lvef, likely tachycardia induced cardiomyopathy. Will cont with rate control with toprol. Has some vol overload with le edema and b/l effs on cxr/ct scan so will resume iv lasix 40 qd to start. - 09/25: cr stable, wt down, will cont iv lasix and give extra dose of 40 iv today. atrial fibrillation - 09/28: wt trended down over weekend with stable renal fxn, lasix incr'd to 40 iv bid on 09/27; down further today (240), from 249 peak; bilat eff (L > R) persist on CXR--cont same lasix -was 239 lbs in office 01/09 - remains symptomatic (sob)--incr lasix to 80 iv bid - 09/29: wt down further today (237), renal fxn stable. BNP 3100. only small residual L effusion this am at time of US guidance for thoracentesis--only 120cc removed. -09/30: wt down slightly today, cr stable. Cont iv lasix, likely can change to po soon. - creat improved promptly after valsartan held (last dose 09/21)--she may have had similar pattern in the past as outpatient; will try lower dose ARB ( valsartan 40 qd-bid) for bp and chf purposes once she is euvolemic, if renal fxn is stable Afib: - s/p successful DCCV 02/08, has not followed up with cardio as scheduled since that time - HRs were normal here in 04/10 and only began noticing palpitations again 08/10- -likely back in AF approx 6-8 wks now - in AF here with rapid HR on admit, and new LV systolic dysfunction (global) suggestive of tachy-CMP--in setting of non-compliance with metoprolol (taking prn) - HR not controlled with metopr 50qd in past and pt c/o'd intolerable fatigue/ exhaustion - painful pretib edema on diltiazem 180 (and ? ongoing--though improved--fatigue ) - metopr 50 bid incr'd to 100 bid here for tighter bp control--doubt she will tolerate this awake overnight counselor - as per 09/28 note: not a good candidate for 1c agent (flecainide) even if EF recovers; not great candidate for [place] amio given young pt; - if we prove that sx's/chf/LV fxn improves in sinus rhythm, then ablation is an appropriate tx option here - amiodarone load started (400 bid x7d, 200 bid x7d, 200 qd). - plan outpt JUSTYN/DCCV after 1-2 wks of amio load - cont eliquis (ok to hold 48 hrs prior to pain injection/other procedures) h/o colonic polyps with prior occult GIB: - s/p polypectomies 12/[address] keller (non-bleeding diverticulosis and internal hemmorhoids as well), cleared to resume eliquis by GI after that procedure - H/H stable here HTN - ? home compliance with correct med regimen - will clarify records - repeated severe MARGOT (creat bumped to 3) in past due to vol depletion in setting of thiazide use - valsartan held here when creat worsened after iv lasix initially - will not tolerate incr norvasc due to h/o peripheral edema and self-tx with diuretics with resultant severe MARGOT on mult occasions - added hydralazine 25 bid - currently bp controlled
--- NOTE | 2016-09-30 11:20 | PN ---
Progress Note, Physician History of Present Illness: pulmonary alert,feeling better,less dyspneic,pt s/p thoracentesis tolerated procedure well w/o complications. pleural fluid c/w transudate - Current Medication List Current Medications: Active Medications Acetaminophen (Tylenol -) 650 mg PO Q4H PRN PRN Reason: FEVER OR PAIN Last Admin: 09/27/16 21:30 Dose: 650 mg Al Hydroxide/Mg Hydroxide (Mylanta Oral Suspension -) 30 ml PO Q6H PRN PRN Reason: DYSPEPSIA Amiodarone HCl (Cordarone -) 200 mg PO BID@0600,1800 [facility] Stop: 10/12/16 05:59 Amiodarone HCl (Cordarone -) 400 mg PO BID [facility] Stop: 10/05/16 06:00 Last Admin: 09/30/16 10:05 Dose: 400 mg Amiodarone HCl (Cordarone -) 200 mg PO DAILY@0600 [facility] Amlodipine Besylate (Norvasc -) 5 mg PO DAILY [facility] Last Admin: 09/30/16 10:03 Dose: 5 mg Apixaban (Eliquis -) 5 mg PO BID [facility] Last Admin: 09/30/16 10:03 Dose: 5 mg Calcium Carbonate/Cholecalciferol (Os-Antonio 500+D -) 1 tab PO BID [facility] Last Admin: 09/30/16 10:04 Dose: 1 tab Cyclobenzaprine HCl (Flexeril -) 10 mg PO HS PRN PRN Reason: MUSCLE SPASMS Docusate Sodium (Colace -) 300 mg PO HS [facility] Last Admin: 09/29/16 21:35 Dose: Not Given Duloxetine HCl (Cymbalta -) 60 mg PO DAILY [facility] Last Admin: 09/30/16 10:04 Dose: 60 mg Furosemide (Lasix Injection -) 80 mg IVPUSH BID@0600,1400 [facility] Last Admin: 09/30/16 05:33 Dose: 80 mg Gabapentin (Neurontin -) 600 mg PO DAILY [facility] Last Admin: 09/30/16 10:03 Dose: 600 mg Hydralazine HCl (Apresoline -) 25 mg PO BID [facility] Last Admin: 09/30/16 10:04 Dose: 25 mg Metoprolol Succinate (Toprol Xl -) 50 mg PO BID [facility] Last Admin: 09/30/16 10:04 Dose: 50 mg Ondansetron HCl (Zofran Odt -) 4 mg SL Q6H PRN PRN Reason: NAUSEA AND/OR VOMITING Last Admin: 09/25/16 10:26 Dose: 4 mg Potassium Chloride (K-Dur -) 40 meq PO DAILY [facility] Potassium Chloride (K-Dur -) 40 meq PO ONCE ONE Stop: 09/30/16 14:01 Ranitidine HCl (Zantac -) 150 mg PO BID [facility] Last Admin: 09/30/16 10:03 Dose: 150 mg Tramadol HCl (Ultram -) 50 mg PO Q6H PRN PRN Reason: PAIN Last Admin: 09/30/16 10:03 Dose: 50 mg - Objective Vital Signs: Vital Signs Temperature 98.3 F 09/30/16 08:08 Pulse Rate 80 09/30/16 08:08 Respiratory Rate 20 09/30/16 08:08 Blood Pressure 121/74 09/30/16 08:08 O2 Sat by Pulse Oximetry (%) 98 09/29/16 21:00 Constitutional: Yes: Well Nourished, Calm Eyes: Yes: WNL HENT: Yes: WNL Neck: Yes: WNL Cardiovascular: Yes: Pulse Irregular, S1, S2 Respiratory: Yes: Diminished Gastrointestinal: Yes: Normal Bowel Sounds, Soft Extremities: Yes: WNL Edema: Yes (less edema bilaterally) Labs: CBC, BMP 09/30/16 05:35 INR, PTT INR 1.25 (0.82-1.09) H 09/28/16 13:10 Laboratory Tests 09/29/16 13:15 Pleural Fluid Source Left.pleural Pleural Color Yellow Pleural Appearance Hazy Pleural WBC 2,481 Pleural RBC 2,113 Pleural Neutrophils 3 Pleural Lymphocytes 15 Pleural Macrophages 82 Pleural Chloride 100 Pleural Total Protein 2.947 Pleural Albumin 2 Pleural LDH 120 Pleural Glucose 95.481 Pleural Amylase 16.000 Pleural Cholesterol < 50 Problem List - Problems (1) Dyspnea Code(s): R06.00 - DYSPNEA, UNSPECIFIED (2) HTN (hypertension) Code(s): I10 - ESSENTIAL (PRIMARY) HYPERTENSION (3) Pleural effusion Code(s): J90 - PLEURAL EFFUSION, NOT ELSEWHERE CLASSIFIED (4) CHF (congestive heart failure) Code(s): I50.9 - HEART FAILURE, UNSPECIFIED Qualifiers: Congestive heart failure type: diastolic Congestive heart failure chronicity: acute on chronic Qualified Code(s): I50.33 - Acute on chronic diastolic (congestive) heart failure Assessment/Plan Problem List - Problems (1) Atrial fibrillation Code(s): I48.91 - UNSPECIFIED ATRIAL FIBRILLATION (2) HTN (hypertension) Code(s): I10 - ESSENTIAL (PRIMARY) HYPERTENSION (3) Rapid atrial fibrillation Code(s): I48.91 - UNSPECIFIED ATRIAL FIBRILLATION 4. PLEURAL EFFUSION C/W TRANSUDATE Assessment/Plan Left pleural effusion Chronic low back pain Possible Sleep Apnea A-fib O2 as needed formal sleep workup after discharge Rate control per Cardiology Eliquis daily wts diuretics DR CASTAÑEDA
[2016-09-30] MEDS: POTASSIUM CHLORIDE TABS 20 MEQ TABLET.ER (FP) PO SCH (12:59)
[2016-09-30] MEDS ORDERED: POTASSIUM CHLORIDE TABS 20 MEQ TABLET.ER (FP) PO ONE (14:00)
--- NOTE | 2016-09-30 14:13 | PN ---
Progress Note, Physician Chief Complaint: Ms Williamson says she is feeling better today. Having some shortness of breath with lying flat. Will walk without oxygen and see if she can tolerate. No cp or n/v. - Current Medication List Current Medications: Active Medications Acetaminophen (Tylenol -) 650 mg PO Q4H PRN PRN Reason: FEVER OR PAIN Last Admin: 09/27/16 21:30 Dose: 650 mg Al Hydroxide/Mg Hydroxide (Mylanta Oral Suspension -) 30 ml PO Q6H PRN PRN Reason: DYSPEPSIA Amiodarone HCl (Cordarone -) 200 mg PO BID@0600,1800 [facility] Stop: 10/12/16 05:59 Amiodarone HCl (Cordarone -) 400 mg PO BID [facility] Stop: 10/05/16 06:00 Last Admin: 09/30/16 10:05 Dose: 400 mg Amiodarone HCl (Cordarone -) 200 mg PO DAILY@0600 [facility] Amlodipine Besylate (Norvasc -) 5 mg PO DAILY [facility] Last Admin: 09/30/16 10:03 Dose: 5 mg Apixaban (Eliquis -) 5 mg PO BID [facility] Last Admin: 09/30/16 10:03 Dose: 5 mg Calcium Carbonate/Cholecalciferol (Os-Antonio 500+D -) 1 tab PO BID [facility] Last Admin: 09/30/16 10:04 Dose: 1 tab Cyclobenzaprine HCl (Flexeril -) 10 mg PO HS PRN PRN Reason: MUSCLE SPASMS Docusate Sodium (Colace -) 300 mg PO HS [facility] Last Admin: 09/29/16 21:35 Dose: Not Given Duloxetine HCl (Cymbalta -) 60 mg PO DAILY [facility] Last Admin: 09/30/16 10:04 Dose: 60 mg Furosemide (Lasix Injection -) 80 mg IVPUSH BID@0600,1400 [facility] Last Admin: 09/30/16 05:33 Dose: 80 mg Gabapentin (Neurontin -) 600 mg PO DAILY [facility] Last Admin: 09/30/16 10:03 Dose: 600 mg Hydralazine HCl (Apresoline -) 25 mg PO BID [facility] Last Admin: 09/30/16 10:04 Dose: 25 mg Metoprolol Succinate (Toprol Xl -) 50 mg PO BID [facility] Last Admin: 09/30/16 10:04 Dose: 50 mg Ondansetron HCl (Zofran Odt -) 4 mg SL Q6H PRN PRN Reason: NAUSEA AND/OR VOMITING Last Admin: 09/25/16 10:26 Dose: 4 mg Potassium Chloride (K-Dur -) 40 meq PO DAILY [facility] Last Admin: 09/30/16 12:59 Dose: 40 meq Ranitidine HCl (Zantac -) 150 mg PO BID [facility] Last Admin: 09/30/16 10:03 Dose: 150 mg Tramadol HCl (Ultram -) 50 mg PO Q6H PRN PRN Reason: PAIN Last Admin: 09/30/16 10:03 Dose: 50 mg - Objective Vital Signs: Vital Signs Temperature 98.3 F 09/30/16 08:08 Pulse Rate 80 09/30/16 08:08 Respiratory Rate 20 09/30/16 08:08 Blood Pressure 121/74 09/30/16 08:08 O2 Sat by Pulse Oximetry (%) 98 09/29/16 21:00 Constitutional: Yes: No Distress, Calm, Obese Cardiovascular: Yes: Regular Rate and Rhythm. No: Gallop, Murmur, Rub Respiratory: Yes: Regular, CTA Bilaterally. No: Rales, Rhonchi, Wheezes Gastrointestinal: Yes: Normal Bowel Sounds, Soft. No: Distention, Tenderness Extremities: Yes: WNL Edema: No Labs: CBC, BMP 09/29/16 05:38 09/30/16 05:35 INR, PTT INR 1.25 (0.82-1.09) H 09/28/16 13:10 Problem List - Problems (1) CHF (congestive heart failure) Code(s): I50.9 - HEART FAILURE, UNSPECIFIED Qualifiers: Congestive heart failure type: diastolic Congestive heart failure chronicity: acute on chronic Qualified Code(s): I50.33 - Acute on chronic diastolic (congestive) heart failure (2) Atrial fibrillation Code(s): I48.91 - UNSPECIFIED ATRIAL FIBRILLATION Qualifiers: Atrial fibrillation type: chronic Qualified Code(s): I48.2 - Chronic atrial fibrillation (3) HTN (hypertension) Code(s): I10 - ESSENTIAL (PRIMARY) HYPERTENSION (4) Pleural effusion Code(s): J90 - PLEURAL EFFUSION, NOT ELSEWHERE CLASSIFIED (5) Vaginal bleeding Code(s): N93.9 - ABNORMAL UTERINE AND VAGINAL BLEEDING, UNSPECIFIED Assessment/Plan (1) CHF (congestive heart failure) Assessment/Plan: -cardiology note reviewed -continue IV lasix currently -improved after thoracentesis Code(s): I50.9 - HEART FAILURE, UNSPECIFIED Qualifiers: Congestive heart failure type: diastolic Congestive heart failure chronicity: acute on chronic Qualified Code(s): I50.33 - Acute on chronic diastolic (congestive) heart failure (2) Atrial fibrillation Assessment/Plan: -started on amiodarone per cardiology -eliquis restarted Code(s): I48.91 - UNSPECIFIED ATRIAL FIBRILLATION Qualifiers: Atrial fibrillation type: chronic Qualified Code(s): I48.2 - Chronic atrial fibrillation (3) HTN (hypertension) Assessment/Plan: -controlled -continue current management Code(s): I10 - ESSENTIAL (PRIMARY) HYPERTENSION (4) Pleural effusion Assessment/Plan: -s/p thoracentesis Code(s): J90 - PLEURAL EFFUSION, NOT ELSEWHERE CLASSIFIED (5) Vaginal bleeding Assessment/Plan: -gynecology consulted and appreciate assistance -not medically stable for biopsy -outpatient follow up Code(s): N93.9 - ABNORMAL UTERINE AND VAGINAL BLEEDING, UNSPECIFIED (6) Dyspepsia -much improved -continue current management
[2016-09-30] MEDS ORDERED: METOPROLOL SUCCINATE 25 MG TAB.SR.24H (FP) PO ONE (18:15)
[2016-09-30] MEDS: DOCUSATE SODIUM 100 MG CAPSULE (FP) PO SCH (21:26)
[2016-10-01] MEDS: FUROSEMIDE 40 MG/4 ML INJECTABLE VIAL IVPUSH SCH ×2 (06:26→15:15)
[2016-10-01 07:27] LABS: BASOPHIL 0.6 % (0-2.0); MCH 34.8 pg (25.7-33.7); MCHC 33.4 g/dl (32.0-36.0); MEAN PLT VOLUME 8.7 fl (7.5-11.1); NEUTROPHILS 63.2 % (42.8-82.8); PLATELET COUNT 257 K/MM3 (134-434); RDW 15.9 % (11.6-15.6); WHITE BLOOD COUNT 6.3 K/mm3 (4.0-10.0)
[2016-10-01 07:39] LABS: CALCIUM 9.6 mg/dL (8.5-10.1); COCKROFT - GAULT 71.4; CREATININE 1.3 mg/dL (0.55-1.02); PHOSPHOROUS 3.9 mg/dL (2.5-4.9)
[2016-10-01] MEDS: hydrALAZINE HCL 25 MG TABLET (FP) PO SCH ×2 (09:27→22:01)
[2016-10-01] MEDS: DULoxetine HCL 30 MG CAPSULE.DR (FP) PO SCH (09:28)
[2016-10-01] MEDS: AMIODARONE HCL 200 MG TABLET (FP) PO SCH ×2 (09:28→22:01)
[2016-10-01] MEDS: GABAPENTIN 300 MG CAPSULE (FP) PO SCH (09:29)
[2016-10-01] MEDS: amLODIPine BESYLATE 5 MG TABLET (FP) PO SCH (09:29)
[2016-10-01] MEDS: POTASSIUM CHLORIDE TABS 20 MEQ TABLET.ER (FP) PO SCH (09:29)
[2016-10-01] MEDS: APIXABAN 5 MG TABLET PO SCH ×2 (09:29→22:01)
[2016-10-01] MEDS: CALCIUM 500MG/VIT-D 200 UNITS COMBO TABLET (FP) PO SCH ×2 (09:30→22:01)
[2016-10-01] MEDS: METOPROLOL SUCCINATE 50 MG TAB.SR.24H (FP) PO SCH ×2 (09:30→22:01)
[2016-10-01] MEDS: traMADol HCL 50 MG TABLET PO PRN ×2 (09:32→22:05)
[2016-10-01] MEDS: RANITIDINE HCL 150 MG TABLET (FP) PO SCH ×2 (09:32→22:00)
--- NOTE | 2016-10-01 10:05 | PN ---
Progress Note (short form) - Note Progress Note: CC: sob S: + sob persists but improved, much less now, but still not back to baseline per pt. no cp, palps, dizziness Current Medications Generic Name Dose Route Start Last Admin Trade Name Freq PRN Reason Stop Dose Admin Acetaminophen 650 mg 09/23/16 15:36 09/27/16 21:30 Tylenol - PO 650 mg Q4H PRN Administration FEVER OR PAIN Al Hydroxide/Mg Hydroxide 30 ml 09/25/16 15:13 Mylanta Oral Suspension - PO Q6H PRN DYSPEPSIA Amiodarone HCl 200 mg 10/05/16 06:00 Cordarone - PO 10/12/16 05:59 BID@0600,1800 [facility] Amiodarone HCl 400 mg 09/28/16 22:00 10/01/16 09:28 Cordarone - PO 10/05/16 06:00 400 mg BID CH[facility] Administration Amiodarone HCl 200 mg 10/12/16 06:00 Cordarone - PO DAILY@0600 [facility] Amlodipine Besylate 5 mg 09/28/16 09:09 10/01/16 09:29 Norvasc - PO 5 mg DAILY [facility] Administration Apixaban 5 mg 09/20/16 22:00 10/01/16 09:29 Eliquis - PO 5 mg BID CHUN Administration Calcium Carbonate/Cholecalciferol 1 tab 09/20/16 22:00 10/01/16 09:30 Os-Antonio 500+D - PO 1 tab BID CH[facility] Administration Cyclobenzaprine HCl 10 mg 09/20/16 13:39 09/30/16 21:28 Flexeril - PO 10 mg HS PRN Administration MUSCLE SPASMS Docusate Sodium 300 mg 09/20/16 22:00 09/30/16 21:26 Colace - PO 300 mg HS CHUN Administration Duloxetine HCl 60 mg 09/21/16 10:00 10/01/16 09:28 Cymbalta - PO 60 mg DAILY [facility] Administration Furosemide 80 mg 09/28/16 11:26 10/01/16 06:26 Lasix Injection - IVPUSH 80 mg BID@0600,1400 [facility] Administration Gabapentin 600 mg 09/21/16 10:00 10/01/16 09:29 Neurontin - PO 600 mg DAILY [facility] Administration Hydralazine HCl 25 mg 09/28/16 10:00 10/01/16 09:27 Apresoline - PO 25 mg BID [facility] Administration Metoprolol Succinate 75 mg 09/30/16 22:00 10/01/16 09:30 Toprol Xl - PO 75 mg BID [facility] Administration Ondansetron HCl 4 mg 09/22/16 14:47 09/25/16 10:26 Zofran Odt - SL 4 mg Q6H PRN Administration NAUSEA AND/OR VOMITING Potassium Chloride 40 meq 09/30/16 12:00 10/01/16 09:29 K-Dur - PO 40 meq DAILY [facility] Administration Ranitidine HCl 150 mg 09/25/16 22:00 10/01/16 09:32 Zantac - PO 150 mg BID [facility] Administration Tramadol HCl 50 mg 09/28/16 15:59 10/01/16 09:32 Ultram - PO 50 mg Q6H PRN Administration PAIN Vital Signs Period Temp Pulse Resp BP Sys/Pierce Pulse Ox Last 24 Hr 97.8 F-98.6 F 86-94 20-20 112-125/57-76 96 NAD, calm ctab, nl effort irregular rate and rhythm nl s1, s 2 no mrg + bs soft nt nd obese trace le edema bl aaox3 no jaundice, diaphoresis CBC, BMP 10/01/16 05:35 10/01/16 05:35 EKG: poor baseline. afib with RVR, 173 bpm. non-specific t wave ab/poor baseline. tele: rate controlled afib echo 08/2016: sev dec lvef, global hk, mild rv dil and mild dec rv fcn, sev constantin , sev tr, mod mr, mild pr, nl rvsp JUSTYN 2015: nl lv/rv no intracardiac thrombus. + PFO with L--> R shunt on bubble study. mod TR. Echo 01/08: nl LV/EF; dd1; mild JOSIE of unclear significance; nl RV; mild LAE; valves WNL; IASA (no PFO) MIBI 12/08: 4:00min; no STs; ? small anteroapical isch vs large breast shadows; nl EF; no TID a/p: 65 yo with h/o afib, HTN, HLD, venous insufficiency, obesity, chronic nausea, gastritis with gastric erosions/prior bloody stool followed by Dr. Keller, fibromyalgia, h/o vertebroplasty and epidural injections who presents with acute onset sob. acute systolic chf - cxr with possible retrocardiac infiltrate, PNA not suspected clinically here. - pt with chronic h/o labile creatinine in response to vol depletion and thiazide diuretic for HTN - 09/20: worsened pulmonary edema. + creatinine bump after lasix, but not clear that she was net negative. Repeat trial of lasix 60 mg IV x 1 today and reassess bmp in pm. - 09/21: Cr worsened, but lft's improved after lasix. exam appears improved, will hold further diuresis. Stop valsartan and kcl as mentioned below. - 09/22: cr improving off lasix, but weight trending up. - 09/24: Echo here with newly reduced lvef, likely tachycardia induced cardiomyopathy. Will cont with rate control with toprol. Has some vol overload with le edema and b/l effs on cxr/ct scan so will resume iv lasix 40 qd to start. - 09/25: cr stable, wt down, will cont iv lasix and give extra dose of 40 iv today. atrial fibrillation - 09/28: wt trended down over weekend with stable renal fxn, lasix incr'd to 40 iv bid on 09/27; down further today (240), from 249 peak; bilat eff (L > R) persist on CXR--cont same lasix -was 239 lbs in office 01/09 - remains symptomatic (sob)--incr lasix to 80 iv bid - 09/29: wt down further today (237), renal fxn stable. BNP 3100. only small residual L effusion this am at time of US guidance for thoracentesis--only 120cc removed. -09/30-: pinto/orthopnea improving. wt continues to decrease, cr stable. Cont iv lasix for now. - creat improved promptly after valsartan held (last dose 09/21)--she may have had similar pattern in the past as outpatient; will try lower dose ARB ( valsartan 40 qd-bid) for bp and chf purposes once she is euvolemic, if renal fxn is stable Afib: - s/p successful DCCV 02/08, has not followed up with cardio as scheduled since that time - HRs were normal here in 04/10 and only began noticing palpitations again 08/10- -likely back in AF approx 6-8 wks now - in AF here with rapid HR on admit, and new LV systolic dysfunction (global) suggestive of tachy-CMP--in setting of non-compliance with metoprolol (taking prn) - HR not controlled with metopr 50qd in past and pt c/o'd intolerable fatigue/ exhaustion - painful pretib edema on diltiazem 180 (and ? 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 qtc stable/nl - plan outpt JUSTYN/DCCV after 1-2 wks of amio load - cont eliquis (ok to hold 48 hrs prior to pain injection/other procedures) h/o colonic polyps with prior occult GIB: - s/p polypectomies 12/[address] keller (non-bleeding diverticulosis and internal hemmorhoids as well), cleared to resume eliquis by GI after that procedure - H/H stable here HTN - ? home compliance with correct med regimen - will clarify records - repeated severe MARGOT (creat bumped to 3) in past due to vol depletion in setting of thiazide use - valsartan held here when creat worsened after iv lasix initially - will not tolerate incr norvasc due to h/o peripheral edema and self-tx with diuretics with resultant severe MARGOT on mult occasions - added hydralazine 25 bid - currently bp controlled
--- NOTE | 2016-10-01 13:47 | PN ---
Progress Note (short form) - Note Progress Note: PULMONARY States breathing is improving but still some dyspnea with exertion. No cough or wheezing. No chest pain. Last Vital Signs Temp Pulse Resp BP Pulse Ox 98 F 76 20 112/72 97 10/01/16 05:49 10/01/16 10:40 10/01/16 05:49 10/01/16 05:49 10/01/16 10:40 Intake & Output 09/28/16 09/29/16 09/30/16 10/01/16 23:59 23:59 23:59 23:59 Intake Total 1010 1210 1270 Output Total 800 Balance 2829 065 0727 Weight 240 lb 12.8 oz 237 lb 6 oz 236 lb 4 oz 234 lb 4 oz Gen: NAD at rest Heart: RRR Lung: decreased breath sounds at the bases Abd: soft, nontender Ext: no edema CBC, BMP 10/01/16 05:35 10/01/16 05:35 Active Medications Acetaminophen (Tylenol -) 650 mg PO Q4H PRN PRN Reason: FEVER OR PAIN Last Admin: 09/27/16 21:30 Dose: 650 mg Al Hydroxide/Mg Hydroxide (Mylanta Oral Suspension -) 30 ml PO Q6H PRN PRN Reason: DYSPEPSIA Amiodarone HCl (Cordarone -) 200 mg PO BID@0600,1800 [facility] Stop: 10/12/16 05:59 Amiodarone HCl (Cordarone -) 400 mg PO BID [facility] Stop: 10/05/16 06:00 Last Admin: 10/01/16 09:28 Dose: 400 mg Amiodarone HCl (Cordarone -) 200 mg PO DAILY@0600 [facility] Amlodipine Besylate (Norvasc -) 5 mg PO DAILY [facility] Last Admin: 10/01/16 09:29 Dose: 5 mg Apixaban (Eliquis -) 5 mg PO BID [facility] Last Admin: 10/01/16 09:29 Dose: 5 mg Calcium Carbonate/Cholecalciferol (Os-Antonio 500+D -) 1 tab PO BID [facility] Last Admin: 10/01/16 09:30 Dose: 1 tab Cyclobenzaprine HCl (Flexeril -) 10 mg PO HS PRN PRN Reason: MUSCLE SPASMS Last Admin: 09/30/16 21:28 Dose: 10 mg Docusate Sodium (Colace -) 300 mg PO HS [facility] Last Admin: 09/30/16 21:26 Dose: 300 mg Duloxetine HCl (Cymbalta -) 60 mg PO DAILY [facility] Last Admin: 10/01/16 09:28 Dose: 60 mg Furosemide (Lasix Injection -) 80 mg IVPUSH BID@0600,1400 [facility] Last Admin: 10/01/16 06:26 Dose: 80 mg Gabapentin (Neurontin -) 600 mg PO DAILY [facility] Last Admin: 10/01/16 09:29 Dose: 600 mg Hydralazine HCl (Apresoline -) 25 mg PO BID [facility] Last Admin: 10/01/16 09:27 Dose: 25 mg Metoprolol Succinate (Toprol Xl -) 75 mg PO BID [facility] Last Admin: 10/01/16 09:30 Dose: 75 mg Ondansetron HCl (Zofran Odt -) 4 mg SL Q6H PRN PRN Reason: NAUSEA AND/OR VOMITING Last Admin: 09/25/16 10:26 Dose: 4 mg Potassium Chloride (K-Dur -) 40 meq PO DAILY [facility] Last Admin: 10/01/16 09:29 Dose: 40 meq Ranitidine HCl (Zantac -) 150 mg PO BID [facility] Last Admin: 10/01/16 09:32 Dose: 150 mg Tramadol HCl (Ultram -) 50 mg PO Q6H PRN PRN Reason: PAIN Last Admin: 10/01/16 09:32 Dose: 50 mg A/P Acute Systolic Heart Failure Transudative Pleural Effusion Atrial Fibrillation Acute Kidney Injury improving HTN - continue lasix - monitor urine output, creatinine - daily weights, I/Os - O2 to keep SpO2 >90% - rate controlled - continue anticoagulation
--- NOTE | 2016-10-01 15:20 | PN ---
Progress Note, Physician Chief Complaint: Ms Williamson says she continues to improve, however still with orthopnea and dyspnea on exertion. No chest pain or nausea/vomiting. - Current Medication List Current Medications: Active Medications Acetaminophen (Tylenol -) 650 mg PO Q4H PRN PRN Reason: FEVER OR PAIN Last Admin: 09/27/16 21:30 Dose: 650 mg Al Hydroxide/Mg Hydroxide (Mylanta Oral Suspension -) 30 ml PO Q6H PRN PRN Reason: DYSPEPSIA Amiodarone HCl (Cordarone -) 200 mg PO BID@0600,1800 [facility] Stop: 10/12/16 05:59 Amiodarone HCl (Cordarone -) 400 mg PO BID [facility] Stop: 10/05/16 06:00 Last Admin: 10/01/16 09:28 Dose: 400 mg Amiodarone HCl (Cordarone -) 200 mg PO DAILY@0600 [facility] Amlodipine Besylate (Norvasc -) 5 mg PO DAILY [facility] Last Admin: 10/01/16 09:29 Dose: 5 mg Apixaban (Eliquis -) 5 mg PO BID [facility] Last Admin: 10/01/16 09:29 Dose: 5 mg Calcium Carbonate/Cholecalciferol (Os-Antonio 500+D -) 1 tab PO BID [facility] Last Admin: 10/01/16 09:30 Dose: 1 tab Cyclobenzaprine HCl (Flexeril -) 10 mg PO HS PRN PRN Reason: MUSCLE SPASMS Last Admin: 09/30/16 21:28 Dose: 10 mg Docusate Sodium (Colace -) 300 mg PO HS [facility] Last Admin: 09/30/16 21:26 Dose: 300 mg Duloxetine HCl (Cymbalta -) 60 mg PO DAILY [facility] Last Admin: 10/01/16 09:28 Dose: 60 mg Furosemide (Lasix Injection -) 80 mg IVPUSH BID@0600,1400 [facility] Last Admin: 10/01/16 06:26 Dose: 80 mg Gabapentin (Neurontin -) 600 mg PO DAILY [facility] Last Admin: 10/01/16 09:29 Dose: 600 mg Hydralazine HCl (Apresoline -) 25 mg PO BID [facility] Last Admin: 10/01/16 09:27 Dose: 25 mg Metoprolol Succinate (Toprol Xl -) 75 mg PO BID [facility] Last Admin: 10/01/16 09:30 Dose: 75 mg Ondansetron HCl (Zofran Odt -) 4 mg SL Q6H PRN PRN Reason: NAUSEA AND/OR VOMITING Last Admin: 09/25/16 10:26 Dose: 4 mg Potassium Chloride (K-Dur -) 40 meq PO DAILY [facility] Last Admin: 10/01/16 09:29 Dose: 40 meq Ranitidine HCl (Zantac -) 150 mg PO BID [facility] Last Admin: 10/01/16 09:32 Dose: 150 mg Tramadol HCl (Ultram -) 50 mg PO Q6H PRN PRN Reason: PAIN Last Admin: 10/01/16 09:32 Dose: 50 mg - Objective Vital Signs: Vital Signs Temperature 98.5 F 10/01/16 09:00 Pulse Rate 76 10/01/16 10:40 Respiratory Rate 20 10/01/16 09:00 Blood Pressure 114/64 10/01/16 09:00 O2 Sat by Pulse Oximetry (%) 97 10/01/16 10:40 Constitutional: Yes: No Distress, Calm, Obese Cardiovascular: Yes: Pulse Irregular. No: Tachycardia, Gallop, Murmur, Rub Respiratory: Yes: Regular, On Nasal O2, Rales. No: Rhonchi, Wheezes Gastrointestinal: Yes: Normal Bowel Sounds, Soft. No: Distention, Tenderness Extremities: Yes: WNL Edema: No Labs: CBC, BMP 10/01/16 05:35 10/01/16 05:35 INR, PTT INR 1.25 (0.82-1.09) H 09/28/16 13:10 Problem List - Problems (1) CHF (congestive heart failure) Code(s): I50.9 - HEART FAILURE, UNSPECIFIED Qualifiers: Congestive heart failure type: diastolic Congestive heart failure chronicity: acute on chronic Qualified Code(s): I50.33 - Acute on chronic diastolic (congestive) heart failure (2) Atrial fibrillation Code(s): I48.91 - UNSPECIFIED ATRIAL FIBRILLATION Qualifiers: Atrial fibrillation type: chronic Qualified Code(s): I48.2 - Chronic atrial fibrillation (3) HTN (hypertension) Code(s): I10 - ESSENTIAL (PRIMARY) HYPERTENSION (4) Pleural effusion Code(s): J90 - PLEURAL EFFUSION, NOT ELSEWHERE CLASSIFIED (5) Vaginal bleeding Code(s): N93.9 - ABNORMAL UTERINE AND VAGINAL BLEEDING, UNSPECIFIED Assessment/Plan (1) CHF (congestive heart failure) Assessment/Plan: -cardiology note reviewed -continue IV lasix at current dose -improved after thoracentesis Code(s): I50.9 - HEART FAILURE, UNSPECIFIED Qualifiers: Congestive heart failure type: diastolic Congestive heart failure chronicity: acute on chronic Qualified Code(s): I50.33 - Acute on chronic diastolic (congestive) heart failure (2) Atrial fibrillation Assessment/Plan: -started on amiodarone per cardiology -eliquis restarted -had episode of tachycardia overnight, increased metoprolol Code(s): I48.91 - UNSPECIFIED ATRIAL FIBRILLATION Qualifiers: Atrial fibrillation type: chronic Qualified Code(s): I48.2 - Chronic atrial fibrillation (3) HTN (hypertension) Assessment/Plan: -controlled -continue current management Code(s): I10 - ESSENTIAL (PRIMARY) HYPERTENSION (4) Pleural effusion Assessment/Plan: -s/p thoracentesis Code(s): J90 - PLEURAL EFFUSION, NOT ELSEWHERE CLASSIFIED (5) Vaginal bleeding Assessment/Plan: -gynecology consulted and appreciate assistance -not medically stable for biopsy -outpatient follow up Code(s): N93.9 - ABNORMAL UTERINE AND VAGINAL BLEEDING, UNSPECIFIED (6) Dyspepsia -much improved -continue current management
--- NOTE | 2016-10-01 16:18 | PATH ---
Cytology Non-Gynecological Report Patient Name: HEAVENLY RUSS [facility]. Rec. #: [id number] /Age/Gender: 1950 (Age: 66) / F Account: [id number] Location: 4 TELEMETRY U Taken: 09/29/2016 Received: 09/29/2016 Reported: 10/01/2016 Physicians: Felicitas Russell M.D. Specimen(s) Received A: LEFT PLEURAL FLUID IN 50% ALCOHOL B: LEFT PLEURAL FLUID FRESH Clinical History Pleural effusion Final Diagnosis A,B. PLEURAL FLUID, LEFT, THORACENTESIS: SATISFACTORY FOR EVALUATION. NO MALIGNANT CELLS IDENTIFIED. REACTIVE MESOTHELIAL CELLS, HISTIOCYTES AND MIXED INFLAMMATORY CELLS. Comment: Immunohistochemical stains performed and interpreted on cell block A at [facility] show the following: the cells in the effusion are negative for BerEP4/ADRIAN and TTF1 immunostains; CK7 highlights mesothelial cells. These results are supportive of the interpretation above. Electronically Signed Jeb Muhammad M.D. Gross Description A. Received is a 50 cc of yellow fluid in 50% alcohol. One cytofunnel slide and one cell block are made. B. Received is 200 cc of yellow fluid fresh. One cytofunnel slide and one cell block are made.
[2016-10-01] MEDS: DOCUSATE SODIUM 100 MG CAPSULE (FP) PO SCH (22:00)
[2016-10-02] MEDS: FUROSEMIDE 40 MG/4 ML INJECTABLE VIAL IVPUSH SCH (06:30)
[2016-10-02 07:38] LABS: BASOPHIL 0.7 % (0-2.0); MCH 35.1 pg (25.7-33.7); MCHC 33.9 g/dl (32.0-36.0); MEAN CELL VOLUME 103.6 fl (80-96); NEUTROPHILS 66.4 % (42.8-82.8); PLATELET COUNT 273 K/MM3 (134-434); RDW 16.3 % (11.6-15.6); WHITE BLOOD COUNT 7.1 K/mm3 (4.0-10.0)
[2016-10-02 08:00] LABS: CALCIUM 9.5 mg/dL (8.5-10.1); MAGNESIUM 2.1 mg/dL (1.8-2.4)
[2016-10-02 08:03] LABS: COCKROFT - GAULT 70.958; CREATININE 1.3 mg/dL (0.55-1.02); PHOSPHOROUS 4.5 mg/dL (2.5-4.9)
[2016-10-02] MEDS: METOPROLOL SUCCINATE 50 MG TAB.SR.24H (FP) PO SCH ×2 (09:32→22:02)
[2016-10-02] MEDS: CALCIUM 500MG/VIT-D 200 UNITS COMBO TABLET (FP) PO SCH ×2 (09:32→22:03)
[2016-10-02] MEDS: DULoxetine HCL 30 MG CAPSULE.DR (FP) PO SCH (09:32)
[2016-10-02] MEDS: APIXABAN 5 MG TABLET PO SCH ×2 (09:33→22:04)
[2016-10-02] MEDS: traMADol HCL 50 MG TABLET PO PRN ×2 (09:33→22:08)
[2016-10-02] MEDS: amLODIPine BESYLATE 5 MG TABLET (FP) PO SCH (09:33)
[2016-10-02] MEDS: hydrALAZINE HCL 25 MG TABLET (FP) PO SCH ×2 (09:34→22:03)
[2016-10-02] MEDS: GABAPENTIN 300 MG CAPSULE (FP) PO SCH (09:34)
[2016-10-02] MEDS: RANITIDINE HCL 150 MG TABLET (FP) PO SCH ×2 (09:35→22:03)
[2016-10-02] MEDS: AMIODARONE HCL 200 MG TABLET (FP) PO SCH ×2 (09:35→22:03)
[2016-10-02] MEDS: POTASSIUM CHLORIDE TABS 20 MEQ TABLET.ER (FP) PO SCH (09:35)
--- NOTE | 2016-10-02 11:15 | PN ---
Progress Note, Physician History of Present Illness: pulmonary alert,feeling better,dyspnea improved - Current Medication List Current Medications: Active Medications Acetaminophen (Tylenol -) 650 mg PO Q4H PRN PRN Reason: FEVER OR PAIN Last Admin: 09/27/16 21:30 Dose: 650 mg Al Hydroxide/Mg Hydroxide (Mylanta Oral Suspension -) 30 ml PO Q6H PRN PRN Reason: DYSPEPSIA Amiodarone HCl (Cordarone -) 200 mg PO BID@0600,1800 [facility] Stop: 10/12/16 05:59 Amiodarone HCl (Cordarone -) 400 mg PO BID [facility] Stop: 10/05/16 06:00 Last Admin: 10/02/16 09:35 Dose: 400 mg Amiodarone HCl (Cordarone -) 200 mg PO DAILY@0600 [facility] Amlodipine Besylate (Norvasc -) 5 mg PO DAILY [facility] Last Admin: 10/02/16 09:33 Dose: 5 mg Apixaban (Eliquis -) 5 mg PO BID [facility] Last Admin: 10/02/16 09:33 Dose: 5 mg Calcium Carbonate/Cholecalciferol (Os-Antonio 500+D -) 1 tab PO BID [facility] Last Admin: 10/02/16 09:32 Dose: 1 tab Cyclobenzaprine HCl (Flexeril -) 10 mg PO HS PRN PRN Reason: MUSCLE SPASMS Last Admin: 09/30/16 21:28 Dose: 10 mg Docusate Sodium (Colace -) 300 mg PO HS [facility] Last Admin: 10/01/16 22:00 Dose: 300 mg Duloxetine HCl (Cymbalta -) 60 mg PO DAILY [facility] Last Admin: 10/02/16 09:32 Dose: 60 mg Furosemide (Lasix Injection -) 80 mg IVPUSH BID@0600,1400 [facility] Last Admin: 10/02/16 06:30 Dose: 80 mg Gabapentin (Neurontin -) 600 mg PO DAILY [facility] Last Admin: 10/02/16 09:34 Dose: 600 mg Hydralazine HCl (Apresoline -) 25 mg PO BID [facility] Last Admin: 10/02/16 09:34 Dose: 25 mg Metoprolol Succinate (Toprol Xl -) 75 mg PO BID [facility] Last Admin: 10/02/16 09:32 Dose: 75 mg Ondansetron HCl (Zofran Odt -) 4 mg SL Q6H PRN PRN Reason: NAUSEA AND/OR VOMITING Last Admin: 09/25/16 10:26 Dose: 4 mg Potassium Chloride (K-Dur -) 40 meq PO DAILY [facility] Last Admin: 10/02/16 09:35 Dose: 40 meq Ranitidine HCl (Zantac -) 150 mg PO BID [facility] Last Admin: 10/02/16 09:35 Dose: 150 mg Tramadol HCl (Ultram -) 50 mg PO Q6H PRN PRN Reason: PAIN Last Admin: 10/02/16 09:33 Dose: 50 mg - Objective Vital Signs: Vital Signs Temperature 98 F 10/02/16 06:01 Pulse Rate 77 10/02/16 09:53 Respiratory Rate 20 10/02/16 09:02 Blood Pressure 128/72 10/02/16 06:30 O2 Sat by Pulse Oximetry (%) 94 L 10/02/16 09:53 Constitutional: Yes: Well Nourished, Calm Eyes: Yes: WNL HENT: Yes: WNL Neck: Yes: WNL Cardiovascular: Yes: Pulse Irregular, S1, S2 Respiratory: Yes: Diminished Extremities: Yes: WNL Edema: Yes (less edema bilaterally) Labs: CBC, BMP 10/02/16 05:38 10/02/16 05:38 INR, PTT INR 1.25 (0.82-1.09) H 09/28/16 13:10 Problem List - Problems (1) Dyspnea Code(s): R06.00 - DYSPNEA, UNSPECIFIED (2) HTN (hypertension) Code(s): I10 - ESSENTIAL (PRIMARY) HYPERTENSION (3) Pleural effusion Code(s): J90 - PLEURAL EFFUSION, NOT ELSEWHERE CLASSIFIED (4) CHF (congestive heart failure) Code(s): I50.9 - HEART FAILURE, UNSPECIFIED Qualifiers: Congestive heart failure type: diastolic Congestive heart failure chronicity: acute on chronic Qualified Code(s): I50.33 - Acute on chronic diastolic (congestive) heart failure Assessment/Plan Problem List - Problems (1) Atrial fibrillation Code(s): I48.91 - UNSPECIFIED ATRIAL FIBRILLATION (2) HTN (hypertension) Code(s): I10 - ESSENTIAL (PRIMARY) HYPERTENSION (3) Rapid atrial fibrillation Code(s): I48.91 - UNSPECIFIED ATRIAL FIBRILLATION 4. PLEURAL EFFUSION C/W TRANSUDATE Assessment/Plan Left pleural effusion Chronic low back pain Possible Sleep Apnea A-fib O2 as needed formal sleep workup after discharge Rate control per Cardiology Odalys daily wts diuretics as per cardiology DR CASTAÑEDA
--- NOTE | 2016-10-02 11:23 | PN ---
Progress Note (short form) - Note Progress Note: CC: sob S: sob better, walked halls a lot yesterday and feels back to baseline. no cp , palps, dizziness Current Medications Generic Name Dose Route Start Last Admin Trade Name Freq PRN Reason Stop Dose Admin Acetaminophen 650 mg 09/23/16 15:36 09/27/16 21:30 Tylenol - PO 650 mg Q4H PRN Administration FEVER OR PAIN Al Hydroxide/Mg Hydroxide 30 ml 09/25/16 15:13 Mylanta Oral Suspension - PO Q6H PRN DYSPEPSIA Amiodarone HCl 200 mg 10/05/16 06:00 Cordarone - PO 10/12/16 05:59 BID@0600,1800 [facility] Amiodarone HCl 400 mg 09/28/16 22:00 10/02/16 09:35 Cordarone - PO 10/05/16 06:00 400 mg BID [facility] Administration Amiodarone HCl 200 mg 10/12/16 06:00 Cordarone - PO DAILY@0600 [facility] Amlodipine Besylate 5 mg 09/28/16 09:09 10/02/16 09:33 Norvasc - PO 5 mg DAILY [facility] Administration Apixaban 5 mg 09/20/16 22:00 10/02/16 09:33 Eliquis - PO 5 mg BID [facility] Administration Calcium Carbonate/Cholecalciferol 1 tab 09/20/16 22:00 10/02/16 09:32 Os-Antonio 500+D - PO 1 tab BID [facility] Administration Cyclobenzaprine HCl 10 mg 09/20/16 13:39 09/30/16 21:28 Flexeril - PO 10 mg HS PRN Administration MUSCLE SPASMS Docusate Sodium 300 mg 09/20/16 22:00 10/01/16 22:00 Colace - PO 300 mg HS [facility] Administration Duloxetine HCl 60 mg 09/21/16 10:00 10/02/16 09:32 Cymbalta - PO 60 mg DAILY [facility] Administration Furosemide 80 mg 10/02/16 14:00 Lasix - PO BID@0600,1400 [facility] Gabapentin 600 mg 09/21/16 10:00 10/02/16 09:34 Neurontin - PO 600 mg DAILY [facility] Administration Hydralazine HCl 25 mg 09/28/16 10:00 10/02/16 09:34 Apresoline - PO 25 mg BID [facility] Administration Metoprolol Succinate 75 mg 09/30/16 22:00 10/02/16 09:32 Toprol Xl - PO 75 mg BID [facility] Administration Ondansetron HCl 4 mg 09/22/16 14:47 09/25/16 10:26 Zofran Odt - SL 4 mg Q6H PRN Administration NAUSEA AND/OR VOMITING Potassium Chloride 40 meq 09/30/16 12:00 10/02/16 09:35 K-Dur - PO 40 meq DAILY [facility] Administration Ranitidine HCl 150 mg 09/25/16 22:00 10/02/16 09:35 Zantac - PO 150 mg BID [facility] Administration Tramadol HCl 50 mg 09/28/16 15:59 10/02/16 09:33 Ultram - PO 50 mg Q6H PRN Administration PAIN Vital Signs Period Temp Pulse Resp BP Sys/Pierce Pulse Ox Last 24 Hr 97.0 F-98 F 72-98 20-20 100-128/62-72 94-97 NAD, calm ctab, nl effort irregular rate and rhythm nl s1, s 2 no mrg + bs soft nt nd obese no le edema bl aaox3 no jaundice, diaphoresis CBC, BMP 10/02/16 05:38 10/02/16 05:38 EKG: poor baseline. afib with RVR, 173 bpm. non-specific t wave ab/poor baseline. tele: rate controlled afib echo 08/2016: sev dec lvef, global hk, mild rv dil and mild dec rv fcn, sev constantin , sev tr, mod mr, mild pr, nl rvsp JUST[facility] 2015: nl lv/rv no intracardiac thrombus. + PFO with L--> R shunt on bubble study. mod TR. Echo 01/08: nl LV/EF; dd1; mild JOSIE of unclear significance; nl RV; mild LAE; valves WNL; IASA (no PFO) MIBI 12/08: 4:00min; no STs; ? small anteroapical isch vs large breast shadows; nl EF; no TID a/p: 65 yo with h/o afib, HTN, HLD, venous insufficiency, obesity, chronic nausea, gastritis with gastric erosions/prior bloody stool followed by Dr. Mack, fibromyalgia, h/o vertebroplasty and epidural injections who presents with acute onset sob. acute systolic chf - cxr with possible retrocardiac infiltrate, PNA not suspected clinically here. - pt with chronic h/o labile creatinine in response to vol depletion and thiazide diuretic for HTN - 09/20: worsened pulmonary edema. + creatinine bump after lasix, but not clear that she was net negative. Repeat trial of lasix 60 mg IV x 1 today and reassess bmp in pm. - 09/21: Cr worsened, but lft's improved after lasix. exam appears improved, will hold further diuresis. Stop valsartan and kcl as mentioned below. - 09/22: cr improving off lasix, but weight trending up. - 09/24: Echo here with newly reduced lvef, likely tachycardia induced cardiomyopathy. Will cont with rate control with toprol. Has some vol overload with le edema and b/l effs on cxr/ct scan so will resume iv lasix 40 qd to start. - 09/25: cr stable, wt down, will cont iv lasix and give extra dose of 40 iv today. atrial fibrillation - 09/28: wt trended down over weekend with stable renal fxn, lasix incr'd to 40 iv bid on 09/27; down further today (240), from 249 peak; bilat eff (L > R) persist on CXR--cont same lasix -was 239 lbs in office 01/09 - remains symptomatic (sob)--incr lasix to 80 iv bid - 09/29: wt down further today (237), renal fxn stable. BNP 3100. only small residual L effusion this am at time of US guidance for thoracentesis--only 120cc removed. -09/30-: pinto/orthopnea improving. wt continues to decrease, cr stable. Cont iv lasix for now. -10/02: vol status seems to be at baseline now; bun trending up likely indicating she is nearing euvolemia as well. will dc iv lasix and change to 80 po bid now. - creat improved promptly after valsartan held so have been holding Afib: - s/p successful DCCV 02/08, has not followed up with cardio as scheduled since that time - HRs were normal here in 04/10 and only began noticing palpitations again 08/10- -likely back in AF approx 6-8 wks now - in AF here with rapid HR on admit, and new LV systolic dysfunction (global) suggestive of tachy-CMP--in setting of non-compliance with metoprolol (taking prn) - HR not controlled with metopr 50qd in past and pt c/o'd intolerable fatigue/ exhaustion - painful pretib edema on diltiazem 180 (and ? ongoing--though improved--fatigue ) - metopr 50 bid incr'd to 100 bid here for tighter bp control--doubt she will tolerate this longterm - as per 09/28 note: not a good candidate for 1c agent (flecainide) even if EF recovers; not great candidate for usp amio given young pt; - if we prove that sx's/chf/LV fxn improves in sinus rhythm, then ablation is an appropriate tx option here - amiodarone load started (400 bid x7d, 200 bid x7d, 200 qd). qtc stable/nl - plan outpt JUSTYN/DCCV after 1-2 wks of amio load - cont eliquis (ok to hold 48 hrs prior to pain injection/other procedures) h/o colonic polyps with prior occult GIB: - s/p polypectomies 12/[address] mack (non-bleeding diverticulosis and internal hemmorhoids as well), cleared to resume eliquis by GI after that procedure - H/H stable here HTN - ? home compliance with correct med regimen - will clarify records - repeated severe MARGOT (creat bumped to 3) in past due to vol depletion in setting of thiazide use - valsartan held here when creat worsened after iv lasix initially - will not tolerate incr norvasc due to h/o peripheral edema and self-tx with diuretics with resultant severe MARGOT on mult occasions - added hydralazine 25 bid - currently bp controlled cardiac fine stable for dc. continue with amiodarone loading (currently on 400 bid x7d, then starting 10/05 change to 200 bid x7d, then 200 qd after that). Should have outpt f/u next week to check labs, vol status.
--- NOTE | 2016-10-02 12:10 | PN ---
Progress Note, Physician Chief Complaint: Ms Williamson says she is feeling better but still with orthopnea and dyspnea on exertion. Also having difficulty taking a deep breath. No cp or n/v. - Current Medication List Current Medications: Active Medications Acetaminophen (Tylenol -) 650 mg PO Q4H PRN PRN Reason: FEVER OR PAIN Last Admin: 09/27/16 21:30 Dose: 650 mg Al Hydroxide/Mg Hydroxide (Mylanta Oral Suspension -) 30 ml PO Q6H PRN PRN Reason: DYSPEPSIA Amiodarone HCl (Cordarone -) 200 mg PO BID@0600,1800 [facility] Stop: 10/12/16 05:59 Amiodarone HCl (Cordarone -) 400 mg PO BID [facility] Stop: 10/05/16 06:00 Last Admin: 10/02/16 09:35 Dose: 400 mg Amiodarone HCl (Cordarone -) 200 mg PO DAILY@0600 [facility] Amlodipine Besylate (Norvasc -) 5 mg PO DAILY [facility] Last Admin: 10/02/16 09:33 Dose: 5 mg Apixaban (Eliquis -) 5 mg PO BID [facility] Last Admin: 10/02/16 09:33 Dose: 5 mg Calcium Carbonate/Cholecalciferol (Os-Antonio 500+D -) 1 tab PO BID [facility] Last Admin: 10/02/16 09:32 Dose: 1 tab Cyclobenzaprine HCl (Flexeril -) 10 mg PO HS PRN PRN Reason: MUSCLE SPASMS Last Admin: 09/30/16 21:28 Dose: 10 mg Docusate Sodium (Colace -) 300 mg PO HS [facility] Last Admin: 10/01/16 22:00 Dose: 300 mg Duloxetine HCl (Cymbalta -) 60 mg PO DAILY [facility] Last Admin: 10/02/16 09:32 Dose: 60 mg Furosemide (Lasix -) 80 mg PO BID@0600,1400 [facility] Gabapentin (Neurontin -) 600 mg PO DAILY [facility] Last Admin: 10/02/16 09:34 Dose: 600 mg Hydralazine HCl (Apresoline -) 25 mg PO BID [facility] Last Admin: 10/02/16 09:34 Dose: 25 mg Metoprolol Succinate (Toprol Xl -) 75 mg PO BID [facility] Last Admin: 10/02/16 09:32 Dose: 75 mg Ondansetron HCl (Zofran Odt -) 4 mg SL Q6H PRN PRN Reason: NAUSEA AND/OR VOMITING Last Admin: 09/25/16 10:26 Dose: 4 mg Potassium Chloride (K-Dur -) 40 meq PO DAILY [facility] Last Admin: 10/02/16 09:35 Dose: 40 meq Ranitidine HCl (Zantac -) 150 mg PO BID [facility] Last Admin: 10/02/16 09:35 Dose: 150 mg Tramadol HCl (Ultram -) 50 mg PO Q6H PRN PRN Reason: PAIN Last Admin: 10/02/16 09:33 Dose: 50 mg - Objective Vital Signs: Vital Signs Temperature 98 F 10/02/16 06:01 Pulse Rate 77 10/02/16 09:53 Respiratory Rate 20 10/02/16 09:02 Blood Pressure 128/72 10/02/16 06:30 O2 Sat by Pulse Oximetry (%) 94 L 10/02/16 09:53 Constitutional: Yes: No Distress, Calm, Obese Cardiovascular: Yes: Regular Rate and Rhythm. No: Gallop, Murmur, Rub Respiratory: Yes: Regular, CTA Bilaterally. No: Rales, Rhonchi, Wheezes Gastrointestinal: Yes: Normal Bowel Sounds, Soft. No: Distention, Tenderness Extremities: Yes: WNL Edema: No Labs: CBC, BMP 10/02/16 05:38 10/02/16 05:38 INR, PTT INR 1.25 (0.82-1.09) H 09/28/16 13:10 Problem List - Problems (1) CHF (congestive heart failure) Code(s): I50.9 - HEART FAILURE, UNSPECIFIED Qualifiers: Congestive heart failure type: diastolic Congestive heart failure chronicity: acute on chronic Qualified Code(s): I50.33 - Acute on chronic diastolic (congestive) heart failure (2) Atrial fibrillation Code(s): I48.91 - UNSPECIFIED ATRIAL FIBRILLATION Qualifiers: Atrial fibrillation type: chronic Qualified Code(s): I48.2 - Chronic atrial fibrillation (3) HTN (hypertension) Code(s): I10 - ESSENTIAL (PRIMARY) HYPERTENSION (4) Pleural effusion Code(s): J90 - PLEURAL EFFUSION, NOT ELSEWHERE CLASSIFIED (5) Vaginal bleeding Code(s): N93.9 - ABNORMAL UTERINE AND VAGINAL BLEEDING, UNSPECIFIED Assessment/Plan (1) CHF (congestive heart failure) Assessment/Plan: -cardiology note reviewed -changing lasix to oral -would like to monitor on oral lasix for one day since still symptomatic -also give I/S as suspect patient has atelectasis -check pre and post oxygen saturations to make sure patient does not need home oxygen -plan for discharge tomorrow Code(s): I50.9 - HEART FAILURE, UNSPECIFIED Qualifiers: Congestive heart failure type: diastolic Congestive heart failure chronicity: acute on chronic Qualified Code(s): I50.33 - Acute on chronic diastolic (congestive) heart failure (2) Atrial fibrillation Assessment/Plan: -started on amiodarone per cardiology -eliquis restarted -outpatient DCCV per cardiology Code(s): I48.91 - UNSPECIFIED ATRIAL FIBRILLATION Qualifiers: Atrial fibrillation type: chronic Qualified Code(s): I48.2 - Chronic atrial fibrillation (3) HTN (hypertension) Assessment/Plan: -controlled -continue current management Code(s): I10 - ESSENTIAL (PRIMARY) HYPERTENSION (4) Pleural effusion Assessment/Plan: -s/p thoracentesis Code(s): J90 - PLEURAL EFFUSION, NOT ELSEWHERE CLASSIFIED (5) Vaginal bleeding Assessment/Plan: -gynecology consulted and appreciate assistance -not medically stable for biopsy -outpatient follow up Code(s): N93.9 - ABNORMAL UTERINE AND VAGINAL BLEEDING, UNSPECIFIED (6) Dyspepsia -much improved -continue current management Dispo -plan for discharge tomorrow
[2016-10-02] MEDS: DOCUSATE SODIUM 100 MG CAPSULE (FP) PO SCH (22:09)
--- NOTE | 2016-10-03 08:24 | PN ---
Progress Note, Physician Chief Complaint: chf, afib History of Present Illness: kept in hosp last night b/c had brief afib to 110-120. pt denies sob except mild orthopnea when lays flat--much better than when hospitalized no cp, palp, presyncope no cigs - Current Medication List Current Medications: Active Medications Acetaminophen (Tylenol -) 650 mg PO Q4H PRN PRN Reason: FEVER OR PAIN Last Admin: 09/27/16 21:30 Dose: 650 mg Al Hydroxide/Mg Hydroxide (Mylanta Oral Suspension -) 30 ml PO Q6H PRN PRN Reason: DYSPEPSIA Amiodarone HCl (Cordarone -) 200 mg PO BID@0600,1800 [facility] Stop: 10/12/16 05:59 Amiodarone HCl (Cordarone -) 400 mg PO BID [facility] Stop: 10/05/16 06:00 Last Admin: 10/02/16 22:03 Dose: 400 mg Amiodarone HCl (Cordarone -) 200 mg PO DAILY@0600 [facility] Amlodipine Besylate (Norvasc -) 5 mg PO DAILY [facility] Last Admin: 10/02/16 09:33 Dose: 5 mg Apixaban (Eliquis -) 5 mg PO BID [facility] Last Admin: 10/02/16 22:04 Dose: 5 mg Calcium Carbonate/Cholecalciferol (Os-Antonio 500+D -) 1 tab PO BID [facility] Last Admin: 10/02/16 22:03 Dose: 1 tab Cyclobenzaprine HCl (Flexeril -) 10 mg PO HS PRN PRN Reason: MUSCLE SPASMS Last Admin: 09/30/16 21:28 Dose: 10 mg Docusate Sodium (Colace -) 300 mg PO HS [facility] Last Admin: 10/02/16 22:09 Dose: Not Given Duloxetine HCl (Cymbalta -) 60 mg PO DAILY [facility] Last Admin: 10/02/16 09:32 Dose: 60 mg Furosemide (Lasix -) 80 mg PO BID@0600,1400 [facility] Last Admin: 10/03/16 06:21 Dose: 80 mg Gabapentin (Neurontin -) 600 mg PO DAILY [facility] Last Admin: 10/02/16 09:34 Dose: 600 mg Hydralazine HCl (Apresoline -) 25 mg PO BID [facility] Last Admin: 10/02/16 22:03 Dose: 25 mg Metoprolol Succinate (Toprol Xl -) 75 mg PO BID [facility] Last Admin: 10/02/16 22:02 Dose: 75 mg Ondansetron HCl (Zofran Odt -) 4 mg SL Q6H PRN PRN Reason: NAUSEA AND/OR VOMITING Last Admin: 09/25/16 10:26 Dose: 4 mg Potassium Chloride (K-Dur -) 40 meq PO DAILY [facility] Last Admin: 10/02/16 09:35 Dose: 40 meq Ranitidine HCl (Zantac -) 150 mg PO BID [facility] Last Admin: 10/02/16 22:03 Dose: 150 mg Tramadol HCl (Ultram -) 50 mg PO Q6H PRN PRN Reason: PAIN Last Admin: 10/02/16 22:08 Dose: 50 mg - Objective Vital Signs: Vital Signs Temperature 98.2 F 10/03/16 06:00 Pulse Rate 86 10/03/16 08:16 Respiratory Rate 18 10/03/16 08:16 Blood Pressure 110/58 10/03/16 06:00 O2 Sat by Pulse Oximetry (%) 95 10/03/16 08:16 Constitutional: Yes: No Distress, Calm, Obese Eyes: No: Sclera Icterus HENT: No: Nasal Congestion Cardiovascular: Yes: Pulse Irregular, S1, S2, Other (PMI non diplaced). No: JVD , Gallop, Murmur Respiratory: Yes: CTA Bilaterally. No: Accessory Muscle Use, Rales, Wheezes Gastrointestinal: Yes: Normal Bowel Sounds, Soft. No: Tenderness Musculoskeletal: Yes: Other (No kyphosis) Extremities: No: Cold Edema: No Integumentary: No: Jaundice Neurological: Yes: Alert, Oriented (x3) Psychiatric: No: Agitated Labs: CBC, BMP 10/02/16 05:38 10/02/16 05:38 INR, PTT INR 1.25 (0.82-1.09) H 09/28/16 13:10 - ....Imaging EKG: Other (tele: AF, good HRs) Assessment/Plan echo 08/2016: sev dec lvef, global hk, mild rv dil and mild dec rv fcn, sev constantin , sev tr, mod mr, mild pr, nl rvsp JUSTYN 2016: nl lv/rv no intracardiac thrombus. + PFO with L--> R shunt on bubble study. mod TR. Echo 01/08: nl LV/EF; dd1; mild JOSIE of unclear significance; nl RV; mild LAE; valves WNL; IASA (no PFO) MIBI 12/08: 4:00min; no STs; ? small anteroapical isch vs large breast shadows; nl EF; no TID a/p: 65 yo with h/o afib, HTN, HLD, venous insufficiency, obesity, chronic nausea, gastritis with gastric erosions/prior bloody stool followed by Dr. Keller, fibromyalgia, h/o vertebroplasty and epidural injections who presents with acute onset sob. acute systolic chf - cxr with possible retrocardiac infiltrate, PNA not suspected clinically here. - pt with chronic h/o labile creatinine in response to vol depletion and thiazide diuretic for HTN - 09/20: worsened pulmonary edema. + creatinine bump after lasix, but not clear that she was net negative. Repeat trial of lasix 60 mg IV x 1 today and reassess bmp in pm. - 09/21: Cr worsened, but lft's improved after lasix. exam appears improved, will hold further diuresis. Stop valsartan and kcl as mentioned below. - 09/22: cr improving off lasix, but weight trending up. - 09/24: Echo here with newly reduced lvef, likely tachycardia induced cardiomyopathy. Will cont with rate control with toprol. Has some vol overload with le edema and b/l effs on cxr/ct scan so will resume iv lasix 40 qd to start. - 09/25: cr stable, wt down, will cont iv lasix and give extra dose of 40 iv today. atrial fibrillation - 09/28: wt trended down over weekend with stable renal fxn, lasix incr'd to 40 iv bid on 09/27; down further today (240), from 249 peak; bilat eff (L > R) persist on CXR--cont same lasix -was 239 lbs in office 01/09 - remains symptomatic (sob)--incr lasix to 80 iv bid - 09/29: wt down further today (237), renal fxn stable. BNP 3100. only small residual L effusion this am at time of US guidance for thoracentesis--only 120cc removed. -09/30-8: pinto/orthopnea improving. wt continues to decrease, cr stable. Cont iv lasix for now. -10/02: vol status seems to be at baseline now; bun trending up likely indicating she is nearing euvolemia as well. will dc iv lasix and change to 80 po bid now -10/03: wt up 234 (2 lb from yest) per verbal from RN. pt remains without volume on exam, mild orthopnea. change to torsemide 100 bid. -home wts plan with pt--will call me if 4 lbs gain in 7d--for prn metolazone -will arrange outpt BMP in 2-3 days and f/u o.v. with me - creat improved promptly after valsartan held so have been holding Afib: - s/p successful DCCV 02/08, has not followed up with cardio as scheduled since that time - HRs were normal here in 04/10 and only began noticing palpitations again 08/10- -likely back in AF approx 6-8 wks now - in AF here with rapid HR on admit, and new LV systolic dysfunction (global) suggestive of tachy-CMP--in setting of non-compliance with metoprolol (taking prn) - HR not controlled with metopr 50qd in past and pt c/o'd intolerable fatigue/ exhaustion - painful pretib edema on diltiazem 180 (and ? ongoing--though improved--fatigue ) - metopr 50 bid incr'd to 100 bid here for tighter bp control--doubt she will tolerate this skilled nursing - as per 09/28 note: not a good candidate for 1c agent (flecainide) even if EF recovers; not great candidate for alf amio given young pt; - if we prove that sx's/chf/LV fxn improves in sinus rhythm, then ablation is an appropriate tx option here - amiodarone load underway (400 bid x7d, on 10/05 change to 200 bid x7d, then 200 qd after that)--qtc stable/nl here - plan outpt JUSTYN/DCCV after 1-2 wks of amio load - metopr decr'd to 50 bid when amio started, had transient rapid AF so incr'd back to 75 bid--taper dose after DCCV - cont eliquis (ok to hold 48 hrs prior to pain injection/other procedures) h/o colonic polyps with prior occult GIB: - s/p polypectomies 12/[address] keller (non-bleeding diverticulosis and internal hemmorhoids as well), cleared to resume eliquis by GI after that procedure - H/H stable here HTN - ? home compliance with correct med regimen - will clarify records - repeated severe MARGOT (creat bumped to 3) in past due to vol depletion in setting of thiazide use - valsartan held here when creat worsened after iv lasix initially - will not tolerate incr norvasc due to h/o peripheral edema and self-tx with diuretics with resultant severe MARGOT on mult occasions - added hydralazine 25 bid - currently bp controlled PT READY FOR DISCHARGE
[2016-10-03 10:21] VITALS: BP 123/79; PULSE 97; TEMP 98.1
[2016-10-03] MEDS: POTASSIUM CHLORIDE TABS 20 MEQ TABLET.ER (FP) PO SCH (10:22)
[2016-10-03] MEDS: AMIODARONE HCL 200 MG TABLET (FP) PO SCH (10:23)
[2016-10-03] MEDS: METOPROLOL SUCCINATE 50 MG TAB.SR.24H (FP) PO SCH (10:23)
[2016-10-03] MEDS: CALCIUM 500MG/VIT-D 200 UNITS COMBO TABLET (FP) PO SCH (10:23)
[2016-10-03] MEDS: amLODIPine BESYLATE 5 MG TABLET (FP) PO SCH (10:23)
[2016-10-03] MEDS: DULoxetine HCL 30 MG CAPSULE.DR (FP) PO SCH (10:23)
[2016-10-03] MEDS: GABAPENTIN 300 MG CAPSULE (FP) PO SCH (10:24)
[2016-10-03] MEDS: hydrALAZINE HCL 25 MG TABLET (FP) PO SCH (10:24)
[2016-10-03] MEDS: traMADol HCL 50 MG TABLET PO PRN (10:24)
[2016-10-03] MEDS: APIXABAN 5 MG TABLET PO SCH (10:24)
[2016-10-03] MEDS: RANITIDINE HCL 150 MG TABLET (FP) PO SCH (10:24)
--- NOTE | 2016-10-03 10:34 | PN ---
Progress Note, Physician History of Present Illness: Notes weight went p slightly from yesterday. Breathing feeling about the same. Does complain of a lot of right heel pain, mainly on lateral side, but a lot of pain when getting up to walk. Feels that the position she was lying in while in bed may have irritated her heel. - Current Medication List Current Medications: Active Medications Acetaminophen (Tylenol -) 650 mg PO Q4H PRN PRN Reason: FEVER OR PAIN Last Admin: 09/27/16 21:30 Dose: 650 mg Al Hydroxide/Mg Hydroxide (Mylanta Oral Suspension -) 30 ml PO Q6H PRN PRN Reason: DYSPEPSIA Amiodarone HCl (Cordarone -) 200 mg PO BID@0600,1800 [facility] Stop: 10/12/16 05:59 Amiodarone HCl (Cordarone -) 400 mg PO BID [facility] Stop: 10/05/16 06:00 Last Admin: 10/03/16 10:23 Dose: 400 mg Amiodarone HCl (Cordarone -) 200 mg PO DAILY@0600 [facility] Amlodipine Besylate (Norvasc -) 5 mg PO DAILY [facility] Last Admin: 10/03/16 10:23 Dose: 5 mg Apixaban (Eliquis -) 5 mg PO BID [facility] Last Admin: 10/03/16 10:24 Dose: 5 mg Calcium Carbonate/Cholecalciferol (Os-Antonio 500+D -) 1 tab PO BID [facility] Last Admin: 10/03/16 10:23 Dose: 1 tab Cyclobenzaprine HCl (Flexeril -) 10 mg PO HS PRN PRN Reason: MUSCLE SPASMS Last Admin: 09/30/16 21:28 Dose: 10 mg Docusate Sodium (Colace -) 300 mg PO HS [facility] Last Admin: 10/02/16 22:09 Dose: Not Given Duloxetine HCl (Cymbalta -) 60 mg PO DAILY [facility] Last Admin: 10/03/16 10:23 Dose: 60 mg Furosemide (Lasix -) 80 mg PO BID@0600,1400 [facility] Last Admin: 10/03/16 06:21 Dose: 80 mg Gabapentin (Neurontin -) 600 mg PO DAILY [facility] Last Admin: 10/03/16 10:24 Dose: 600 mg Hydralazine HCl (Apresoline -) 25 mg PO BID [facility] Last Admin: 10/03/16 10:24 Dose: 25 mg Metoprolol Succinate (Toprol Xl -) 75 mg PO BID [facility] Last Admin: 10/03/16 10:23 Dose: 75 mg Ondansetron HCl (Zofran Odt -) 4 mg SL Q6H PRN PRN Reason: NAUSEA AND/OR VOMITING Last Admin: 09/25/16 10:26 Dose: 4 mg Potassium Chloride (K-Dur -) 40 meq PO DAILY [facility] Last Admin: 10/03/16 10:22 Dose: 40 meq Ranitidine HCl (Zantac -) 150 mg PO BID [facility] Last Admin: 10/03/16 10:24 Dose: 150 mg Tramadol HCl (Ultram -) 50 mg PO Q6H PRN PRN Reason: PAIN Last Admin: 10/03/16 10:24 Dose: 50 mg - Objective Vital Signs: Vital Signs Temperature 98.1 F 10/03/16 10:00 Pulse Rate 97 H 10/03/16 10:00 Respiratory Rate 20 10/03/16 10:00 Blood Pressure 123/79 10/03/16 10:00 O2 Sat by Pulse Oximetry (%) 95 10/03/16 08:16 Constitutional: Yes: No Distress, Calm Eyes: Yes: Conjunctiva Clear, EOM Intact HENT: Yes: Atraumatic, Normocephalic Neck: Yes: Supple, Trachea Midline Cardiovascular: Yes: Regular Rate and Rhythm, S1, S2. No: Murmur Respiratory: Yes: Regular, CTA Bilaterally. No: Rales, Rhonchi, Wheezes Gastrointestinal: Yes: Normal Bowel Sounds, Soft. No: Distention, Tenderness Extremities: Yes: Other (right heal with tenderness, slight fluctuance right lateral heel) Edema: Yes Edema: LLE: Trace, RLE: Trace Neurological: Yes: Alert, Oriented Labs: CBC, BMP 10/02/16 05:38 10/02/16 05:38 INR, PTT INR 1.25 (0.82-1.09) H 09/28/16 13:10 Assessment/Plan Current Active Problems Atrial fibrillation (Acute) CHF (congestive heart failure) (Acute) Dyspnea (Acute) HTN (hypertension) (Acute) Intractable low back pain (Acute) Pleural effusion (Acute) Rapid atrial fibrillation (Acute) Vaginal bleeding (Acute) Heel pain -now on PO diuretics, loading with amio also -cardio to re-eval today (tentative discharge) -likely heel pain is the start of a pressure ulcer/irritation
--- NOTE | 2016-10-03 13:49 | DS ---
Physical Examination Vital Signs: Vital Signs Temperature 98.1 F 10/03/16 10:00 Pulse Rate 97 H 10/03/16 10:00 Respiratory Rate 20 10/03/16 10:00 Blood Pressure 123/79 10/03/16 10:00 O2 Sat by Pulse Oximetry (%) 95 10/03/16 08:16 Labs: CBC, BMP 10/02/16 05:38 10/02/16 05:38 Discharge Summary Reason For Visit: DYSPNEA, RAPID ATRIAL FIBRILLATION, HYPERTENSION, Current Active Problems Atrial fibrillation (Acute) CHF (congestive heart failure) (Acute) Dyspnea (Acute) HTN (hypertension) (Acute) Intractable low back pain (Acute) Pleural effusion (Acute) Rapid atrial fibrillation (Acute) Vaginal bleeding (Acute) Hospital Course: (see progress note form earlier today ) Seen by cardio and OK for discharge - will discharge with new meds, including Eliquis, higher dose toprol, lower dose norvasc, torsemide and eliquis (sent prescriptions to [facility]). - Instructions Referrals: Gisel Cuba MD [Non Staff, Medical] - Disposition: HOME - Home Medications Comprehensive Discharge Medication List: Ambulatory Orders Cyclobenzaprine HCl [Flexeril -] 10 mg PO HS PRN 12/04/15 Gabapentin 600 mg PO DAILY 12/04/15 Calcium 500Mg/Vit-D 200 Units [Os-Antonio 500+D -] 1 tab PO BID #60 tab 04/10/16 Docusate Sodium [Colace -] 300 mg PO HS capsule 04/10/16 Oxycodone HCl [Roxicodone -] 10 mg PO Q4H PRN #20 tablet MDD 60mg 04/10/16 Amiodarone HCl [Cordarone -] 200 mg PO ASDIR #60 tablet 10/03/16 Amlodipine Besylate [Norvasc -] 5 mg PO DAILY #30 tablet 10/03/16 Apixaban [Eliquis -] 5 mg PO BID #60 tablet 10/03/16 Duloxetine HCl [Cymbalta -] 60 mg PO DAILY #30 cap 10/03/16 Hydralazine HCl [Apresoline -] 25 mg PO BID #60 tablet 10/03/16 Metoprolol Succinate [Toprol XL -] 50 mg PO ASDIR #90 tab 10/03/16 Potassium Chloride [K-Dur -] 40 meq PO DAILY #30 tab 10/03/16 Torsemide [Demadex -] 100 mg PO BID@0600,1400 #60 tablet 10/03/16
[2016-10-05] MEDS ORDERED: AMIODARONE HCL 200 MG TABLET (FP) PO SCH (06:00)
[2016-10-12] MEDS ORDERED: AMIODARONE HCL 200 MG TABLET (FP) PO SCH (06:00)
== END 2016-10-03 16:55 | disposition home or self-care (01) | DRG 308 ==
LOC: JER 14:08 → JERBED 22:08 → JICU 09-19 04:57 → J4W 09-20 14:03
PROVIDERS: ADMIT Internal Medicine; ATTEND Internal Medicine
PROC: 0W9B3ZX Drainage of Left Pleural Cavity, Percutaneous Approach, Diagnostic (ICD-10-PCS; principal; 2016-09-29)
DX: I48.2 Chronic atrial fibrillation (principal); I50.33 Acute on chronic diastolic (congestive) heart failure; J90 Pleural effusion, not elsewhere classified; N17.9 Acute kidney failure, unspecified; I11.0 Hypertensive heart disease with heart failure; M54.5 Low back pain; E86.0 Dehydration; E66.9 Obesity, unspecified; E78.5 Hyperlipidemia, unspecified; K29.60 Other gastritis without bleeding; I87.2 Venous insufficiency (chronic) (peripheral); R11.0 Nausea; E83.42 Hypomagnesemia; M79.7 Fibromyalgia; N93.9 Abnormal uterine and vaginal bleeding, unspecified; I42.8 Other cardiomyopathies; R10.13 Epigastric pain; G47.30 Sleep apnea, unspecified; Z68.36 Body mass index [BMI] 36.0-36.9, adult
CPT/HCPCS: 36415; 71010-TC; 71020-TC; 71250-TC; 76705-TC; 76775-TC; 76830-TC; 76856-TC; 76942; 80048; 80053; 81003; 81015; 82042; 82150; 82310; 82438; 82550; 82945; 83615; 83690; 83735; 83880; 84100; 84157; 84311; 84443; 84484; 85025; 85610; 87070; 87075; 87102; 87116; 87205; 87206; 87210; 88108; 88305-TC; 88341-TC; 89051; 93005; 93010; 93306-TC; 93976; 94010; 94761; 99285-25

== ENCOUNTER 2016-10-07 14:18 | Inpatient (IN) | payer OTHER ==
[2016-10-07 14:27] VITALS: BMI 35.2
--- NOTE | 2016-10-07 16:00 | PDOC ---
History of Present Illness - General History Source: Patient Exam Limitations: No Limitations - History of Present Illness Initial Comments: 10/07/16 16:43 The patient is a 66 year old female, with a significant past medical history of Atrial fibrillation, Sigmoid colon adenoma, HTN, HLD, who presents to the emergency department with sudden onset of SOB. The patient states she had trouble breathing while grocery shopping today as she was moving too fast. She was unable to catch her breathe and presents her for further evaluation. She states she was previously admitted at [facility] for Rapid Afib and evaluation of SOB. Tatianna also notes a 5 pound weight loss within the past 2 days. She denies chest pain, headache or dizziness. She denies fever, chills, nausea, vomit, diarrhea or constipation. She denies dysuria, frequency, urgency or hematuria. Allergies: Pregabalin Past surgical history: C4, C5 and C6 fusion 20 yrs ago, L knee replacement, R shoulder rotator cuff repair. Social history:Denies PCP: Dr. Cuba <Mell Moralez - Last Filed: 10/07/16 18:53> <Vicki Weber - Last Filed: 10/10/16 11:31> - General Chief Complaint: Respiratory Stated Complaint: DIFFICULTY BREATHING Time Seen by Provider: 10/07/16 15:25 Past History <Mell Moralez - Last Filed: 10/07/16 18:53> - Past Medical History Anemia: No Cancer: Yes (adenoma sigmoid colon) Cardiac Disorders: Yes (ATRIAL FIBRILLATION) GI Disorders: Yes (ADENOMA SIGMOID COLON) HTN: Yes Hypercholesterolemia: Yes - Surgical History Neurologic Surgery: (c4,5,6 fusion 20 yrs) Orthopedic Surgery: (lt knee rplacement;rt shoulder rotor cuff repair;) - Psycho/Social/Smoking Cessation Hx Anxiety: No Suicidal Ideation: No Smoking History: Never smoked Have you smoked in the past 12 months: No Hx Alcohol Use: No Drug/Substance Use Hx: No Substance Use Type: None Hx Substance Use Treatment: No <Vicki Weber - Last Filed: 10/10/16 11:31> - Past Medical History Allergies/Adverse Reactions: Allergies Allergy/AdvReac Type Severity Reaction Status Date / Time pregabalin [From Lyrica] Allergy Verified 10/07/16 14:27 Home Medications: Ambulatory Orders Calcium 500Mg/Vit-D 200 Units [Os-Antonio 500+D -] 1 tab PO BID #60 tab 04/10/16 Docusate Sodium [Colace -] 300 mg PO HS capsule 04/10/16 Oxycodone HCl [Roxicodone -] 10 mg PO Q4H PRN #20 tablet MDD 60mg 04/10/16 Amiodarone HCl [Cordarone -] 200 mg PO ASDIR #60 tablet 10/03/16 Amlodipine Besylate [Norvasc -] 5 mg PO DAILY #30 tablet 10/03/16 Apixaban [Eliquis -] 5 mg PO BID #60 tablet 10/03/16 Duloxetine HCl [Cymbalta -] 60 mg PO DAILY #30 cap 10/03/16 Hydralazine HCl [Apresoline -] 25 mg PO BID #60 tablet 10/03/16 Metoprolol Succinate [Toprol XL -] 50 mg PO ASDIR #90 tab 10/03/16 Potassium Chloride [K-Dur -] 40 meq PO DAILY #30 tab 10/03/16 Torsemide [Demadex -] 100 mg PO BID@0600,1400 #60 tablet 10/03/16 Gabapentin [Neurontin] 600 mg PO DAILY 10/08/16 Review of Systems - Review of Systems Able to Perform ROS?: Yes Comments:: 10/07/16 16:45 GENERAL/CONSTITUTIONAL: No fever or chills. No weakness. HEAD, EYES, EARS, NOSE AND THROAT: No change in vision. No ear pain or discharge. No sore throat. CARDIOVASCULAR:+ shortness of breath. No chest pain RESPIRATORY: No cough, wheezing, or hemoptysis. GASTROINTESTINAL: No nausea, vomiting, diarrhea or constipation. GENITOURINARY: No dysuria, frequency, or change in urination. MUSCULOSKELETAL: No joint or muscle swelling or pain. No neck or back pain. SKIN: No rash NEUROLOGIC: No headache, vertigo, loss of consciousness, or change in strength/ sensation. ENDOCRINE: No increased thirst. No abnormal weight change. HEMATOLOGIC/LYMPHATIC: No anemia, easy bleeding, or history of blood clots. ALLERGIC/IMMUNOLOGIC: No hives or skin allergy. <Mell Moralez - Last Filed: 10/07/16 18:53> *Physical Exam - Vital Signs Last Vital Signs Temp Pulse Resp BP Pulse Ox 97.8 F 79 20 112/68 99 10/07/16 14:24 10/07/16 14:24 10/07/16 14:24 10/07/16 14:24 10/07/16 14:24 <Mell Moralez - Last Filed: 10/07/16 18:53> - Vital Signs Last Vital Signs Temp Pulse Resp BP Pulse Ox 97.8 F 79 20 112/68 99 10/07/16 14:24 10/07/16 14:24 10/07/16 14:24 10/07/16 14:24 10/07/16 14:24 <Vicki Weber - Last Filed: 10/10/16 11:31> Heart Score/ECG Review - ECG Impressions Comment:: EKG read 16:22- afib RVR 126 bpm <Vicki Weber - Last Filed: 10/10/16 11:31> ED Treatment Course - LABORATORY CBC & Chemistry Diagram: 10/07/16 16:45 10/07/16 16:45 <Mell Moralez - Last Filed: 10/07/16 18:53> - LABORATORY CBC & Chemistry Diagram: 10/10/16 05:35 10/10/16 06:00 <Vicki Weber - Last Filed: 10/10/16 11:31> Medical Decision Making - Medical Decision Making 10/07/16 18:02 Dr. Stein paged at 6:01 PM. returned the page at 6:10 PM and the patient's case was discussed. Dr. Harris paged at 6:[address] Oliver solar installation foreman, will return page. Dr. Oliver returned the page at 6:19 PM and the patient's case was discussed. Chest XR Impression: No significant interval change. Mild cardiomegaly without evidence of acute lung disease Reported By: Donte Barraza MD 10/07/16 [id number] <Mell Moralez - Last Filed: 10/07/16 18:53> - Medical Decision Making Case d/w Dr. Ott at time of admission. Pt with history of recently diagnosed afib, now presenting with rapid afib. She is on a beta-femi, but with her initial BP, I controlled with cardizem instead, to avoid hypotension. Patient responded well. However, labs show acute renal failure. Will admit. D/w Dr. Stein. <iVcki Weber - Last Filed: 10/10/16 11:31> *DC/Admit/Observation/Transfer - Attestations Scribe Attestion: 10/07/16 16:45 Documentation prepared by Mell Moralez, acting as family practice medical doctor for Vicki Weber MD <Mell Moralez - Last Filed: 10/07/16 18:53> - Discharge Dispostion Admit: Yes <Vicki Weber - Last Filed: 10/10/16 11:31> Diagnosis at time of Disposition: Atrial fibrillation Qualifiers: Atrial fibrillation type: chronic Qualified Code(s): I48.2 - Chronic atrial fibrillation Acute renal failure Qualifiers: Acute renal failure type: unspecified Qualified Code(s): N17.9 - Acute kidney failure, unspecified - Discharge Dispostion Condition at time of disposition: Stable - Referrals
[2016-10-07] MEDS ORDERED: dilTIAZem HCL 50 MG/10 ML - 10 ML VIAL IVPUSH ONE ×2 (16:23→19:27)
[2016-10-07] MEDS ORDERED: dilTIAZem HCL 125 MG/25 ML - 25 ML VIAL ONE ×2 (16:52→19:34)
[2016-10-07 17:09] LABS: BASOPHIL 0.8 % (0-2.0); EOSINOPHIL 0.3 % (0-4.5); MCHC 33.4 g/dl (32.0-36.0); MEAN CELL VOLUME 101.6 fl (80-96); MEAN PLT VOLUME 9.2 fl (7.5-11.1); PLATELET COUNT 310 K/MM3 (134-434); RDW 16.4 % (11.6-15.6); WHITE BLOOD COUNT 10.1 K/mm3 (4.0-10.0)
[2016-10-07 17:51] LABS: ANION GAP 14 (8-16); BILIRUBIN,TOTAL 1.2 mg/dL (0.2-1.0); CALCIUM 10.1 mg/dL (8.5-10.1); CO2 32 mmol/L (21-32); COCKROFT - GAULT 40.5195; CREATININE 2.2 mg/dL (0.55-1.02); GLUCOSE,RANDOM 101 mg/dL (74-106); SGOT/AST 20 U/L (15-37); SGPT/ALT 23 U/L (12-78); TOT PROT 7.3 g/dl (6.4-8.2)
[2016-10-07 17:53] LABS: ALK PHOS 84 U/L (45-117); TROPONIN I < 0.02 ng/ml (0.00-0.05)
[2016-10-07] MEDS ORDERED: POTASSIUM CHLORIDE TABS 20 MEQ TABLET.ER (FP) PO ONE (18:35)
[2016-10-07] MEDS ORDERED: POTASSIUM CHLORIDE ORAL LIQUID 20 MEQ/15 ML ONE (18:40)
[2016-10-07] MEDS ORDERED: SODIUM CHLORIDE 1,000 ML IV STA (19:27)
[2016-10-07] MEDS ORDERED: AMIODARONE HCL 200 MG TABLET (FP) ONE (22:41)
[2016-10-07] MEDS ORDERED: DOCUSATE SODIUM 100 MG CAPSULE (FP) PO ONE (22:41)
[2016-10-07] MEDS: DOCUSATE SODIUM 100 MG CAPSULE (FP) PO SCH (22:46)
[2016-10-07] MEDS: AMIODARONE HCL 200 MG TABLET (FP) PO SCH (22:46)
[2016-10-07] MEDS: hydrALAZINE HCL 25 MG TABLET (FP) PO SCH (23:42)
[2016-10-07] MEDS: APIXABAN 5 MG TABLET PO SCH (23:47)
[2016-10-08] MEDS: METOPROLOL SUCCINATE 50 MG TAB.SR.24H (FP) PO SCH ×3 (05:46→22:58)
[2016-10-08 07:25] LABS: BASOPHIL 0.7 % (0-2.0); EOSINOPHIL 0.8 % (0-4.5); MCH 35.1 pg (25.7-33.7); MEAN CELL VOLUME 103.3 fl (80-96); NEUTROPHILS 64.5 % (42.8-82.8); PLATELET COUNT 285 K/MM3 (134-434); RDW 16.1 % (11.6-15.6)
[2016-10-08 07:57] LABS: ALBUMIN 3.5 g/dl (3.4-5.0); CALCIUM 9.6 mg/dL (8.5-10.1); COCKROFT - GAULT 38.76; CREATININE 2.3 mg/dL (0.55-1.02); TOT PROT 6.3 g/dl (6.4-8.2)
[2016-10-08] MEDS: POTASSIUM CHLORIDE TABS 20 MEQ TABLET.ER (FP) PO SCH (10:55)
[2016-10-08] MEDS: DULoxetine HCL 30 MG CAPSULE.DR (FP) PO SCH (10:55)
[2016-10-08] MEDS: AMIODARONE HCL 200 MG TABLET (FP) PO SCH ×2 (10:55→22:58)
[2016-10-08] MEDS: amLODIPine BESYLATE 5 MG TABLET (FP) PO SCH (10:55)
[2016-10-08] MEDS: hydrALAZINE HCL 25 MG TABLET (FP) PO SCH ×2 (10:56→22:58)
[2016-10-08] MEDS: APIXABAN 5 MG TABLET PO SCH ×2 (10:56→22:58)
--- NOTE | 2016-10-08 11:27 | HP ---
Admitting History and Physical - Primary Care Physician PCP: Gisel Cuba - Admission Chief Complaint: I was not feeling well History of Present Illness: Mrs Teri Givens is a very pleasant 66 year old female who was recently discharged after atrial fibrillation with RVR who comes in with similar symptoms. She says on Wednesday she was not feeling well. She says she was short of breath on exertion and was feeling lightheaded with this as well. She says it did not last long so she felt it was temporary. Wednesday she developed the symptoms again and called in sick to work. She stayed home and rested with minimal improvement. Yesterday she was walking around the store and along with lightheadedness and shortness of breath she also became very diaphoretic. Because of this she came to the hospital and was found to have a rapid heart rate. She denies fevers, chills, passing out, chest pain, abdominal pain, nausea , vomiting, diarrhea, constipation, or swelling. She has lost 2 lbs since discharge. Today she is feeling better but is still having shortness of breath with minimal exertion. 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 History of Recent Travel: No Home Medications - Allergies Allergies/Adverse Reactions: Allergies Allergy/AdvReac Type Severity Reaction Status Date / Time pregabalin [From Lyrica] Allergy Verified 10/07/16 14:27 - Home Medications Home Medications: Ambulatory Orders Calcium 500Mg/Vit-D 200 Units [Os-Antonio 500+D -] 1 tab PO BID #60 tab 04/10/16 Docusate Sodium [Colace -] 300 mg PO HS capsule 04/10/16 Oxycodone HCl [Roxicodone -] 10 mg PO Q4H PRN #20 tablet MDD 60mg 04/10/16 Amiodarone HCl [Cordarone -] 200 mg PO ASDIR #60 tablet 10/03/16 Amlodipine Besylate [Norvasc -] 5 mg PO DAILY #30 tablet 10/03/16 Apixaban [Eliquis -] 5 mg PO BID #60 tablet 10/03/16 Duloxetine HCl [Cymbalta -] 60 mg PO DAILY #30 cap 10/03/16 Hydralazine HCl [Apresoline -] 25 mg PO BID #60 tablet 10/03/16 Metoprolol Succinate [Toprol XL -] 50 mg PO ASDIR #90 tab 10/03/16 Potassium Chloride [K-Dur -] 40 meq PO DAILY #30 tab 10/03/16 Torsemide [Demadex -] 100 mg PO BID@0600,1400 #60 tablet 10/03/16 Family Disease History - Family Disease History Family Disease History: Heart Disease: Father Review of Systems Findings/Remarks: Full review of systems obtained, as per HPI and otherwise negative Physical Examination Vital Signs: Vital Signs Temperature 97.8 F 10/07/16 14:24 Pulse Rate 94 H 10/08/16 05:34 Respiratory Rate 20 10/08/16 05:34 Blood Pressure 125/86 10/08/16 05:34 O2 Sat by Pulse Oximetry (%) 98 10/08/16 05:34 Constitutional: Yes: No Distress, Calm, Obese Eyes: Yes: Conjunctiva Clear, EOM Intact, PERRL HENT: Yes: Atraumatic, Normocephalic Cardiovascular: Yes: Tachycardia, Pulse Irregular. No: Gallop, Murmur, Rub Respiratory: Yes: Regular, CTA Bilaterally, On Nasal O2. No: Rales, Rhonchi, Wheezes Gastrointestinal: Yes: Normal Bowel Sounds, Soft. No: Distention, Tenderness Extremities: Yes: WNL Edema: No Labs: CBC, BMP 10/08/16 07:05 10/08/16 07:05 Imaging - Results Chest X-ray: Report Reviewed, Image Reviewed Problem List - Problems (1) Acute renal failure Assessment/Plan: -patient presents with ARF -most likely secondary to diuresis -will consult nephrology -since has history of diastolic CHF and tachycardia induced cardiomyopathy, will need close fluid monitoring -defer IVF until evaluated by nephrology -hold torsemide Code(s): N17.9 - ACUTE KIDNEY FAILURE, UNSPECIFIED Qualifiers: Acute renal failure type: unspecified Qualified Code(s): N17.9 - Acute kidney failure, unspecified (2) Atrial fibrillation Assessment/Plan: -cause of subjective dyspnea -with RVR -continue eliquis -on metoprolol and amiodarone -cardiology consulted and will evaluate Code(s): I48.91 - UNSPECIFIED ATRIAL FIBRILLATION Qualifiers: Atrial fibrillation type: chronic Qualified Code(s): I48.91 - Unspecified atrial fibrillation (3) CHF (congestive heart failure) Assessment/Plan: -not in exacerbation -hold torsemide -cardiology consulted -close fluid monitoring Code(s): I50.9 - HEART FAILURE, UNSPECIFIED Qualifiers: Congestive heart failure type: diastolic Congestive heart failure chronicity: chronic Qualified Code(s): I50.32 - Chronic diastolic ( congestive) heart failure (4) HTN (hypertension) Assessment/Plan: -continue hydralazine, norvasc, and toprol xl -controlled Code(s): I10 - ESSENTIAL (PRIMARY) HYPERTENSION
--- NOTE | 2016-10-08 12:11 | EKG ---
Test Reason : Blood Pressure : / mmHG Vent. Rate : 126 BPM Atrial Rate : 125 BPM P-R Int : 000 ms QRS Dur : 094 ms QT Int : 402 ms P-R-T Axes : 000 003 124 degrees QTc Int : 582 ms ATRIAL FIBRILLATION WITH RAPID VENTRICULAR RESPONSE WITH PREMATURE VENTRICULAR OR ABERRANTLY CONDUCTED COMPLEXES ABNORMAL ECG WHEN COMPARED WITH ECG OF 18-SEP-2016 19:38, QUESTIONABLE CHANGE IN QRS DURATION Confirmed by AC SEALS MD ([id number]) on 10/08/2016 12:11:34 PM Referred By: Confirmed By:AC SEALS MD
--- NOTE | 2016-10-08 12:12 | CON.CARD ---
Cardiology Consult (text) - Consultation Consultation Note: cc: dizzy hpi: 66 yo f with h/o afib, HTN, HLD, venous insufficiency, obesity, chronic nausea, gastritis with gastric erosions/prior bloody stool followed by Dr. Mack, fibromyalgia, h/o vertebroplasty and epidural injections, syst chf ( likely TIC) here with dizziness. Pt recently admitted here with new onset syst chf likely from TIC. Her rate was controlled and she was diuresed and sent home on torsemide earlier this week. Yesterday she was at store and felt tired , lack of energy, dizzy, sweaty and cold. No cp, palps, loc, pnd, orthopnea, le edema, sob. She came to ER and bp was low and labs showed madeline. Got some ivfs and now feeling better. Sees dr cantu for cardiology. pmhx/pshx: per hpi, knee surgery social hx: no tob fam hx: father fatal CA 52; mother AAA repair 72; ros: per hpi: no nvd, rash, white, vision changes, cough, nasal congestion, muscle aches, fever, gib, dysuria meds: Home Medications Medication Instructions Recorded Calcium 500Mg/Vit-D 200 Units 1 tab PO BID #60 tab 04/10/16 [Os-Antonio 500+D -] Docusate Sodium [Colace -] 300 mg PO HS capsule 04/10/16 Oxycodone HCl [Roxicodone -] 10 mg PO Q4H PRN #20 tablet MDD 04/10/16 60mg Amiodarone HCl [Cordarone -] 200 mg PO ASDIR #60 tablet 10/03/16 Amlodipine Besylate [Norvasc -] 5 mg PO DAILY #30 tablet 10/03/16 Apixaban [Eliquis -] 5 mg PO BID #60 tablet 10/03/16 Duloxetine HCl [Cymbalta -] 60 mg PO DAILY #30 cap 10/03/16 Hydralazine HCl [Apresoline -] 25 mg PO BID #60 tablet 10/03/16 Metoprolol Succinate [Toprol XL -] 50 mg PO ASDIR #90 tab 10/03/16 Potassium Chloride [K-Dur -] 40 meq PO DAILY #30 tab 10/03/16 Torsemide [Demadex -] 100 mg PO BID@0600,1400 #60 tablet 10/03/16 pe: Vital Signs Period Temp Pulse Resp BP Sys/Pierce Pulse Ox Last 24 Hr 97.8 F 79-112 18-20 86-125/64-95 96-100 NAD, calm, no jvd cta bl nl eff irreg, rr, s1s2 no mrg abd nt nd pos bs no le e/c/c + dp/pt aaox3 no jaundice, diaphoresis Laboratory Last Values WBC 8.0 K/mm3 (4.0-10.0) 10/08/16 07:05 RBC 4.00 M/mm3 (3.60-5.2) 10/08/16 07:05 Hgb 14.1 GM/dL (10.7-15.3) 10/08/16 07:05 Hct 41.4 % (32.4-45.2) 10/08/16 07:05 MCV 103.3 fl (80-96) H 10/08/16 07:05 MCHC 34.0 g/dl (32.0-36.0) 10/08/16 07:05 RDW 16.1 % (11.6-15.6) H 10/08/16 07:05 Plt Count 285 K/MM3 (134-434) 10/08/16 07:05 MPV 9.0 fl (7.5-11.1) 10/08/16 07:05 Neutrophils % 64.5 % (42.8-82.8) 10/08/16 07:05 Lymphocytes % 21.3 % (8-40) D 10/08/16 07:05 Monocytes % 12.7 % (3.8-10.2) H 10/08/16 07:05 Eosinophils % 0.8 % (0-4.5) D 10/08/16 07:05 Basophils % 0.7 % (0-2.0) 10/08/16 07:05 Sodium 140 mmol/L (136-145) 10/08/16 07:05 Potassium 3.7 mmol/L (3.5-5.1) 10/08/16 07:05 Chloride 98 mmol/L (98-107) 10/08/16 07:05 Carbon Dioxide 28 mmol/L (21-32) 10/08/16 07:05 Anion Gap 14 (8-16) 10/08/16 07:05 BUN 28 mg/dL (7-18) H 10/08/16 07:05 Creatinine 2.3 mg/dL (0.55-1.02) H 10/08/16 07:05 Creat Clearance w eGFR 21.21 (>60) 10/08/16 07:05 Random Glucose 100 mg/dL (74-106) 10/08/16 07:05 Calcium 9.6 mg/dL (8.5-10.1) 10/08/16 07:05 Total Bilirubin 1.0 mg/dL (0.2-1.0) 10/08/16 07:05 AST 16 U/L (15-37) 10/08/16 07:05 ALT 19 U/L (12-78) 10/08/16 07:05 Alkaline Phosphatase 74 U/L (45-117) 10/08/16 07:05 Creatine Kinase 44 IU/L (26-192) 10/07/16 16:45 Troponin I < 0.02 ng/ml (0.00-0.05) 10/07/16 16:45 B-Natriuretic Peptide 4252.22 pg/ml (5-125) H 10/07/16 16:45 Total Protein 6.3 g/dl (6.4-8.2) L 10/08/16 07:05 Albumin 3.5 g/dl (3.4-5.0) 10/08/16 07:05 echo 08/2016: sev dec lvef, global hk, mild rv dil and mild dec rv fcn, sev constantin , sev tr, mod mr, mild pr, nl rvsp DAVID 2015: nl lv/rv no intracardiac thrombus. + PFO with L--> R shunt on bubble study. mod TR. Echo 01/08: nl LV/EF; dd1; mild JOSIE of unclear significance; nl RV; mild LAE; valves WNL; IASA (no PFO) MIBI 12/08: 4:00min; no STs; ? small anteroapical isch vs large breast shadows; nl EF; no TID ecg 10/07/16: afib, vr 126, aberrant conduction, nl qtc, no ischemic changes cxr: clear lungs a/p: 66 yo f with h/o afib, HTN, HLD, venous insufficiency, obesity, chronic nausea, gastritis with gastric erosions/prior bloody stool followed by Dr. Mack, fibromyalgia, h/o vertebroplasty and epidural injections, syst chf ( likely TIC) here with dizziness. dizziness, madeline: -likely presenting sxs due to volume depletion -labs show madeline/prerenal and bp low on presentation -after ivfs bp better and no further dizzy -hold diuretic for now and allow vol status to stabilize chronic systolic chf: -recently found to have likely tachycardia induced cardiomyopathy -after diuresis with iv lasix was discharged earlier this week on torsemide 100 bid -now here with vol depletion so holding diuretic for now -once vol stable will add back torsemide at lower dose Afib: - s/p successful DCCV 02/08 then this month presented in afib with rvr and new LV systolic dysfunction (global) suggestive of tachy-CMP--in setting of non- compliance with metoprolol (taking prn) - cont toprol for rate control - plan is to load with amio then do elective david/dccv - currently still getting amio loading (400 bid x7d, on 10/05 changed to 200 bid x7d, then on 10/12 will be 200 qd after that)--qtc stable/nl here - cont eliquis h/o colonic polyps with prior occult GIB: - s/p polypectomies 12/[address] mack (non-bleeding diverticulosis and internal hemmorhoids as well), cleared to resume eliquis by GI after that procedure - H/H stable here HTN -bp on low side here at first, likely due to vol depletion -improved with ivfs, monitor on home meds for now
--- NOTE | 2016-10-08 17:41 | CONSULT ---
Consult Consult Specialty:: Nephrology Reason for Consultation:: MARGOT - History of Present Illness Chief Complaint: shortness of breath History of Present Illness: Pt is a 66 year old female with PMHx of a-fib, sigmoid colon adenoma, HTN, chol and CHF who presents to the ER with shortness of breath. She was recently discharged from the hospital after being admitted and treated for CHF. She was on diuretics at home. She says she felt short of breath and weak so she came back to the hospital. She had woke up in the morning and was going to work when she experienced the symptoms. I was called to evaluate her for MARGOT. She denies dysuria or hematuria. She denies fevers or chills. She says that she did have abnormal kidney function in the past however has not followed with a sap business objects consultant - History Source History Provided By: Patient, Medical Record - Past Medical History Cardio/Vascular: Yes: AFIB, CHF, HTN Gastrointestinal: Yes: GI Bleed (in the past, polyps found) - Past Surgical History Past Surgical History: Yes: Joint Replacement (left total knee replacement) - Alcohol/Substance Use Hx Alcohol Use: No History of Substance Use: reports: None - Smoking History Smoking history: Never smoked Have you smoked in the past 12 months: No - Social History ADL: Independent 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 History of Recent Travel: No Home Medications - Allergies Allergies/Adverse Reactions: Allergies Allergy/AdvReac Type Severity Reaction Status Date / Time pregabalin [From Lyrica] Allergy Verified 10/07/16 14:27 - Home Medications Home Medications: Ambulatory Orders Calcium 500Mg/Vit-D 200 Units [Os-Antonio 500+D -] 1 tab PO BID #60 tab 04/10/16 Docusate Sodium [Colace -] 300 mg PO HS capsule 04/10/16 Oxycodone HCl [Roxicodone -] 10 mg PO Q4H PRN #20 tablet MDD 60mg 04/10/16 Amiodarone HCl [Cordarone -] 200 mg PO ASDIR #60 tablet 10/03/16 Amlodipine Besylate [Norvasc -] 5 mg PO DAILY #30 tablet 10/03/16 Apixaban [Eliquis -] 5 mg PO BID #60 tablet 10/03/16 Duloxetine HCl [Cymbalta -] 60 mg PO DAILY #30 cap 10/03/16 Hydralazine HCl [Apresoline -] 25 mg PO BID #60 tablet 10/03/16 Metoprolol Succinate [Toprol XL -] 50 mg PO ASDIR #90 tab 10/03/16 Potassium Chloride [K-Dur -] 40 meq PO DAILY #30 tab 10/03/16 Torsemide [Demadex -] 100 mg PO BID@0600,1400 #60 tablet 10/03/16 Family Disease History - Family Disease History Family Disease History: Heart Disease: Father Review of Systems - Review of Systems Constitutional: reports: Diaphoresis, Malaise. denies: Chills, Fever Eyes: reports: No Symptoms HENT: reports: No Symptoms Neck: reports: No Symptoms Cardiovascular: reports: Shortness of Breath Respiratory: reports: SOB on Exertion. denies: Cough Gastrointestinal: reports: No Symptoms Musculoskeletal: reports: No Symptoms Integumentary: reports: No Symptoms Neurological: reports: No Symptoms Endocrine: reports: No Symptoms Hematology/Lymphatic: reports: No Symptoms Psychiatric: reports: No Symptoms Physical Exam Vital Signs: Vital Signs Temperature 98.5 F 10/08/16 15:00 Pulse Rate 129 H 10/08/16 15:00 Respiratory Rate 18 10/08/16 15:46 Blood Pressure 111/65 10/08/16 15:00 O2 Sat by Pulse Oximetry (%) 95 10/08/16 15:46 Constitutional: Yes: Calm Eyes: Yes: Conjunctiva Clear HENT: Yes: Atraumatic Neck: Yes: Supple Cardiovascular: Yes: S1, S2 Respiratory: Yes: CTA Bilaterally Gastrointestinal: Yes: Soft Renal/: Yes: WNL Musculoskeletal: Yes: WNL Edema: No Neurological: Yes: Oriented Psychiatric: Yes: Oriented Labs: CBC, BMP 10/08/16 07:05 10/08/16 07:05 Selected Entries 10/07/16 10/08/16 14:24 15:46 Weight 225 lb 225 lb Laboratory Tests 09/18/16 09/20/16 09/20/16 19:05 05:20 15:30 WBC Hgb Plt Count Sodium Potassium Chloride Anion Gap BUN Creatinine 1.1 H 1.6 H D 1.7 H Creat Clearance w eGFR 09/22/16 09/24/16 09/30/16 05:35 06:00 05:35 WBC Hgb Plt Count Sodium Potassium Chloride Anion Gap BUN Creatinine 1.6 H 1.2 H 1.2 H Creat Clearance w eGFR 10/01/16 10/02/16 10/07/16 05:35 05:38 16:45 WBC 10.1 H D Hgb 14.8 Plt Count 310 Sodium Potassium Chloride Anion Gap BUN Creatinine 1.3 H 1.3 H Creat Clearance w eGFR 10/07/16 10/08/16 10/08/16 16:45 07:05 07:05 WBC 8.0 Hgb 14.1 Plt Count 285 Sodium 140 Potassium 3.7 Chloride 98 Anion Gap 14 BUN 28 H Creatinine 2.2 H D 2.3 H Creat Clearance w eGFR 21.21 Imaging - Results Chest X-ray: Report Reviewed Problem List - Problems (1) Acute renal failure Code(s): N17.9 - ACUTE KIDNEY FAILURE, UNSPECIFIED Qualifiers: Acute renal failure type: unspecified Qualified Code(s): N17.9 - Acute kidney failure, unspecified (2) Atrial fibrillation Code(s): I48.91 - UNSPECIFIED ATRIAL FIBRILLATION Qualifiers: Atrial fibrillation type: chronic Qualified Code(s): I48.2 - Chronic atrial fibrillation (3) CHF (congestive heart failure) Code(s): I50.9 - HEART FAILURE, UNSPECIFIED Qualifiers: Congestive heart failure type: diastolic Congestive heart failure chronicity: chronic Qualified Code(s): I50.32 - Chronic diastolic ( congestive) heart failure (4) HTN (hypertension) Code(s): I10 - ESSENTIAL (PRIMARY) HYPERTENSION (5) Atrial fibrillation and flutter Code(s): I48.91 - UNSPECIFIED ATRIAL FIBRILLATION I48.92 - UNSPECIFIED ATRIAL FLUTTER Assessment/Plan Current Medications Generic Name Dose Route Start Last Admin Trade Name Freq PRN Reason Stop Dose Admin Acetaminophen 650 mg 10/07/16 18:29 Tylenol - PO Q6H PRN FEVER OR PAIN Amiodarone HCl 200 mg 10/07/16 22:00 10/08/16 10:55 Cordarone - PO 200 mg BID CHUN Administration Amlodipine Besylate 5 mg 10/08/16 10:00 10/08/16 10:55 Norvasc - PO 5 mg DAILY CHUN Administration Apixaban 5 mg 10/07/16 22:00 10/08/16 10:56 Eliquis - PO 5 mg BID CHUN Administration Docusate Sodium 300 mg 10/07/16 22:00 10/07/16 22:46 Colace - PO Not Given HS CHUN Duloxetine HCl 60 mg 10/08/16 10:00 10/08/16 10:55 Cymbalta - PO 60 mg DAILY CHUN Administration Hydralazine HCl 25 mg 10/07/16 22:00 10/08/16 10:56 Apresoline - PO 25 mg BID CHUN Administration Metoprolol Succinate 50 mg 10/07/16 22:00 10/08/16 10:55 Toprol Xl - PO 50 mg BID CHUN Administration Oxycodone HCl 10 mg 10/07/16 18:25 Roxicodone - PO Q4H PRN PAIN Potassium Chloride 40 meq 10/08/16 10:00 10/08/16 10:55 K-Dur - PO 40 meq DAILY CHUN Administration Impression 1. MARGOT 2. HTN 3. CHF 4. a-fib 5. obesity Plan - pt has an ultrasound on 09/23, reviewed report - repeat labs in am - check ua, senior firewall engineer and sodium - diuretics on hold for new - likely MARGOT from pre-renal disease - recommend weight loss - will follow Dr Brandon
[2016-10-08 20:52] LABS: URINE APPEARANCE CLEAR; URINE BILIRUBIN NEGATIVE (NEGATIVE); URINE BLOOD NEGATIVE (NEGATIVE); URINE COLOR YELLOW; URINE GLUCOSE (UA) NEGATIVE (NEGATIVE); URINE KETONE NEGATIVE (NEGATIVE); URINE NITRITE NEGATIVE (NEGATIVE); URINE PROTEIN NEGATIVE (NEGATIVE); URINE UROBILINOGEN NEGATIVE E.U./dl (0.2-1.0)
[2016-10-08 20:59] LABS: URINE LEUK ESTERASE 1+ (NEGATIVE)
[2016-10-08 21:01] LABS: URINE BACTERIA RARE /hpf (NONE SEEN); URINE HYALINE CAST 8 /lpf; URINE MUCUS RARE; URINE RBC <1 /hpf (0-3); URINE WBC 16 /hpf (3-5)
[2016-10-08 21:13] LABS: CHLORIDE,RANDOM URINE < 10 MMOL/L; SODIUM,RANDOM URINE 6 MMOL/L
[2016-10-08] MEDS: DOCUSATE SODIUM 100 MG CAPSULE (FP) PO SCH (23:02)
[2016-10-08] MEDS: oxyCODONE HCL 5 MG TABLET PO PRN (23:04)
[2016-10-09] MEDS: ACETAMINOPHEN 325 MG TABLET (FP) PO PRN ×2 (06:29→21:21)
[2016-10-09] MEDS: oxyCODONE HCL 5 MG TABLET PO PRN ×2 (06:29→21:22)
[2016-10-09 07:29] LABS: BASOPHIL 0.6 % (0-2.0); EOSINOPHIL 2.3 % (0-4.5); MCH 34.8 pg (25.7-33.7); MCHC 34.4 g/dl (32.0-36.0); MEAN CELL VOLUME 101.4 fl (80-96); MEAN PLT VOLUME 9.2 fl (7.5-11.1); NEUTROPHILS 60.3 % (42.8-82.8); PLATELET COUNT 271 K/MM3 (134-434); RDW 15.8 % (11.6-15.6); WHITE BLOOD COUNT 7.6 K/mm3 (4.0-10.0)
[2016-10-09 07:55] LABS: ALBUMIN 3.6 g/dl (3.4-5.0); ANION GAP 11 (8-16); CALCIUM 9.4 mg/dL (8.5-10.1); CO2 28 mmol/L (21-32); GLUCOSE,RANDOM 90 mg/dL (74-106); MAGNESIUM 1.9 mg/dL (1.8-2.4)
[2016-10-09 07:59] LABS: ALK PHOS 75 U/L (45-117); BILIRUBIN,TOTAL 0.8 mg/dL (0.2-1.0); CREATININE 1.6 mg/dL (0.55-1.02); PHOSPHOROUS 4.8 mg/dL (2.5-4.9); SGOT/AST 16 U/L (15-37); SGPT/ALT 21 U/L (12-78); TOT PROT 6.5 g/dl (6.4-8.2)
[2016-10-09] MEDS: DULoxetine HCL 30 MG CAPSULE.DR (FP) PO SCH (09:37)
[2016-10-09] MEDS: METOPROLOL SUCCINATE 50 MG TAB.SR.24H (FP) PO SCH ×2 (09:37→21:17)
[2016-10-09] MEDS: APIXABAN 5 MG TABLET PO SCH ×2 (09:38→21:17)
[2016-10-09] MEDS: amLODIPine BESYLATE 5 MG TABLET (FP) PO SCH (09:38)
[2016-10-09] MEDS: POTASSIUM CHLORIDE TABS 20 MEQ TABLET.ER (FP) PO SCH (09:38)
[2016-10-09] MEDS: hydrALAZINE HCL 25 MG TABLET (FP) PO SCH ×2 (09:38→21:16)
[2016-10-09] MEDS: AMIODARONE HCL 200 MG TABLET (FP) PO SCH ×2 (09:38→21:17)
--- NOTE | 2016-10-09 11:38 | PN ---
Progress Note, Physician Chief Complaint: Feels improved MARGOT is improving rate controlled History of Present Illness: 66 yrs old man HTN, Obesity, CKD stgae 3 , Afib s/p Cardioversion, admitted with MARGOT , Dizziness and Afib with RVR - Current Medication List Current Medications: Active Medications Acetaminophen (Tylenol -) 650 mg PO Q6H PRN PRN Reason: FEVER OR PAIN Last Admin: 10/09/16 06:29 Dose: 650 mg Amiodarone HCl (Cordarone -) 200 mg PO BID [facility] Last Admin: 10/09/16 09:38 Dose: 200 mg Amlodipine Besylate (Norvasc -) 5 mg PO DAILY [facility] Last Admin: 10/09/16 09:38 Dose: 5 mg Apixaban (Eliquis -) 5 mg PO BID [facility] Last Admin: 10/09/16 09:38 Dose: 5 mg Docusate Sodium (Colace -) 300 mg PO HS [facility] Last Admin: 10/08/16 23:02 Dose: Not Given Duloxetine HCl (Cymbalta -) 60 mg PO DAILY [facility] Last Admin: 10/09/16 09:37 Dose: 60 mg Hydralazine HCl (Apresoline -) 25 mg PO BID [facility] Last Admin: 10/09/16 09:38 Dose: 25 mg Metoprolol Succinate (Toprol Xl -) 50 mg PO BID [facility] Last Admin: 10/09/16 09:37 Dose: 50 mg Oxycodone HCl (Roxicodone -) 10 mg PO Q4H PRN PRN Reason: PAIN Last Admin: 10/09/16 06:29 Dose: 10 mg Potassium Chloride (K-Dur -) 40 meq PO DAILY [facility] Last Admin: 10/09/16 09:38 Dose: 40 meq - Objective Vital Signs: Vital Signs Temperature 98.0 F 10/09/16 07:55 Pulse Rate 97 H 10/09/16 07:55 Respiratory Rate 18 10/09/16 07:57 Blood Pressure 118/72 10/09/16 07:55 O2 Sat by Pulse Oximetry (%) 97 10/09/16 07:57 General: Elderly F comfortable, not in acute distress, denies any c/o Chest pain or SOB HEENT: Mm moist, anemia, PERRLA EOMI NECK: No JVD No Bruit CHEST: CTA B/L CVS: S1S2 I R no m/g/r ABD: No Distention, Non tender Bs + EXT; + edema feet, no calf Tenderness, Pulses + COUNTER HOP: AOX3 non focal Constitutional: Yes: Well Nourished, No Distress Eyes: Yes: WNL, Conjunctiva Clear, EOM Intact HENT: Yes: WNL, Atraumatic, Normocephalic Neck: Yes: WNL, Supple, Trachea Midline Cardiovascular: Yes: S1, S2. No: Regular Rate and Rhythm, JVD Respiratory: Yes: WNL, Regular, CTA Bilaterally Gastrointestinal: Yes: WNL, Normal Bowel Sounds, Soft, Abdomen, Obese Musculoskeletal: Yes: WNL. No: Back Pain, Joint Stiffness Extremities: No: Calf Tenderness Edema: No Neurological: Yes: WNL, Alert, Oriented ...Motor Strength: WNL, LUE, LLE, RUE, RLE Psychiatric: Yes: WNL, Alert, Oriented Labs: CBC, BMP 10/09/16 05:35 10/09/16 05:35 Problem List - Problems (1) Systolic HF (heart failure) Assessment/Plan: Patient is Tachycardio induced Cardiomyopathy with low EF cont B Luther Hold Lasix for MARGOT rate control Code(s): I50.20 - UNSPECIFIED SYSTOLIC (CONGESTIVE) HEART FAILURE Qualifiers: Heart failure chronicity: chronic Qualified Code(s): I50.22 - Chronic systolic (congestive) heart failure (2) Atrial fibrillation Assessment/Plan: Afib with new onset now on Metoprolol and amiodarone drip F/U Cardiology recommendation possible JUSTYN Cardioversion Code(s): I48.91 - UNSPECIFIED ATRIAL FIBRILLATION Qualifiers: Atrial fibrillation type: chronic Qualified Code(s): I48.2 - Chronic atrial fibrillation (3) Acute renal failure Assessment/Plan: Base line CKD stage 3 present with Dizzyness and rising BUN creat due to Diuresis, evaluted by Nephrology rconsult F/U BUN/vCreat Code(s): N17.9 - ACUTE KIDNEY FAILURE, UNSPECIFIED Qualifiers: Acute renal failure type: unspecified Qualified Code(s): N17.9 - Acute kidney failure, unspecified (4) Dehydration Assessment/Plan: F/U BMP after IV Hydration, improving Code(s): E86.0 - DEHYDRATION (5) HTN (hypertension) Assessment/Plan: well controlled Code(s): I10 - ESSENTIAL (PRIMARY) HYPERTENSION
--- NOTE | 2016-10-09 12:09 | PN ---
Progress Note (short form) - Note Progress Note: s: no cp palps dizzy sob o: Vital Signs Period Temp Pulse Resp BP Sys/Pierce Pulse Ox Last 24 Hr 97.5 F-99 F 97-145 18-20 106-130/62-90 95-97 NAD, calm, no jvd cta bl nl eff irreg, rr, s1s2 no mrg abd nt nd pos bs no le e/c/c aaox3 no jaundice, diaphoresis Current Medications Generic Name Dose Route Start Last Admin Trade Name Freq PRN Reason Stop Dose Admin Acetaminophen 650 mg 10/07/16 18:29 10/09/16 06:29 Tylenol - PO 650 mg Q6H PRN Administration FEVER OR PAIN Amiodarone HCl 200 mg 10/07/16 22:00 10/09/16 09:38 Cordarone - PO 200 mg BID CHUN Administration Amlodipine Besylate 5 mg 10/08/16 10:00 10/09/16 09:38 Norvasc - PO 5 mg DAILY CH[facility] Administration Apixaban 5 mg 10/07/16 22:00 10/09/16 09:38 Eliquis - PO 5 mg BID CHUN Administration Docusate Sodium 300 mg 10/07/16 22:00 10/08/16 23:02 Colace - PO Not Given HS CHUN Duloxetine HCl 60 mg 10/08/16 10:00 10/09/16 09:37 Cymbalta - PO 60 mg DAILY [facility] Administration Hydralazine HCl 25 mg 10/07/16 22:00 10/09/16 09:38 Apresoline - PO 25 mg BID [facility] Administration Metoprolol Succinate 50 mg 10/07/16 22:00 10/09/16 09:37 Toprol Xl - PO 50 mg BID CHUN Administration Oxycodone HCl 10 mg 10/07/16 18:25 10/09/16 06:29 Roxicodone - PO 10 mg Q4H PRN Administration PAIN Potassium Chloride 40 meq 10/08/16 10:00 10/09/16 09:38 K-Dur - PO 40 meq DAILY [facility] Administration CBC, BMP 10/09/16 05:35 10/09/16 05:35 echo 08/2016: sev dec lvef, global hk, mild rv dil and mild dec rv fcn, sev constantin , sev tr, mod mr, mild pr, nl rvsp DAVID 2016: nl lv/rv no intracardiac thrombus. + PFO with L--> R shunt on bubble study. mod TR. Echo 01/08: nl LV/EF; dd1; mild JOSIE of unclear significance; nl RV; mild LAE; valves WNL; IASA (no PFO) MIBI 12/08: 4:00min; no STs; ? small anteroapical isch vs large breast shadows; nl EF; no TID ecg 10/07/16: afib, vr 126, aberrant conduction, nl qtc, no ischemic changes cxr: clear lungs tele: afib, rate controlled a/p: 66 yo f with h/o afib, HTN, HLD, venous insufficiency, obesity, chronic nausea, gastritis with gastric erosions/prior bloody stool followed by Dr. Keller, fibromyalgia, h/o vertebroplasty and epidural injections, syst chf ( likely TIC) here with dizziness. dizziness, madeline: -likely presenting sxs due to volume depletion -labs show maedline/prerenal and bp low on presentation -after ivfs bp better and no further dizzy -hold diuretic for now and allow vol status to stabilize, cr improving today chronic systolic chf: -recently found to have likely tachycardia induced cardiomyopathy -after diuresis with iv lasix was discharged earlier this week on torsemide 100 bid -now here with vol depletion so holding diuretic for now -once vol stable will add back torsemide at lower dose, cont to hold for now Afib: - s/p successful DCCV 02/08 then this month presented in afib with rvr and new LV systolic dysfunction (global) suggestive of tachy-CMP--in setting of non- compliance with metoprolol (taking prn) - cont toprol for rate control - plan is to load with amio then do elective david/dccv - currently still getting amio loading (400 bid x7d, on 10/05 changed to 200 bid x7d, then on 10/12 will be 200 qd after that)--qtc stable/nl here - cont eliquis h/o colonic polyps with prior occult GIB: - s/p polypectomies 12/[address] keller (non-bleeding diverticulosis and internal hemmorhoids as well), cleared to resume eliquis by GI after that procedure - H/H stable here HTN -bp on low side here at first, likely due to vol depletion -improved with ivfs, monitor on home meds for now
--- NOTE | 2016-10-09 15:35 | PN ---
Progress Note, Physician History of Present Illness: Pt seen and examined at bedside. She is awake and alert. She denies shortness of breath. - Current Medication List Current Medications: Active Medications Acetaminophen (Tylenol -) 650 mg PO Q6H PRN PRN Reason: FEVER OR PAIN Last Admin: 10/09/16 06:29 Dose: 650 mg Amiodarone HCl (Cordarone -) 200 mg PO BID [facility] Last Admin: 10/09/16 09:38 Dose: 200 mg Amlodipine Besylate (Norvasc -) 5 mg PO DAILY [facility] Last Admin: 10/09/16 09:38 Dose: 5 mg Apixaban (Eliquis -) 5 mg PO BID [facility] Last Admin: 10/09/16 09:38 Dose: 5 mg Docusate Sodium (Colace -) 300 mg PO HS [facility] Last Admin: 10/08/16 23:02 Dose: Not Given Duloxetine HCl (Cymbalta -) 60 mg PO DAILY [facility] Last Admin: 10/09/16 09:37 Dose: 60 mg Gabapentin (Neurontin -) 600 mg PO DAILY [facility] Hydralazine HCl (Apresoline -) 25 mg PO BID [facility] Last Admin: 10/09/16 09:38 Dose: 25 mg Metoprolol Succinate (Toprol Xl -) 50 mg PO BID [facility] Last Admin: 10/09/16 09:37 Dose: 50 mg Oxycodone HCl (Roxicodone -) 10 mg PO Q4H PRN PRN Reason: PAIN Last Admin: 10/09/16 06:29 Dose: 10 mg Potassium Chloride (K-Dur -) 40 meq PO DAILY [facility] Last Admin: 10/09/16 09:38 Dose: 40 meq - Objective Vital Signs: Vital Signs Temperature 98.2 F 10/09/16 14:14 Pulse Rate 94 H 10/09/16 14:14 Respiratory Rate 18 10/09/16 14:14 Blood Pressure 113/78 10/09/16 14:14 O2 Sat by Pulse Oximetry (%) 97 10/09/16 07:57 Constitutional: Yes: Calm Eyes: Yes: Conjunctiva Clear HENT: Yes: Atraumatic Cardiovascular: Yes: S1, S2 Respiratory: Yes: CTA Bilaterally Gastrointestinal: Yes: Soft, Abdomen, Obese Genitourinary: Yes: WNL Musculoskeletal: Yes: WNL Edema: No Neurological: Yes: Oriented Psychiatric: Yes: Oriented Labs: CBC, BMP 10/09/16 05:35 10/09/16 05:35 Problem List - Problems (1) Acute renal failure Code(s): N17.9 - ACUTE KIDNEY FAILURE, UNSPECIFIED Qualifiers: Acute renal failure type: unspecified Qualified Code(s): N17.9 - Acute kidney failure, unspecified (2) Atrial fibrillation Code(s): I48.91 - UNSPECIFIED ATRIAL FIBRILLATION Qualifiers: Atrial fibrillation type: chronic Qualified Code(s): I48.2 - Chronic atrial fibrillation (3) CHF (congestive heart failure) Code(s): I50.9 - HEART FAILURE, UNSPECIFIED Qualifiers: Congestive heart failure type: diastolic Congestive heart failure chronicity: chronic Qualified Code(s): I50.32 - Chronic diastolic ( congestive) heart failure (4) HTN (hypertension) Code(s): I10 - ESSENTIAL (PRIMARY) HYPERTENSION (5) Atrial fibrillation and flutter Code(s): I48.91 - UNSPECIFIED ATRIAL FIBRILLATION I48.92 - UNSPECIFIED ATRIAL FLUTTER Assessment/Plan Current Medications Generic Name Dose Route Start Last Admin Trade Name Freq PRN Reason Stop Dose Admin Acetaminophen 650 mg 10/07/16 18:29 10/09/16 06:29 Tylenol - PO 650 mg Q6H PRN Administration FEVER OR PAIN Amiodarone HCl 200 mg 10/07/16 22:00 10/09/16 09:38 Cordarone - PO 200 mg BID CHUN Administration Amlodipine Besylate 5 mg 10/08/16 10:00 10/09/16 09:38 Norvasc - PO 5 mg DAILY [facility] Administration Apixaban 5 mg 10/07/16 22:00 10/09/16 09:38 Eliquis - PO 5 mg BID CHUN Administration Docusate Sodium 300 mg 10/07/16 22:00 10/08/16 23:02 Colace - PO Not Given HS CHUN Duloxetine HCl 60 mg 10/08/16 10:00 10/09/16 09:37 Cymbalta - PO 60 mg DAILY [facility] Administration Gabapentin 600 mg 10/10/16 10:00 Neurontin - PO DAILY [facility] Hydralazine HCl 25 mg 10/07/16 22:00 10/09/16 09:38 Apresoline - PO 25 mg BID CH[facility] Administration Metoprolol Succinate 50 mg 10/07/16 22:00 10/09/16 09:37 Toprol Xl - PO 50 mg BID [facility] Administration Oxycodone HCl 10 mg 10/07/16 18:25 10/09/16 06:29 Roxicodone - PO 10 mg Q4H PRN Administration PAIN Potassium Chloride 40 meq 10/08/16 10:00 10/09/16 09:38 K-Dur - PO 40 meq DAILY [facility] Administration Impression 1. MARGOT 2. HTN 3. CHF 4. a-fib 5. obesity Plan - renal function is improving - repeat labs in am - can restart diuretics at a lower dose - daily weights - sodium and fluid restriction - cardio input appreciated - likely MARGOT from pre-renal disease - recommend weight loss - will follow Dr Brandon
[2016-10-09] MEDS: DOCUSATE SODIUM 100 MG CAPSULE (FP) PO SCH (21:16)
[2016-10-10 07:53] LABS: BASOPHIL 0.8 % (0-2.0); EOSINOPHIL 2.7 % (0-4.5); MCH 35.4 pg (25.7-33.7); MCHC 34.3 g/dl (32.0-36.0); MEAN CELL VOLUME 103.2 fl (80-96); MEAN PLT VOLUME 9.1 fl (7.5-11.1); NEUTROPHILS 56.9 % (42.8-82.8); PLATELET COUNT 276 K/MM3 (134-434); RDW 16.1 % (11.6-15.6)
[2016-10-10 08:35] LABS: ALBUMIN 3.7 g/dl (3.4-5.0); ANION GAP 11 (8-16); CALCIUM 9.4 mg/dL (8.5-10.1); CO2 28 mmol/L (21-32)
[2016-10-10 08:42] LABS: ALK PHOS 75 U/L (45-117); BILIRUBIN,TOTAL 0.7 mg/dL (0.2-1.0); CREATININE 1.5 mg/dL (0.55-1.02); GLUCOSE,RANDOM 89 mg/dL (74-106); SGOT/AST 17 U/L (15-37); SGPT/ALT 23 U/L (12-78); TOT PROT 6.7 g/dl (6.4-8.2)
[2016-10-10] MEDS: hydrALAZINE HCL 25 MG TABLET (FP) PO SCH ×2 (09:11→21:19)
[2016-10-10] MEDS: APIXABAN 5 MG TABLET PO SCH ×2 (09:11→21:19)
[2016-10-10] MEDS: POTASSIUM CHLORIDE TABS 20 MEQ TABLET.ER (FP) PO SCH (09:11)
[2016-10-10] MEDS: DULoxetine HCL 30 MG CAPSULE.DR (FP) PO SCH (09:11)
[2016-10-10] MEDS: AMIODARONE HCL 200 MG TABLET (FP) PO SCH ×2 (09:11→21:19)
[2016-10-10] MEDS: amLODIPine BESYLATE 5 MG TABLET (FP) PO SCH (09:11)
[2016-10-10] MEDS: GABAPENTIN 300 MG CAPSULE (FP) PO SCH (09:11)
[2016-10-10] MEDS: METOPROLOL SUCCINATE 50 MG TAB.SR.24H (FP) PO SCH ×2 (09:11→21:20)
--- NOTE | 2016-10-10 11:30 | PN ---
Progress Note (short form) - Note Progress Note: RENAL Pt is awake and alert comfortable Last Vital Signs Temp Pulse Resp BP Pulse Ox 98.1 F 88 18 112/62 96 10/10/16 07:10 10/10/16 07:10 10/10/16 07:11 10/10/16 07:10 10/10/16 07:11 lungs clear cvs s1s2 rr abd soft ext + edema neuro a+ox3 CBC, BMP 10/10/16 05:35 10/10/16 06:00 Current Medications Generic Name Dose Route Start Last Admin Trade Name Freq PRN Reason Stop Dose Admin Acetaminophen 650 mg 10/07/16 18:29 10/09/16 21:21 Tylenol - PO 650 mg Q6H PRN Administration FEVER OR PAIN Amiodarone HCl 200 mg 10/07/16 22:00 10/10/16 09:11 Cordarone - PO 200 mg BID CH[facility] Administration Amlodipine Besylate 5 mg 10/08/16 10:00 10/10/16 09:11 Norvasc - PO 5 mg DAILY [facility] Administration Apixaban 5 mg 10/07/16 22:00 10/10/16 09:11 Eliquis - PO 5 mg BID [facility] Administration Docusate Sodium 300 mg 10/07/16 22:00 10/09/16 21:16 Colace - PO Not Given HS CHUN Duloxetine HCl 60 mg 10/08/16 10:00 10/10/16 09:11 Cymbalta - PO 60 mg DAILY [facility] Administration Gabapentin 600 mg 10/10/16 10:00 10/10/16 09:11 Neurontin - PO 600 mg DAILY [facility] Administration Hydralazine HCl 25 mg 10/07/16 22:00 10/10/16 09:11 Apresoline - PO 25 mg BID [facility] Administration Metoprolol Succinate 50 mg 10/07/16 22:00 10/10/16 09:11 Toprol Xl - PO 50 mg BID [facility] Administration Oxycodone HCl 10 mg 10/07/16 18:25 10/09/16 21:22 Roxicodone - PO 10 mg Q4H PRN Administration PAIN Potassium Chloride 40 meq 10/08/16 10:00 10/10/16 09:11 K-Dur - PO 40 meq DAILY [facility] Administration Impression 1. MARGOT- prerenal 2. HTN 3. CHF 4. a-fib 5. obesity Plan - renal function is improving. Reportedly at baseline - can restart diuretics at a lower dose - daily weights - sodium and fluid restriction MV
--- NOTE | 2016-10-10 11:54 | PN ---
Progress Note (short form) - Note Progress Note: Patient seen and examined. Laying comfortably in bed. Denies chest pain, shortness of breath, palpitation or dizziness. Feels better. Current Medications Acetaminophen (Tylenol -) 650 mg PO Q6H PRN PRN Reason: FEVER OR PAIN Last Admin: 10/09/16 21:21 Dose: 650 mg Amiodarone HCl (Cordarone -) 200 mg PO BID [facility] Last Admin: 10/10/16 09:11 Dose: 200 mg Amlodipine Besylate (Norvasc -) 5 mg PO DAILY [facility] Last Admin: 10/10/16 09:11 Dose: 5 mg Apixaban (Eliquis -) 5 mg PO BID [facility] Last Admin: 10/10/16 09:11 Dose: 5 mg Docusate Sodium (Colace -) 300 mg PO HS [facility] Last Admin: 10/09/16 21:16 Dose: Not Given Duloxetine HCl (Cymbalta -) 60 mg PO DAILY [facility] Last Admin: 10/10/16 09:11 Dose: 60 mg Gabapentin (Neurontin -) 600 mg PO DAILY [facility] Last Admin: 10/10/16 09:11 Dose: 600 mg Hydralazine HCl (Apresoline -) 25 mg PO BID [facility] Last Admin: 10/10/16 09:11 Dose: 25 mg Metoprolol Succinate (Toprol Xl -) 50 mg PO BID [facility] Last Admin: 10/10/16 09:11 Dose: 50 mg Oxycodone HCl (Roxicodone -) 10 mg PO Q4H PRN PRN Reason: PAIN Last Admin: 10/09/16 21:22 Dose: 10 mg Potassium Chloride (K-Dur -) 40 meq PO DAILY [facility] Last Admin: 10/10/16 09:11 Dose: 40 meq - Objective Vital Signs: Vital Signs Period Temp Pulse Resp BP Sys/Pierce Pulse Ox Last 24 Hr 97.5 F-98.8 F 83-108 18-20 107-123/59-78 96-96 General: Elderly F comfortable, not in acute distress, denies any c/o Chest pain or SOB HEENT: Mm moist, anemia, PERRLA EOMI NECK: No JVD No Bruit CHEST: CTA B/L CVS: S1S2 I R no m/g/r ABD: No Distention, Non tender Bs + EXT; + edema feet, no calf Tenderness, Pulses + INTERNIST: AOX3 non focal Constitutional: Yes: Well Nourished, No Distress Eyes: Yes: WNL, Conjunctiva Clear, EOM Intact HENT: Yes: WNL, Atraumatic, Normocephalic Neck: Yes: WNL, Supple, Trachea Midline Cardiovascular: Yes: S1, S2. No: Regular Rate and Rhythm, JVD Respiratory: Yes: WNL, Regular, CTA Bilaterally Gastrointestinal: Yes: WNL, Normal Bowel Sounds, Soft, Abdomen, Obese Musculoskeletal: Yes: WNL. No: Back Pain, Joint Stiffness Extremities: No: Calf Tenderness Edema: No Neurological: Yes: WNL, Alert, Oriented ...Motor Strength: WNL, LUE, LLE, RUE, RLE Psychiatric: Yes: WNL, Alert, Oriented Labs: CBC, BMP 10/10/16 05:35 10/10/16 06:00 A/P: - Problems (1) Systolic HF (heart failure) Assessment/Plan: Patient is Tachycardio induced Cardiomyopathy with low EF cont B Luther Hold Lasix for MARGOT rate control Code(s): I50.20 - UNSPECIFIED SYSTOLIC (CONGESTIVE) HEART FAILURE Qualifiers: Heart failure chronicity: chronic Qualified Code(s): I50.22 - Chronic systolic (congestive) heart failure Improving. Plan to restart diuretic lose dose today. Daily weights. Strict I/Os. (2) Atrial fibrillation Assessment/Plan: Afib with new onset now on Metoprolol and amiodarone drip F/U Cardiology recommendation possible JUSTYN Cardioversion Code(s): I48.91 - UNSPECIFIED ATRIAL FIBRILLATION Qualifiers: Atrial fibrillation type: chronic Qualified Code(s): I48.2 - Chronic atrial fibrillation Rate controlled. Continue current management. Cardiology follow up appreciated. (3) Acute renal failure Assessment/Plan: Base line CKD stage 3 present with Dizzyness and rising BUN creat due to Diuresis, evaluted by Nephrology rconsult F/U BUN/vCreat Code(s): N17.9 - ACUTE KIDNEY FAILURE, UNSPECIFIED Qualifiers: Acute renal failure type: unspecified Qualified Code(s): N17.9 - Acute kidney failure, unspecified Renal function improved. Needs to closely monitor lytes after restarting diuretics. (4) Dehydration Assessment/Plan: Improved. Close monitoring on diuretics. Code(s): E86.0 - DEHYDRATION (5) HTN (hypertension) Assessment/Plan: well controlled Code(s): I10 - ESSENTIAL (PRIMARY) HYPERTENSION Reasonable control. Continue current management.
--- NOTE | 2016-10-10 11:57 | PN ---
Progress Note (short form) - Note Progress Note: s: no cp palps dizzy sob o: Vital Signs Period Temp Pulse Resp BP Sys/Pierce Pulse Ox Last 24 Hr 97.5 F-98.8 F 83-108 18-20 107-123/59-78 96-96 NAD, calm, no jvd cta bl nl eff irreg, rr, s1s2 no mrg abd nt nd pos bs no le e/c/c aaox3 no jaundice, diaphoresis Current Medications Generic Name Dose Route Start Last Admin Trade Name Freq PRN Reason Stop Dose Admin Acetaminophen 650 mg 10/07/16 18:29 10/09/16 21:21 Tylenol - PO 650 mg Q6H PRN Administration FEVER OR PAIN Amiodarone HCl 200 mg 10/07/16 22:00 10/10/16 09:11 Cordarone - PO 200 mg BID [facility] Administration Amlodipine Besylate 5 mg 10/08/16 10:00 10/10/16 09:11 Norvasc - PO 5 mg DAILY [facility] Administration Apixaban 5 mg 10/07/16 22:00 10/10/16 09:11 Eliquis - PO 5 mg BID [facility] Administration Docusate Sodium 300 mg 10/07/16 22:00 10/09/16 21:16 Colace - PO Not Given HS CHUN Duloxetine HCl 60 mg 10/08/16 10:00 10/10/16 09:11 Cymbalta - PO 60 mg DAILY [facility] Administration Gabapentin 600 mg 10/10/16 10:00 10/10/16 09:11 Neurontin - PO 600 mg DAILY [facility] Administration Hydralazine HCl 25 mg 10/07/16 22:00 10/10/16 09:11 Apresoline - PO 25 mg BID [facility] Administration Metoprolol Succinate 50 mg 10/07/16 22:00 10/10/16 09:11 Toprol Xl - PO 50 mg BID [facility] Administration Oxycodone HCl 10 mg 10/07/16 18:25 10/09/16 21:22 Roxicodone - PO 10 mg Q4H PRN Administration PAIN Potassium Chloride 40 meq 10/08/16 10:00 10/10/16 09:11 K-Dur - PO 40 meq DAILY [facility] Administration Torsemide 50 mg 10/10/16 12:15 Demadex - PO 10/10/16 12:16 ONCE ONE Torsemide 50 mg 10/10/16 18:00 Demadex - PO 10/10/16 18:01 ONCE ONE CBC, BMP 10/10/16 05:35 10/10/16 06:00 echo 08/2016: sev dec lvef, global hk, mild rv dil and mild dec rv fcn, sev constantin , sev tr, mod mr, mild pr, nl rvsp DAVID 2015: nl lv/rv no intracardiac thrombus. + PFO with L--> R shunt on bubble study. mod TR. Echo 01/08: nl LV/EF; dd1; mild JOSIE of unclear significance; nl RV; mild LAE; valves WNL; IASA (no PFO) MIBI 12/08: 4:00min; no STs; ? small anteroapical isch vs large breast shadows; nl EF; no TID ecg 10/07/16: afib, vr 126, aberrant conduction, nl qtc, no ischemic changes cxr: clear lungs tele: afib, rate controlled a/p: 66 yo f with h/o afib, HTN, HLD, venous insufficiency, obesity, chronic nausea, gastritis with gastric erosions/prior bloody stool followed by GI, fibromyalgia, h/o vertebroplasty and epidural injections, syst chf (likely TIC) here with dizziness. dizziness, madeline: -likely presenting sxs due to volume depletion -labs show madeline/prerenal and bp low on presentation -after ivfs bp better and no further dizzy -cr approaching baseline, bp improved, dizzy improved. wt starting to rise to baseline as well (approx 230 lbs) so will now resume diuretic at lower dose of torsemide 50 bid (was on 100 bid) and monitor cr tomorrow chronic systolic chf: -recently found to have likely tachycardia induced cardiomyopathy -after diuresis with iv lasix was discharged earlier this week on torsemide 100 bid -now here with vol depletion -resuming torsemide as above Afib: - s/p successful DCCV 02/08 then this month presented in afib with rvr and new LV systolic dysfunction (global) suggestive of tachy-CMP--in setting of non- compliance with metoprolol (taking prn) - cont toprol for rate control - plan is to load with amio then do elective david/dccv (scheduled as outpt for this wednesday) - currently still getting amio loading (400 bid x7d, on 10/05 changed to 200 bid x7d, then on 10/12 will be 200 qd after that)--qtc stable/nl here - cont eliquis h/o colonic polyps with prior occult GIB: - s/p polypectomies 12/[address] mack (non-bleeding diverticulosis and internal hemmorhoids as well), cleared to resume eliquis by GI after that procedure - H/H stable here HTN -bp on low side here at first, likely due to vol depletion -improved with ivfs, monitor on home meds for now
[2016-10-10] MEDS ORDERED: TORSEMIDE 100 MG TABLET PO ONE ×2 (12:15→18:00)
[2016-10-10] MEDS: oxyCODONE HCL 5 MG TABLET PO PRN (21:22)
[2016-10-10] MEDS: ACETAMINOPHEN 325 MG TABLET (FP) PO PRN (21:23)
[2016-10-10] MEDS: DOCUSATE SODIUM 100 MG CAPSULE (FP) PO SCH (21:36)
[2016-10-11 07:49] LABS: ALBUMIN 3.9 g/dl (3.4-5.0); ANION GAP 9 (8-16); CALCIUM 9.7 mg/dL (8.5-10.1); CO2 33 mmol/L (21-32); GLUCOSE,RANDOM 94 mg/dL (74-106); SGOT/AST 17 U/L (15-37)
[2016-10-11 07:51] LABS: ALK PHOS 77 U/L (45-117); BILIRUBIN,TOTAL 0.5 mg/dL (0.2-1.0); CREATININE 1.4 mg/dL (0.55-1.02); SGPT/ALT 23 U/L (12-78); TOT PROT 6.7 g/dl (6.4-8.2)
[2016-10-11 08:10] LABS: BASOPHIL 0.9 % (0-2.0); EOSINOPHIL 2.7 % (0-4.5); MCH 35.4 pg (25.7-33.7); MCHC 34.4 g/dl (32.0-36.0); MEAN CELL VOLUME 102.8 fl (80-96); MEAN PLT VOLUME 9.1 fl (7.5-11.1); NEUTROPHILS 58.1 % (42.8-82.8); PLATELET COUNT 271 K/MM3 (134-434); RDW 16.3 % (11.6-15.6); WHITE BLOOD COUNT 6.5 K/mm3 (4.0-10.0)
[2016-10-11] MEDS: POTASSIUM CHLORIDE TABS 20 MEQ TABLET.ER (FP) PO SCH (09:13)
[2016-10-11] MEDS: GABAPENTIN 300 MG CAPSULE (FP) PO SCH (09:13)
[2016-10-11] MEDS: DULoxetine HCL 30 MG CAPSULE.DR (FP) PO SCH (09:13)
[2016-10-11] MEDS: APIXABAN 5 MG TABLET PO SCH (09:13)
[2016-10-11] MEDS: hydrALAZINE HCL 25 MG TABLET (FP) PO SCH (09:14)
[2016-10-11] MEDS: amLODIPine BESYLATE 5 MG TABLET (FP) PO SCH (09:14)
[2016-10-11] MEDS: METOPROLOL SUCCINATE 50 MG TAB.SR.24H (FP) PO SCH (09:14)
[2016-10-11] MEDS: AMIODARONE HCL 200 MG TABLET (FP) PO SCH (09:14)
[2016-10-11] MEDS ORDERED: PT OWN MED DRAWER 7, Y5N ONE (09:16)
[2016-10-11] MEDS: oxyCODONE HCL 5 MG TABLET PO PRN (09:21)
[2016-10-11] MEDS: ACETAMINOPHEN 325 MG TABLET (FP) PO PRN (09:21)
[2016-10-11] MEDS: TORSEMIDE 100 MG TABLET PO SCH ×2 (10:10→14:00)
--- NOTE | 2016-10-11 11:18 | PN ---
Progress Note (short form) - Note Progress Note: s: no cp palps dizzy sob o: Vital Signs Period Temp Pulse Resp BP Sys/Pierce Pulse Ox Last 24 Hr 97.3 F-98.8 F 73-103 18-20 103-136/56-75 96-96 NAD, calm, no jvd cta bl nl eff irreg, rr, s1s2 no mrg abd nt nd pos bs no le e/c/c aaox3 no jaundice, diaphoresis Current Medications Generic Name Dose Route Start Last Admin Trade Name Freq PRN Reason Stop Dose Admin Acetaminophen 650 mg 10/07/16 18:29 10/11/16 09:21 Tylenol - PO 650 mg Q6H PRN Administration FEVER OR PAIN Amiodarone HCl 200 mg 10/07/16 22:00 10/11/16 09:14 Cordarone - PO 200 mg BID CHUN Administration Amlodipine Besylate 5 mg 10/08/16 10:00 10/11/16 09:14 Norvasc - PO 5 mg DAILY CHUN Administration Apixaban 5 mg 10/07/16 22:00 10/11/16 09:13 Eliquis - PO 5 mg BID CHUN Administration Docusate Sodium 300 mg 10/07/16 22:00 10/10/16 21:36 Colace - PO Not Given HS CHUN Duloxetine HCl 60 mg 10/08/16 10:00 10/11/16 09:13 Cymbalta - PO 60 mg DAILY CHUN Administration Gabapentin 600 mg 10/10/16 10:00 10/11/16 09:13 Neurontin - PO 600 mg DAILY CHUN Administration Hydralazine HCl 25 mg 10/07/16 22:00 10/11/16 09:14 Apresoline - PO 25 mg BID CHUN Administration Metoprolol Succinate 50 mg 10/07/16 22:00 10/11/16 09:14 Toprol Xl - PO 50 mg BID CHUN Administration Oxycodone HCl 10 mg 10/07/16 18:25 10/11/16 09:21 Roxicodone - PO 10 mg Q4H PRN Administration PAIN Potassium Chloride 40 meq 10/08/16 10:00 10/11/16 09:13 K-Dur - PO 40 meq DAILY CHUN Administration Torsemide 50 mg 10/11/16 09:00 10/11/16 10:10 Demadex - PO 50 mg BID@0600,1400 CHUN Administration CBC, BMP 10/11/16 05:35 10/11/16 05:35 echo 08/2016: sev dec lvef, global hk, mild rv dil and mild dec rv fcn, sev constantin , sev tr, mod mr, mild pr, nl rvsp DAVID 2015: nl lv/rv no intracardiac thrombus. + PFO with L--> R shunt on bubble study. mod TR. Echo 01/08: nl LV/EF; dd1; mild JOSIE of unclear significance; nl RV; mild LAE; valves WNL; IASA (no PFO) MIBI 12/08: 4:00min; no STs; ? small anteroapical isch vs large breast shadows; nl EF; no TID ecg 10/07/16: afib, vr 126, aberrant conduction, nl qtc, no ischemic changes cxr: clear lungs tele: afib, rate controlled a/p: 66 yo f with h/o afib, HTN, HLD, venous insufficiency, obesity, chronic nausea, gastritis with gastric erosions/prior bloody stool followed by GI, fibromyalgia, h/o vertebroplasty and epidural injections, syst chf (likely TIC) here with dizziness. dizziness, madeline: -likely presenting sxs due to volume depletion -labs show madeline/prerenal and bp low on presentation -after ivfs and holding diuretic bp better and no further dizzy -cr improved, bp improved, dizzy improved, so resumed torsemide at lower dose of torsemide 50 bid (was on 100 bid). she received both doses yesterday and cr stable today, wt down. cont same. chronic systolic chf: -recently found to have likely tachycardia induced cardiomyopathy -after diuresis with iv lasix was discharged earlier this week on torsemide 100 bid -now here with vol depletion -resuming torsemide as above Afib: - s/p successful DCCV 02/08 then this month presented in afib with rvr and new LV systolic dysfunction (global) suggestive of tachy-CMP--in setting of non- compliance with metoprolol (taking prn) - cont toprol for rate control - plan is to load with amio then do elective david/dccv (scheduled as outpt for this wednesday) - currently still getting amio loading (400 bid x7d, on 10/05 changed to 200 bid x7d, then on 10/12 will be 200 qd after that)--qtc stable/nl here - cont eliquis h/o colonic polyps with prior occult GIB: - s/p polypectomies 12/[address] mack (non-bleeding diverticulosis and internal hemmorhoids as well), cleared to resume eliquis by GI after that procedure - H/H stable here HTN -bp on low side here at first, likely due to vol depletion -improved with ivfs cardiac fine stable for dc with changes of torsemide to 50 bid and amio to 200 qd.
--- NOTE | 2016-10-11 11:47 | PN ---
Progress Note (short form) - Note Progress Note: RENAL Pt is awake and alert comfortable Last Vital Signs Temp Pulse Resp BP Pulse Ox 97.9 F 93 H 18 127/56 96 10/11/16 07:50 10/11/16 07:50 10/11/16 07:50 10/11/16 07:50 10/11/16 07:49 lungs clear cvs s1s2 rr abd soft ext + edema neuro a+ox3 CBC, BMP 10/11/16 05:35 10/11/16 05:35 Current Medications Generic Name Dose Route Start Last Admin Trade Name Freq PRN Reason Stop Dose Admin Acetaminophen 650 mg 10/07/16 18:29 10/11/16 09:21 Tylenol - PO 650 mg Q6H PRN Administration FEVER OR PAIN Amiodarone HCl 200 mg 10/07/16 22:00 10/11/16 09:14 Cordarone - PO 200 mg BID CHUN Administration Amlodipine Besylate 5 mg 10/08/16 10:00 10/11/16 09:14 Norvasc - PO 5 mg DAILY CHUN Administration Apixaban 5 mg 10/07/16 22:00 10/11/16 09:13 Eliquis - PO 5 mg BID CHUN Administration Docusate Sodium 300 mg 10/07/16 22:00 10/10/16 21:36 Colace - PO Not Given HS CHUN Duloxetine HCl 60 mg 10/08/16 10:00 10/11/16 09:13 Cymbalta - PO 60 mg DAILY CHUN Administration Gabapentin 600 mg 10/10/16 10:00 10/11/16 09:13 Neurontin - PO 600 mg DAILY CHUN Administration Hydralazine HCl 25 mg 10/07/16 22:00 10/11/16 09:14 Apresoline - PO 25 mg BID CHUN Administration Metoprolol Succinate 50 mg 10/07/16 22:00 10/11/16 09:14 Toprol Xl - PO 50 mg BID CHUN Administration Oxycodone HCl 10 mg 10/07/16 18:25 10/11/16 09:21 Roxicodone - PO 10 mg Q4H PRN Administration PAIN Potassium Chloride 40 meq 10/08/16 10:00 10/11/16 09:13 K-Dur - PO 40 meq DAILY CHUN Administration Torsemide 50 mg 10/11/16 09:00 10/11/16 10:10 Demadex - PO 50 mg BID@0600,1400 CHUN Administration Impression 1. MARGOT- prerenal 2. HTN 3. CHF 4. a-fib 5. obesity Plan - renal function is improving. Reportedly at baseline - agree with diuretics - daily weights - sodium and fluid restriction - if discharged please have patient follow up with Dr Roma ROJAS
--- NOTE | 2016-10-11 13:23 | PN ---
Progress Note (short form) - Note Progress Note: Patient seen and examined. Denies chest pain, shortness of breath, palpitation or dizziness. Current Medications Acetaminophen (Tylenol -) 650 mg PO Q6H PRN PRN Reason: FEVER OR PAIN Last Admin: 10/11/16 09:21 Dose: 650 mg Amiodarone HCl (Cordarone -) 200 mg PO BID PENDING SALE TO [facility] Last Admin: 10/11/16 09:14 Dose: 200 mg Amlodipine Besylate (Norvasc -) 5 mg PO DAILY PENDING SALE TO [facility] Last Admin: 10/11/16 09:14 Dose: 5 mg Apixaban (Eliquis -) 5 mg PO BID PENDING SALE TO [facility] Last Admin: 10/11/16 09:13 Dose: 5 mg Docusate Sodium (Colace -) 300 mg PO HS PENDING SALE TO [facility] Last Admin: 10/10/16 21:36 Dose: Not Given Duloxetine HCl (Cymbalta -) 60 mg PO DAILY PENDING SALE TO [facility] Last Admin: 10/11/16 09:13 Dose: 60 mg Gabapentin (Neurontin -) 600 mg PO DAILY PENDING SALE TO [facility] Last Admin: 10/11/16 09:13 Dose: 600 mg Hydralazine HCl (Apresoline -) 25 mg PO BID PENDING SALE TO [facility] Last Admin: 10/11/16 09:14 Dose: 25 mg Metoprolol Succinate (Toprol Xl -) 50 mg PO BID PENDING SALE TO [facility] Last Admin: 10/11/16 09:14 Dose: 50 mg Oxycodone HCl (Roxicodone -) 10 mg PO Q4H PRN PRN Reason: PAIN Last Admin: 10/11/16 09:21 Dose: 10 mg Potassium Chloride (K-Dur -) 40 meq PO DAILY PENDING SALE TO [facility] Last Admin: 10/11/16 09:13 Dose: 40 meq Torsemide (Demadex -) 50 mg PO BID@0600,1400 PENDING SALE TO [facility] Last Admin: 10/11/16 10:10 Dose: 50 mg - Objective Vital Signs: Vital Signs Period Temp Pulse Resp BP Sys/Pierce Pulse Ox Last 24 Hr 97.3 F-98.8 F 73-103 18-20 103-136/56-75 96-96 General: Elderly F comfortable, not in acute distress, denies any c/o Chest pain or SOB HEENT: Mm moist, anemia, PERRLA EOMI NECK: No JVD No Bruit CHEST: CTA B/L CVS: S1S2 I R no m/g/r ABD: No Distention, Non tender Bs + EXT; + edema feet, no calf Tenderness, Pulses + MELLOWING MACHINE OPERATOR: AOX3 non focal Constitutional: Yes: Well Nourished, No Distress Eyes: Yes: WNL, Conjunctiva Clear, EOM Intact HENT: Yes: WNL, Atraumatic, Normocephalic Neck: Yes: WNL, Supple, Trachea Midline Cardiovascular: Yes: S1, S2. No: Regular Rate and Rhythm, JVD Respiratory: Yes: WNL, Regular, CTA Bilaterally Gastrointestinal: Yes: WNL, Normal Bowel Sounds, Soft, Abdomen, Obese Musculoskeletal: Yes: WNL. No: Back Pain, Joint Stiffness Extremities: No: Calf Tenderness Edema: No Neurological: Yes: WNL, Alert, Oriented ...Motor Strength: WNL, LUE, LLE, RUE, RLE Psychiatric: Yes: WNL, Alert, Oriented Labs: CBC, BMP 10/11/16 05:35 10/11/16 05:35 A/P: - Problems (1) Systolic HF (heart failure) Assessment/Plan: Patient is Tachycardio induced Cardiomyopathy with low EF cont B Luther Hold Lasix for MARGOT rate control Code(s): I50.20 - UNSPECIFIED SYSTOLIC (CONGESTIVE) HEART FAILURE Qualifiers: Heart failure chronicity: chronic Qualified Code(s): I50.22 - Chronic systolic (congestive) heart failure Improving. Stable. resumed torsemide at 50 mg BID. Renal function stable. patient cleared for discharge. Daily weights. Stric I/Os (2) Atrial fibrillation Assessment/Plan: Afib with new onset now on Metoprolol and amiodarone drip F/U Cardiology recommendation possible JUSTYN Cardioversion Code(s): I48.91 - UNSPECIFIED ATRIAL FIBRILLATION Qualifiers: Atrial fibrillation type: chronic Qualified Code(s): I48.2 - Chronic atrial fibrillation Rate controlled. Continue current management. Cardiology follow up appreciated. (3) Acute renal failure Assessment/Plan: Base line CKD stage 3 present with Dizzyness and rising BUN creat due to Diuresis, evaluted by Nephrology rconsult F/U BUN/vCreat Code(s): N17.9 - ACUTE KIDNEY FAILURE, UNSPECIFIED Qualifiers: Acute renal failure type: unspecified Qualified Code(s): N17.9 - Acute kidney failure, unspecified Renal function improved. Needs to closely monitor lytes after restarting diuretics. (4) Dehydration Assessment/Plan: Improved. Close monitoring on diuretics. Code(s): E86.0 - DEHYDRATION (5) HTN (hypertension) Assessment/Plan: well controlled Code(s): I10 - ESSENTIAL (PRIMARY) HYPERTENSION Reasonable control. Continue current management. Patient has been cleared for discharge for cardiology and renal point of view. She will follow up with cardiology and renal within one week of discharge.
--- NOTE | 2016-10-11 13:25 | DS ---
Physical Examination Vital Signs: Vital Signs Temperature 97.9 F 10/11/16 07:50 Pulse Rate 93 H 10/11/16 07:50 Respiratory Rate 18 10/11/16 07:50 Blood Pressure 127/56 10/11/16 07:50 O2 Sat by Pulse Oximetry (%) 96 10/11/16 07:49 Constitutional: Yes: No Distress, Calm Eyes: Yes: Conjunctiva Clear, EOM Intact HENT: Yes: Atraumatic, Normocephalic Neck: Yes: Supple, Trachea Midline Cardiovascular: Yes: Pulse Irregular, S1, S2 Respiratory: Yes: Regular, Diminished (b/l lung base) Gastrointestinal: Yes: Normal Bowel Sounds, Soft Musculoskeletal: Yes: WNL Edema: No Peripheral Pulses WNL: Yes Neurological: Yes: Alert, Oriented ...Motor Strength: WNL Psychiatric: Yes: Alert, Oriented Labs: CBC, BMP 10/11/16 05:35 10/11/16 05:35 Discharge Summary Reason For Visit: ATRIAL FIBRILLATION; ACUTE RENAL FAILURE Current Active Problems Acute renal failure (Acute) Atrial fibrillation (Acute) Atrial fibrillation and flutter (Acute) Intractable low back pain (Acute) Systolic HF (heart failure) (Acute) Hospital Course: - Problems (1) Systolic HF (heart failure) Assessment/Plan: Patient is Tachycardio induced Cardiomyopathy with low EF cont B Luther Hold Lasix for MARGOT rate control Code(s): I50.20 - UNSPECIFIED SYSTOLIC (CONGESTIVE) HEART FAILURE Qualifiers: Heart failure chronicity: chronic Qualified Code(s): I50.22 - Chronic systolic (congestive) heart failure Improving. Stable. resumed torsemide at 50 mg BID. Renal function stable. patient cleared for discharge. Daily weights. Stric I/Os (2) Atrial fibrillation Assessment/Plan: Afib with new onset now on Metoprolol and amiodarone drip F/U Cardiology recommendation possible JUSTYN Cardioversion Code(s): I48.91 - UNSPECIFIED ATRIAL FIBRILLATION Qualifiers: Atrial fibrillation type: chronic Qualified Code(s): I48.2 - Chronic atrial fibrillation Rate controlled. Continue current management. Cardiology follow up appreciated. (3) Acute renal failure Assessment/Plan: Base line CKD stage 3 present with Dizzyness and rising BUN creat due to Diuresis, evaluted by Nephrology rconsult F/U BUN/vCreat Code(s): N17.9 - ACUTE KIDNEY FAILURE, UNSPECIFIED Qualifiers: Acute renal failure type: unspecified Qualified Code(s): N17.9 - Acute kidney failure, unspecified Renal function improved. Needs to closely monitor lytes after restarting diuretics. (4) Dehydration Assessment/Plan: Improved. Close monitoring on diuretics. Code(s): E86.0 - DEHYDRATION (5) HTN (hypertension) Assessment/Plan: well controlled Code(s): I10 - ESSENTIAL (PRIMARY) HYPERTENSION Reasonable control. Continue current management. Patient has been cleared for discharge for cardiology and renal point of view. She will follow up with cardiology and renal within one week of discharge. Condition: Fair - Instructions Referrals: iGsel Cuba MD [Primary Care Provider] - Disposition: HOME - Home Medications Comprehensive Discharge Medication List: Ambulatory Orders Calcium 500Mg/Vit-D 200 Units [Os-Antonio 500+D -] 1 tab PO BID #60 tab 04/10/16 Docusate Sodium [Colace -] 300 mg PO HS capsule 04/10/16 Oxycodone HCl [Roxicodone -] 10 mg PO Q4H PRN #20 tablet MDD 60mg 04/10/16 Amiodarone HCl [Cordarone -] 200 mg PO ASDIR #60 tablet 10/03/16 Amlodipine Besylate [Norvasc -] 5 mg PO DAILY #30 tablet 10/03/16 Apixaban [Eliquis -] 5 mg PO BID #60 tablet 10/03/16 Duloxetine HCl [Cymbalta -] 60 mg PO DAILY #30 cap 10/03/16 Hydralazine HCl [Apresoline -] 25 mg PO BID #60 tablet 10/03/16 Metoprolol Succinate [Toprol XL -] 50 mg PO ASDIR #90 tab 10/03/16 Potassium Chloride [K-Dur -] 40 meq PO DAILY #30 tab 10/03/16 Torsemide [Demadex -] 100 mg PO BID@0600,1400 #60 tablet 10/03/16 Gabapentin [Neurontin] 600 mg PO DAILY 10/08/16
[2016-10-11 14:36] VITALS: BP 113/75; PULSE 112; TEMP 97.6
[2016-10-12] MEDS ORDERED: AMIODARONE HCL 200 MG TABLET (FP) PO SCH (10:00)
== END 2016-10-11 15:18 | disposition home or self-care (01) | DRG 292 ==
LOC: JER 14:18 → JERBED 18:12 → J4W 10-08 12:43
PROVIDERS: ADMIT Internal Medicine Geriatric Medicine; ATTEND Internal Medicine Geriatric Medicine
DX: I13.0 Hypertensive heart and chronic kidney disease with heart failure and stage 1 through stage 4 chronic kidney disease, or unspecified chronic kidney disease (principal); N17.9 Acute kidney failure, unspecified; I50.22 Chronic systolic (congestive) heart failure; I48.92 Unspecified atrial flutter; I42.9 Cardiomyopathy, unspecified; I48.2 Chronic atrial fibrillation; N18.3 Chronic kidney disease, stage 3 (moderate); Z96.652 Presence of left artificial knee joint; Z98.1 Arthrodesis status; M79.7 Fibromyalgia; E66.9 Obesity, unspecified; Z68.35 Body mass index [BMI] 35.0-35.9, adult; E86.0 Dehydration
CPT/HCPCS: 36415; 71010-TC; 80048; 80053; 81003; 81015; 82436; 82550; 82570; 83735; 83880; 84100; 84133; 84300; 84443; 84484; 84540; 85025; 93005; 93010; 99285-25

== ENCOUNTER 2016-10-29 19:54 | Inpatient (IN) | payer OTHER ==
--- NOTE | 2016-10-29 20:17 | PDOC ---
History of Present Illness - General History Source: Patient, Primary Care Provider Exam Limitations: No Limitations - History of Present Illness Initial Comments: 10/29/16 20:59 The patient is a 66 year old female with significant past medical history of afib with RVR, hypertension, hyperlipidemia, CHF, sigmoid colon adenoma who presents to the ED sent by Dr. Harris for admission. Patient reports she woke up Wednesday morning when she noted a 4 pound weight increased and called her head operator, Dr. Harris, who changed her Torsemide from 50mg BID to 100mg in the morning and 50mg at night. Patient states this morning she woke up and noted a 9 pound weight increase and decided to go into Dr. Westfall office earlier today who told her to come in for admission. States she is schedule for a cardioversion next week. Patient reports she has been short of breath for the past 2 months that is worsen while lying supine and on exertion. She also reports having mild leg swelling bilaterally for the past 2 months. Denies lightheadedness, diaphoresis, chest pain, jaw pain, shoulder pain, arm pain, nausea, or vomiting. The patient denies fever, chills, cough, abdominal pain, and diarrhea. Allergies: Pregabalin Social History: No alcohol, tobacco, or drug use reported. Past Surgical History: C4, C5 and C6 fusion 20 yrs ago, L knee replacement, R shoulder rotator cuff repair. PCP: Dr. 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 El Harris <Sangeetha Clinton - Last Filed: 10/29/16 22:44> <Lloyd Calderon - Last Filed: 10/29/16 22:49> - General Chief Complaint: Shortness of Breath Stated Complaint: PCP SENT/SHORTNESS OF BREATH Time Seen by Provider: 10/29/16 20:14 Past History <Sangeetha Clinton - Last Filed: 10/29/16 22:44> - Past Medical History Anemia: No Cancer: Yes (adenoma sigmoid colon) Cardiac Disorders: Yes (ATRIAL FIBRILLATION) CHF: Yes GI Disorders: Yes (GASTRITIS-H. PYLORI;DIVERTICULOSIS;COLON POLYPS) Disorders: Yes (CHRONIC RENAL INSUFFICIENCY) HTN: Yes Hypercholesterolemia: Yes - Surgical History Neurologic Surgery: Yes (c4,5,6 fusion 20 yrs) Orthopedic Surgery: Yes (lt knee rplacement;rt shoulder rotor cuff repair;) - Psycho/Social/Smoking Cessation Hx Anxiety: No Suicidal Ideation: No Smoking History: Never smoked Have you smoked in the past 12 months: No Information on smoking cessation initiated: No Hx Alcohol Use: No Drug/Substance Use Hx: No Substance Use Type: None Hx Substance Use Treatment: No <Lloyd Calderon - Last Filed: 10/29/16 22:49> - Past Medical History Allergies/Adverse Reactions: Allergies Allergy/AdvReac Type Severity Reaction Status Date / Time pregabalin [From Lyrica] Allergy Verified 10/29/16 20:05 Home Medications: Ambulatory Orders Apixaban [Eliquis -] 5 mg PO BID #60 tablet 10/03/16 Hydralazine HCl [Apresoline -] 25 mg PO BID #60 tablet 10/03/16 Potassium Chloride [K-Dur -] 40 meq PO DAILY #30 tab 10/03/16 Amiodarone HCl [Cordarone -] 200 mg PO DAILY #30 tablet 10/11/16 Torsemide [Demadex -] 50 mg PO BID@0600,1400 #60 tablet 10/11/16 Diltiazem HCl [Diltiazem 24Hr ER] 180 mg PO DAILY 10/29/16 Duloxetine HCl [Cymbalta -] 60 mg PO DAILY 10/29/16 Gabapentin [Neurontin -] 600 mg PO HS 10/29/16 Hydralazine HCl [Apresoline -] 25 mg PO BID 10/29/16 Meclizine HCl [Antivert -] 25 mg PO DAILY 10/29/16 Metoprolol Succinate [Toprol XL -] 75 mg PO BID 10/29/16 Tramadol HCl [Ultram] 50 mg PO Q8H 10/29/16 Review of Systems - Review of Systems Able to Perform ROS?: Yes Comments:: 10/29/16 20:59 CONSTITUTIONAL: +weight gain Absent: fever, chills, diaphoresis, generalized weakness, malaise, loss of appetite HEENT: Absent: rhinorrhea, nasal congestion, throat pain, throat swelling, difficulty swallowing, mouth swelling, ear pain, eye pain, visual Changes CARDIOVASCULAR: +mild leg swelling bilaterally Absent: chest pain, syncope, palpitations, irregular heart rate, lightheadedness RESPIRATORY: +shortness of breath, dyspnea with exertion, orthopnea Absent: cough, wheezing, stridor, hemoptysis GASTROINTESTINAL: Absent: abdominal pain, abdominal distension, nausea, vomiting, diarrhea, constipation, melena, hematochezia GENITOURINARY: Absent: dysuria, frequency, urgency, hesitancy, hematuria, flank pain, genital pain MUSCULOSKELETAL: Absent: myalgia, arthralgia, joint swelling SKIN: Absent: rash, itching, pallor NEUROLOGIC: Absent: headache, focal weakness or paresthesias, dizziness, unsteady gait, seizure, mental status changes, bladder or bowel incontinence <Sangeetha Clinton - Last Filed: 10/29/16 22:44> *Physical Exam - Vital Signs Last Vital Signs Temp Pulse Resp BP Pulse Ox 98.2 F 120 H 20 125/81 98 10/29/16 20:06 10/29/16 20:06 10/29/16 20:06 10/29/16 20:06 10/29/16 20:06 - Physical Exam Comments: 10/29/16 21:03 GENERAL: Well developed, well nourished. Awake and alert. No acute distress. HEENT: Normocephalic, atraumatic. PERRLA, EOMI. No conjunctival pallor. Sclera are non- icteric. Moist mucous membranes. Oropharynx is clear. NECK: Supple. Full ROM. No JVD. Carotid pulses 2+ and symmetric, without bruits. No thyromegaly. No lymphadenopathy. CARDIOVASCULAR: Irregularly irregular. No murmurs, rubs, or gallops. Distal pulses are 2+ and symmetric. PULMONARY: No evidence of respiratory distress. Lungs clear to auscultation bilaterally. No wheezing, rales or rhonchi. No conversational dyspnea. No retractions. No orthopnea. ABDOMINAL: Soft. Non-tender. Non-distended. No rebound or guarding. No organomegaly. Normoactive bowel sounds. MUSCULOSKELETAL Normal range of motion at all joints. No bony deformities or tenderness. No CVA tenderness. EXTREMITIES: No cyanosis. No clubbing. No edema. No calf tenderness. SKIN: Warm and dry. Normal capillary refill. No rashes. No jaundice. NEUROLOGICAL: Alert, awake, appropriate. Cranial nerves 2-12 intact. Moving all extremities. No gross neurological deficits. <Sangeetha Clinton - Last Filed: 10/29/16 22:44> - Vital Signs Last Vital Signs Temp Pulse Resp BP Pulse Ox 98.2 F 120 H 20 125/81 98 10/29/16 20:06 10/29/16 20:06 10/29/16 20:06 10/29/16 20:06 10/29/16 20:06 <Lloyd Calderon - Last Filed: 10/29/16 22:49> Heart Score/ECG Review - ECG Impressions Comment:: 10/29/16 21:16 Atrial fibrillation with ventricular rate of 110bpm No change since October 07, 2016 <Sangeetha Clinton - Last Filed: 10/29/16 22:44> ED Treatment Course - LABORATORY CBC & Chemistry Diagram: 10/29/16 20:35 10/29/16 20:35 <Sangeetha Clinton - Last Filed: 10/29/16 22:44> - LABORATORY CBC & Chemistry Diagram: 10/29/16 20:35 10/29/16 20:35 <Lloyd Calderon - Last Filed: 10/29/16 22:49> Medical Decision Making - Medical Decision Making 10/29/16 22:[address] Eugenio Crawford (via answering service) Awaiting call back 10/29/16 22:44 Second call placed to Dr. Crawford and patient's case was discussed <Sangeetha Clinton - Last Filed: 10/29/16 22:44> *DC/Admit/Observation/Transfer - Attestations Scribe Attestion: 10/29/16 20:59 Documentation prepared by Sangeetha Clinton, acting as medical technologist generalist for Lloyd Calderon MD/DO. <Sangeetha Clinton - Last Filed: 10/29/16 22:44> - Discharge Dispostion Admit: Yes - Attestations Physician Attestion: 10/29/16 20:16 I, Dr. Lloyd Calderon, attest that this document has been prepared under my direction and personally reviewed by me in its entirety. I further attest, that it accurately reflects all work, treatment, procedures and medical decision -making performed by me. <Lloyd Calderon - Last Filed: 10/29/16 22:49> Diagnosis at time of Disposition: Atrial fibrillation with rapid ventricular response - Discharge Dispostion Condition at time of disposition: Improved
[2016-10-29 21:20] LABS: BASOPHIL 0.6 % (0-2.0); EOSINOPHIL 1.3 % (0-4.5); MCH 34.3 pg (25.7-33.7); MCHC 33.7 g/dl (32.0-36.0); MEAN CELL VOLUME 101.9 fl (80-96); MEAN PLT VOLUME 8.4 fl (7.5-11.1); NEUTROPHILS 65.3 % (42.8-82.8); PLATELET COUNT 261 K/MM3 (134-434); RDW 16.5 % (11.6-15.6)
[2016-10-29 21:24] LABS: INR 1.16 (0.82-1.09); PROTHROMBIN TIME (PATIENT) 12.8 SEC (9.98-11.88)
[2016-10-29 21:43] LABS: ALBUMIN 3.9 g/dl (3.4-5.0); ANION GAP 11 (8-16); BILIRUBIN,TOTAL 0.4 mg/dL (0.2-1.0); CALCIUM 9.1 mg/dL (8.5-10.1); CO2 32 mmol/L (21-32); CREATININE 1.7 mg/dL (0.55-1.02); GLUCOSE,RANDOM 96 mg/dL (74-106); SGOT/AST 17 U/L (15-37); SGPT/ALT 19 U/L (12-78); TOT PROT 7.1 g/dl (6.4-8.2)
[2016-10-29 21:46] LABS: ALK PHOS 81 U/L (45-117); TROPONIN I < 0.02 ng/ml (0.00-0.05)
[2016-10-29] MEDS ORDERED: dilTIAZem HCL 60 MG TABLET (FP) PO ONE (22:50)
[2016-10-29] MEDS ORDERED: dilTIAZem HCL 30 MG TABLET (FP) ONE (23:08)
[2016-10-29] MEDS ORDERED: dilTIAZem HCL 60 MG TABLET (FP) ONE (23:08)
[2016-10-30 02:37] VITALS: BMI 36.2
--- NOTE | 2016-10-30 09:00 | EKG ---
Test Reason : Blood Pressure : / mmHG Vent. Rate : 110 BPM Atrial Rate : 138 BPM P-R Int : 000 ms QRS Dur : 094 ms QT Int : 278 ms P-R-T Axes : 000 013 174 degrees QTc Int : 376 ms ATRIAL FIBRILLATION WITH RAPID VENTRICULAR RESPONSE WITH PREMATURE VENTRICULAR OR ABERRANTLY CONDUCTED COMPLEXES NONSPECIFIC ST AND T WAVE ABNORMALITY ABNORMAL ECG Confirmed by BECKI ROPER MD ([id number]) on 10/30/2016 8:59:55 AM Referred By: Confirmed By:BECKI ROPER MD
[2016-10-30] MEDS: METOPROLOL SUCCINATE 25 MG TAB.SR.24H (FP) PO SCH ×2 (09:14→21:26)
[2016-10-30] MEDS: DULoxetine HCL 30 MG CAPSULE.DR (FP) PO SCH (09:14)
[2016-10-30] MEDS: traMADol HCL 50 MG TABLET PO PRN ×2 (09:14→18:25)
[2016-10-30] MEDS: hydrALAZINE HCL 25 MG TABLET (FP) PO SCH ×2 (09:14→21:25)
[2016-10-30] MEDS: MECLIZINE HCL 25 MG TABLET (FP) PO SCH (09:15)
[2016-10-30] MEDS: POTASSIUM CHLORIDE TABS 20 MEQ TABLET.ER (FP) PO SCH (09:15)
[2016-10-30] MEDS: APIXABAN 5 MG TABLET PO SCH ×2 (09:15→21:25)
[2016-10-30] MEDS ORDERED: TORSEMIDE 100 MG TABLET PO SCH ×2 (10:00→22:00)
--- NOTE | 2016-10-30 10:53 | CON.CARD ---
Cardiology Consult (text) - Consultation Consultation Note: cc: sob hpi: 66 yo f with h/o afib, HTN, HLD, venous insufficiency, obesity, chronic nausea, gastritis with gastric erosions/prior bloody stool followed by Dr. Mack, fibromyalgia, h/o vertebroplasty and epidural injections, syst chf ( likely TIC) here with sob. Pt recently admitted here with new onset syst chf likely from TIC. Her rate was controlled and she was diuresed and sent home on torsemide but as outpt she has had persistent sob/pinto and feels her wt is rising also. Symptoms have not responded to increased diuretic as outpt so came to ER. No cp, palps, loc, pnd, orthopnea, le edema. Planned for david/dccv while here to see if hindu of sr will improve her sxs. Sees dr cantu for cardiology. pmhx/pshx: per hpi, knee surgery social hx: no tob fam hx: father fatal [place] 52; mother AAA repair 72; ros: per hpi: no nvd, rash, white, vision changes, cough, nasal congestion, muscle aches, fever, gib, dysuria meds: Home Medications Medication Instructions Recorded Apixaban [Eliquis -] 5 mg PO BID #60 tablet 10/03/16 Hydralazine HCl [Apresoline -] 25 mg PO BID #60 tablet 10/03/16 Potassium Chloride [K-Dur -] 40 meq PO DAILY #30 tab 10/03/16 Amiodarone HCl [Cordarone -] 200 mg PO DAILY #30 tablet 10/11/16 Torsemide [Demadex -] 50 mg PO BID@0600,1400 #60 tablet 10/11/16 Diltiazem HCl [Diltiazem 24Hr ER] 180 mg PO DAILY 10/29/16 Duloxetine HCl [Cymbalta -] 60 mg PO DAILY 10/29/16 Gabapentin [Neurontin -] 600 mg PO HS 10/29/16 Hydralazine HCl [Apresoline -] 25 mg PO BID 10/29/16 Meclizine HCl [Antivert -] 25 mg PO DAILY 10/29/16 Metoprolol Succinate [Toprol XL -] 75 mg PO BID 10/29/16 Tramadol HCl [Ultram] 50 mg PO Q8H 10/29/16 pe: Vital Signs Period Temp Pulse Resp BP Sys/Pierce Pulse Ox Last 24 Hr 97.8 F-98.2 F 78-120 18-20 112-127/64-81 95-98 NAD, calm, no jvd cta bl nl eff irreg, rr, s1s2 no mrg abd nt nd pos bs no le e/c/c + dp/pt aaox3 no jaundice, diaphoresis Laboratory Last Values WBC 8.0 K/mm3 (4.0-10.0) 10/29/16 20:35 RBC 3.96 M/mm3 (3.60-5.2) 10/29/16 20:35 Hgb 13.6 GM/dL (10.7-15.3) 10/29/16 20:35 Hct 40.3 % (32.4-45.2) 10/29/16 20:35 MCV 101.9 fl (80-96) H 10/29/16 20:35 MCHC 33.7 g/dl (32.0-36.0) 10/29/16 20:35 RDW 16.5 % (11.6-15.6) H 10/29/16 20:35 Plt Count 261 K/MM3 (134-434) 10/29/16 20:35 MPV 8.4 fl (7.5-11.1) 10/29/16 20:35 Neutrophils % 65.3 % (42.8-82.8) 10/29/16 20:35 Lymphocytes % 21.5 % (8-40) D 10/29/16 20:35 Monocytes % 11.3 % (3.8-10.2) H 10/29/16 20:35 Eosinophils % 1.3 % (0-4.5) 10/29/16 20:35 Basophils % 0.6 % (0-2.0) 10/29/16 20:35 INR 1.16 (0.82-1.09) H 10/29/16 20:35 Sodium 137 mmol/L (136-145) 10/29/16 20:35 Potassium 3.5 mmol/L (3.5-5.1) 10/29/16 20:35 Chloride 94 mmol/L (98-107) L 10/29/16 20:35 Carbon Dioxide 32 mmol/L (21-32) 10/29/16 20:35 Anion Gap 11 (8-16) 10/29/16 20:35 BUN 22 mg/dL (7-18) H 10/29/16 20:35 Creatinine 1.7 mg/dL (0.55-1.02) H D 10/29/16 20:35 Creat Clearance w eGFR 30.07 (>60) 10/29/16 20:35 Random Glucose 96 mg/dL (74-106) 10/29/16 20:35 Calcium 9.1 mg/dL (8.5-10.1) 10/29/16 20:35 Total Bilirubin 0.4 mg/dL (0.2-1.0) 10/29/16 20:35 AST 17 U/L (15-37) 10/29/16 20:35 ALT 19 U/L (12-78) 10/29/16 20:35 Alkaline Phosphatase 81 U/L (45-117) 10/29/16 20:35 Creatine Kinase 66 IU/L (26-192) 10/29/16 20:35 Troponin I < 0.02 ng/ml (0.00-0.05) 10/29/16 20:35 B-Natriuretic Peptide 6552.08 pg/ml (5-125) H 10/29/16 20:35 Total Protein 7.1 g/dl (6.4-8.2) 10/29/16 20:35 Albumin 3.9 g/dl (3.4-5.0) 10/29/16 20:35 TSH 5.83 uIU/ml (0.358-3.74) H D 10/30/16 09:40 echo 08/2016: sev dec lvef, global hk, mild rv dil and mild dec rv fcn, sev constantin , sev tr, mod mr, mild pr, nl rvsp DAVID 2015: nl lv/rv no intracardiac thrombus. + PFO with L--> R shunt on bubble study. mod TR. Echo 01/08: nl LV/EF; dd1; mild JOSIE of unclear significance; nl RV; mild LAE; valves WNL; IASA (no PFO) MIBI 12/08: 4:00min; no STs; ? small anteroapical isch vs large breast shadows; nl EF; no TID ecg 10/30/16: afib, rate controlled, aberrant conduction, nl qtc, no ischemic changes cxr: clear lungs tele: afib, rate controlled a/p: 66 yo f with h/o afib, HTN, HLD, venous insufficiency, obesity, chronic nausea, gastritis with gastric erosions/prior bloody stool followed by GI, fibromyalgia, h/o vertebroplasty and epidural injections, syst chf (likely TIC) here with sob. sob, Afib: - currently does not appear to be in chf, no signs acs. Likely her sob symptom is due to afib. - s/p successful DCCV 02/08 then last month presented in afib with rvr and new LV systolic dysfunction (global) suggestive of tachy-CMP--in setting of non- compliance with metoprolol (taking prn) - plan has been to load with amio then do elective david/dccv but here with symptoms likely from afib so plan is to do david/dccv today while inpt - cont current rate control meds for now, bb, ccb, amio-->after in sinus rhythm will likely be able to dc dilt - cont eliquis chronic systolic chf: -recently found to have likely tachycardia induced cardiomyopathy -currently does not appear to be vol overloaded -cont current torsemide, if she feels better (sob) after dccv/sinus rhythm then would lower torsemide to 50 qd for maintenance -cont bb for chf regimen h/o colonic polyps with prior occult GIB: - s/p polypectomies 12/[address] mack (non-bleeding diverticulosis and internal hemmorhoids as well), cleared to resume eliquis by GI after that procedure - H/H stable here HTN -stable on home meds ckd: -cr slightly above baseline -monitor for now, possible decreased diuretic as mentioned above
--- NOTE | 2016-10-30 11:51 | HP ---
Admitting History and Physical - Primary Care Physician PCP: Gisel Cuba - Admission Chief Complaint: I'm gaining weight and short of breath History of Present Illness: Mrs Teri Givens is a very pleasant 66 year old female who comes in with weight gain and symptomatic tachycardia. She says that she started noticing she was feeling worse earlier this week. She says she was taking her torsemide, however she was not urinating and gaining weight. She noticed her heart rate was increasing to the 120s at home. She was having significant dyspnea on exertion. She called the office and her torsemide was increased, however she did not notice improvement and was told to come in to the hospital. She says she was having nausea without vomiting associated with this. She denies fevers, chills, lightheadedness, dizziness, passing out, chest pain or pressure, abdominal pain, diarrhea, constipation, difficulty or pain on urination, and her swelling is controlled. 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 History of Recent Travel: No Home Medications - Allergies Allergies/Adverse Reactions: Allergies Allergy/AdvReac Type Severity Reaction Status Date / Time pregabalin [From Lyrica] Allergy Verified 10/29/16 20:05 - Home Medications Home Medications: Ambulatory Orders Apixaban [Eliquis -] 5 mg PO BID #60 tablet 10/03/16 Hydralazine HCl [Apresoline -] 25 mg PO BID #60 tablet 10/03/16 Potassium Chloride [K-Dur -] 40 meq PO DAILY #30 tab 10/03/16 Amiodarone HCl [Cordarone -] 200 mg PO DAILY #30 tablet 10/11/16 Torsemide [Demadex -] 50 mg PO BID@0600,1400 #60 tablet 10/11/16 Diltiazem HCl [Diltiazem 24Hr ER] 180 mg PO DAILY 10/29/16 Duloxetine HCl [Cymbalta -] 60 mg PO DAILY 10/29/16 Gabapentin [Neurontin -] 600 mg PO HS 10/29/16 Hydralazine HCl [Apresoline -] 25 mg PO BID 10/29/16 Meclizine HCl [Antivert -] 25 mg PO DAILY 10/29/16 Metoprolol Succinate [Toprol XL -] 75 mg PO BID 10/29/16 Tramadol HCl [Ultram] 50 mg PO Q8H 10/29/16 Family Disease History - Family Disease History Family Disease History: Heart Disease: Father Review of Systems Findings/Remarks: Full review of systems obtained, as per HPI and otherwise negative Physical Examination Vital Signs: Vital Signs Temperature 97.8 F 10/30/16 07:56 Pulse Rate 86 10/30/16 07:56 Respiratory Rate 18 10/30/16 07:56 Blood Pressure 127/65 10/30/16 07:56 O2 Sat by Pulse Oximetry (%) 96 10/30/16 06:00 Constitutional: Yes: No Distress, Calm, Obese Eyes: Yes: Conjunctiva Clear, EOM Intact, PERRL HENT: Yes: Atraumatic, Normocephalic Cardiovascular: Yes: Pulse Irregular. No: Tachycardia, Gallop, Murmur, Rub Respiratory: Yes: Regular, CTA Bilaterally, On Nasal O2. No: Rales, Rhonchi, Wheezes Gastrointestinal: Yes: Normal Bowel Sounds, Soft. No: Distention, Tenderness Extremities: Yes: WNL Edema: No Labs: Laboratory Results - last 24 hr 10/29/16 10/29/16 10/29/16 20:35 20:35 20:35 WBC 8.0 RBC 3.96 Hgb 13.6 Hct 40.3 MCV 101.9 H MCHC 33.7 RDW 16.5 H Plt Count 261 MPV 8.4 Neutrophils % 65.3 Lymphocytes % 21.5 D Monocytes % 11.3 H Eosinophils % 1.3 Basophils % 0.6 INR 1.16 H Sodium 137 Potassium 3.5 Chloride 94 L Carbon Dioxide 32 Anion Gap 11 BUN 22 H Creatinine 1.7 H D Creat Clearance w eGFR 30.07 Random Glucose 96 Calcium 9.1 Total Bilirubin 0.4 AST 17 ALT 19 Alkaline Phosphatase 81 Creatine Kinase 66 Troponin I < 0.02 B-Natriuretic Peptide 6552.08 H Total Protein 7.1 Albumin 3.9 TSH 10/30/16 09:40 WBC RBC Hgb Hct MCV MCHC RDW Plt Count MPV Neutrophils % Lymphocytes % Monocytes % Eosinophils % Basophils % INR Sodium Potassium Chloride Carbon Dioxide Anion Gap BUN Creatinine Creat Clearance w eGFR Random Glucose Calcium Total Bilirubin AST ALT Alkaline Phosphatase Creatine Kinase Troponin I B-Natriuretic Peptide Total Protein Albumin TSH 5.83 H D Imaging - Results Chest X-ray: Report Reviewed, Image Reviewed EKG: Image Reviewed Problem List - Problems (1) Atrial fibrillation and flutter Assessment/Plan: -patient presents with symptomatic a fib/a flutter -admitted to telemetry -seen by cardiology -planning for cardioversion today -further medication adjustment per cardiology after cardioversion Code(s): I48.91 - UNSPECIFIED ATRIAL FIBRILLATION I48.92 - UNSPECIFIED ATRIAL FLUTTER (2) CHF (congestive heart failure) Assessment/Plan: -does not look fluid overloaded -continue torsemide per cardiology Code(s): I50.9 - HEART FAILURE, UNSPECIFIED Qualifiers: Congestive heart failure type: diastolic Congestive heart failure chronicity: chronic Qualified Code(s): I50.32 - Chronic diastolic ( congestive) heart failure (3) HTN (hypertension) Assessment/Plan: -well controlled -continue current regimen Code(s): I10 - ESSENTIAL (PRIMARY) HYPERTENSION (4) Acute renal failure Assessment/Plan: -slightly elevated -? torsemide vs underperfusion with a fib/flutter -monitor Code(s): N17.9 - ACUTE KIDNEY FAILURE, UNSPECIFIED Qualifiers: Acute renal failure type: unspecified Qualified Code(s): N17.9 - Acute kidney failure, unspecified (5) Hypothyroid Assessment/Plan: -elevated TSH -will check FT4 -? secondary to amiodarone Code(s): E03.9 - HYPOTHYROIDISM, UNSPECIFIED
[2016-10-30] MEDS ORDERED: ONDANSETRON 4 MG/2 ML VIAL IVPUSH PRN (14:13)
[2016-10-30] MEDS ORDERED: PROMETHAZINE HCL 25 MG/1 ML VIAL IVPUSH PRN (14:13)
[2016-10-30] MEDS ORDERED: LACTATED RINGERS SOLUTION 1,000 ML IV SCH (14:15)
--- NOTE | 2016-10-30 15:43 | EKG ---
Test Reason : Blood Pressure : / mmHG Vent. Rate : 054 BPM Atrial Rate : 054 BPM P-R Int : 216 ms QRS Dur : 098 ms QT Int : 550 ms P-R-T Axes : 036 009 054 degrees QTc Int : 521 ms SINUS BRADYCARDIA WITH 1ST DEGREE A-V BLOCK PROLONGED QT ABNORMAL ECG Confirmed by BECKI ROPER MD ([id number]) on 10/30/2016 3:43:09 PM Referred By: RAY GOMEZ Confirmed By:BECKI ROPER MD
--- NOTE | 2016-10-30 16:44 | PROC ---
Cardioversion Indication: Atrial fibrillation Risks and Benefits Explained: Yes Consent on Chart: Yes JUSTYN done prior to Cardioversion: Yes JUSTYN findings: No left atrial or left atrial appendage thrombus. See EMR for full report. Patient anticoagulated: Yes (eliquis) - Procedure Anesthesiologist present: Yes Medication given: Propofol sedation Joules delivered: 120 J and then 150 J Rhythm post cardioversion: See below Remarks: After delivery of 120 J, rhythm changed from atrial fibrillation to atrial flutter with variable conduction. A second shock of 150 J was immediately delivered with successful conversion of atrial flutter to sinus rhythm. No complications.
[2016-10-30] MEDS: AMIODARONE HCL 200 MG TABLET (FP) PO SCH (18:25)
[2016-10-30] MEDS ORDERED: GABAPENTIN 300 MG CAPSULE (FP) PO SCH (22:00)
[2016-10-30] MEDS ORDERED: oxyCODONE HCL 5 MG TABLET PO PRN (22:07)
[2016-10-30] MEDS ORDERED: ACETAMINOPHEN 325 MG TABLET (FP) PO PRN (22:07)
[2016-10-31] MEDS: TORSEMIDE 100 MG TABLET PO SCH ×2 (06:38→14:24)
[2016-10-31 07:57] LABS: BASOPHIL 0.7 % (0-2.0); MCH 35.3 pg (25.7-33.7); MCHC 34.6 g/dl (32.0-36.0); MEAN CELL VOLUME 102.2 fl (80-96); MEAN PLT VOLUME 8.5 fl (7.5-11.1); NEUTROPHILS 57.9 % (42.8-82.8); PLATELET COUNT 210 K/MM3 (134-434); RDW 16.5 % (11.6-15.6); WHITE BLOOD COUNT 6.3 K/mm3 (4.0-10.0)
[2016-10-31 08:20] LABS: ANION GAP 9 (8-16); CALCIUM 9.3 mg/dL (8.5-10.1); CO2 33 mmol/L (21-32); GLUCOSE,RANDOM 93 mg/dL (74-106); MAGNESIUM 1.9 mg/dL (1.8-2.4)
[2016-10-31 08:23] LABS: CREATININE 1.7 mg/dL (0.55-1.02); PHOSPHOROUS 5.2 mg/dL (2.5-4.9)
[2016-10-31] MEDS: POTASSIUM CHLORIDE TABS 20 MEQ TABLET.ER (FP) PO SCH (09:26)
[2016-10-31] MEDS: hydrALAZINE HCL 25 MG TABLET (FP) PO SCH (09:26)
[2016-10-31] MEDS: METOPROLOL SUCCINATE 25 MG TAB.SR.24H (FP) PO SCH (09:26)
[2016-10-31] MEDS: APIXABAN 5 MG TABLET PO SCH (09:27)
[2016-10-31] MEDS: MECLIZINE HCL 25 MG TABLET (FP) PO SCH (09:27)
[2016-10-31] MEDS: AMIODARONE HCL 200 MG TABLET (FP) PO SCH (09:27)
[2016-10-31] MEDS: DULoxetine HCL 30 MG CAPSULE.DR (FP) PO SCH (09:27)
[2016-10-31] MEDS ORDERED: SILVER SULFADIAZINE 1% TOP CREAM 50 GM JAR TP SCH (10:00)
[2016-10-31] MEDS ORDERED: TORSEMIDE 100 MG TABLET PO SCH (10:00)
[2016-10-31] MEDS ORDERED: LEVOTHYROXINE NA 50 MCG TABLET (FP) PO ONE (10:30)
--- NOTE | 2016-10-31 10:33 | PN ---
Progress Note, Physician History of Present Illness: Patient notes mild cough, sore throat following yesterday's procedure, otherwise notes that breathing seems to be feeling better. Remaining in NSR currently. - Current Medication List Current Medications: Active Medications Acetaminophen (Tylenol -) 650 mg PO Q6H PRN PRN Reason: FEVER OR PAIN Last Admin: 10/30/16 22:36 Dose: 650 mg Amiodarone HCl (Cordarone -) 200 mg PO DAILY [facility] Last Admin: 10/31/16 09:27 Dose: 200 mg Apixaban (Eliquis -) 5 mg PO BID [facility] Last Admin: 10/31/16 09:27 Dose: 5 mg Diltiazem HCl (Cardizem Cd -) 180 mg PO DAILY [facility] Last Admin: 10/31/16 09:51 Dose: Not Given Duloxetine HCl (Cymbalta -) 60 mg PO DAILY [facility] Last Admin: 10/31/16 09:27 Dose: 60 mg Gabapentin (Neurontin -) 600 mg PO HS [facility] Last Admin: 10/30/16 21:26 Dose: 600 mg Hydralazine HCl (Apresoline -) 25 mg PO BID [facility] Last Admin: 10/31/16 09:26 Dose: 25 mg Levothyroxine Sodium (Synthroid -) 50 mcg PO ONCE ONE Stop: 10/31/16 10:25 Meclizine HCl (Antivert -) 25 mg PO DAILY [facility] Last Admin: 10/31/16 09:27 Dose: 25 mg Metoprolol Succinate (Toprol Xl -) 75 mg PO BID [facility] Last Admin: 10/31/16 09:26 Dose: 75 mg Oxycodone HCl (Roxicodone -) 10 mg PO Q6H PRN PRN Reason: PAIN Last Admin: 10/30/16 22:35 Dose: 10 mg Potassium Chloride (K-Dur -) 40 meq PO DAILY [facility] Last Admin: 10/31/16 09:26 Dose: 40 meq Silver Sulfadiazine (Silvadene -) 1 applic TP DAILY [facility] Last Admin: 10/31/16 09:28 Dose: 1 applic Torsemide (Demadex -) 50 mg PO BIDLASIX [facility] Last Admin: 10/31/16 06:38 Dose: 50 mg Tramadol HCl (Ultram -) 50 mg PO Q8H PRN Last Admin: 10/30/16 18:25 Dose: 50 mg - Objective Vital Signs: Vital Signs Temperature 97.8 F 10/31/16 07:55 Pulse Rate 65 10/31/16 07:55 Respiratory Rate 18 10/31/16 08:00 Blood Pressure 127/80 10/31/16 07:55 O2 Sat by Pulse Oximetry (%) 99 10/31/16 08:00 Constitutional: Yes: No Distress, Calm Eyes: Yes: Conjunctiva Clear, EOM Intact HENT: Yes: Atraumatic, Normocephalic Neck: Yes: Supple, Trachea Midline Cardiovascular: Yes: Regular Rate and Rhythm, S1, S2. No: Murmur Respiratory: Yes: Regular, CTA Bilaterally. No: Rales, Rhonchi, Wheezes Gastrointestinal: Yes: Normal Bowel Sounds, Soft. No: Distention, Tenderness Integumentary: Yes: Other (arythema on areas where cardioversion pads were placed) Neurological: Yes: Alert, Oriented Labs: CBC, BMP 10/31/16 06:00 10/31/16 06:00 INR, PTT INR 1.16 (0.82-1.09) H 10/29/16 20:35 Assessment/Plan Current Active Problems Atrial fibrillation with RVR (Acute) s/p DCCV, now NSR Hypothyroid (Acute) Intractable low back pain (Acute) Renal insufficiency HTN Fibromyalgia -cardio to eval -(discharge planning?) -patient notes that she had been on synthroid in the past and this past week in office TSH was also elevated, so will start synthroid again, at 50mcg daily, since TSH continues to be elevated.
--- NOTE | 2016-10-31 15:33 | PN ---
Progress Note (short form) - Note Progress Note: cc: sob s: breathing improved, stll with mild residual sob. no cp, palps, dizziness. remains in SR Current Medications Acetaminophen (Tylenol -) 650 mg PO Q6H PRN PRN Reason: FEVER OR PAIN Last Admin: 10/30/16 22:36 Dose: 650 mg Amiodarone HCl (Cordarone -) 200 mg PO DAILY [facility] Last Admin: 10/31/16 09:27 Dose: 200 mg Apixaban (Eliquis -) 5 mg PO BID [facility] Last Admin: 10/31/16 09:27 Dose: 5 mg Duloxetine HCl (Cymbalta -) 60 mg PO DAILY [facility] Last Admin: 10/31/16 09:27 Dose: 60 mg Gabapentin (Neurontin -) 600 mg PO HS [facility] Last Admin: 10/30/16 21:26 Dose: 600 mg Hydralazine HCl (Apresoline -) 25 mg PO BID [facility] Last Admin: 10/31/16 09:26 Dose: 25 mg Meclizine HCl (Antivert -) 25 mg PO DAILY [facility] Last Admin: 10/31/16 09:27 Dose: 25 mg Metoprolol Succinate (Toprol Xl -) 75 mg PO BID [facility] Last Admin: 10/31/16 09:26 Dose: 75 mg Oxycodone HCl (Roxicodone -) 10 mg PO Q6H PRN PRN Reason: PAIN Last Admin: 10/30/16 22:35 Dose: 10 mg Potassium Chloride (K-Dur -) 40 meq PO DAILY [facility] Last Admin: 10/31/16 09:26 Dose: 40 meq Silver Sulfadiazine (Silvadene -) 1 applic TP DAILY [facility] Last Admin: 10/31/16 09:28 Dose: 1 applic Torsemide (Demadex -) 50 mg PO BIDLASIX [facility] Last Admin: 10/31/16 14:24 Dose: 50 mg Tramadol HCl (Ultram -) 50 mg PO Q8H PRN Last Admin: 10/30/16 18:25 Dose: 50 mg Vital Signs - 24 hr 10/30/16 10/30/16 10/30/16 18:00 19:54 21:00 Temperature 98 F Pulse Rate 71 Respiratory 18 18 Rate Blood Pressure 134/89 O2 Sat by Pulse 96 96 Oximetry (%) 10/30/16 10/31/16 10/31/16 22:00 02:05 06:00 Temperature 97.8 F 97.8 F 97.8 F Pulse Rate 74 62 64 Respiratory 18 18 18 Rate Blood Pressure 109/73 116/72 114/75 O2 Sat by Pulse Oximetry (%) 10/31/16 10/31/16 10/31/16 07:55 08:00 13:59 Temperature 97.8 F 98 F Pulse Rate 65 67 Respiratory 18 18 20 Rate Blood Pressure 127/80 115/74 O2 Sat by Pulse 99 Oximetry (%) Intake & Output 10/29/16 10/30/16 10/31/16 11/01/16 07:59 07:59 07:59 07:59 Intake Total 10 620 Output Total 1000 Balance 10 620 -1000 Weight 231 lb 9.6 oz 229 lb 8 oz NAD, calm, no jvd cta bl nl eff rrr nl s1, s2 no mrg abd nt nd pos bs no le e/c/c + dp/pt aaox3 no jaundice, diaphoresis CBC, BMP 10/31/16 06:00 10/31/16 06:00 echo 08/2016: sev dec lvef, global hk, mild rv dil and mild dec rv fcn, sev constantin , sev tr, mod mr, mild pr, nl rvsp DAVID 2015: nl lv/rv no intracardiac thrombus. + PFO with L--> R shunt on bubble study. mod TR. Echo 01/08: nl LV/EF; dd1; mild JOSIE of unclear significance; nl RV; mild LAE; valves WNL; IASA (no PFO) MIBI 12/08: 4:00min; no STs; ? small anteroapical isch vs large breast shadows; nl EF; no TID ecg 10/30/16: afib, rate controlled, aberrant conduction, nl qtc, no ischemic changes cxr: clear lungs tele: sr a/p: 66 yo f with h/o afib, HTN, HLD, venous insufficiency, obesity, chronic nausea, gastritis with gastric erosions/prior bloody stool followed by GI, fibromyalgia, h/o vertebroplasty and epidural injections, syst chf (likely TIC) here with sob. sob, Afib: - currently does not appear to be in chf, no signs acs. Likely her sob symptom is due to afib. - s/p successful DCCV 02/08 then last month presented in afib with rvr and new LV systolic dysfunction (global) suggestive of tachy-CMP--in setting of non- compliance with metoprolol (taking prn) - plan has been to load with amio then do elective david/dccv but here with symptoms likely from afib did david/dccv 10/30 while inpt - 10/31 Now that in SR, can d/c dilt. cont bb, amio - cont eliquis chronic systolic chf: -recently found to have likely tachycardia induced cardiomyopathy -currently does not appear to be vol overloaded -cr stable after 100 mg torsemide yesterday. will con't home dose of torsemide 50 bid. patient counseled on weight monitoring and will call cardiology office if continues to lose weight or have dizziness at this dose. -cont bb for chf regimen h/o colonic polyps with prior occult GIB: - s/p polypectomies 12/[address] mack (non-bleeding diverticulosis and internal hemmorhoids as well), cleared to resume eliquis by GI after that procedure - H/H stable here HTN -stable on home meds ckd: -cr slightly above baseline -monitor for now ok to d/c home from CV perspective.
[2016-10-31 18:15] VITALS: BP 125/77; PULSE 68; TEMP 97.5
--- NOTE | 2016-11-01 10:52 | DS ---
Physical Examination Vital Signs: Vital Signs Temperature 97.5 F L 10/31/16 17:00 Pulse Rate 68 10/31/16 17:00 Respiratory Rate 20 10/31/16 17:00 Blood Pressure 125/77 10/31/16 17:00 O2 Sat by Pulse Oximetry (%) 99 10/31/16 08:00 Labs: CBC, BMP 10/31/16 06:00 10/31/16 06:00 Discharge Summary Reason For Visit: ATRIAL FIBRILLATION AND FLUTTER Current Active Problems Atrial fibrillation with RVR (Acute) Hypothyroid (Acute) Intractable low back pain (Acute) Hospital Course: (see progress note from 10/31/16) Condition: Improved - Instructions Referrals: STAFF,NOT ON [Non Staff, Medical] - Disposition: HOME - Home Medications Comprehensive Discharge Medication List: Ambulatory Orders Apixaban [Eliquis -] 5 mg PO BID #60 tablet 10/03/16 Hydralazine HCl [Apresoline -] 25 mg PO BID #60 tablet 10/03/16 Potassium Chloride [K-Dur -] 40 meq PO DAILY #30 tab 10/03/16 Amiodarone HCl [Cordarone -] 200 mg PO DAILY #30 tablet 10/11/16 Torsemide [Demadex -] 50 mg PO BID@0600,1400 #60 tablet 10/11/16 Duloxetine HCl [Cymbalta -] 60 mg PO DAILY 10/29/16 Gabapentin [Neurontin -] 600 mg PO HS 10/29/16 Hydralazine HCl [Apresoline -] 25 mg PO BID 10/29/16 Meclizine HCl [Antivert -] 25 mg PO DAILY 10/29/16 Metoprolol Succinate [Toprol XL -] 75 mg PO BID 10/29/16 Tramadol HCl [Ultram -] 50 mg PO Q8H 10/29/16 Levothyroxine [Synthroid -] 50 mcg PO DAILY #30 tablet 10/31/16 Silver Sulfadiazine 1% Top Cr [Silvadene -] 1 applic TP DAILY #1 jar 10/31/16
== END 2016-10-31 18:41 | disposition home or self-care (01) | DRG 309 ==
LOC: JER 19:54 → SUPCPDRO 19:54 → JERBED 22:49 → J4W 10-30 01:13
PROVIDERS: ADMIT Internal Medicine; ATTEND Internal Medicine
PROC: 5A2204Z Restoration of Cardiac Rhythm, Single (ICD-10-PCS; 2016-10-30)
PROC: B246ZZ4 Ultrasonography of Right and Left Heart, Transesophageal (ICD-10-PCS; principal; 2016-10-30 14:00)
DX: I48.91 Unspecified atrial fibrillation (principal); I13.0 Hypertensive heart and chronic kidney disease with heart failure and stage 1 through stage 4 chronic kidney disease, or unspecified chronic kidney disease; I50.22 Chronic systolic (congestive) heart failure; I48.92 Unspecified atrial flutter; E03.9 Hypothyroidism, unspecified; M54.5 Low back pain; N18.9 Chronic kidney disease, unspecified; M79.7 Fibromyalgia; E78.5 Hyperlipidemia, unspecified; I42.9 Cardiomyopathy, unspecified
CPT/HCPCS: 36415; 71010-TC; 80048; 80053; 82550; 83735; 83880; 84100; 84439; 84443; 84484; 85025; 85610; 93005; 93010; 93312; 93325; 99285-25

== ENCOUNTER 2017-05-20 22:09 | Emergency (ER) | payer OTHER ==
[2017-05-20 22:16] VITALS: BP 139/80; PULSE 80; TEMP 97.6; BMI 41.5
== END 2017-05-20 23:58 | disposition left against medical advice (07) ==
LOC: JER 22:09
DX: Z53.21 Procedure and treatment not carried out due to patient leaving prior to being seen by health care provider (principal)
CPT/HCPCS: 99281-25

== ENCOUNTER 2018-07-12 15:57 | Emergency (ER) | payer OTHER ==
[2018-07-12 16:14] VITALS: BP 137/81; PULSE 79; TEMP 97.5; BMI 38.2
--- NOTE | 2018-07-12 16:15 | PDOC ---
History of Present Illness <Danny Sanchez - Last Filed: 07/12/18 19:04> <Luana Antonio - Last Filed: 07/12/18 21:06> - General Chief Complaint: Injury Stated Complaint: FALL Time Seen by Provider: 07/12/18 16:14 Past History - Past Medical History Anemia: No Cancer: Yes (adenoma sigmoid colon) Cardiac Disorders: Yes COPD: No CHF: Yes GI Disorders: Yes (GASTRITIS-H. PYLORI;DIVERTICULOSIS;COLON POLYPS) Disorders: Yes (CHRONIC RENAL INSUFFICIENCY) HTN: Yes Hypercholesterolemia: Yes - Surgical History Neurologic Surgery: Yes (c4,5,6 fusion 20 yrs) Orthopedic Surgery: Yes (lt knee rplacement;rt shoulder rotor cuff repair;) - Suicide/Smoking/Psychosocial Hx Smoking History: Never smoked Have you smoked in the past 12 months: No Hx Alcohol Use: No Drug/Substance Use Hx: No Substance Use Type: None Hx Substance Use Treatment: No <Danny Sanchez - Last Filed: 07/12/18 19:04> <Luana Antonio - Last Filed: 07/12/18 21:06> - Past Medical History Allergies/Adverse Reactions: Allergies Allergy/AdvReac Type Severity Reaction Status Date / Time pregabalin [From Lyrica] Allergy Verified 07/12/18 16:12 Home Medications: Ambulatory Orders Apixaban [Eliquis -] 5 mg PO BID #60 tablet 10/03/16 Potassium Chloride [K-Dur -] 40 meq PO DAILY #30 tab 10/03/16 hydrALAZINE HCL [Apresoline -] 25 mg PO BID #60 tablet 10/03/16 Amiodarone HCl [Cordarone -] 200 mg PO DAILY #30 tablet 10/11/16 Torsemide [Demadex -] 50 mg PO BID@0600,1400 #60 tablet 10/11/16 Duloxetine HCl [Cymbalta -] 60 mg PO DAILY 10/29/16 Gabapentin [Neurontin -] 600 mg PO HS 10/29/16 Meclizine HCl [Antivert -] 25 mg PO DAILY 10/29/16 Metoprolol Succinate [Toprol XL -] 75 mg PO BID 10/29/16 hydrALAZINE HCL [Apresoline -] 25 mg PO BID 10/29/16 traMADol HCL [Ultram -] 50 mg PO Q8H 10/29/16 Levothyroxine [Synthroid -] 50 mcg PO DAILY #30 tablet 10/31/16 Silver Sulfadiazine 1% Top Cr [Silvadene -] 1 applic TP DAILY #1 jar 10/31/16 *Physical Exam - Vital Signs Last Vital Signs Temp Pulse Resp BP Pulse Ox 97.5 F L 79 18 137/81 95 07/12/18 16:12 07/12/18 16:12 07/12/18 16:12 07/12/18 16:12 07/12/18 16:12 <Danny Sanchez - Last Filed: 07/12/18 19:04> - Vital Signs Last Vital Signs Temp Pulse Resp BP Pulse Ox 97.5 F L 79 18 137/81 95 07/12/18 16:12 07/12/18 16:12 07/12/18 16:12 07/12/18 16:12 07/12/18 16:12 <Luana Antonio - Last Filed: 07/12/18 21:06> Moderate Sedation - Procedure Monitoring Vital Signs: Procedure Monitoring Vital Signs Temperature 97.5 F L 07/12/18 16:12 Pulse Rate 79 07/12/18 16:12 Respiratory Rate 18 07/12/18 16:12 Blood Pressure 137/81 07/12/18 16:12 O2 Sat by Pulse Oximetry (%) 95 07/12/18 16:12 <Danny Sanchez - Last Filed: 07/12/18 19:04> - Procedure Monitoring Vital Signs: Procedure Monitoring Vital Signs Temperature 97.5 F L 07/12/18 16:12 Pulse Rate 79 07/12/18 16:12 Respiratory Rate 18 07/12/18 16:12 Blood Pressure 137/81 07/12/18 16:12 O2 Sat by Pulse Oximetry (%) 95 07/12/18 16:12 <Luana Antonio - Last Filed: 07/12/18 21:06> Procedures - Laceration/Wound Repair Posterior Head Wound Length: 2.6 to 5.0 cm Wound Explored: clean Wound's Depth, Shape: linear Wound Debrided: minimal Wound Repaired With: Jakin (6 Syed) Layer Closure: Yes (Hemostasis achieved) <Danny Sanchez - Last Filed: 07/12/18 19:04> *DC/Admit/Observation/Transfer <Danny Sanchez - Last Filed: 07/12/18 19:04> <Luana Antonio - Last Filed: 07/12/18 21:06> Diagnosis at time of Disposition: Occipital scalp laceration Qualifiers: Encounter type: initial encounter Qualified Code(s): S01.01XA - Laceration without foreign body of scalp, initial encounter Closed head injury Qualifiers: Encounter type: initial encounter Qualified Code(s): S09.90XA - Unspecified injury of head, initial encounter - Discharge Dispostion Disposition: HOME Condition at time of disposition: Stable - Referrals Referrals: Isaías Dumont MD [Primary Care Provider] - Paco Ortez MD [Staff Physician] - - Patient Instructions Printed Discharge Instructions: DI for Closed Head Injury, DI for Laceration Repair of the Scalp, DI for Laceration Repair -- Jakin Additional Instructions: please have your syed removed neck week If you have any neck pain follow up with Dr Paco Ortez
--- NOTE | 2018-07-12 18:24 | PDOC ---
Attending Attestation - HPI HPI: 07/12/18 18:27 The patient is a 67 year old female with a past medical history of afib, aflutter, chronic pain, not compliant eliquis, vertebroplasty, hypertension, hyperlipidemia, CHF, and sigmoid colon adenoma who presents to the emergency department for evaluation of head laceration s/p fall. Patient reports falling back and striking the back of her head on a brick wall while trying to brace herself from falling down her stairs by grabbing the side railing. She reports having frequent falls due to weakness in her right leg and an irregular staircase where the first step is several inches higher than the next step. Denies loss of consciousness. She reports constant substernal chest pain since the aforementioned incident. Patient reports she takes Eliquis, but states she has not been compliant because she cannot afford it. She endorses chronic back pain and states she normally uses a cane to ambulate. The patient denies shortness of breath, headache, dizziness, fevers, chills, nausea, vomiting, and any bowel/urinary issues. - Physicial Exam PE: 07/12/18 18:27 wnwd 67 y/o female in no acute distress head (+)4cm full thickness laceration on the occipital scalp. neck supple Heart RRR. No gallops, murmurs, or rubs. lungs clear to auscultation bilaterally (+)Reproducible sternal chest pain/ abd Obese, protuberant, soft belly. No midline tenderness on cervical spine. chronic low back pain ext no e/c/c, MAEx4 skin warm and dry,no rashes neuro A&Ox3,no gross focal neuro deficits, uses cane to ambulate - Medical Decision Making 07/12/18 18:27 Documentation prepared by Vangie Sanz, acting as manager medical affairs for Luana Antonio MD. 07/12/18 21:[address] Paco Ortez at 21:00. <Vangie Sanz - Last Filed: 07/12/18 21:15> - Resident Resident Name: Danny Sanchez - ED Attending Attestation I have performed the following: I have examined & evaluated the patient, The case was reviewed & discussed with the resident, I agree w/resident's findings & plan, Exceptions are as noted - Medical Decision Making 07/12/18 19:31 ct scan head : no acute intracranial pathology ct scan c spine: chronic nondisplaced type II odnotoid fracture wound closed w per imp;closed head trauma pt has not taken eliquis for this past year 07/12/18 20:24 07/12/18 21:01 I spoke with the neurosurgeon, Dr. Paco Ortez about the CT findings that showed a chronic nondisplaced type II odontoid fracture. If there is any concern or she is less symptomatic. He said that she could have a soft collar and follow-up with him in his office. Right now she has no complaints of any midline neck tenderness but states that she has fallen often, and then over the past few months has had some intermittent discomfort in the neck when she turns her head will refer her to Dr Ortez she is goingt o followup with Dr Dumont next week 07/13/18 02:57 <Luana Antonio - Last Filed: 07/13/18 02:57>
--- NOTE | 2018-07-13 12:09 | EKG ---
Test Reason : Blood Pressure : / mmHG Vent. Rate : 072 BPM Atrial Rate : 072 BPM P-R Int : 176 ms QRS Dur : 090 ms QT Int : 464 ms P-R-T Axes : 047 032 071 degrees QTc Int : 508 ms NORMAL SINUS RHYTHM POSSIBLE LEFT ATRIAL ENLARGEMENT PROLONGED QT ABNORMAL ECG WHEN COMPARED WITH ECG OF 30-OCT-2016 15:23, [place] INTERVAL HAS DECREASED Confirmed by YVONNE THOMPSON, TAISHA ([id number]) on 07/13/2018 12:09:16 PM Referred By: Confirmed By:TAISHA RUSSELL MD
== END 2018-07-12 21:24 | disposition home or self-care (01) ==
LOC: JER 15:57
PROC: 0HQ0XZZ Repair Scalp Skin, External Approach (ICD-10-PCS; principal; 2018-07-12)
DX: S01.01XA Laceration without foreign body of scalp, initial encounter (principal); W10.8XXA Fall (on) (from) other stairs and steps, initial encounter; Y93.89 Activity, other specified; Y92.018 Other place in single-family (private) house as the place of occurrence of the external cause; Y99.8 Other external cause status; I25.10 Atherosclerotic heart disease of native coronary artery without angina pectoris; I13.0 Hypertensive heart and chronic kidney disease with heart failure and stage 1 through stage 4 chronic kidney disease, or unspecified chronic kidney disease; N18.9 Chronic kidney disease, unspecified; I50.89 Other heart failure; E78.00 Pure hypercholesterolemia, unspecified; Z87.19 Personal history of other diseases of the digestive system; Z98.1 Arthrodesis status; Z96.652 Presence of left artificial knee joint
CPT/HCPCS: 12002; 70450-TC; 72125-TC; 93005; 93010; 99281-25

== ENCOUNTER 2020-04-25 14:29 | Inpatient (IN) | payer BC, OTHER ==
[2020-04-25] MEDS ORDERED: METOPROLOL TARTRATE 5 MG/5 ML VIAL IVPUSH ONE (15:38)
[2020-04-25 15:41] LABS: BASO % 0.6 % (0-2.0); EOS % 1.3 % (0-4.5); HEMATOCRIT 44.5 % (32.4-45.2); HEMOGLOBIN 15.3 GM/dL (10.7-15.3); LYMPH % 12.2 % (8-40); MCH 37.4 pg (25.7-33.7); MCHC 34.5 g/dl (32.0-36.0); MEAN CELL VOLUME 108.6 fl (80-96); MEAN PLT VOLUME 8.7 fl (7.5-11.1); MONO % 6.8 % (3.8-10.2); NEUT % 79.1 % (42.8-82.8); PLATELET COUNT 293 K/MM3 (134-434); RDW 15.9 % (11.6-15.6); WHITE BLOOD COUNT 9.8 K/mm3 (4.0-10.0)
[2020-04-25] MEDS ORDERED: ONDANSETRON 4 MG/2 ML VIAL IVPUSH ONE (15:41)
[2020-04-25] MEDS ORDERED: METOPROLOL TARTRATE 5 MG/5 ML VIAL ONE (15:43)
[2020-04-25] MEDS ORDERED: ONDANSETRON 4 MG/2 ML VIAL ONE (15:44)
[2020-04-25 15:48] LABS: INR 1.18 (0.83-1.09); PROTHROMBIN TIME (PATIENT) 14.5 SEC (9.7-13.0)
[2020-04-25 16:00] LABS: POTASSIUM 4.2 mmol/L (3.5-5.1)
[2020-04-25 16:02] LABS: CALCIUM 9.5 mg/dL (8.5-10.1)
[2020-04-25 16:03] LABS: BLOOD UREA NITROGEN 24.4 mg/dL (7-18)
[2020-04-25 16:06] LABS: CREATININE 1.6 mg/dL (0.55-1.3)
[2020-04-25 16:07] LABS: BILIRUBIN,TOTAL 0.7 mg/dL (0.2-1)
[2020-04-25 16:08] LABS: TOT PROT 7.2 g/dl (6.4-8.2)
[2020-04-25 16:11] LABS: N-TERMINAL BNP 8351.5 pg/ml (5-125)
[2020-04-25 16:36] LABS: BILIRUBIN,DIRECT 0.3 mg/dL (0.0-0.2)
[2020-04-25 17:15] LABS: ANISOCYTOSIS 2+; MACROCYTOSIS 2+; PLATELET ESTIMATE NORMAL
[2020-04-25] MEDS ORDERED: FUROSEMIDE 40 MG/4 ML INJECTABLE VIAL IVPUSH ONE (18:52)
[2020-04-25] MEDS ORDERED: FUROSEMIDE 40 MG/4 ML INJECTABLE VIAL ONE (19:33)
[2020-04-25] MEDS ORDERED: HEPARIN NA (PORCINE) 5,000 UNITS/ML 1ML VIAL ONE (22:46)
[2020-04-25] MEDS: HEPARIN NA (PORCINE) 5,000 UNITS/ML 1ML VIAL SQ SCH (23:28)
[2020-04-26] MEDS: HEPARIN NA (PORCINE) 5,000 UNITS/ML 1ML VIAL SQ SCH ×3 (05:49→22:14)
[2020-04-26] MEDS: FUROSEMIDE 40 MG/4 ML INJECTABLE VIAL IVPUSH SCH (09:10)
[2020-04-26 09:35] LABS: BASO % 0.7 % (0-2.0); HEMATOCRIT 40.4 % (32.4-45.2); HEMOGLOBIN 13.8 GM/dL (10.7-15.3); MCH 37.1 pg (25.7-33.7); MEAN PLT VOLUME 9.1 fl (7.5-11.1); MONO % 9.1 % (3.8-10.2); NEUT % 72.2 % (42.8-82.8); PLATELET COUNT 229 K/MM3 (134-434); RBC 3.71 M/mm3 (3.60-5.2); RDW 15.8 % (11.6-15.6); WHITE BLOOD COUNT 8.4 K/mm3 (4.0-10.0)
[2020-04-26 09:39] LABS: INR 1.16 (0.83-1.09)
[2020-04-26 09:41] LABS: ACTIVATED PTT 22.2 SECONDS (25.2-36.5)
[2020-04-26 09:48] LABS: POTASSIUM 3.4 mmol/L (3.5-5.1)
[2020-04-26 09:51] LABS: ALBUMIN 3.5 g/dl (3.4-5.0); MAGNESIUM 1.7 mg/dL (1.8-2.4)
[2020-04-26 09:52] LABS: BLOOD UREA NITROGEN 27.2 mg/dL (7-18)
[2020-04-26 09:54] LABS: CREATININE 1.6 mg/dL (0.55-1.3)
[2020-04-26 09:55] LABS: PHOSPHOROUS 4.8 mg/dL (2.5-4.9)
[2020-04-26 09:56] LABS: TOT PROT 6.2 g/dl (6.4-8.2)
[2020-04-26 09:57] LABS: BILIRUBIN,TOTAL 0.5 mg/dL (0.2-1)
[2020-04-26] MEDS ORDERED: FLU VACCINE (FLULAVAL) PF 60 MCG/0.5 ML SYRINGE 2020-2021 IM ONE (10:00)
[2020-04-26] MEDS ORDERED: POTASSIUM CHLORIDE TABS 20 MEQ TABLET.ER (FP) PO ONE (10:22)
[2020-04-26] MEDS: ACETAMINOPHEN 1000 MG/100 ML VIAL (NON FORMULARY) IVPB PRN (18:33)
[2020-04-26] MEDS: ATORVASTATIN CA 40 MG TABLET (FP) PO SCH (22:14)
[2020-04-27] MEDS: HEPARIN NA (PORCINE) 5,000 UNITS/ML 1ML VIAL SQ SCH ×3 (05:46→21:02)
[2020-04-27] MEDS: FUROSEMIDE 40 MG/4 ML INJECTABLE VIAL IVPUSH SCH (09:12)
[2020-04-27] MEDS: ASPIRIN 81 MG CHEWABLE TABLETS PO SCH (09:12)
[2020-04-27 09:13] LABS: BASO % 1.3 % (0-2.0); EOS % 3.2 % (0-4.5); HEMATOCRIT 39.1 % (32.4-45.2); HEMOGLOBIN 13.2 GM/dL (10.7-15.3); LYMPH % 12.8 % (8-40); MCH 37.2 pg (25.7-33.7); MCHC 33.8 g/dl (32.0-36.0); MEAN CELL VOLUME 110.1 fl (80-96); MEAN PLT VOLUME 9.1 fl (7.5-11.1); MONO % 10.6 % (3.8-10.2); NEUT % 72.1 % (42.8-82.8); PLATELET COUNT 223 K/MM3 (134-434); RBC 3.55 M/mm3 (3.60-5.2); RDW 16.2 % (11.6-15.6); WHITE BLOOD COUNT 7.5 K/mm3 (4.0-10.0)
[2020-04-27 09:31] LABS: POTASSIUM 3.5 mmol/L (3.5-5.1)
[2020-04-27 09:37] LABS: CALCIUM 8.8 mg/dL (8.5-10.1)
[2020-04-27 09:38] LABS: ALBUMIN 3.4 g/dl (3.4-5.0); BLOOD UREA NITROGEN 30.4 mg/dL (7-18)
[2020-04-27 09:41] LABS: CREATININE 1.6 mg/dL (0.55-1.3)
[2020-04-27 09:42] LABS: TOT PROT 6.2 g/dl (6.4-8.2)
[2020-04-27 09:43] LABS: BILIRUBIN,TOTAL 0.5 mg/dL (0.2-1)
[2020-04-27] MEDS ORDERED: MAGNESIUM SULF 50% (8.12 MEQ/2 ML-1 GM VIAL) IVPB ONE (11:46)
[2020-04-27] MEDS ORDERED: MAGNESIUM 1GM/D5W - 1 GM/100 ML IVPB IVPB ONE (12:00)
[2020-04-27] MEDS: POTASSIUM CHLORIDE ORAL LIQUID 20 MEQ/15 ML PO SCH ×2 (12:47→21:17)
[2020-04-27] MEDS: ACETAMINOPHEN 1000 MG/100 ML VIAL (NON FORMULARY) IVPB PRN (12:58)
[2020-04-27] MEDS: ATORVASTATIN CA 40 MG TABLET (FP) PO SCH (21:15)
[2020-04-27] MEDS: traMADol HCL 50 MG TABLET PO PRN (21:17)
[2020-04-28] MEDS: HEPARIN NA (PORCINE) 5,000 UNITS/ML 1ML VIAL SQ SCH ×3 (05:29→22:06)
[2020-04-28] MEDS: traMADol HCL 50 MG TABLET PO PRN ×3 (05:55→22:12)
[2020-04-28 07:51] LABS: BASO % 0.7 % (0-2.0); EOS % 3.8 % (0-4.5); HEMATOCRIT 39.2 % (32.4-45.2); HEMOGLOBIN 13.1 GM/dL (10.7-15.3); LYMPH % 18.1 % (8-40); MCH 36.9 pg (25.7-33.7); MCHC 33.5 g/dl (32.0-36.0); MEAN CELL VOLUME 110.4 fl (80-96); MEAN PLT VOLUME 9.1 fl (7.5-11.1); MONO % 10.8 % (3.8-10.2); NEUT % 66.6 % (42.8-82.8); PLATELET COUNT 253 K/MM3 (134-434); RBC 3.55 M/mm3 (3.60-5.2); WHITE BLOOD COUNT 7.2 K/mm3 (4.0-10.0)
[2020-04-28 07:58] LABS: POTASSIUM 4.4 mmol/L (3.5-5.1)
[2020-04-28 08:22] LABS: ALBUMIN 3.6 g/dl (3.4-5.0)
[2020-04-28 08:23] LABS: CALCIUM 9.3 mg/dL (8.5-10.1); MAGNESIUM 1.9 mg/dL (1.8-2.4)
[2020-04-28 08:26] LABS: CREATININE 1.6 mg/dL (0.55-1.3)
[2020-04-28 08:27] LABS: BILIRUBIN,TOTAL 0.6 mg/dL (0.2-1); TOT PROT 6.7 g/dl (6.4-8.2)
[2020-04-28] MEDS ORDERED: PT OWN MED DRAWER 7, Y5N ONE (09:00)
[2020-04-28] MEDS: POTASSIUM CHLORIDE ORAL LIQUID 20 MEQ/15 ML PO SCH ×2 (09:11→09:19)
[2020-04-28] MEDS: ASPIRIN 81 MG CHEWABLE TABLETS PO SCH (09:11)
[2020-04-28] MEDS: FUROSEMIDE 40 MG/4 ML INJECTABLE VIAL IVPUSH SCH (09:11)
[2020-04-28] MEDS: ATORVASTATIN CA 40 MG TABLET (FP) PO SCH (22:11)
[2020-04-29] MEDS: HEPARIN NA (PORCINE) 5,000 UNITS/ML 1ML VIAL SQ SCH ×3 (05:21→21:19)
[2020-04-29] MEDS: traMADol HCL 50 MG TABLET PO PRN ×3 (06:27→23:54)
[2020-04-29] MEDS: FUROSEMIDE 40 MG/4 ML INJECTABLE VIAL IVPUSH SCH (09:20)
[2020-04-29] MEDS: ASPIRIN 81 MG CHEWABLE TABLETS PO SCH (09:20)
[2020-04-29 09:43] LABS: POTASSIUM 4.5 mmol/L (3.5-5.1)
[2020-04-29 09:46] LABS: BASO % 0.5 % (0-2.0); EOS % 2.5 % (0-4.5); HEMATOCRIT 43.2 % (32.4-45.2); HEMOGLOBIN 14.6 GM/dL (10.7-15.3); LYMPH % 17.8 % (8-40); MCH 37.1 pg (25.7-33.7); MCHC 33.8 g/dl (32.0-36.0); MEAN CELL VOLUME 109.7 fl (80-96); MEAN PLT VOLUME 9.9 fl (7.5-11.1); MONO % 11.3 % (3.8-10.2); NEUT % 67.9 % (42.8-82.8); PLATELET COUNT 158 K/MM3 (134-434); RBC 3.94 M/mm3 (3.60-5.2); RDW 15.9 % (11.6-15.6); WHITE BLOOD COUNT 9.3 K/mm3 (4.0-10.0)
[2020-04-29 09:51] LABS: ALBUMIN 3.7 g/dl (3.4-5.0); CALCIUM 9.4 mg/dL (8.5-10.1)
[2020-04-29 09:54] LABS: BLOOD UREA NITROGEN 28.6 mg/dL (7-18); CREATININE 1.5 mg/dL (0.55-1.3)
[2020-04-29 09:56] LABS: BILIRUBIN,TOTAL 1.5 mg/dL (0.2-1); TOT PROT 6.9 g/dl (6.4-8.2)
[2020-04-29 11:16] LABS: ANISOCYTOSIS 2+; MACROCYTOSIS 2+; PLATELET ESTIMATE DECREASED
[2020-04-29] MEDS: ACETAMINOPHEN 325 MG TABLET (FP) PO PRN (17:38)
[2020-04-29] MEDS: DOCUSATE NA 100 MG/10 ML UNIT-DOSE CUPS PO SCH ×2 (18:04→21:25)
[2020-04-29] MEDS: ATORVASTATIN CA 40 MG TABLET (FP) PO SCH (21:19)
[2020-04-29 23:27] VITALS: BMI 38.2
[2020-04-30] MEDS: ACETAMINOPHEN 325 MG TABLET (FP) PO PRN ×3 (05:42→21:17)
[2020-04-30] MEDS: DOCUSATE NA 100 MG/10 ML UNIT-DOSE CUPS PO SCH ×4 (05:42→21:16)
[2020-04-30] MEDS: HEPARIN NA (PORCINE) 5,000 UNITS/ML 1ML VIAL SQ SCH ×3 (05:43→21:16)
[2020-04-30 06:39] LABS: BASO % 0.6 % (0-2.0); EOS % 3.6 % (0-4.5); HEMATOCRIT 36.9 % (32.4-45.2); HEMOGLOBIN 12.6 GM/dL (10.7-15.3); LYMPH % 13.9 % (8-40); MCH 37.2 pg (25.7-33.7); MCHC 34.2 g/dl (32.0-36.0); MEAN CELL VOLUME 108.8 fl (80-96); MONO % 14.9 % (3.8-10.2); PLATELET COUNT 231 K/MM3 (134-434); RBC 3.39 M/mm3 (3.60-5.2); RDW 15.8 % (11.6-15.6)
[2020-04-30 07:00] LABS: POTASSIUM 3.4 mmol/L (3.5-5.1)
[2020-04-30] MEDS ORDERED: POTASSIUM CHLORIDE TABS 20 MEQ TABLET.ER (FP) PO ONE (07:01)
[2020-04-30 07:11] LABS: CALCIUM 8.9 mg/dL (8.5-10.1)
[2020-04-30 07:12] LABS: ALBUMIN 3.3 g/dl (3.4-5.0); BLOOD UREA NITROGEN 30.9 mg/dL (7-18); MAGNESIUM 1.8 mg/dL (1.8-2.4)
[2020-04-30 07:15] LABS: CREATININE 1.6 mg/dL (0.55-1.3); PHOSPHOROUS 4.6 mg/dL (2.5-4.9)
[2020-04-30 07:16] LABS: BILIRUBIN,TOTAL 1.4 mg/dL (0.2-1); TOT PROT 6.2 g/dl (6.4-8.2)
[2020-04-30] MEDS: traMADol HCL 50 MG TABLET PO PRN (08:17)
[2020-04-30] MEDS: FUROSEMIDE 40 MG/4 ML INJECTABLE VIAL IVPUSH SCH (09:18)
[2020-04-30] MEDS: ASPIRIN 81 MG CHEWABLE TABLETS PO SCH (09:19)
[2020-04-30] MEDS ORDERED: FUROSEMIDE 40 MG/4 ML INJECTABLE VIAL IVPUSH ONE (14:57)
[2020-04-30] MEDS: ATORVASTATIN CA 40 MG TABLET (FP) PO SCH (21:17)
[2020-04-30] MEDS ORDERED: TRIMETHOBENZAMIDE HCL 300 MG CAPSULE PO ONE (21:38)
[2020-05-01] MEDS: ACETAMINOPHEN 325 MG TABLET (FP) PO PRN ×2 (05:51→13:47)
[2020-05-01] MEDS: DOCUSATE NA 100 MG/10 ML UNIT-DOSE CUPS PO SCH ×2 (06:21→13:50)
[2020-05-01] MEDS: HEPARIN NA (PORCINE) 5,000 UNITS/ML 1ML VIAL SQ SCH ×2 (06:21→13:50)
[2020-05-01] MEDS: FUROSEMIDE 40 MG/4 ML INJECTABLE VIAL IVPUSH SCH (10:11)
[2020-05-01] MEDS: ASPIRIN 81 MG CHEWABLE TABLETS PO SCH (10:11)
[2020-05-01 14:40] VITALS: BP 125/76; PULSE 94; TEMP 98
== END 2020-05-01 17:23 | disposition home or self-care (01) | DRG 291 ==
LOC: JER 14:29 → JERBED 16:27 → J4S 04-26 02:40
PROVIDERS: ADMIT Internal Medicine; ATTEND Internal Medicine
DX: I13.0 Hypertensive heart and chronic kidney disease with heart failure and stage 1 through stage 4 chronic kidney disease, or unspecified chronic kidney disease (principal); I50.23 Acute on chronic systolic (congestive) heart failure; J96.01 Acute respiratory failure with hypoxia; Z68.41 Body mass index [BMI] 40.0-44.9, adult; N18.9 Chronic kidney disease, unspecified; I48.91 Unspecified atrial fibrillation; E66.01 Morbid (severe) obesity due to excess calories; E78.5 Hyperlipidemia, unspecified; Z91.14 Patient's other noncompliance with medication regimen
CPT/HCPCS: 36415; 71045-TC-FY; 80053; 80061; 82248; 82550; 82607; 82728; 82746; 83036; 83615; 83721; 83735; 83880; 84100; 84439; 84443; 84484; 85025; 85610; 85730; 86140; 93005; 93010; 93306-TC; 94010; 94660; 94761; 97116-GP; 97161-GP; 99285-25; C9803; G0008; J0131; Q2036; U0003

== ENCOUNTER 2020-09-13 20:28 | Inpatient (IN) | payer BC, OTHER ==
[2020-09-13] MEDS ORDERED: dilTIAZem HCL 50 MG/10 ML - 10 ML VIAL IVPUSH ONE ×2 (21:08→21:29)
[2020-09-13] MEDS ORDERED: dilTIAZem HCL 125 MG/25 ML - 25 ML VIAL ONE ×2 (21:08→21:32)
[2020-09-13] MEDS ORDERED: SODIUM CHLORIDE 0.9% 1000 ML INFUS.BAG IV ONE (21:16)
[2020-09-13 21:22] LABS: BASO % 0.8 % (0-2.0); EOS % 2.2 % (0-4.5); HEMATOCRIT 33.8 % (32.4-45.2); HEMOGLOBIN 11.6 GM/dL (10.7-15.3); LYMPH % 18.9 % (8-40); MCH 37.4 pg (25.7-33.7); MCHC 34.3 g/dl (32.0-36.0); MEAN CELL VOLUME 109.2 fl (80-96); MEAN PLT VOLUME 7.9 fl (7.5-11.1); MONO % 10.2 % (3.8-10.2); NEUT % 67.9 % (42.8-82.8); PLATELET COUNT 395 K/MM3 (134-434); RBC 3.09 M/mm3 (3.60-5.2); RDW 15.1 % (11.6-15.6); WHITE BLOOD COUNT 9.6 K/mm3 (4.0-10.0)
[2020-09-13 21:30] LABS: INR 1.26 (0.83-1.09); PROTHROMBIN TIME (PATIENT) 15.1 SEC (9.7-13.0)
[2020-09-13 21:33] LABS: ACTIVATED PTT 27.7 SECONDS (25.2-36.5)
[2020-09-13] MEDS ORDERED: FUROSEMIDE 40 MG/4 ML INJECTABLE VIAL IVPUSH ONE (21:42)
[2020-09-13] MEDS ORDERED: MAGNESIUM SULF 50% (8.12 MEQ/2 ML-1 GM VIAL) IVPB ONE (21:44)
[2020-09-13] MEDS ORDERED: FUROSEMIDE 40 MG/4 ML INJECTABLE VIAL ONE (21:47)
[2020-09-13] MEDS ORDERED: MAGNESIUM SULFATE IN WATER 2 GM/50 ML IVPB IVPB ONE (21:47)
[2020-09-13 21:57] LABS: ALBUMIN 3.4 g/dl (3.4-5.0); BLOOD UREA NITROGEN 27.1 mg/dL (7-18); CALCIUM 9.3 mg/dL (8.5-10.1)
[2020-09-13 22:01] LABS: CREATININE 1.6 mg/dL (0.55-1.3)
[2020-09-13 22:02] LABS: BILIRUBIN,TOTAL 0.6 mg/dL (0.2-1); TOT PROT 6.9 g/dl (6.4-8.2)
[2020-09-13] MEDS ORDERED: METOPROLOL TARTRATE 50 MG TABLET (FP) PO ONE (22:22)
[2020-09-13 22:23] LABS: ANISOCYTOSIS 2+; PLATELET ESTIMATE NORMAL
[2020-09-13 22:24] LABS: MACROCYTOSIS 2+
[2020-09-13] MEDS ORDERED: METOPROLOL TARTRATE 5 MG/5 ML VIAL IVPUSH ONE (22:27)
[2020-09-13] MEDS ORDERED: METOPROLOL TARTRATE 5 MG/5 ML VIAL ONE (22:30)
[2020-09-14] MEDS ORDERED: METOPROLOL TARTRATE 5 MG/5 ML VIAL IVPUSH PRN (01:28)
[2020-09-14] MEDS ORDERED: ACETAMINOPHEN 325 MG TABLET (FP) ONE (02:33)
[2020-09-14] MEDS: ACETAMINOPHEN 500 MG TABLET (FP) PO PRN ×3 (02:35→22:12)
[2020-09-14] MEDS ORDERED: METOPROLOL TARTRATE 5 MG/5 ML VIAL ONE (02:46)
[2020-09-14 02:54] LABS: PH,URINE 5.5 (5.0-8.0); URINE APPEARANCE CLEAR; URINE BILIRUBIN NEGATIVE (NEGATIVE); URINE COLOR YELLOW; URINE GLUCOSE (UA) NEGATIVE (NEGATIVE); URINE KETONE NEGATIVE (NEGATIVE); URINE LEUK ESTERASE NEGATIVE (NEGATIVE); URINE NITRITE NEGATIVE (NEGATIVE); URINE PROTEIN NEGATIVE (NEGATIVE); URINE UROBILINOGEN 0.2 mg/dL (0.2-1.0)
[2020-09-14 04:05] VITALS: BMI 35.4
[2020-09-14 08:11] LABS: BASO % 0.7 % (0-2.0); EOS % 3.2 % (0-4.5); HEMOGLOBIN 11.3 GM/dL (10.7-15.3); LYMPH % 15.6 % (8-40); MCH 38.5 pg (25.7-33.7); MCHC 35.1 g/dl (32.0-36.0); MEAN CELL VOLUME 109.5 fl (80-96); NEUT % 66.5 % (42.8-82.8); PLATELET COUNT 354 K/MM3 (134-434); RBC 2.93 M/mm3 (3.60-5.2); WHITE BLOOD COUNT 7.9 K/mm3 (4.0-10.0)
[2020-09-14 08:25] LABS: ALBUMIN 3.1 g/dl (3.4-5.0); BLOOD UREA NITROGEN 29.8 mg/dL (7-18); CALCIUM 9.1 mg/dL (8.5-10.1)
[2020-09-14 08:28] LABS: CREATININE 1.5 mg/dL (0.55-1.3)
[2020-09-14 08:29] LABS: PHOSPHOROUS 4.8 mg/dL (2.5-4.9)
[2020-09-14 08:30] LABS: BILIRUBIN,TOTAL 0.7 mg/dL (0.2-1); TOT PROT 6.2 g/dl (6.4-8.2)
[2020-09-14] MEDS: ENOXAPARIN NA (PORCINE) 40 MG/0.4 ML DISP.SYRIN SQ SCH (09:27)
[2020-09-14] MEDS: ASPIRIN 81 MG CHEWABLE TABLETS PO SCH (09:27)
[2020-09-14] MEDS ORDERED: FUROSEMIDE 40 MG/4 ML INJECTABLE VIAL IVPUSH SCH (10:00)
[2020-09-14] MEDS: FUROSEMIDE 40 MG/4 ML INJECTABLE VIAL IVPUSH SCH ×2 (11:01→17:08)
[2020-09-14] MEDS ORDERED: POTASSIUM CHLORIDE TABS 20 MEQ TABLET.ER (FP) PO ONE (12:45)
[2020-09-14] MEDS ORDERED: METHIMAZOLE 5 MG TABLET PO SCH (12:45)
[2020-09-14] MEDS ORDERED: PT OWN MED DRAWER 7, Y5N ONE ×2 (14:33→21:44)
[2020-09-14] MEDS: METHIMAZOLE 5 MG TABLET PO SCH ×2 (14:57→21:45)
[2020-09-14] MEDS: ATORVASTATIN CA 40 MG TABLET (FP) PO SCH (21:46)
[2020-09-15] MEDS: FUROSEMIDE 40 MG/4 ML INJECTABLE VIAL IVPUSH SCH (05:58)
[2020-09-15] MEDS: ACETAMINOPHEN 500 MG TABLET (FP) PO PRN ×3 (05:59→22:00)
[2020-09-15] MEDS: METHIMAZOLE 5 MG TABLET PO SCH (05:59)
[2020-09-15 07:20] LABS: BASO % 0.9 % (0-2.0); EOS % 5.7 % (0-4.5); HEMATOCRIT 35.7 % (32.4-45.2); LYMPH % 22.2 % (8-40); MCH 37.6 pg (25.7-33.7); MCHC 33.5 g/dl (32.0-36.0); MEAN CELL VOLUME 112.1 fl (80-96); MEAN PLT VOLUME 8.5 fl (7.5-11.1); MONO % 12.8 % (3.8-10.2); NEUT % 58.4 % (42.8-82.8); PLATELET COUNT 382 K/MM3 (134-434); RBC 3.19 M/mm3 (3.60-5.2); RDW 15.4 % (11.6-15.6); WHITE BLOOD COUNT 7.9 K/mm3 (4.0-10.0)
[2020-09-15 07:37] LABS: ALBUMIN 3.2 g/dl (3.4-5.0)
[2020-09-15 07:42] LABS: BILIRUBIN,TOTAL 1.1 mg/dL (0.2-1); TOT PROT 6.7 g/dl (6.4-8.2)
[2020-09-15] MEDS: ASPIRIN 81 MG CHEWABLE TABLETS PO SCH (10:06)
[2020-09-15] MEDS: ENOXAPARIN NA (PORCINE) 40 MG/0.4 ML DISP.SYRIN SQ SCH (10:18)
[2020-09-15] MEDS: LIDOCAINE 5% TOPICAL PATCH TP SCH (10:18)
[2020-09-15 12:02] LABS: BLOOD UREA NITROGEN 32.4 mg/dL (7-18); CALCIUM 9.9 mg/dL (8.5-10.1); CREATININE 1.9 mg/dL (0.55-1.3); MAGNESIUM 2.1 mg/dL (1.8-2.4)
[2020-09-15] MEDS: METHIMAZOLE 10 MG TABLET PO SCH ×2 (14:06→21:59)
[2020-09-15] MEDS: oxyCODONE HCL 5 MG TABLET PO PRN (18:29)
[2020-09-15] MEDS: ATORVASTATIN CA 40 MG TABLET (FP) PO SCH (22:00)
[2020-09-15] MEDS: LIDOCAINE PATCH REMOVAL MC SCH (22:00)
[2020-09-16] MEDS ORDERED: PT OWN MED DRAWER 7, Y5N ONE (05:59)
[2020-09-16] MEDS: METHIMAZOLE 5 MG TABLET PO SCH (06:15)
[2020-09-16] MEDS: oxyCODONE HCL 5 MG TABLET PO PRN ×3 (06:17→21:11)
[2020-09-16] MEDS: METHIMAZOLE 10 MG TABLET PO SCH ×3 (06:37→21:11)
[2020-09-16 07:32] LABS: BASO % 0.5 % (0-2.0); EOS % 4.4 % (0-4.5); HEMATOCRIT 34.2 % (32.4-45.2); HEMOGLOBIN 11.4 GM/dL (10.7-15.3); LYMPH % 19.5 % (8-40); MCH 37.2 pg (25.7-33.7); MCHC 33.4 g/dl (32.0-36.0); MEAN CELL VOLUME 111.1 fl (80-96); MEAN PLT VOLUME 8.3 fl (7.5-11.1); MONO % 10.7 % (3.8-10.2); NEUT % 64.9 % (42.8-82.8); PLATELET COUNT 374 K/MM3 (134-434); RBC 3.08 M/mm3 (3.60-5.2)
[2020-09-16 07:48] LABS: CALCIUM 9.4 mg/dL (8.5-10.1)
[2020-09-16 07:52] LABS: CREATININE 2.1 mg/dL (0.55-1.3); PHOSPHOROUS 5.5 mg/dL (2.5-4.9)
[2020-09-16 07:53] LABS: BILIRUBIN,TOTAL 0.4 mg/dL (0.2-1); TOT PROT 6.4 g/dl (6.4-8.2)
[2020-09-16] MEDS: ENOXAPARIN NA (PORCINE) 40 MG/0.4 ML DISP.SYRIN SQ SCH (09:30)
[2020-09-16] MEDS: LIDOCAINE 5% TOPICAL PATCH TP SCH (09:30)
[2020-09-16] MEDS: ACETAMINOPHEN 500 MG TABLET (FP) PO PRN ×2 (10:47→15:48)
[2020-09-16] MEDS: ASPIRIN 81 MG CHEWABLE TABLETS PO SCH (10:48)
[2020-09-16] MEDS: FUROSEMIDE 40 MG/4 ML INJECTABLE VIAL IVPUSH SCH (10:49)
[2020-09-16] MEDS: ATORVASTATIN CA 40 MG TABLET (FP) PO SCH (21:10)
[2020-09-16] MEDS: LIDOCAINE PATCH REMOVAL MC SCH (21:10)
[2020-09-16] MEDS: BACLOFEN 10 MG TABLET (FP) PO SCH (23:15)
[2020-09-17] MEDS: METHIMAZOLE 10 MG TABLET PO SCH ×3 (06:18→21:41)
[2020-09-17 08:43] LABS: BASO % 1.1 % (0-2.0); EOS % 4.8 % (0-4.5); HEMATOCRIT 34.6 % (32.4-45.2); HEMOGLOBIN 11.6 GM/dL (10.7-15.3); LYMPH % 18.7 % (8-40); MCH 37.3 pg (25.7-33.7); MCHC 33.5 g/dl (32.0-36.0); MEAN CELL VOLUME 111.1 fl (80-96); MEAN PLT VOLUME 8.3 fl (7.5-11.1); MONO % 10.2 % (3.8-10.2); NEUT % 65.2 % (42.8-82.8); PLATELET COUNT 385 K/MM3 (134-434); RBC 3.12 M/mm3 (3.60-5.2); RDW 14.9 % (11.6-15.6); WHITE BLOOD COUNT 8.6 K/mm3 (4.0-10.0)
[2020-09-17 09:04] LABS: ALBUMIN 3.2 g/dl (3.4-5.0); CALCIUM 9.5 mg/dL (8.5-10.1)
[2020-09-17 09:05] LABS: BLOOD UREA NITROGEN 41.3 mg/dL (7-18); MAGNESIUM 1.9 mg/dL (1.8-2.4)
[2020-09-17 09:08] LABS: CREATININE 1.9 mg/dL (0.55-1.3); PHOSPHOROUS 5.2 mg/dL (2.5-4.9)
[2020-09-17 09:09] LABS: BILIRUBIN,TOTAL 0.5 mg/dL (0.2-1); TOT PROT 6.6 g/dl (6.4-8.2)
[2020-09-17] MEDS: FUROSEMIDE 40 MG/4 ML INJECTABLE VIAL IVPUSH SCH ×3 (10:31→15:13)
[2020-09-17] MEDS: ASPIRIN 81 MG CHEWABLE TABLETS PO SCH (10:31)
[2020-09-17] MEDS: BACLOFEN 10 MG TABLET (FP) PO SCH ×2 (10:31→21:40)
[2020-09-17] MEDS: LIDOCAINE 5% TOPICAL PATCH TP SCH (10:31)
[2020-09-17] MEDS: ENOXAPARIN NA (PORCINE) 40 MG/0.4 ML DISP.SYRIN SQ SCH (10:32)
[2020-09-17 11:58] LABS: ANISOCYTOSIS 0; MACROCYTOSIS 0; OVALOCYTE 1+; PLATELET ESTIMATE NORMAL; TEAR DROP CELLS 1+
[2020-09-17] MEDS ORDERED: GABAPENTIN 100 MG CAPSULE PO SCH (14:00)
[2020-09-17] MEDS: GABAPENTIN 100 MG CAPSULE PO SCH ×2 (15:13→21:41)
[2020-09-17] MEDS: LIDOCAINE PATCH REMOVAL MC SCH (21:40)
[2020-09-17] MEDS: ATORVASTATIN CA 40 MG TABLET (FP) PO SCH (21:41)
[2020-09-18] MEDS: METHIMAZOLE 10 MG TABLET PO SCH ×3 (06:20→21:32)
[2020-09-18] MEDS: FUROSEMIDE 40 MG/4 ML INJECTABLE VIAL IVPUSH SCH ×2 (06:20→15:00)
[2020-09-18 07:57] LABS: BASO % 0.5 % (0-2.0); EOS % 3.9 % (0-4.5); HEMATOCRIT 32.5 % (32.4-45.2); HEMOGLOBIN 11.1 GM/dL (10.7-15.3); LYMPH % 18.7 % (8-40); MCH 37.5 pg (25.7-33.7); MCHC 34.2 g/dl (32.0-36.0); MEAN CELL VOLUME 109.7 fl (80-96); MEAN PLT VOLUME 8.5 fl (7.5-11.1); MONO % 10.5 % (3.8-10.2); NEUT % 66.4 % (42.8-82.8); PLATELET COUNT 340 K/MM3 (134-434); RBC 2.97 M/mm3 (3.60-5.2); WHITE BLOOD COUNT 7.4 K/mm3 (4.0-10.0)
[2020-09-18 08:13] LABS: ALBUMIN 2.9 g/dl (3.4-5.0); CALCIUM 9.3 mg/dL (8.5-10.1); MAGNESIUM 1.8 mg/dL (1.8-2.4)
[2020-09-18 08:16] LABS: CREATININE 1.5 mg/dL (0.55-1.3)
[2020-09-18 08:17] LABS: PHOSPHOROUS 4.3 mg/dL (2.5-4.9)
[2020-09-18 08:18] LABS: BILIRUBIN,TOTAL 0.4 mg/dL (0.2-1); TOT PROT 5.8 g/dl (6.4-8.2)
[2020-09-18] MEDS: ASPIRIN 81 MG CHEWABLE TABLETS PO SCH (10:22)
[2020-09-18] MEDS: LIDOCAINE 5% TOPICAL PATCH TP SCH (10:22)
[2020-09-18] MEDS: BACLOFEN 10 MG TABLET (FP) PO SCH ×2 (10:22→21:31)
[2020-09-18] MEDS: GABAPENTIN 100 MG CAPSULE PO SCH ×2 (10:22→21:32)
[2020-09-18] MEDS: ENOXAPARIN NA (PORCINE) 40 MG/0.4 ML DISP.SYRIN SQ SCH (10:23)
[2020-09-18] MEDS ORDERED: POTASSIUM CHLORIDE TABS 20 MEQ TABLET.ER (FP) PO ONE (11:04)
[2020-09-18] MEDS: ATORVASTATIN CA 40 MG TABLET (FP) PO SCH (21:31)
[2020-09-18] MEDS: LIDOCAINE PATCH REMOVAL MC SCH (23:10)
[2020-09-19] MEDS: ACETAMINOPHEN 500 MG TABLET (FP) PO PRN (02:14)
[2020-09-19] MEDS: METHIMAZOLE 10 MG TABLET PO SCH ×2 (07:01→14:57)
[2020-09-19] MEDS: FUROSEMIDE 40 MG/4 ML INJECTABLE VIAL IVPUSH SCH (07:01)
[2020-09-19] MEDS: LIDOCAINE 5% TOPICAL PATCH TP SCH (09:57)
[2020-09-19] MEDS: GABAPENTIN 100 MG CAPSULE PO SCH (09:58)
[2020-09-19] MEDS: BACLOFEN 10 MG TABLET (FP) PO SCH (09:59)
[2020-09-19] MEDS: ASPIRIN 81 MG CHEWABLE TABLETS PO SCH (09:59)
[2020-09-19] MEDS: ENOXAPARIN NA (PORCINE) 40 MG/0.4 ML DISP.SYRIN SQ SCH ×2 (09:59→10:05)
[2020-09-19] MEDS: oxyCODONE HCL 5 MG TABLET PO PRN (10:10)
[2020-09-19] MEDS ORDERED: POTASSIUM CHLORIDE TABS 20 MEQ TABLET.ER (FP) PO ONE (10:16)
[2020-09-19 12:27] LABS: BASO % 0.8 % (0-2.0); HEMATOCRIT 31.8 % (32.4-45.2); HEMOGLOBIN 10.9 GM/dL (10.7-15.3); LYMPH % 13.7 % (8-40); MCH 37.4 pg (25.7-33.7); MCHC 34.4 g/dl (32.0-36.0); MEAN CELL VOLUME 108.7 fl (80-96); MEAN PLT VOLUME 8.4 fl (7.5-11.1); NEUT % 68.5 % (42.8-82.8); PLATELET COUNT 360 K/MM3 (134-434); RBC 2.92 M/mm3 (3.60-5.2); RDW 14.7 % (11.6-15.6); WHITE BLOOD COUNT 8.2 K/mm3 (4.0-10.0)
[2020-09-19 12:37] LABS: CALCIUM 9.3 mg/dL (8.5-10.1)
[2020-09-19 12:38] LABS: ALBUMIN 2.8 g/dl (3.4-5.0); BLOOD UREA NITROGEN 43.4 mg/dL (7-18); MAGNESIUM 1.6 mg/dL (1.8-2.4)
[2020-09-19 12:41] LABS: CREATININE 1.4 mg/dL (0.55-1.3); PHOSPHOROUS 3.9 mg/dL (2.5-4.9)
[2020-09-19 12:42] LABS: BILIRUBIN,TOTAL 0.4 mg/dL (0.2-1)
[2020-09-20 01:12] VITALS: BP 136/73; PULSE 110; TEMP 97.8
== END 2020-09-19 21:14 | DRG 291 ==
LOC: JER 20:28 → JERBED 23:52 → J4W 09-14 03:35
PROVIDERS: ADMIT Internal Medicine; ATTEND Student in an Organized Health Care Education/Training Program
DX: I13.0 Hypertensive heart and chronic kidney disease with heart failure and stage 1 through stage 4 chronic kidney disease, or unspecified chronic kidney disease (principal); I50.23 Acute on chronic systolic (congestive) heart failure; M48.56XA Collapsed vertebra, not elsewhere classified, lumbar region, initial encounter for fracture; M48.54XA Collapsed vertebra, not elsewhere classified, thoracic region, initial encounter for fracture; E05.90 Thyrotoxicosis, unspecified without thyrotoxic crisis or storm; M54.40 Lumbago with sciatica, unspecified side; I48.91 Unspecified atrial fibrillation; N18.9 Chronic kidney disease, unspecified; E66.9 Obesity, unspecified; Z68.35 Body mass index [BMI] 35.0-35.9, adult; W19.XXXA Unspecified fall, initial encounter; Y93.9 Activity, unspecified; Y92.89 Other specified places as the place of occurrence of the external cause; Y99.9 Unspecified external cause status
CPT/HCPCS: 36415; 70450-TC; 71045-TC-FY; 72100-TC-FY; 73523-TC-FY; 73610-TC-LT-FY; 73630-TC-LT; 80048; 80053; 81003; 82962; 83735; 83880; 84100; 84439; 84443; 84484; 85025; 85610; 85730; 93005; 93010; 93306-TC; 97116-GP; 97162-GP; 99285-25; C9803; J0475; U0003; U0005

== ENCOUNTER 2020-09-23 14:29 | Inpatient (IN) | payer BC ==
[2020-09-23] MEDS ORDERED: LACTATED RINGERS SOLUTION 1000 ML INFUS.BAG IV ONE ×2 (15:13→23:18)
[2020-09-23] MEDS ORDERED: ACETAMINOPHEN 1000 MG/100 ML VIAL (NON FORMULARY) IVPB ONE (15:13)
[2020-09-23] MEDS ORDERED: ACETAMINOPHEN INJECTION 100 ML IVPB ONE (15:24)
[2020-09-23 15:35] LABS: VENOUS BASE EXCESS 4.9 mmol/L (-2-2); VENOUS O2 SATURATION 61.9 % (70-80); VENOUS PH 7.381 (7.310-7.410)
[2020-09-23 15:36] LABS: BASO % 0.1 % (0-2.0); HEMATOCRIT 37.7 % (32.4-45.2); HEMOGLOBIN 12.5 GM/dL (10.7-15.3); LYMPH % 7.1 % (8-40); MCH 35.7 pg (25.7-33.7); MCHC 33.1 g/dl (32.0-36.0); MEAN CELL VOLUME 108.1 fl (80-96); MEAN PLT VOLUME 9.7 fl (7.5-11.1); MONO % 5.4 % (3.8-10.2); NEUT % 87.4 % (42.8-82.8); PLATELET COUNT 464 K/MM3 (134-434); RBC 3.49 M/mm3 (3.60-5.2); WHITE BLOOD COUNT 17.9 K/mm3 (4.0-10.0)
[2020-09-23] MEDS ORDERED: SODIUM CHLORIDE 0.9% 500 ML INFUS.BAG IV ONE (15:36)
[2020-09-23 15:43] LABS: INR 1.47 (0.83-1.09); PROTHROMBIN TIME (PATIENT) 17.6 SEC (9.7-13.0)
[2020-09-23 15:45] LABS: ACTIVATED PTT 27.9 SECONDS (25.2-36.5)
[2020-09-23 16:01] LABS: LACTIC ACID 3.2 mmol/L (0.4-2.0)
[2020-09-23 16:03] LABS: CHLORIDE 92 mmol/L (98-107); SODIUM 138 mmol/L (136-145)
[2020-09-23 16:06] LABS: ALBUMIN 2.5 g/dl (3.4-5.0); ANION GAP 15 MMOL/L (8-16); CO2 31 mmol/L (21-32); GLUCOSE,RANDOM 127 mg/dL (74-106)
[2020-09-23 16:09] LABS: CREATININE 2.7 mg/dL (0.55-1.3); SGOT/AST 49 U/L (15-37); SGPT/ALT 13 U/L (13-61)
[2020-09-23 16:10] LABS: TOT PROT 6.7 g/dl (6.4-8.2)
[2020-09-23 16:11] LABS: BILIRUBIN,TOTAL 1.1 mg/dL (0.2-1)
[2020-09-23 16:12] LABS: ALK PHOS 115 U/L (45-117); LDH 350 U/L (84-246)
[2020-09-23 16:21] LABS: BLOOD UREA NITROGEN 70.2 mg/dL (7-18)
[2020-09-23 16:25] LABS: ANISOCYTOSIS 1+; MACROCYTOSIS 0; PLATELET ESTIMATE NORMAL
[2020-09-23] MEDS ORDERED: PIPERACILLIN/TAZOB 2.25 GM 2.25 GM in DEXTROSE 5%-WATER - 50 ML IVPB ONE (16:29)
[2020-09-23] MEDS ORDERED: VANCOMYCIN HCL 1,500 MG in DEXTROSE 5%-WATER - 500 ML IVPB ONE (16:29)
[2020-09-23 16:44] LABS: N-TERMINAL BNP 23753.2 pg/ml (5-125)
[2020-09-23] MEDS ORDERED: VANCOMYCIN 500 MG VIAL (RESTRICTED TO ID ONLY) ONE (18:32)
[2020-09-23] MEDS ORDERED: VANCOMYCIN 1 GRAM (PRE-DOCKED) 1,000 MG/250 ML BAG IVPB ONE (18:32)
[2020-09-23] MEDS ORDERED: PIPERACILLIN/TAZOB 2.25 GM 2.25 GM/50 ML BAG IVPB ONE (18:33)
[2020-09-23] MEDS ORDERED: SODIUM CHLORIDE 1,000 ML IV STA (21:54)
[2020-09-24 00:07] LABS: LACTIC ACID 3.1 mmol/L (0.4-2.0)
[2020-09-24] MEDS ORDERED: LACTATED RINGERS SOLUTION 1000 ML INFUS.BAG IV ONE (00:49)
[2020-09-24 02:09] LABS: EPI CELLS >36 /uL (0-25.1); HYALINE CASTS 118 /uL (0-3.1); PH,URINE 5.5 (5.0-8.0); URINE APPEARANCE TURBID; URINE BACTERIA 524 /uL (0-1359); URINE BILIRUBIN 1+ (NEGATIVE); URINE COLOR DK YELLOW; URINE GLUCOSE (UA) NEGATIVE (NEGATIVE); URINE KETONE NEGATIVE (NEGATIVE); URINE LEUK ESTERASE 3+ (NEGATIVE); URINE NITRITE NEGATIVE (NEGATIVE); URINE PROTEIN 2+ (NEGATIVE); URINE RBC 64 /uL (0-23.9); URINE WBC 4280 /uL (0-25.8)
[2020-09-24] MEDS ORDERED: SODIUM CHLORIDE 0.9% 500 ML INFUS.BAG IV ONE (02:57)
[2020-09-24] MEDS: SODIUM CHLORIDE 1,000 ML IV SCH (04:36)
[2020-09-24] MEDS: KCL 10 MEQ IVPB 10 MEQ/100 ML INFUS.BAG IVPB SCH ×3 (05:27→07:42)
[2020-09-24] MEDS: HEPARIN NA (PORCINE) 5,000 UNITS/ML 1ML VIAL SQ SCH ×3 (05:28→21:12)
[2020-09-24] MEDS: METHIMAZOLE 10 MG TABLET (FP) PO SCH ×3 (05:59→21:11)
[2020-09-24] MEDS ORDERED: SODIUM CHLORIDE 500 ML IV STA (07:03)
[2020-09-24 07:22] LABS: BASO % 0.2 % (0-2.0); HEMATOCRIT 35.1 % (32.4-45.2); HEMOGLOBIN 11.7 GM/dL (10.7-15.3); MCH 35.9 pg (25.7-33.7); MCHC 33.2 g/dl (32.0-36.0); MEAN CELL VOLUME 108.2 fl (80-96); MONO % 4.1 % (3.8-10.2); NEUT % 91.7 % (42.8-82.8); PLATELET COUNT 403 K/MM3 (134-434); RBC 3.25 M/mm3 (3.60-5.2); RDW 15.9 % (11.6-15.6); WHITE BLOOD COUNT 11.3 K/mm3 (4.0-10.0)
[2020-09-24 07:44] LABS: BLOOD UREA NITROGEN 76.1 mg/dL (7-18); CALCIUM 7.8 mg/dL (8.5-10.1); MAGNESIUM 1.7 mg/dL (1.8-2.4)
[2020-09-24 07:48] LABS: CREATININE 3.2 mg/dL (0.55-1.3); LACTIC ACID 2.6 mmol/L (0.4-2.0); TOT PROT 5.3 g/dl (6.4-8.2)
[2020-09-24 07:58] LABS: ALBUMIN 1.9 g/dl (3.4-5.0)
[2020-09-24] MEDS ORDERED: PT OWN MED DRAWER 7, Y5N ONE ×2 (09:15→21:13)
[2020-09-24] MEDS ORDERED: DEXTROSE 5%-WATER - 50 ML IVPB ONE (09:16)
[2020-09-24] MEDS ORDERED: cefTRIAXone SODIUM 1 GM VIAL ONE (09:16)
[2020-09-24] MEDS: MUPIROCIN 2% TOPICAL OINTMENT FOR DECOLONIZATION NS SCH ×2 (09:25→21:12)
[2020-09-24] MEDS: BACLOFEN 10 MG TABLET (FP) PO SCH ×2 (09:26→21:13)
[2020-09-24] MEDS: GABAPENTIN 100 MG CAPSULE PO SCH ×2 (09:26→21:11)
[2020-09-24] MEDS: CEFTRIAXONE 1 GM in DEXTROSE 5%-WATER - 50 ML IVPB SCH (09:27)
[2020-09-24 10:08] LABS: ANISOCYTOSIS 2+; MACROCYTOSIS 2+; PLATELET ESTIMATE NORMAL
[2020-09-24 16:30] LABS: EPI CELLS >36 /uL (0-25.1); HYALINE CASTS 15 /uL (0-3.1); URINE APPEARANCE CLOUDY; URINE BACTERIA 11 /uL (0-1359); URINE BILIRUBIN 1+ (NEGATIVE); URINE COLOR DK YELLOW; URINE GLUCOSE (UA) NEGATIVE (NEGATIVE); URINE KETONE NEGATIVE (NEGATIVE); URINE LEUK ESTERASE 2+ (NEGATIVE); URINE NITRITE NEGATIVE (NEGATIVE); URINE PROTEIN 1+ (NEGATIVE); URINE RBC 27 /uL (0-23.9); URINE WBC 137 /uL (0-25.8)
[2020-09-24] MEDS ORDERED: MAGNESIUM SULF 50% (8.12 MEQ/2 ML-1 GM VIAL) IVPB ONE (16:36)
[2020-09-24] MEDS ORDERED: METOPROLOL TARTRATE 5 MG/5 ML VIAL IVPUSH ONE (20:34)
[2020-09-24] MEDS: ATORVASTATIN CA 40 MG TABLET (FP) PO SCH (21:12)
[2020-09-24] MEDS: CHLORHEXIDINE GLUCONATE 4% CLEANSER FOR DECOLONIZATION TP SCH (21:12)
[2020-09-25] MEDS: METHIMAZOLE 10 MG TABLET (FP) PO SCH ×2 (05:58→14:32)
[2020-09-25] MEDS: HEPARIN NA (PORCINE) 5,000 UNITS/ML 1ML VIAL SQ SCH ×3 (05:58→21:02)
[2020-09-25] MEDS ORDERED: METOPROLOL TARTRATE 5 MG/5 ML VIAL IVPUSH ONE (07:09)
[2020-09-25] MEDS: SODIUM CHLORIDE 1,000 ML IV SCH (07:27)
[2020-09-25 07:28] LABS: BASO % 0.2 % (0-2.0); EOS % 0.1 % (0-4.5); HEMATOCRIT 33.5 % (32.4-45.2); HEMOGLOBIN 11.2 GM/dL (10.7-15.3); MCH 35.9 pg (25.7-33.7); MCHC 33.4 g/dl (32.0-36.0); MEAN CELL VOLUME 107.7 fl (80-96); MEAN PLT VOLUME 10.3 fl (7.5-11.1); MONO % 5.3 % (3.8-10.2); NEUT % 90.4 % (42.8-82.8); PLATELET COUNT 396 K/MM3 (134-434); RBC 3.11 M/mm3 (3.60-5.2); RDW 15.9 % (11.6-15.6); WHITE BLOOD COUNT 10.2 K/mm3 (4.0-10.0)
[2020-09-25 07:29] LABS: ALBUMIN 1.7 g/dl (3.4-5.0); BLOOD UREA NITROGEN 87.5 mg/dL (7-18); MAGNESIUM 2.3 mg/dL (1.8-2.4)
[2020-09-25 07:34] LABS: BILIRUBIN,TOTAL 0.8 mg/dL (0.2-1); TOT PROT 5.1 g/dl (6.4-8.2)
[2020-09-25 07:40] LABS: CREATININE 3.5 mg/dL (0.55-1.3)
[2020-09-25] MEDS ORDERED: PT OWN MED DRAWER 7, Y5N ONE ×2 (09:01→17:37)
[2020-09-25] MEDS ORDERED: cefTRIAXone SODIUM 1 GM VIAL ONE (09:02)
[2020-09-25] MEDS ORDERED: DEXTROSE 5%-WATER - 50 ML IVPB ONE (09:02)
[2020-09-25] MEDS: CEFTRIAXONE 1 GM in DEXTROSE 5%-WATER - 50 ML IVPB SCH (09:15)
[2020-09-25] MEDS: GABAPENTIN 100 MG CAPSULE PO SCH ×2 (09:20→21:01)
[2020-09-25] MEDS: MUPIROCIN 2% TOPICAL OINTMENT FOR DECOLONIZATION NS SCH ×2 (09:21→21:02)
[2020-09-25] MEDS: BACLOFEN 10 MG TABLET (FP) PO SCH (09:21)
[2020-09-25] MEDS ORDERED: FUROSEMIDE 40 MG/4 ML INJECTABLE VIAL IVPUSH ONE (10:14)
[2020-09-25] MEDS ORDERED: PANTOPRAZOLE SODIUM 40 MG VIAL IVPUSH SCH (18:00)
[2020-09-25] MEDS: ACETAMINOPHEN 1000 MG/100 ML VIAL (NON FORMULARY) IVPB PRN (18:25)
[2020-09-25] MEDS: ATORVASTATIN CA 40 MG TABLET (FP) PO SCH (21:01)
[2020-09-25] MEDS: CHLORHEXIDINE GLUCONATE 4% CLEANSER FOR DECOLONIZATION TP SCH (21:01)
[2020-09-26] MEDS ORDERED: SODIUM CHLORIDE 500 ML IV STA (00:10)
[2020-09-26] MEDS: METHIMAZOLE 10 MG TABLET (FP) PO SCH ×4 (00:54→22:37)
[2020-09-26] MEDS: BACLOFEN 10 MG TABLET (FP) PO SCH ×3 (00:54→22:36)
[2020-09-26] MEDS: GABAPENTIN 100 MG CAPSULE PO SCH ×3 (00:56→22:37)
[2020-09-26] MEDS: HEPARIN NA (PORCINE) 5,000 UNITS/ML 1ML VIAL SQ SCH ×3 (06:11→22:35)
[2020-09-26 06:38] LABS: BASO % 0.3 % (0-2.0); EOS % 0.6 % (0-4.5); HEMATOCRIT 32.6 % (32.4-45.2); HEMOGLOBIN 10.6 GM/dL (10.7-15.3); LYMPH % 7.5 % (8-40); MCH 35.4 pg (25.7-33.7); MCHC 32.4 g/dl (32.0-36.0); MEAN CELL VOLUME 109.1 fl (80-96); MEAN PLT VOLUME 10.2 fl (7.5-11.1); MONO % 7.7 % (3.8-10.2); NEUT % 83.9 % (42.8-82.8); PLATELET COUNT 356 K/MM3 (134-434); RBC 2.99 M/mm3 (3.60-5.2); RDW 16.2 % (11.6-15.6); WHITE BLOOD COUNT 8.9 K/mm3 (4.0-10.0)
[2020-09-26 06:59] LABS: ALBUMIN 1.6 g/dl (3.4-5.0); CALCIUM 9.1 mg/dL (8.5-10.1)
[2020-09-26 07:00] LABS: BLOOD UREA NITROGEN 94.8 mg/dL (7-18)
[2020-09-26 07:01] LABS: MAGNESIUM 2.4 mg/dL (1.8-2.4)
[2020-09-26 07:03] LABS: CREATININE 3.6 mg/dL (0.55-1.3)
[2020-09-26 07:04] LABS: TOT PROT 4.6 g/dl (6.4-8.2)
[2020-09-26 07:05] LABS: BILIRUBIN,TOTAL 0.6 mg/dL (0.2-1)
[2020-09-26 09:09] LABS: ANISOCYTOSIS 1+; MACROCYTOSIS 1+; PLATELET ESTIMATE NORMAL; TOXIC GRANULATION 2+
[2020-09-26] MEDS ORDERED: DEXTROSE 5%-WATER - 50 ML IVPB ONE (09:20)
[2020-09-26] MEDS ORDERED: cefTRIAXone SODIUM 1 GM VIAL ONE (09:20)
[2020-09-26] MEDS: MUPIROCIN 2% TOPICAL OINTMENT FOR DECOLONIZATION NS SCH ×2 (09:59→22:36)
[2020-09-26] MEDS: CEFTRIAXONE 1 GM in DEXTROSE 5%-WATER - 50 ML IVPB SCH (09:59)
[2020-09-26] MEDS ORDERED: LACTATED RINGERS SOLUTION 1,000 ML/1,000 ML INFUS.BAG IV SCH (12:15)
[2020-09-26] MEDS: ACETAMINOPHEN 1000 MG/100 ML VIAL (NON FORMULARY) IVPB PRN (14:44)
[2020-09-26] MEDS: KCL 10 MEQ IVPB 10 MEQ/100 ML INFUS.BAG IVPB SCH ×3 (16:46→19:46)
[2020-09-26] MEDS ORDERED: PT OWN MED DRAWER 7, Y5N ONE (17:24)
[2020-09-26] MEDS ORDERED: ACETAMINOPHEN 1000 MG/100 ML VIAL (NON FORMULARY) IVPB ONE (20:21)
[2020-09-26] MEDS: CHLORHEXIDINE GLUCONATE 4% CLEANSER FOR DECOLONIZATION TP SCH (22:36)
[2020-09-26] MEDS: ATORVASTATIN CA 40 MG TABLET (FP) PO SCH (22:37)
[2020-09-26] MEDS: METOPROLOL TARTRATE 5 MG/5 ML VIAL IVPUSH PRN (22:45)
[2020-09-27] MEDS ORDERED: PT OWN MED DRAWER 7, Y5N ONE ×2 (03:03→13:58)
[2020-09-27] MEDS: METOPROLOL TARTRATE 5 MG/5 ML VIAL IVPUSH PRN ×4 (03:05→23:44)
[2020-09-27 06:40] LABS: BASO % 0.1 % (0-2.0); EOS % 1.9 % (0-4.5); HEMOGLOBIN 10.9 GM/dL (10.7-15.3); LYMPH % 7.4 % (8-40); MCH 35.8 pg (25.7-33.7); MEAN CELL VOLUME 108.2 fl (80-96); MONO % 9.2 % (3.8-10.2); NEUT % 81.4 % (42.8-82.8); PLATELET COUNT 354 K/MM3 (134-434); RBC 3.05 M/mm3 (3.60-5.2); RDW 16.6 % (11.6-15.6); WHITE BLOOD COUNT 12.1 K/mm3 (4.0-10.0)
[2020-09-27 06:57] LABS: ALBUMIN 1.7 g/dl (3.4-5.0); BLOOD UREA NITROGEN 88.9 mg/dL (7-18); CALCIUM 9.3 mg/dL (8.5-10.1); MAGNESIUM 2.1 mg/dL (1.8-2.4)
[2020-09-27 07:00] LABS: CREATININE 2.8 mg/dL (0.55-1.3)
[2020-09-27 07:02] LABS: BILIRUBIN,TOTAL 0.4 mg/dL (0.2-1); TOT PROT 4.8 g/dl (6.4-8.2)
[2020-09-27] MEDS: HEPARIN NA (PORCINE) 5,000 UNITS/ML 1ML VIAL SQ SCH ×3 (07:34→22:13)
[2020-09-27] MEDS: METHIMAZOLE 10 MG TABLET (FP) PO SCH ×3 (07:35→22:13)
[2020-09-27] MEDS ORDERED: cefTRIAXone SODIUM 1 GM VIAL ONE ×2 (09:04→09:05)
[2020-09-27] MEDS ORDERED: DEXTROSE 5%-WATER - 50 ML IVPB ONE (09:04)
[2020-09-27] MEDS: CEFTRIAXONE 1 GM in DEXTROSE 5%-WATER - 50 ML IVPB SCH (10:02)
[2020-09-27] MEDS: MUPIROCIN 2% TOPICAL OINTMENT FOR DECOLONIZATION NS SCH ×2 (10:13→22:13)
[2020-09-27] MEDS: BACLOFEN 10 MG TABLET (FP) PO SCH ×2 (10:17→22:13)
[2020-09-27] MEDS: GABAPENTIN 100 MG CAPSULE PO SCH ×2 (10:17→22:13)
[2020-09-27 10:23] LABS: ANISOCYTOSIS 1+; MACROCYTOSIS 0; PLATELET ESTIMATE NORMAL; TEAR DROP CELLS 1+
[2020-09-27] MEDS: LACTATED RINGERS SOLUTION 1,000 ML/1,000 ML INFUS.BAG IV SCH (11:00)
[2020-09-27] MEDS ORDERED: METOPROLOL TARTRATE 5 MG/5 ML VIAL IVPUSH ONE (12:17)
[2020-09-27] MEDS: METOPROLOL TARTRATE 50 MG TABLET (FP) PO SCH ×2 (14:00→22:13)
[2020-09-27] MEDS ORDERED: DEXTROSE 5%-WATER - 1,000 ML with POTASSIUM CHLORIDE 20 MEQ IV SCH (17:00)
[2020-09-27] MEDS: POTASSIUM CHLORIDE 20 MEQ in DEXTROSE 5%-WATER - 1,000 ML IV SCH (17:47)
[2020-09-27] MEDS ORDERED: METOPROLOL TARTRATE 25 MG TABLET (FP) PO ONE (19:57)
[2020-09-27] MEDS: CHLORHEXIDINE GLUCONATE 4% CLEANSER FOR DECOLONIZATION TP SCH (22:13)
[2020-09-27] MEDS: ATORVASTATIN CA 40 MG TABLET (FP) PO SCH (22:13)
[2020-09-27] MEDS: ACETAMINOPHEN 1000 MG/100 ML VIAL (NON FORMULARY) IVPB PRN (23:45)
[2020-09-28] MEDS ORDERED: PT OWN MED DRAWER 7, Y5N ONE ×4 (04:31→22:56)
[2020-09-28] MEDS: METHIMAZOLE 10 MG TABLET (FP) PO SCH ×3 (06:44→23:11)
[2020-09-28] MEDS: HEPARIN NA (PORCINE) 5,000 UNITS/ML 1ML VIAL SQ SCH ×3 (06:44→23:10)
[2020-09-28 07:00] LABS: BASO % 0.2 % (0-2.0); HEMATOCRIT 35.9 % (32.4-45.2); HEMOGLOBIN 11.7 GM/dL (10.7-15.3); LYMPH % 7.1 % (8-40); MCH 35.3 pg (25.7-33.7); MCHC 32.6 g/dl (32.0-36.0); MEAN CELL VOLUME 108.6 fl (80-96); MEAN PLT VOLUME 9.8 fl (7.5-11.1); MONO % 11.7 % (3.8-10.2); PLATELET COUNT 429 K/MM3 (134-434); RBC 3.31 M/mm3 (3.60-5.2); RDW 16.6 % (11.6-15.6); WHITE BLOOD COUNT 15.1 K/mm3 (4.0-10.0)
[2020-09-28 07:45] LABS: CALCIUM 9.3 mg/dL (8.5-10.1)
[2020-09-28 07:47] LABS: ALBUMIN 1.7 g/dl (3.4-5.0); BLOOD UREA NITROGEN 71.2 mg/dL (7-18); MAGNESIUM 2.2 mg/dL (1.8-2.4)
[2020-09-28 07:50] LABS: CREATININE 1.8 mg/dL (0.55-1.3)
[2020-09-28 07:51] LABS: BILIRUBIN,TOTAL 0.5 mg/dL (0.2-1); TOT PROT 4.8 g/dl (6.4-8.2)
[2020-09-28 08:27] LABS: ANISOCYTOSIS 1+; MACROCYTOSIS 1+; PLATELET ESTIMATE NORMAL
[2020-09-28] MEDS ORDERED: DEXTROSE 5%-WATER - 50 ML IVPB ONE (09:13)
[2020-09-28] MEDS ORDERED: cefTRIAXone SODIUM 1 GM VIAL ONE (09:13)
[2020-09-28] MEDS: MUPIROCIN 2% TOPICAL OINTMENT FOR DECOLONIZATION NS SCH ×2 (09:15→23:10)
[2020-09-28] MEDS: CEFTRIAXONE 1 GM in DEXTROSE 5%-WATER - 50 ML IVPB SCH (09:15)
[2020-09-28] MEDS: GABAPENTIN 100 MG CAPSULE PO SCH ×2 (09:16→23:11)
[2020-09-28] MEDS: POTASSIUM CHLORIDE 20 MEQ in DEXTROSE 5%-WATER - 1,000 ML IV SCH ×3 (09:16→23:10)
[2020-09-28] MEDS: METOPROLOL TARTRATE 50 MG TABLET (FP) PO SCH (09:16)
[2020-09-28] MEDS ORDERED: DEXTROSE 5%-WATER - 1,000 ML IV SCH (10:30)
[2020-09-28] MEDS: BACLOFEN 10 MG TABLET (FP) PO SCH ×2 (11:13→23:10)
[2020-09-28] MEDS ORDERED: ASPIRIN COATED 81 MG TABLET.EC PO SCH (12:15)
[2020-09-28] MEDS: ASPIRIN 81 MG CHEWABLE TABLETS PO SCH (14:57)
[2020-09-28] MEDS: METOPROLOL TARTRATE 5 MG/5 ML VIAL IVPUSH PRN ×2 (15:57→18:55)
[2020-09-28] MEDS: ACETAMINOPHEN 1000 MG/100 ML VIAL (NON FORMULARY) IVPB PRN (18:00)
[2020-09-28] MEDS: CHLORHEXIDINE GLUCONATE 4% CLEANSER FOR DECOLONIZATION TP SCH (23:10)
[2020-09-28] MEDS: ATORVASTATIN CA 40 MG TABLET (FP) PO SCH (23:11)
[2020-09-29] MEDS ORDERED: METOPROLOL TARTRATE 5 MG/5 ML VIAL IVPUSH ONE (03:12)
[2020-09-29] MEDS: HEPARIN NA (PORCINE) 5,000 UNITS/ML 1ML VIAL SQ SCH ×3 (06:43→21:02)
[2020-09-29] MEDS: METHIMAZOLE 10 MG TABLET (FP) PO SCH ×3 (06:43→21:01)
[2020-09-29] MEDS: POTASSIUM CHLORIDE 20 MEQ in DEXTROSE 5%-WATER - 1,000 ML IV SCH ×3 (07:00→16:30)
[2020-09-29 07:15] LABS: BASO % 0.6 % (0-2.0); EOS % 1.2 % (0-4.5); HEMATOCRIT 37.5 % (32.4-45.2); HEMOGLOBIN 12.1 GM/dL (10.7-15.3); LYMPH % 9.2 % (8-40); MCH 35.1 pg (25.7-33.7); MCHC 32.2 g/dl (32.0-36.0); MEAN PLT VOLUME 9.7 fl (7.5-11.1); PLATELET COUNT 527 K/MM3 (134-434); RBC 3.44 M/mm3 (3.60-5.2); RDW 16.7 % (11.6-15.6); WHITE BLOOD COUNT 19.7 K/mm3 (4.0-10.0)
[2020-09-29 07:48] LABS: ALBUMIN 1.9 g/dl (3.4-5.0); BLOOD UREA NITROGEN 59.2 mg/dL (7-18)
[2020-09-29 07:51] LABS: CREATININE 1.3 mg/dL (0.55-1.3)
[2020-09-29 07:53] LABS: BILIRUBIN,TOTAL 0.5 mg/dL (0.2-1); PHOSPHOROUS 2.8 mg/dL (2.5-4.9); TOT PROT 5.2 g/dl (6.4-8.2)
[2020-09-29] MEDS ORDERED: DEXTROSE 5%-WATER - 50 ML IVPB ONE (09:36)
[2020-09-29] MEDS ORDERED: cefTRIAXone SODIUM 1 GM VIAL ONE (09:36)
[2020-09-29 10:01] LABS: ANISOCYTOSIS 1+; MACROCYTOSIS 1+; PLATELET ESTIMATE INCREASED
[2020-09-29] MEDS: CEFTRIAXONE 1 GM in DEXTROSE 5%-WATER - 50 ML IVPB SCH (10:33)
[2020-09-29] MEDS: BACLOFEN 10 MG TABLET (FP) PO SCH ×2 (10:41→21:05)
[2020-09-29] MEDS: GABAPENTIN 100 MG CAPSULE PO SCH ×2 (10:41→21:02)
[2020-09-29] MEDS: ASPIRIN 81 MG CHEWABLE TABLETS PO SCH (10:41)
[2020-09-29] MEDS: LACTATED RINGERS SOLUTION 1,000 ML/1,000 ML INFUS.BAG IV SCH (11:00)
[2020-09-29] MEDS: ACETAMINOPHEN 1000 MG/100 ML VIAL (NON FORMULARY) IVPB PRN (14:27)
[2020-09-29] MEDS ORDERED: PT OWN MED DRAWER 7, Y5N ONE ×2 (14:41→17:34)
[2020-09-29] MEDS: ATORVASTATIN CA 40 MG TABLET (FP) PO SCH (21:01)
[2020-09-29] MEDS: CHLORHEXIDINE GLUCONATE 4% CLEANSER FOR DECOLONIZATION TP SCH (21:02)
[2020-09-30] MEDS ORDERED: PT OWN MED DRAWER 7, Y5N ONE ×3 (00:55→18:02)
[2020-09-30] MEDS: POTASSIUM CHLORIDE 20 MEQ in DEXTROSE 5%-WATER - 1,000 ML IV SCH ×2 (03:20→12:09)
[2020-09-30] MEDS: METHIMAZOLE 10 MG TABLET (FP) PO SCH ×3 (06:05→21:08)
[2020-09-30] MEDS: HEPARIN NA (PORCINE) 5,000 UNITS/ML 1ML VIAL SQ SCH ×3 (06:05→21:08)
[2020-09-30 07:07] LABS: BASO % 0.3 % (0-2.0); EOS % 1.5 % (0-4.5); HEMATOCRIT 39.2 % (32.4-45.2); HEMOGLOBIN 12.4 GM/dL (10.7-15.3); MCH 34.4 pg (25.7-33.7); MCHC 31.7 g/dl (32.0-36.0); MEAN CELL VOLUME 108.6 fl (80-96); MEAN PLT VOLUME 9.5 fl (7.5-11.1); MONO % 6.3 % (3.8-10.2); NEUT % 83.9 % (42.8-82.8); PLATELET COUNT 500 K/MM3 (134-434); RBC 3.61 M/mm3 (3.60-5.2); RDW 17.1 % (11.6-15.6); WHITE BLOOD COUNT 23.3 K/mm3 (4.0-10.0)
[2020-09-30 07:27] LABS: CALCIUM 9.3 mg/dL (8.5-10.1)
[2020-09-30 07:28] LABS: ALBUMIN 1.8 g/dl (3.4-5.0); BLOOD UREA NITROGEN 41.3 mg/dL (7-18); MAGNESIUM 1.8 mg/dL (1.8-2.4)
[2020-09-30 07:31] LABS: PHOSPHOROUS 2.9 mg/dL (2.5-4.9)
[2020-09-30 07:33] LABS: BILIRUBIN,TOTAL 0.4 mg/dL (0.2-1); TOT PROT 5.2 g/dl (6.4-8.2)
[2020-09-30] MEDS ORDERED: ACETAMINOPHEN 1000 MG/100 ML VIAL (NON FORMULARY) IVPB PRN (08:09)
[2020-09-30] MEDS: METOPROLOL TARTRATE 5 MG/5 ML VIAL IVPUSH PRN (08:55)
[2020-09-30] MEDS ORDERED: DEXTROSE 5%-WATER - 50 ML IVPB ONE (09:27)
[2020-09-30] MEDS ORDERED: cefTRIAXone SODIUM 1 GM VIAL ONE (09:27)
[2020-09-30] MEDS: ASPIRIN 81 MG CHEWABLE TABLETS PO SCH (09:56)
[2020-09-30] MEDS: GABAPENTIN 100 MG CAPSULE PO SCH ×2 (09:57→21:07)
[2020-09-30] MEDS: CEFTRIAXONE 1 GM in DEXTROSE 5%-WATER - 50 ML IVPB SCH (09:57)
[2020-09-30] MEDS: BACLOFEN 10 MG TABLET (FP) PO SCH ×2 (09:57→21:18)
[2020-09-30 10:36] LABS: ANISOCYTOSIS 1+; MACROCYTOSIS 2+; PLATELET ESTIMATE INCREASED
[2020-09-30] MEDS ORDERED: MAGNESIUM SULF 50% (8.12 MEQ/2 ML-1 GM VIAL) IVPB ONE (10:54)
[2020-09-30] MEDS: KCL 10 MEQ IVPB 10 MEQ/100 ML INFUS.BAG IVPB SCH ×3 (13:33→19:07)
[2020-09-30 18:11] LABS: ATYPICAL pANCA <1:20 titer (Neg:<1:20); C-ANCA <1:20 titer (Neg:<1:20)
[2020-09-30 19:45] LABS: EPI CELLS >36 /uL (0-25.1); HYALINE CASTS 6 /uL (0-3.1); URINE APPEARANCE CLEAR; URINE BACTERIA 95 /uL (0-1359); URINE BILIRUBIN NEGATIVE (NEGATIVE); URINE COLOR YELLOW; URINE GLUCOSE (UA) NEGATIVE (NEGATIVE); URINE KETONE NEGATIVE (NEGATIVE); URINE LEUK ESTERASE 1+ (NEGATIVE); URINE NITRITE NEGATIVE (NEGATIVE); URINE PROTEIN TRACE (NEGATIVE); URINE RBC 82 /uL (0-23.9); URINE UROBILINOGEN 0.2 mg/dL (0.2-1.0); URINE WBC 37 /uL (0-25.8)
[2020-09-30] MEDS ORDERED: CHLORHEXIDINE GLUCONATE 4% CLEANSER FOR DECOLONIZATION TP SCH (22:00)
[2020-09-30] MEDS ORDERED: ATORVASTATIN CA 40 MG TABLET (FP) PO SCH (22:00)
[2020-10-01] MEDS ORDERED: PT OWN MED DRAWER 7, Y5N ONE ×4 (00:14→17:24)
[2020-10-01] MEDS ORDERED: dilTIAZem HCL 50 MG/10 ML - 10 ML VIAL IVPUSH ONE ×2 (02:19→05:23)
[2020-10-01] MEDS ORDERED: dilTIAZem HCL 125 MG/25 ML - 25 ML VIAL ONE (02:24)
[2020-10-01] MEDS: METOPROLOL TARTRATE 5 MG/5 ML VIAL IVPUSH PRN ×2 (04:10→07:14)
[2020-10-01 06:07] LABS: BASO % 0.3 % (0-2.0); EOS % 0.9 % (0-4.5); HEMATOCRIT 36.3 % (32.4-45.2); HEMOGLOBIN 11.8 GM/dL (10.7-15.3); LYMPH % 7.6 % (8-40); MCH 34.7 pg (25.7-33.7); MCHC 32.4 g/dl (32.0-36.0); MEAN CELL VOLUME 107.1 fl (80-96); MEAN PLT VOLUME 9.1 fl (7.5-11.1); MONO % 4.8 % (3.8-10.2); NEUT % 86.4 % (42.8-82.8); RBC 3.39 M/mm3 (3.60-5.2); RDW 16.7 % (11.6-15.6); WHITE BLOOD COUNT 23.2 K/mm3 (4.0-10.0)
[2020-10-01 06:33] LABS: ALBUMIN 1.7 g/dl (3.4-5.0); BLOOD UREA NITROGEN 27.3 mg/dL (7-18); CALCIUM 9.4 mg/dL (8.5-10.1)
[2020-10-01 06:34] LABS: MAGNESIUM 1.7 mg/dL (1.8-2.4)
[2020-10-01 06:36] LABS: CREATININE 0.9 mg/dL (0.55-1.3)
[2020-10-01 06:37] LABS: PHOSPHOROUS 2.9 mg/dL (2.5-4.9)
[2020-10-01 06:38] LABS: BILIRUBIN,TOTAL 0.4 mg/dL (0.2-1); TOT PROT 4.7 g/dl (6.4-8.2)
[2020-10-01] MEDS: POTASSIUM CHLORIDE 20 MEQ in DEXTROSE 5%-WATER - 1,000 ML IV SCH ×2 (06:38→10:44)
[2020-10-01] MEDS: HEPARIN NA (PORCINE) 5,000 UNITS/ML 1ML VIAL SQ SCH ×3 (06:39→21:59)
[2020-10-01] MEDS: METHIMAZOLE 10 MG TABLET (FP) PO SCH ×2 (06:39→14:51)
[2020-10-01] MEDS ORDERED: cefTRIAXone SODIUM 1 GM VIAL ONE (08:33)
[2020-10-01] MEDS ORDERED: DEXTROSE 5%-WATER - 50 ML IVPB ONE (08:34)
[2020-10-01] MEDS: CEFTRIAXONE 1 GM in DEXTROSE 5%-WATER - 50 ML IVPB SCH (09:05)
[2020-10-01] MEDS: GABAPENTIN 100 MG CAPSULE PO SCH ×2 (09:06→21:59)
[2020-10-01] MEDS: BACLOFEN 10 MG TABLET (FP) PO SCH ×2 (09:06→21:59)
[2020-10-01] MEDS: ASPIRIN 81 MG CHEWABLE TABLETS PO SCH (09:06)
[2020-10-01 10:09] LABS: ANISOCYTOSIS 1+; MACROCYTOSIS 1+; PLATELET ESTIMATE INCREASED
[2020-10-01] MEDS ORDERED: POTASSIUM CHLORIDE 20 MEQ in DEXTROSE 5%-WATER - 1,000 ML IV SCH ×2 (10:41→10:44)
[2020-10-01] MEDS ORDERED: MAGNESIUM SULF 50% (8.12 MEQ/2 ML-1 GM VIAL) IVPB ONE (10:49)
[2020-10-01] MEDS ORDERED: DIGOXIN 0.5 MG/2 ML AMPUL IVPUSH ONE ×4 (11:03→23:30)
[2020-10-01] MEDS ORDERED: BANATROL PLUS POWDER PACKET PO SCH (14:00)
[2020-10-01] MEDS ORDERED: AMINO ACIDS/PROTEIN HYDROLYS 30 ML LIQUID.PKT PO SCH (17:30)
[2020-10-01] MEDS ORDERED: ACETAMINOPHEN 1000 MG/100 ML VIAL (NON FORMULARY) IVPB PRN (19:53)
[2020-10-01] MEDS: BANATROL PLUS POWDER PACKET PO SCH (21:58)
[2020-10-01] MEDS: ATORVASTATIN CA 40 MG TABLET (FP) PO SCH (21:59)
[2020-10-01] MEDS ORDERED: CHLORHEXIDINE GLUCONATE 4% CLEANSER FOR DECOLONIZATION TP SCH (22:00)
[2020-10-01] MEDS ORDERED: METHIMAZOLE 10 MG TABLET (FP) PO SCH (22:00)
[2020-10-02] MEDS: HEPARIN NA (PORCINE) 5,000 UNITS/ML 1ML VIAL SQ SCH ×3 (05:29→21:44)
[2020-10-02] MEDS: BANATROL PLUS POWDER PACKET PO SCH (05:29)
[2020-10-02 07:29] LABS: BASO % 0.2 % (0-2.0); EOS % 1.2 % (0-4.5); HEMATOCRIT 36.2 % (32.4-45.2); HEMOGLOBIN 11.6 GM/dL (10.7-15.3); LYMPH % 7.6 % (8-40); MCH 34.5 pg (25.7-33.7); MCHC 32.1 g/dl (32.0-36.0); MEAN CELL VOLUME 107.5 fl (80-96); MEAN PLT VOLUME 9.4 fl (7.5-11.1); MONO % 6.1 % (3.8-10.2); NEUT % 84.9 % (42.8-82.8); PLATELET COUNT 481 K/MM3 (134-434); RBC 3.36 M/mm3 (3.60-5.2); WHITE BLOOD COUNT 20.2 K/mm3 (4.0-10.0)
[2020-10-02 07:49] LABS: CHLORIDE 108 mmol/L (98-107); SODIUM 138 mmol/L (136-145)
[2020-10-02 08:01] LABS: ALBUMIN 1.7 g/dl (3.4-5.0); ANION GAP 9 MMOL/L (8-16); BLOOD UREA NITROGEN 19.6 mg/dL (7-18); CALCIUM 9.2 mg/dL (8.5-10.1); CO2 21 mmol/L (21-32); GLUCOSE,RANDOM 89 mg/dL (74-106); MAGNESIUM 1.8 mg/dL (1.8-2.4); PHOSPHOROUS 3.9 mg/dL (2.5-4.9)
[2020-10-02 08:02] LABS: TOT PROT 4.8 g/dl (6.4-8.2)
[2020-10-02 08:03] LABS: ALK PHOS 92 U/L (45-117); SGPT/ALT < 6 U/L (13-61)
[2020-10-02 08:04] LABS: BILIRUBIN,TOTAL 0.4 mg/dL (0.2-1); CREATININE 0.7 mg/dL (0.55-1.3); SGOT/AST 15 U/L (15-37)
[2020-10-02] MEDS: AMINO ACIDS/PROTEIN HYDROLYS 30 ML LIQUID.PKT PO SCH ×2 (08:10→17:10)
[2020-10-02] MEDS ORDERED: cefTRIAXone SODIUM 1 GM VIAL ONE (09:58)
[2020-10-02] MEDS ORDERED: PT OWN MED DRAWER 7, Y5N ONE ×2 (09:58→17:06)
[2020-10-02] MEDS ORDERED: DEXTROSE 5%-WATER - 50 ML IVPB ONE (09:59)
[2020-10-02] MEDS ORDERED: MULTIVIT-MINERALS ORAL LIQUID PO SCH (10:00)
[2020-10-02] MEDS: CEFTRIAXONE 1 GM in DEXTROSE 5%-WATER - 50 ML IVPB SCH (10:03)
[2020-10-02] MEDS: ASPIRIN 81 MG CHEWABLE TABLETS PO SCH (10:21)
[2020-10-02] MEDS: METHIMAZOLE 10 MG TABLET (FP) PO SCH (10:21)
[2020-10-02] MEDS: BACLOFEN 10 MG TABLET (FP) PO SCH ×2 (10:21→21:45)
[2020-10-02] MEDS: MULTIVIT-MINERALS ORAL LIQUID PO SCH (10:22)
[2020-10-02] MEDS: GABAPENTIN 100 MG CAPSULE PO SCH ×2 (10:22→21:45)
[2020-10-02 10:42] LABS: ANISOCYTOSIS 2+; MACROCYTOSIS 0; PLATELET ESTIMATE INCREASED
[2020-10-02] MEDS ORDERED: POTASSIUM CHLORIDE 20 MEQ in DEXTROSE 5%-WATER - 1,000 ML IV SCH (10:44)
[2020-10-02] MEDS ORDERED: SODIUM CHLORIDE 0.45% 1,000 ML IV SCH (12:00)
[2020-10-02] MEDS ORDERED: ACETAMINOPHEN 500 MG TABLET (FP) PO PRN (15:36)
[2020-10-02] MEDS: ATORVASTATIN CA 40 MG TABLET (FP) PO SCH (21:45)
[2020-10-02] MEDS ORDERED: ONDANSETRON 4 MG/2 ML VIAL IVPUSH ONE (22:23)
[2020-10-03] MEDS: HEPARIN NA (PORCINE) 5,000 UNITS/ML 1ML VIAL SQ SCH ×3 (05:51→22:33)
[2020-10-03 07:28] LABS: BASO % 0.2 % (0-2.0); EOS % 0.6 % (0-4.5); HEMATOCRIT 33.3 % (32.4-45.2); HEMOGLOBIN 10.8 GM/dL (10.7-15.3); LYMPH % 7.6 % (8-40); MCH 33.9 pg (25.7-33.7); MCHC 32.6 g/dl (32.0-36.0); MEAN CELL VOLUME 104.1 fl (80-96); MEAN PLT VOLUME 9.3 fl (7.5-11.1); MONO % 7.2 % (3.8-10.2); NEUT % 84.4 % (42.8-82.8); PLATELET COUNT 508 K/MM3 (134-434); RBC 3.19 M/mm3 (3.60-5.2); RDW 16.6 % (11.6-15.6); WHITE BLOOD COUNT 16.9 K/mm3 (4.0-10.0)
[2020-10-03 07:50] LABS: BLOOD UREA NITROGEN 17.5 mg/dL (7-18); MAGNESIUM 1.7 mg/dL (1.8-2.4)
[2020-10-03 07:51] LABS: ALBUMIN 1.7 g/dl (3.4-5.0); CALCIUM 9.1 mg/dL (8.5-10.1)
[2020-10-03 07:53] LABS: CREATININE 0.8 mg/dL (0.55-1.3)
[2020-10-03 07:54] LABS: PHOSPHOROUS 4.2 mg/dL (2.5-4.9)
[2020-10-03 07:55] LABS: BILIRUBIN,TOTAL 0.5 mg/dL (0.2-1)
[2020-10-03] MEDS: AMINO ACIDS/PROTEIN HYDROLYS 30 ML LIQUID.PKT PO SCH ×2 (08:43→17:36)
[2020-10-03] MEDS ORDERED: PT OWN MED DRAWER 7, Y5N ONE ×2 (09:17→16:59)
[2020-10-03] MEDS ORDERED: DEXTROSE 5%-WATER - 50 ML IVPB ONE (09:17)
[2020-10-03] MEDS ORDERED: cefTRIAXone SODIUM 1 GM VIAL ONE (09:17)
[2020-10-03] MEDS: MULTIVIT-MINERALS ORAL LIQUID PO SCH (09:54)
[2020-10-03] MEDS ORDERED: MAGNESIUM 1GM/D5W 100ML - 100 ML IVPB IVPB ONE (10:15)
[2020-10-03] MEDS: ASPIRIN 81 MG CHEWABLE TABLETS PO SCH (10:56)
[2020-10-03] MEDS: CEFTRIAXONE 1 GM in DEXTROSE 5%-WATER - 50 ML IVPB SCH (11:02)
[2020-10-03] MEDS: METHIMAZOLE 10 MG TABLET (FP) PO SCH (11:19)
[2020-10-03] MEDS: BACLOFEN 10 MG TABLET (FP) PO SCH ×2 (11:19→22:34)
[2020-10-03] MEDS: GABAPENTIN 100 MG CAPSULE PO SCH ×2 (12:03→22:34)
[2020-10-03] MEDS ORDERED: ONDANSETRON 4 MG/2 ML VIAL IVPUSH ONE ×2 (17:48→22:52)
[2020-10-03] MEDS: ATORVASTATIN CA 40 MG TABLET (FP) PO SCH (22:34)
[2020-10-04] MEDS ORDERED: METOCLOPRAMIDE HCL INJECTION 10 MG/2 ML VIAL IVPB ONE (01:22)
[2020-10-04] MEDS: HEPARIN NA (PORCINE) 5,000 UNITS/ML 1ML VIAL SQ SCH ×3 (06:22→22:42)
[2020-10-04 07:10] LABS: BASO % 0.5 % (0-2.0); EOS % 0.6 % (0-4.5); HEMOGLOBIN 12.1 GM/dL (10.7-15.3); LYMPH % 7.1 % (8-40); MCH 34.4 pg (25.7-33.7); MCHC 32.7 g/dl (32.0-36.0); MEAN CELL VOLUME 105.3 fl (80-96); MEAN PLT VOLUME 9.5 fl (7.5-11.1); MONO % 7.8 % (3.8-10.2); PLATELET COUNT 574 K/MM3 (134-434); RBC 3.52 M/mm3 (3.60-5.2); RDW 16.8 % (11.6-15.6); WHITE BLOOD COUNT 17.4 K/mm3 (4.0-10.0)
[2020-10-04] MEDS: AMINO ACIDS/PROTEIN HYDROLYS 30 ML LIQUID.PKT PO SCH ×2 (07:13→17:35)
[2020-10-04 07:39] LABS: CALCIUM 9.2 mg/dL (8.5-10.1)
[2020-10-04 07:40] LABS: ALBUMIN 2.1 g/dl (3.4-5.0); BLOOD UREA NITROGEN 19.9 mg/dL (7-18); MAGNESIUM 1.9 mg/dL (1.8-2.4)
[2020-10-04 07:43] LABS: CREATININE 1.1 mg/dL (0.55-1.3); PHOSPHOROUS 4.5 mg/dL (2.5-4.9)
[2020-10-04 07:44] LABS: BILIRUBIN,TOTAL 0.5 mg/dL (0.2-1)
[2020-10-04] MEDS: BACLOFEN 10 MG TABLET (FP) PO SCH ×2 (09:02→22:42)
[2020-10-04] MEDS: MULTIVIT-MINERALS ORAL LIQUID PO SCH (09:02)
[2020-10-04] MEDS: METHIMAZOLE 10 MG TABLET (FP) PO SCH (09:02)
[2020-10-04] MEDS: GABAPENTIN 100 MG CAPSULE PO SCH ×2 (09:02→22:43)
[2020-10-04] MEDS: ASPIRIN 81 MG CHEWABLE TABLETS PO SCH (09:02)
[2020-10-04 10:26] LABS: ANISOCYTOSIS 1+; MACROCYTOSIS 0; OVALOCYTE 1+; PLATELET ESTIMATE INCREASED
[2020-10-04] MEDS: CEFTRIAXONE 1 GM in DEXTROSE 5%-WATER - 50 ML IVPB SCH (11:00)
[2020-10-04] MEDS ORDERED: cefTRIAXone SODIUM 1 GM VIAL ONE (11:45)
[2020-10-04] MEDS ORDERED: DEXTROSE 5%-WATER - 50 ML IVPB ONE (11:45)
[2020-10-04] MEDS ORDERED: DEXTROSE 5%-0.45% SALINE 1,000 ML IV SCH (13:30)
[2020-10-04] MEDS: DEXTROSE 5%-0.45% SALINE 1,000 ML IV SCH (15:17)
[2020-10-04] MEDS: ATORVASTATIN CA 40 MG TABLET (FP) PO SCH (22:42)
[2020-10-05] MEDS ORDERED: ACETAMINOPHEN 1000 MG/100 ML VIAL (NON FORMULARY) IVPB ONE (03:45)
[2020-10-05] MEDS ORDERED: METOPROLOL TARTRATE 5 MG/5 ML VIAL IVPUSH ONE (04:46)
[2020-10-05] MEDS: HEPARIN NA (PORCINE) 5,000 UNITS/ML 1ML VIAL SQ SCH (06:06)
[2020-10-05] MEDS: AMINO ACIDS/PROTEIN HYDROLYS 30 ML LIQUID.PKT PO SCH ×2 (09:01→17:19)
[2020-10-05] MEDS ORDERED: DEXTROSE 5%-WATER - 50 ML IVPB ONE (09:05)
[2020-10-05] MEDS ORDERED: cefTRIAXone SODIUM 1 GM VIAL ONE (09:05)
[2020-10-05] MEDS ORDERED: METOPROLOL TARTRATE 5 MG/5 ML VIAL IVPUSH PRN (09:07)
[2020-10-05] MEDS: CEFTRIAXONE 1 GM in DEXTROSE 5%-WATER - 50 ML IVPB SCH (09:19)
[2020-10-05] MEDS: ASPIRIN 81 MG CHEWABLE TABLETS PO SCH (09:23)
[2020-10-05] MEDS: GABAPENTIN 100 MG CAPSULE PO SCH ×2 (09:23→21:44)
[2020-10-05] MEDS: METHIMAZOLE 10 MG TABLET (FP) PO SCH (09:23)
[2020-10-05] MEDS: BACLOFEN 10 MG TABLET (FP) PO SCH ×2 (09:23→21:43)
[2020-10-05] MEDS: MULTIVIT-MINERALS ORAL LIQUID PO SCH (09:23)
[2020-10-05 11:24] LABS: BASO % 0.3 % (0-2.0); HEMATOCRIT 29.1 % (32.4-45.2); HEMOGLOBIN 9.5 GM/dL (10.7-15.3); LYMPH % 9.2 % (8-40); MCH 34.2 pg (25.7-33.7); MCHC 32.5 g/dl (32.0-36.0); MEAN CELL VOLUME 105.2 fl (80-96); MEAN PLT VOLUME 9.4 fl (7.5-11.1); MONO % 11.8 % (3.8-10.2); NEUT % 77.7 % (42.8-82.8); PLATELET COUNT 410 K/MM3 (134-434); RBC 2.77 M/mm3 (3.60-5.2); RDW 17.3 % (11.6-15.6); WHITE BLOOD COUNT 14.1 K/mm3 (4.0-10.0)
[2020-10-05 11:44] LABS: CALCIUM 8.6 mg/dL (8.5-10.1)
[2020-10-05 11:45] LABS: ALBUMIN 1.7 g/dl (3.4-5.0); BLOOD UREA NITROGEN 18.6 mg/dL (7-18); MAGNESIUM 1.9 mg/dL (1.8-2.4)
[2020-10-05 11:48] LABS: CREATININE 1.2 mg/dL (0.55-1.3); PHOSPHOROUS 3.5 mg/dL (2.5-4.9)
[2020-10-05 11:50] LABS: BILIRUBIN,TOTAL 0.4 mg/dL (0.2-1); TOT PROT 4.9 g/dl (6.4-8.2)
[2020-10-05] MEDS: PANTOPRAZOLE SODIUM 40 MG VIAL IVPUSH SCH ×2 (14:06→21:47)
[2020-10-05] MEDS: METOPROLOL TARTRATE 5 MG/5 ML VIAL IVPUSH PRN ×2 (14:06→19:48)
[2020-10-05] MEDS ORDERED: PT OWN MED DRAWER 7, Y5N ONE ×2 (17:16→21:47)
[2020-10-05] MEDS: CHLORHEXIDINE GLUCONATE 4% CLEANSER FOR DECOLONIZATION TP SCH (21:43)
[2020-10-05] MEDS: MUPIROCIN 2% TOPICAL OINTMENT FOR DECOLONIZATION NS SCH (21:43)
[2020-10-05] MEDS: ATORVASTATIN CA 40 MG TABLET (FP) PO SCH (21:43)
[2020-10-05] MEDS ORDERED: ACETAMINOPHEN INJECTION 100 ML IVPB ONE (22:10)
[2020-10-05] MEDS: ACETAMINOPHEN 1000 MG/100 ML VIAL (NON FORMULARY) IVPB PRN (22:22)
[2020-10-05] MEDS ORDERED: METOPROLOL TARTRATE 5 MG/5 ML VIAL IVPUSH STA (22:46)
[2020-10-05 23:47] VITALS: BMI 34.4
[2020-10-06] MEDS ORDERED: PT OWN MED DRAWER 7, Y5N ONE ×3 (02:18→17:24)
[2020-10-06 07:06] LABS: BASO % 0.3 % (0-2.0); EOS % 2.2 % (0-4.5); HEMATOCRIT 27.3 % (32.4-45.2); LYMPH % 9.5 % (8-40); MCH 32.3 pg (25.7-33.7); MCHC 33.1 g/dl (32.0-36.0); MEAN CELL VOLUME 97.7 fl (80-96); MONO % 14.3 % (3.8-10.2); NEUT % 73.7 % (42.8-82.8); PLATELET COUNT 391 K/MM3 (134-434); RDW 23.2 % (11.6-15.6); WHITE BLOOD COUNT 9.9 K/mm3 (4.0-10.0)
[2020-10-06 07:17] LABS: ALBUMIN 1.7 g/dl (3.4-5.0); BLOOD UREA NITROGEN 16.8 mg/dL (7-18); CALCIUM 7.6 mg/dL (8.5-10.1); MAGNESIUM 1.7 mg/dL (1.8-2.4)
[2020-10-06 07:21] LABS: CREATININE 1.1 mg/dL (0.55-1.3)
[2020-10-06 07:22] LABS: BILIRUBIN,TOTAL 0.5 mg/dL (0.2-1); TOT PROT 4.5 g/dl (6.4-8.2)
[2020-10-06] MEDS: AMINO ACIDS/PROTEIN HYDROLYS 30 ML LIQUID.PKT PO SCH ×2 (08:27→17:29)
[2020-10-06] MEDS ORDERED: cefTRIAXone SODIUM 1 GM VIAL ONE (08:41)
[2020-10-06] MEDS ORDERED: DEXTROSE 5%-WATER - 50 ML IVPB ONE (08:41)
[2020-10-06] MEDS ORDERED: MAGNESIUM SULF 50% (8.12 MEQ/2 ML-1 GM VIAL) IVPB ONE (10:09)
[2020-10-06] MEDS: MULTIVIT-MINERALS ORAL LIQUID PO SCH (10:11)
[2020-10-06] MEDS: BACLOFEN 10 MG TABLET (FP) PO SCH (10:11)
[2020-10-06] MEDS: ASPIRIN 81 MG CHEWABLE TABLETS PO SCH (10:11)
[2020-10-06] MEDS: GABAPENTIN 100 MG CAPSULE PO SCH (10:11)
[2020-10-06] MEDS: METHIMAZOLE 10 MG TABLET (FP) PO SCH (10:12)
[2020-10-06] MEDS: CEFTRIAXONE 1 GM in DEXTROSE 5%-WATER - 50 ML IVPB SCH (10:15)
[2020-10-06] MEDS: MUPIROCIN 2% TOPICAL OINTMENT FOR DECOLONIZATION NS SCH ×2 (10:16→21:22)
[2020-10-06] MEDS: PANTOPRAZOLE SODIUM 40 MG VIAL IVPUSH SCH ×2 (10:16→21:23)
[2020-10-06] MEDS: METOPROLOL TARTRATE 5 MG/5 ML VIAL IVPUSH PRN ×3 (12:00→19:55)
[2020-10-06] MEDS: DEXTROSE 5%-0.45% SALINE 1,000 ML IV SCH ×3 (13:06→19:54)
[2020-10-06 14:45] LABS: HEMATOCRIT 31.7 % (32.4-45.2); HEMOGLOBIN 10.6 GM/dL (10.7-15.3); MCHC 33.4 g/dl (32.0-36.0); MEAN CELL VOLUME 95.8 fl (80-96); MEAN PLT VOLUME 8.4 fl (7.5-11.1); PLATELET COUNT 494 K/MM3 (134-434); RBC 3.31 M/mm3 (3.60-5.2); RDW 23.4 % (11.6-15.6); WHITE BLOOD COUNT 9.5 K/mm3 (4.0-10.0)
[2020-10-06] MEDS: ACETAMINOPHEN 1000 MG/100 ML VIAL (NON FORMULARY) IVPB PRN (19:30)
[2020-10-06] MEDS: CHLORHEXIDINE GLUCONATE 4% CLEANSER FOR DECOLONIZATION TP SCH (21:22)
[2020-10-06 21:29] LABS: HEMATOCRIT 28.3 % (32.4-45.2); HEMOGLOBIN 9.4 GM/dL (10.7-15.3); MCH 31.8 pg (25.7-33.7); MCHC 33.1 g/dl (32.0-36.0); MEAN CELL VOLUME 96.2 fl (80-96); MEAN PLT VOLUME 8.7 fl (7.5-11.1); PLATELET COUNT 456 K/MM3 (134-434); RBC 2.95 M/mm3 (3.60-5.2); RDW 23.1 % (11.6-15.6); WHITE BLOOD COUNT 6.6 K/mm3 (4.0-10.0)
[2020-10-07] MEDS: METOPROLOL TARTRATE 5 MG/5 ML VIAL IVPUSH PRN ×3 (05:23→20:24)
[2020-10-07 07:20] LABS: BASO % 0.7 % (0-2.0); EOS % 4.4 % (0-4.5); HEMATOCRIT 31.9 % (32.4-45.2); HEMOGLOBIN 10.5 GM/dL (10.7-15.3); LYMPH % 16.2 % (8-40); MCH 31.7 pg (25.7-33.7); MEAN CELL VOLUME 95.9 fl (80-96); MEAN PLT VOLUME 8.7 fl (7.5-11.1); NEUT % 52.7 % (42.8-82.8); PLATELET COUNT 446 K/MM3 (134-434); RBC 3.32 M/mm3 (3.60-5.2); RDW 23.2 % (11.6-15.6); WHITE BLOOD COUNT 5.5 K/mm3 (4.0-10.0)
[2020-10-07 07:36] LABS: ALBUMIN 1.7 g/dl (3.4-5.0); CALCIUM 8.2 mg/dL (8.5-10.1)
[2020-10-07 07:37] LABS: BLOOD UREA NITROGEN 14.1 mg/dL (7-18); MAGNESIUM 1.7 mg/dL (1.8-2.4)
[2020-10-07 07:40] LABS: CREATININE 0.9 mg/dL (0.55-1.3); PHOSPHOROUS 2.8 mg/dL (2.5-4.9)
[2020-10-07 07:41] LABS: BILIRUBIN,TOTAL 0.4 mg/dL (0.2-1); TOT PROT 4.5 g/dl (6.4-8.2)
[2020-10-07] MEDS ORDERED: MAGNESIUM SULF 50% (8.12 MEQ/2 ML-1 GM VIAL) IVPB ONE (08:25)
[2020-10-07 09:06] LABS: ANISOCYTOSIS 1+; MACROCYTOSIS 1+; PLATELET ESTIMATE NORMAL
[2020-10-07] MEDS ORDERED: PT OWN MED DRAWER 7, Y5N ONE ×3 (09:13→23:33)
[2020-10-07] MEDS ORDERED: cefTRIAXone SODIUM 1 GM VIAL ONE (09:14)
[2020-10-07] MEDS ORDERED: DEXTROSE 5%-WATER - 50 ML IVPB ONE (09:14)
[2020-10-07] MEDS: MUPIROCIN 2% TOPICAL OINTMENT FOR DECOLONIZATION NS SCH ×2 (09:19→21:11)
[2020-10-07] MEDS: PANTOPRAZOLE SODIUM 40 MG VIAL IVPUSH SCH ×2 (09:20→21:12)
[2020-10-07] MEDS: CEFTRIAXONE 1 GM in DEXTROSE 5%-WATER - 50 ML IVPB SCH (09:21)
[2020-10-07] MEDS: DEXTROSE 5%-0.45% SALINE 1,000 ML IV SCH ×2 (17:07→19:49)
[2020-10-07] MEDS: CHLORHEXIDINE GLUCONATE 4% CLEANSER FOR DECOLONIZATION TP SCH (21:12)
[2020-10-08] MEDS: METOPROLOL TARTRATE 5 MG/5 ML VIAL IVPUSH PRN ×4 (00:59→21:43)
[2020-10-08 06:41] LABS: HEMATOCRIT 29.9 % (32.4-45.2); HEMOGLOBIN 9.6 GM/dL (10.7-15.3); LYMPH % 15.2 % (8-40); MCH 31.8 pg (25.7-33.7); MCHC 32.2 g/dl (32.0-36.0); MEAN CELL VOLUME 98.7 fl (80-96); MEAN PLT VOLUME 8.7 fl (7.5-11.1); MONO % 25.2 % (3.8-10.2); NEUT % 56.6 % (42.8-82.8); PLATELET COUNT 452 10^3/uL (134-434); RBC 3.03 M/mm3 (3.60-5.2); RDW 23.4 % (11.6-15.6); WHITE BLOOD COUNT 5.7 K/mm3 (4.0-10.0)
[2020-10-08 07:00] LABS: CHLORIDE 102 mmol/L (98-107); SODIUM 130 mmol/L (136-145)
[2020-10-08 07:06] LABS: ANION GAP 9 MMOL/L (8-16); CO2 19 mmol/L (21-32); MAGNESIUM 1.3 mg/dL (1.8-2.4)
[2020-10-08 07:09] LABS: PHOSPHOROUS 2.2 mg/dL (2.5-4.9); SGOT/AST 9 U/L (15-37)
[2020-10-08 07:10] LABS: BILIRUBIN,TOTAL 0.5 mg/dL (0.2-1)
[2020-10-08 07:11] LABS: TOT PROT 3.6 g/dl (6.4-8.2)
[2020-10-08 07:12] LABS: ALK PHOS 62 U/L (45-117)
[2020-10-08 07:13] LABS: ALBUMIN 1.2 g/dl (3.4-5.0); CALCIUM 6.2 mg/dL (8.5-10.1); GLUCOSE,RANDOM 989 mg/dL (74-106); SGPT/ALT < 6 U/L (13-61)
[2020-10-08] MEDS ORDERED: MAGNESIUM SULF 50% (8.12 MEQ/2 ML-1 GM VIAL) IVPB ONE (08:11)
[2020-10-08] MEDS ORDERED: [UNRECOGNIZED DRUG - OTHER] IVPB SCH (08:14)
[2020-10-08] MEDS ORDERED: DEXTROSE IVPB SCH ×3 (08:14→20:19)
[2020-10-08] MEDS ORDERED: POTASSIUM CHLORIDE IVPB SCH ×3 (08:14→20:19)
[2020-10-08] MEDS ORDERED: MAGNESIUM SULFATE IVPB SCH ×3 (08:14→20:19)
[2020-10-08] MEDS ORDERED: KCL 10 MEQ IVPB 10 MEQ/100 ML INFUS.BAG IVPB SCH (08:15)
[2020-10-08] MEDS ORDERED: [UNRECOGNIZED DRUG - OTHER] IVPB SCH ×2 (08:23→20:19)
[2020-10-08] MEDS ORDERED: cefTRIAXone SODIUM 1 GM VIAL ONE (08:46)
[2020-10-08] MEDS ORDERED: PT OWN MED DRAWER 7, Y5N ONE ×2 (08:46→13:38)
[2020-10-08] MEDS ORDERED: DEXTROSE 5%-WATER - 50 ML IVPB ONE (08:46)
[2020-10-08] MEDS: CEFTRIAXONE 1 GM in DEXTROSE 5%-WATER - 50 ML IVPB SCH (09:00)
[2020-10-08] MEDS: PANTOPRAZOLE SODIUM 40 MG VIAL IVPUSH SCH ×2 (09:01→21:35)
[2020-10-08] MEDS: MUPIROCIN 2% TOPICAL OINTMENT FOR DECOLONIZATION NS SCH ×2 (09:02→21:35)
[2020-10-08 09:34] LABS: ANISOCYTOSIS 1+; MACROCYTOSIS 1+; PLATELET ESTIMATE NORMAL
[2020-10-08 12:48] LABS: BLOOD UREA NITROGEN 9.6 mg/dL (7-18)
[2020-10-08 12:51] LABS: CREATININE 0.8 mg/dL (0.55-1.3)
[2020-10-08 12:56] LABS: CALCIUM 8.5 mg/dL (8.5-10.1)
[2020-10-08 16:07] LABS: BLOOD UREA NITROGEN 9.5 mg/dL (7-18); CALCIUM 8.6 mg/dL (8.5-10.1)
[2020-10-08 16:10] LABS: CREATININE 0.8 mg/dL (0.55-1.3)
[2020-10-08] MEDS: CHLORHEXIDINE GLUCONATE 4% CLEANSER FOR DECOLONIZATION TP SCH (21:36)
[2020-10-09] MEDS ORDERED: PT OWN MED DRAWER 7, Y5N ONE ×2 (02:45→19:01)
[2020-10-09 06:42] LABS: BASO % 1.1 % (0-2.0); EOS % 2.1 % (0-4.5); HEMOGLOBIN 10.2 GM/dL (10.7-15.3); LYMPH % 18.4 % (8-40); MCH 31.6 pg (25.7-33.7); MCHC 32.8 g/dl (32.0-36.0); MEAN CELL VOLUME 96.3 fl (80-96); MEAN PLT VOLUME 7.9 fl (7.5-11.1); MONO % 28.4 % (3.8-10.2); PLATELET COUNT 460 10^3/uL (134-434); RBC 3.22 M/mm3 (3.60-5.2); RDW 22.5 % (11.6-15.6); WHITE BLOOD COUNT 7.1 K/mm3 (4.0-10.0)
[2020-10-09 06:55] LABS: CHLORIDE 110 mmol/L (98-107); SODIUM 140 mmol/L (136-145)
[2020-10-09 06:57] LABS: CALCIUM 8.1 mg/dL (8.5-10.1)
[2020-10-09 06:58] LABS: ANION GAP 6 MMOL/L (8-16); CO2 24 mmol/L (21-32); GLUCOSE,RANDOM 101 mg/dL (74-106); MAGNESIUM 2.2 mg/dL (1.8-2.4)
[2020-10-09 07:01] LABS: CREATININE 0.9 mg/dL (0.55-1.3); PHOSPHOROUS 3.3 mg/dL (2.5-4.9); SGOT/AST 7 U/L (15-37); SGPT/ALT < 6 U/L (13-61)
[2020-10-09 07:03] LABS: BILIRUBIN,TOTAL 0.4 mg/dL (0.2-1); TOT PROT 4.5 g/dl (6.4-8.2)
[2020-10-09 07:04] LABS: ALK PHOS 86 U/L (45-117)
[2020-10-09 07:18] LABS: ALBUMIN 1.5 g/dl (3.4-5.0)
[2020-10-09 09:22] LABS: ANISOCYTOSIS 1+; MACROCYTOSIS 1+; PLATELET ESTIMATE NORMAL
[2020-10-09] MEDS: MUPIROCIN 2% TOPICAL OINTMENT FOR DECOLONIZATION NS SCH ×2 (10:01→22:38)
[2020-10-09] MEDS ORDERED: DEXTROSE 5%-WATER - 50 ML IVPB ONE (10:54)
[2020-10-09] MEDS ORDERED: cefTRIAXone SODIUM 1 GM VIAL ONE (10:54)
[2020-10-09] MEDS: CEFTRIAXONE 1 GM in DEXTROSE 5%-WATER - 50 ML IVPB SCH (11:02)
[2020-10-09] MEDS: PANTOPRAZOLE SODIUM 40 MG VIAL IVPUSH SCH ×2 (11:02→22:38)
[2020-10-09] MEDS: METOPROLOL TARTRATE 5 MG/5 ML VIAL IVPUSH PRN ×2 (12:12→23:45)
[2020-10-09] MEDS: AMINO ACIDS/PROTEIN HYDROLYS 30 ML LIQUID.PKT PO SCH ×2 (12:14→17:48)
[2020-10-09] MEDS: CHLORHEXIDINE GLUCONATE 4% CLEANSER FOR DECOLONIZATION TP SCH (22:38)
[2020-10-10] MEDS ORDERED: PT OWN MED DRAWER 7, Y5N ONE ×5 (00:01→17:26)
[2020-10-10] MEDS: METOPROLOL TARTRATE 5 MG/5 ML VIAL IVPUSH PRN ×2 (04:29→21:00)
[2020-10-10 06:16] LABS: BASO % 0.8 % (0-2.0); EOS % 2.5 % (0-4.5); HEMATOCRIT 32.3 % (32.4-45.2); HEMOGLOBIN 10.4 GM/dL (10.7-15.3); LYMPH % 16.7 % (8-40); MCH 31.6 pg (25.7-33.7); MCHC 32.2 g/dl (32.0-36.0); MEAN CELL VOLUME 98.2 fl (80-96); MONO % 25.5 % (3.8-10.2); NEUT % 54.5 % (42.8-82.8); PLATELET COUNT 463 10^3/uL (134-434); RBC 3.29 M/mm3 (3.60-5.2); RDW 21.9 % (11.6-15.6); WHITE BLOOD COUNT 7.1 K/mm3 (4.0-10.0)
[2020-10-10 06:32] LABS: CHLORIDE 110 mmol/L (98-107); SODIUM 138 mmol/L (136-145)
[2020-10-10 06:34] LABS: ANION GAP 4 MMOL/L (8-16); BLOOD UREA NITROGEN 14.1 mg/dL (7-18); CO2 24 mmol/L (21-32)
[2020-10-10 06:35] LABS: ALBUMIN 1.4 g/dl (3.4-5.0); GLUCOSE,RANDOM 93 mg/dL (74-106); MAGNESIUM 1.9 mg/dL (1.8-2.4)
[2020-10-10 06:38] LABS: CREATININE 0.8 mg/dL (0.55-1.3); PHOSPHOROUS 3.3 mg/dL (2.5-4.9); SGOT/AST 10 U/L (15-37); SGPT/ALT < 6 U/L (13-61)
[2020-10-10 06:39] LABS: BILIRUBIN,TOTAL 0.2 mg/dL (0.2-1); TOT PROT 4.6 g/dl (6.4-8.2)
[2020-10-10 06:40] LABS: ALK PHOS 90 U/L (45-117)
[2020-10-10 08:32] LABS: ANISOCYTOSIS 1+; MACROCYTOSIS 0; PLATELET ESTIMATE NORMAL
[2020-10-10] MEDS ORDERED: cefTRIAXone SODIUM 1 GM VIAL ONE (08:35)
[2020-10-10] MEDS ORDERED: DEXTROSE 5%-WATER - 50 ML IVPB ONE (08:35)
[2020-10-10] MEDS: AMINO ACIDS/PROTEIN HYDROLYS 30 ML LIQUID.PKT PO SCH ×3 (08:48→17:29)
[2020-10-10] MEDS: PANTOPRAZOLE SODIUM 40 MG VIAL IVPUSH SCH ×2 (09:14→22:25)
[2020-10-10] MEDS: CEFTRIAXONE 1 GM in DEXTROSE 5%-WATER - 50 ML IVPB SCH (09:14)
[2020-10-10] MEDS: MUPIROCIN 2% TOPICAL OINTMENT FOR DECOLONIZATION NS SCH ×2 (09:15→22:25)
[2020-10-10] MEDS: CHLORHEXIDINE GLUCONATE 4% CLEANSER FOR DECOLONIZATION TP SCH (22:25)
[2020-10-11] MEDS ORDERED: PT OWN MED DRAWER 7, Y5N ONE ×2 (02:56→09:27)
[2020-10-11] MEDS ORDERED: cefTRIAXone SODIUM 1 GM VIAL ONE (09:27)
[2020-10-11] MEDS ORDERED: DEXTROSE 5%-WATER - 50 ML IVPB ONE (09:27)
[2020-10-11] MEDS: PANTOPRAZOLE SODIUM 40 MG VIAL IVPUSH SCH ×2 (09:46→21:32)
[2020-10-11] MEDS: AMINO ACIDS/PROTEIN HYDROLYS 30 ML LIQUID.PKT PO SCH ×3 (09:46→17:21)
[2020-10-11] MEDS: CEFTRIAXONE 1 GM in DEXTROSE 5%-WATER - 50 ML IVPB SCH (09:47)
[2020-10-11] MEDS: MUPIROCIN 2% TOPICAL OINTMENT FOR DECOLONIZATION NS SCH ×2 (10:20→21:31)
[2020-10-11] MEDS: CHLORHEXIDINE GLUCONATE 4% CLEANSER FOR DECOLONIZATION TP SCH (21:31)
[2020-10-12] MEDS ORDERED: cefTRIAXone SODIUM 1 GM VIAL ONE (08:46)
[2020-10-12] MEDS ORDERED: DEXTROSE 5%-WATER - 50 ML IVPB ONE (08:46)
[2020-10-12] MEDS: AMINO ACIDS/PROTEIN HYDROLYS 30 ML LIQUID.PKT PO SCH ×3 (08:50→17:13)
[2020-10-12] MEDS: CEFTRIAXONE 1 GM in DEXTROSE 5%-WATER - 50 ML IVPB SCH (09:00)
[2020-10-12] MEDS: PANTOPRAZOLE SODIUM 40 MG VIAL IVPUSH SCH (09:00)
[2020-10-12] MEDS: MUPIROCIN 2% TOPICAL OINTMENT FOR DECOLONIZATION NS SCH ×2 (09:00→21:12)
[2020-10-12] MEDS ORDERED: PT OWN MED DRAWER 7, Y5N ONE ×3 (09:50→17:12)
[2020-10-12] MEDS: PANTOPRAZOLE 40 MG TABLET PO SCH (21:11)
[2020-10-12] MEDS: CHLORHEXIDINE GLUCONATE 4% CLEANSER FOR DECOLONIZATION TP SCH (21:12)
[2020-10-13] MEDS ORDERED: PT OWN MED DRAWER 7, Y5N ONE ×2 (01:13→08:47)
[2020-10-13] MEDS: METOPROLOL TARTRATE 5 MG/5 ML VIAL IVPUSH PRN (01:17)
[2020-10-13] MEDS ORDERED: cefTRIAXone SODIUM 1 GM VIAL ONE (08:47)
[2020-10-13] MEDS ORDERED: DEXTROSE 5%-WATER - 50 ML IVPB ONE (08:47)
[2020-10-13] MEDS: AMINO ACIDS/PROTEIN HYDROLYS 30 ML LIQUID.PKT PO SCH ×3 (08:50→18:57)
[2020-10-13] MEDS: MUPIROCIN 2% TOPICAL OINTMENT FOR DECOLONIZATION NS SCH (09:22)
[2020-10-13] MEDS: CEFTRIAXONE 1 GM in DEXTROSE 5%-WATER - 50 ML IVPB SCH (09:23)
[2020-10-13] MEDS: PANTOPRAZOLE 40 MG TABLET PO SCH ×2 (09:23→21:22)
[2020-10-13 12:19] LABS: HEMATOCRIT 27.8 % (32.4-45.2); HEMOGLOBIN 9.1 GM/dL (10.7-15.3); MCH 31.3 pg (25.7-33.7); MCHC 32.6 g/dl (32.0-36.0); MEAN PLT VOLUME 7.8 fl (7.5-11.1); PLATELET COUNT 389 10^3/uL (134-434); RDW 20.3 % (11.6-15.6); WHITE BLOOD COUNT 5.4 K/mm3 (4.0-10.0)
[2020-10-13 12:37] LABS: CALCIUM 7.4 mg/dL (8.5-10.1)
[2020-10-13 12:38] LABS: BLOOD UREA NITROGEN 21.4 mg/dL (7-18); MAGNESIUM 1.5 mg/dL (1.8-2.4)
[2020-10-13 12:41] LABS: CREATININE 0.9 mg/dL (0.55-1.3)
[2020-10-13] MEDS ORDERED: ACETAMINOPHEN 325 MG TABLET (FP) PO PRN (15:10)
[2020-10-14] MEDS ORDERED: PT OWN MED DRAWER 7, Y5N ONE ×2 (02:33→18:01)
[2020-10-14] MEDS ORDERED: DEXTROSE 5%-WATER - 50 ML IVPB ONE (09:16)
[2020-10-14] MEDS ORDERED: cefTRIAXone SODIUM 1 GM VIAL ONE (09:16)
[2020-10-14] MEDS: PANTOPRAZOLE 40 MG TABLET PO SCH (09:22)
[2020-10-14] MEDS: AMINO ACIDS/PROTEIN HYDROLYS 30 ML LIQUID.PKT PO SCH ×3 (09:22→17:46)
[2020-10-14] MEDS: CEFTRIAXONE 1 GM in DEXTROSE 5%-WATER - 50 ML IVPB SCH (09:22)
[2020-10-14] MEDS ORDERED: MAGNESIUM SULF 50% (8.12 MEQ/2 ML-1 GM VIAL) IVPB ONE (14:00)
[2020-10-14 14:46] LABS: BASO % 0.7 % (0-2.0); EOS % 0.9 % (0-4.5); HEMATOCRIT 31.8 % (32.4-45.2); HEMOGLOBIN 10.3 GM/dL (10.7-15.3); LYMPH % 12.6 % (8-40); MCH 30.7 pg (25.7-33.7); MCHC 32.3 g/dl (32.0-36.0); MEAN PLT VOLUME 8.1 fl (7.5-11.1); MONO % 12.9 % (3.8-10.2); NEUT % 72.9 % (42.8-82.8); PLATELET COUNT 381 10^3/uL (134-434); RBC 3.35 M/mm3 (3.60-5.2); RDW 20.3 % (11.6-15.6); WHITE BLOOD COUNT 4.9 K/mm3 (4.0-10.0)
[2020-10-14 14:47] LABS: INR 1.51 (0.83-1.09); PROTHROMBIN TIME (PATIENT) 18.4 SEC (9.7-13.0)
[2020-10-14] MEDS ORDERED: PHYTONADIONE 10 MG/1 ML AMP IVPB ONE (14:58)
[2020-10-14 15:11] LABS: CALCIUM 7.5 mg/dL (8.5-10.1)
[2020-10-14 15:14] LABS: CREATININE 0.9 mg/dL (0.55-1.3)
[2020-10-14] MEDS: DEXTROSE 5%-0.45% SALINE 1,000 ML IV SCH (17:45)
[2020-10-14] MEDS ORDERED: ALTEPLASE 2 MG VIAL IVPUSH ONE (17:56)
[2020-10-14] MEDS ORDERED: CHLORHEXIDINE GLUCONATE 4% CLEANSER FOR DECOLONIZATION TP SCH (22:00)
[2020-10-14] MEDS ORDERED: MUPIROCIN 2% TOPICAL OINTMENT FOR DECOLONIZATION NS SCH (22:00)
[2020-10-15 07:01] LABS: INR 1.33 (0.83-1.09); PROTHROMBIN TIME (PATIENT) 16.2 SEC (9.7-13.0)
[2020-10-15 08:33] LABS: BASO % 0.9 % (0-2.0); EOS % 2.9 % (0-4.5); HEMATOCRIT 29.6 % (32.4-45.2); HEMOGLOBIN 9.2 GM/dL (10.7-15.3); LYMPH % 17.2 % (8-40); MCH 30.7 pg (25.7-33.7); MEAN PLT VOLUME 8.4 fl (7.5-11.1); MONO % 11.8 % (3.8-10.2); NEUT % 67.2 % (42.8-82.8); PLATELET COUNT 232 10^3/uL (134-434); RBC 2.99 M/mm3 (3.60-5.2); RDW 20.9 % (11.6-15.6); WHITE BLOOD COUNT 3.9 K/mm3 (4.0-10.0)
[2020-10-15 09:13] LABS: CALCIUM 7.4 mg/dL (8.5-10.1)
[2020-10-15 09:14] LABS: BLOOD UREA NITROGEN 20.5 mg/dL (7-18)
[2020-10-15] MEDS ORDERED: MAGNESIUM 2GM/50ML STERILE WATER IVPB IVPB ONE (09:15)
[2020-10-15 09:17] LABS: CREATININE 0.8 mg/dL (0.55-1.3)
[2020-10-15] MEDS ORDERED: cefTRIAXone SODIUM 1 GM VIAL ONE (09:50)
[2020-10-15] MEDS ORDERED: DEXTROSE 5%-WATER - 50 ML IVPB ONE (09:50)
[2020-10-15] MEDS: CEFTRIAXONE 1 GM in DEXTROSE 5%-WATER - 50 ML IVPB SCH (09:55)
[2020-10-15] MEDS: PANTOPRAZOLE 40 MG TABLET PO SCH (09:56)
[2020-10-15] MEDS: AMINO ACIDS/PROTEIN HYDROLYS 30 ML LIQUID.PKT PO SCH ×3 (09:56→17:18)
[2020-10-15 09:59] LABS: ANISOCYTOSIS 1+; MACROCYTOSIS 1+; PLATELET ESTIMATE NORMAL
[2020-10-15] MEDS: DEXTROSE 5%-0.45% SALINE 1,000 ML IV SCH ×2 (13:12→17:46)
[2020-10-15] MEDS ORDERED: PT OWN MED DRAWER 7, Y5N ONE (17:24)
[2020-10-15] MEDS ORDERED: METOPROLOL TARTRATE 5 MG/5 ML VIAL IVPUSH ONE (18:03)
[2020-10-15] MEDS ORDERED: METOPROLOL TARTRATE 5 MG/5 ML VIAL ONE (18:05)
[2020-10-16] MEDS ORDERED: DEXTROSE 5%-WATER - 50 ML IVPB ONE (09:35)
[2020-10-16] MEDS ORDERED: PT OWN MED DRAWER 7, Y5N ONE ×2 (09:35→17:35)
[2020-10-16] MEDS ORDERED: cefTRIAXone SODIUM 1 GM VIAL ONE (09:35)
[2020-10-16] MEDS: CEFTRIAXONE 1 GM in DEXTROSE 5%-WATER - 50 ML IVPB SCH (10:00)
[2020-10-16] MEDS: AMINO ACIDS/PROTEIN HYDROLYS 30 ML LIQUID.PKT PO SCH ×3 (10:00→17:55)
[2020-10-16] MEDS: PANTOPRAZOLE 40 MG TABLET PO SCH (10:00)
[2020-10-16 12:09] LABS: BASO % 0.8 % (0-2.0); EOS % 3.7 % (0-4.5); HEMATOCRIT 29.1 % (32.4-45.2); HEMOGLOBIN 9.4 GM/dL (10.7-15.3); LYMPH % 12.8 % (8-40); MCH 30.8 pg (25.7-33.7); MCHC 32.4 g/dl (32.0-36.0); MEAN CELL VOLUME 95.1 fl (80-96); MEAN PLT VOLUME 7.7 fl (7.5-11.1); MONO % 9.7 % (3.8-10.2); PLATELET COUNT 316 10^3/uL (134-434); RBC 3.06 M/mm3 (3.60-5.2); RDW 20.6 % (11.6-15.6)
[2020-10-16 12:36] LABS: CALCIUM 7.7 mg/dL (8.5-10.1)
[2020-10-16 12:37] LABS: BLOOD UREA NITROGEN 20.2 mg/dL (7-18)
[2020-10-16 12:40] LABS: CREATININE 0.7 mg/dL (0.55-1.3)
[2020-10-16] MEDS: DEXTROSE 5%-0.45% SALINE 1,000 ML IV SCH (13:56)
[2020-10-16] MEDS: TORSEMIDE 20 MG TABLET (FP) PO SCH (14:04)
[2020-10-16 18:32] LABS: MAGNESIUM 1.7 mg/dL (1.8-2.4)
[2020-10-17] MEDS ORDERED: PT OWN MED DRAWER 7, Y5N ONE ×3 (00:44→10:43)
[2020-10-17] MEDS: ACETAMINOPHEN 325 MG TABLET (FP) PO PRN (02:49)
[2020-10-17] MEDS: AMINO ACIDS/PROTEIN HYDROLYS 30 ML LIQUID.PKT PO SCH ×3 (08:40→17:47)
[2020-10-17 09:21] LABS: CALCIUM 7.6 mg/dL (8.5-10.1)
[2020-10-17 09:22] LABS: ALBUMIN 1.4 g/dl (3.4-5.0); BLOOD UREA NITROGEN 21.4 mg/dL (7-18)
[2020-10-17] MEDS ORDERED: DEXTROSE 5%-WATER - 50 ML IVPB ONE (09:24)
[2020-10-17] MEDS ORDERED: cefTRIAXone SODIUM 1 GM VIAL ONE (09:24)
[2020-10-17 09:25] LABS: CREATININE 0.8 mg/dL (0.55-1.3)
[2020-10-17 09:27] LABS: BILIRUBIN,TOTAL 0.2 mg/dL (0.2-1); TOT PROT 4.2 g/dl (6.4-8.2)
[2020-10-17] MEDS ORDERED: CEFTRIAXONE 1 GM in DEXTROSE 5%-WATER - 50 ML IVPB SCH (10:00)
[2020-10-17] MEDS: PANTOPRAZOLE 40 MG TABLET PO SCH (10:18)
[2020-10-17] MEDS: TORSEMIDE 20 MG TABLET (FP) PO SCH (10:18)
[2020-10-18] MEDS: ACETAMINOPHEN 325 MG TABLET (FP) PO PRN ×3 (02:53→22:01)
[2020-10-18] MEDS: AMINO ACIDS/PROTEIN HYDROLYS 30 ML LIQUID.PKT PO SCH ×3 (07:46→17:04)
[2020-10-18] MEDS: PANTOPRAZOLE 40 MG TABLET PO SCH (09:39)
[2020-10-18] MEDS: TORSEMIDE 20 MG TABLET (FP) PO SCH (10:20)
[2020-10-18] MEDS ORDERED: MAGNESIUM OXIDE 400 MG TABLET (FP) PO ONE (15:00)
[2020-10-19] MEDS: AMINO ACIDS/PROTEIN HYDROLYS 30 ML LIQUID.PKT PO SCH ×3 (08:10→17:40)
[2020-10-19] MEDS: TORSEMIDE 20 MG TABLET (FP) PO SCH (09:15)
[2020-10-19] MEDS: PANTOPRAZOLE 40 MG TABLET PO SCH (09:15)
[2020-10-19] MEDS: ACETAMINOPHEN 325 MG TABLET (FP) PO PRN ×2 (09:18→22:30)
[2020-10-20] MEDS: AMINO ACIDS/PROTEIN HYDROLYS 30 ML LIQUID.PKT PO SCH ×2 (09:00→13:03)
[2020-10-20] MEDS: TORSEMIDE 20 MG TABLET (FP) PO SCH (09:38)
[2020-10-20] MEDS: PANTOPRAZOLE 40 MG TABLET PO SCH (09:38)
[2020-10-20] MEDS: ACETAMINOPHEN 325 MG TABLET (FP) PO PRN (10:40)
[2020-10-20 12:10] VITALS: BP 112/60; PULSE 104; TEMP 98.9
[2020-10-20] MEDS ORDERED: NYSTATIN 100,000 UNIT/GM TOPICAL CREAM 15 GM TUBE TP SCH (22:00)
== END 2020-10-20 13:03 | DRG 871 ==
LOC: JER 14:29 → JERBED 15:37 → JICU 09-24 03:17 → J2W 10-01 20:14 → J7W 10-13 12:51 → JICU 10-14 15:06 → J6S 10-16 17:02
PROVIDERS: ADMIT Family Medicine; ATTEND Family Medicine
PROC: 0D9670Z Drainage of Stomach with Drainage Device, Via Natural or Artificial Opening (ICD-10-PCS; principal; 2020-09-26)
PROC: 05HB33Z Insertion of Infusion Device into Right Basilic Vein, Percutaneous Approach (ICD-10-PCS; 2020-10-05)
PROC: B54MZZA Ultrasonography of Right Upper Extremity Veins, Guidance (ICD-10-PCS; 2020-10-05)
DX: A41.9 Sepsis, unspecified organism (principal); R57.1 Hypovolemic shock; R65.21 Severe sepsis with septic shock; G92 Toxic encephalopathy; I13.0 Hypertensive heart and chronic kidney disease with heart failure and stage 1 through stage 4 chronic kidney disease, or unspecified chronic kidney disease; I50.22 Chronic systolic (congestive) heart failure; N17.9 Acute kidney failure, unspecified; N39.0 Urinary tract infection, site not specified; K56.7 Ileus, unspecified; E87.2 Acidosis; E87.0 Hyperosmolality and hypernatremia; K62.5 Hemorrhage of anus and rectum; K56.600 Partial intestinal obstruction, unspecified as to cause; N18.9 Chronic kidney disease, unspecified; I48.91 Unspecified atrial fibrillation; E05.90 Thyrotoxicosis, unspecified without thyrotoxic crisis or storm; K52.9 Noninfective gastroenteritis and colitis, unspecified; E66.9 Obesity, unspecified; I87.2 Venous insufficiency (chronic) (peripheral); M79.7 Fibromyalgia; Z68.35 Body mass index [BMI] 35.0-35.9, adult; E87.6 Hypokalemia; D64.9 Anemia, unspecified
CPT/HCPCS: 36415; 36430; 36511; 70450-TC; 71045-TC-FY; 74018-TC-FY; 74174-TC; 74176-TC; 76775-TC; 80048; 80053; 81003; 82436; 82570; 82607; 82728; 82803; 82962; 83520; 83605; 83615; 83735; 83880; 84100; 84133; 84155; 84165; 84300; 84439; 84443; 84484; 85025; 85027; 85610; 85730; 86038; 86140; 86160; 86225; 86256; 86769; 86850; 86900; 86901; 86922; 87040; 87045; 87046; 87086; 87177; 87186; 87209; 87324; 87328; 87329; 87425; 87449; 87798; 87804; 93005; 93010; 97116-GP; 97161-GP; 99291; C9803; J0131; J0475; J1644; J2997; P9017; P9034; P9038; P9058; U0003; U0005

== ENCOUNTER 2022-01-22 21:58 | Emergency (ER) | payer BC, OTHER ==
[2022-01-22] MEDS ORDERED: ASPIRIN 81 MG CHEWABLE TABLETS PO ONE (22:48)
[2022-01-22 22:56] VITALS: BP 187/111; PULSE 64; RESP 22; BMI 29.7
[2022-01-22] MEDS ORDERED: ASPIRIN 81 MG CHEWABLE TABLETS ONE (23:48)
[2022-01-23] LABS: INR 1.23 (0.83-1.09); PROTHROMBIN TIME (PATIENT) 14.2 SEC (9.7-13.0)
[2022-01-23 00:03] LABS: ACTIVATED PTT 34.7 SECONDS (25.2-36.5)
[2022-01-23 00:14] LABS: ALBUMIN 3.3 g/dl (3.4-5.0); BLOOD UREA NITROGEN 14.1 mg/dL (7-18); CALCIUM 9.2 mg/dL (8.5-10.1)
[2022-01-23 00:19] LABS: BILIRUBIN,TOTAL 0.6 mg/dL (0.2-1); TOT PROT 6.4 g/dl (6.4-8.2)
== END 2022-01-23 00:47 | disposition short-term general hospital (02) ==
LOC: JER 21:58
DX: R06.02 Shortness of breath (principal)
CPT/HCPCS: 36415; 71045-TC-FY; 80053; 82550; 83735; 84484; 85610; 85730; 93005; 93010; 99291; C9803-CS; U0003; U0005